=== PATIENT | female | born 1945 | race Caucasian/White ===

== ENCOUNTER → 2018-03-18 14:52 | Outpatient (CLI) | payer MEDICARE, SELFPAY ==
[2018-03-18 16:25] LABS: Absolute Neutrophil Count 2.9 X10^3/uL (2.0-7.7); Basophil# 0.02 X10^3/uL; Basophil% 0.4 % (0-1); Eosinophil# 0.09 X10^3/uL; Eosinophils% 1.8 % (0-5); Hemoglobin 10.5 g/dl (12.0-15.0); Lymphocyte % 33.9 % (19-41); Mean Corp Hgb Conc 30.9 g/gl (32-36); Mean Corpuscular Hgb 35.2 pg (27.0-32.0); Mean Corpuscular Volume 114.1 fL (81-99); Mean Platelet Vol. 12.8 fl (6.2-12.0); Neutrophil # 2.91 X10^3/uL (2.7-7.7); Neutrophil % 57.9 % (47-70); Platelet Count 167 K/mm3 (150-450); RBC Distribution Width CV 15.3 % (11.6-14.6); Red Blood Count 2.98 M/mm3 (4.2-5.4)
[2018-03-18 16:28] LABS: POSITIVE COUNT NO; POSITIVE DIFFERENTIAL NO; POSITIVE MORPHOLOGY NO
[2018-03-18 16:45] LABS: Vitamin B12 876 pg/mL (211-911); Vitamin D,25 Hydroxy 28.1 ng/mL (29.95-100.01)
[2018-03-18 16:56] LABS: ALB/GLOB Ratio 0.9 RATIO (0.9-2.4); AST(SGOT) 10 U/L (15-37); Alanine Aminotransfer ALT/SGPT 16 U/L (13-56); Albumin, Serum 3.2 g/dL (3.2-5.0); Alkaline Phosphatase 114 U/L (45-117); Anion Gap 11 (5-15); BUN 15 mg/dL (7-18); BUN/Creat Ratio 3.4 RATIO (10-20); Calcium,Total 8.2 mg/dL (8.5-10.1); Chloride 97 mmol/L (98-107); Creatinine, Serum 4.35 mg/dL (0.55-1.02); EST Glomerular Filtration Rate 11 mL/min (>60); Est Glom Filt Rate - Afr Amer 13 mL/min (>60); Globulin 3.5 g/dL (2.2-4.2); Glucose 91 mg/dL (74-106); Iron 58 ug/dL (50-170); Magnesium 1.8 mg/dL (1.6-2.6); Protein, Total 6.7 g/dL (6.4-8.2); Sodium Level 140 mmol/L (136-145)
== END ==
PROVIDERS: Family Provider Family Medicine; PCP Family Medicine; Visit Provider Family Medicine
DX: N18.9 Chronic kidney disease, unspecified (principal); D63.1 Anemia in chronic kidney disease; E53.8 Deficiency of other specified B group vitamins; E83.42 Hypomagnesemia; Z79.899 Other long term (current) drug therapy
CPT/HCPCS: 36415; 80053; 82306; 82607; 82746; 83540; 83735; 85025

== ENCOUNTER → 2018-05-19 12:05 | Outpatient (CLI) | payer MEDICARE, SELFPAY ==
--- NOTE | 2018-05-19 12:10 | RAD_ITS ---
STUDY: X-RAY - LUMBAR SPINE REASON FOR EXAM: Female, 72 years old. Lumbar radiculopathy. TECHNIQUE: 5 view(s) of the lumbar spine were obtained. COMPARISON: None FINDINGS: Normal lumbar lordosis. Mild levoscoliosis of the lower lumbar spine. Minimal degenerative anterolisthesis of L2 on L3. Normal vertebral bodies and endplates. Degenerative vacuum phenomenon with moderate L5-S1 disc space height narrowing. Right-sided L4-L5 disc space height narrowing with degenerative vacuum phenomenon. No acute fractures. No lytic or blastic lesions. Asymmetric L2-L3 degenerative facet arthropathy, right greater than left. Right lateral marginal spurs at L4-L5 disc level. The soft tissue structures are unremarkable. RAD/L/S Spine Min 4 Views IMPRESSION: 1. No acute fracture of the lumbar spine. 2. Minimal degenerative retrolisthesis of L2 on L3. 3. Right-sided L4-L5 disc space height narrowing with right lateral marginal spurs and degenerative vacuum phenomenon. 4. Moderate L5-S1 disc space height narrowing with degenerative vacuum phenomenon. Electronically Signed: Valente Dhillon MD at 9:34 EDT , Service support ,
--- NOTE | 2018-05-19 12:10 | RAD_ITS ---
STUDY: X-RAY - PELVIS AND BILATERAL HIPS REASON FOR EXAM: Female, 72 years old. Bilateral hip pain, right is worse. TECHNIQUE: Radiological exam, hip, bilateral, with pelvis when performed; 3-4 views COMPARISON: None. FINDINGS: There is a non-specific bowel gas pattern. Normal visualized soft tissue structures. Normal bilateral iliac wings, sacroiliac joints and visualized sacrum. Normal bilateral superior and inferior pubic rami. Normal pubic symphysis. Normal bilateral ischial tuberosities. 3 cannulated screws used to repair and old right femoral neck fracture with foreshortening of the right femoral neck. No acute refracture injury of the right hip. Normal right acetabulum. Normal right hip joint. Normal visualized left femoral head. Normal left acetabulum. Normal left hip joint. RAD/Hips B/L min 2 views w/ Pelvis IMPRESSION: 1. No acute fracture or dislocation of the pelvis and both hips. 2. Old fracture deformity of the right femoral neck with 3 cannulated screws penetrating the right neck and head through the femoral intertrochanteric bone. Electronically Signed: Valente hDillon MD at 10:21 EDT , Service support ,
== END ==
PROVIDERS: Family Provider Family Medicine; PCP Family Medicine; Visit Provider Family Medicine
DX: M25.551 Pain in right hip (principal); M25.552 Pain in left hip; M54.16 Radiculopathy, lumbar region
CPT/HCPCS: 72110; 73521

== ENCOUNTER → 2018-06-16 14:10 | Outpatient (CLI) | payer MEDICARE, SELFPAY ==
--- NOTE | 2018-06-16 14:12 | BI_ITS ---
MAMMOGRAPHY - BILATERAL SCREENING REASON FOR EXAM: Female, 72 years old. Routine annual screening examination. PERTINENT HISTORY: Non-contributory. TECHNIQUE: Digital bilateral breast shante (3D mammographic acquisition) in the CC and MLO projections. 2-D mediolateral oblique (MLO) and craniocaudad (CC) views of both breasts were obtained. CAD: Full Field Digital Mammography with Computer Added Detection was performed. COMPARISON: Comparison is made with prior examination dated June 27, 2015. FINDINGS: Breast Composition: The breasts are heterogeneously dense, which may obscure small masses. There is an 8.5 mm x 10 mm nodule in the inferior lateral portion of the right breast. Correlation with ultrasound is recommended. No other significant abnormalities are identified. BI/SCREENING MAMM (CAD), BILAT IMPRESSION: 10 mm x 8.5 mm well-defined nodule in the inferior lateral portion of the right breast. Correlation with ultrasound is recommended. ASSESSMENT CATEGORY: BIRADS Category 0: Incomplete. Need additional imaging evaluation. A letter regarding these results will be sent to the patient by the facility within 30 days. Approximately 10% of breast cancers are not detected by mammography. A normal mammogram should not delay biopsy of a clinically suspicious abnormality. [id number] Electronically Signed: Guicho Meeks MD at 15:35 EDT Tel [phone], Service support ,
--- NOTE | 2018-06-16 14:18 | BD_ITS ---
STUDY: DUAL ENERGY X-RAY ABSORPTIOMETRY / DXA REASON FOR EXAM: Female, 72 years old. Early menopause. Loss of height. History of prior right hip fracture. TECHNIQUE: Bone Mineral Density (BMD) measurements of lumbar spine and left hip were obtained. COMPARISON: None. FINDINGS: Lumbar Spine (L1-L4): g/cm2 (0.987) / T-score (-1.6) / Z-score (0.1) Findings are suggestive of osteopenia with a moderate fracture risk. Increased thoracic kyphosis. Left Femur Total: g/cm2 (0.601) / T-score (-3.2) / Z-score (-1.7) Left Femoral Neck: g/cm2 (0.660) / T-score (-2.7) / Z-score (-1.0) BD/Dexa Bone Density Study IMPRESSION: The patient is considered osteoporotic as outlined below according to World Elliott Organization (WHO) criteria with a high fracture risk. Reference Information: The T-score is the number of standard deviations above or below the standard which is normal for young adults at their peak bone mineral density. The World Health Organization (WHO) interprets the T-scores as follows: Above -1 Normal bone density Between -1 and -2.5 Osteopenia Equal to / or below -2.5 Osteoporosis As a practical clinical guideline, osteopenia may be graded as follows: Mild -1 through -1.5 Moderate -1.6 through -2.0 Severe -2.1 through -2.4 The Z-score is the number of standard deviations above or below age-matched controls. A Z-score of less than -1.5 would be considered abnormal. References: 1. NIH Osteoporosis and Related Bone Diseases http://www.osteo.org 2. International Society for Clinical Densitometry http://www.iscd.org 3. National Osteoporosis Foundation http://www.nof.org Electronically Signed: Guicho Meeks MD at 15:42 EDT Tel [phone], Service support ,
== END ==
PROVIDERS: Family Provider Family Medicine; PCP Family Medicine; Visit Provider Family Medicine
DX: Z12.31 Encounter for screening mammogram for malignant neoplasm of breast (principal); Z13.820 Encounter for screening for osteoporosis; Z78.0 Asymptomatic menopausal state
CPT/HCPCS: 77063; 77067; 77080

== ENCOUNTER → 2018-06-23 13:05 | Outpatient (CLI) | payer MEDICARE, SELFPAY ==
--- NOTE | 2018-06-23 13:07 | US_ITS ---
STUDY: ULTRASOUND BREAST - RIGHT REASON FOR EXAM: Female, 72 years old. 10 mm x 8.5 mm well-defined nodule in the inferior lateral portion of the right breast. TECHNIQUE: Axial and longitudinal images of the RIGHT breast were performed with a high resolution ultrasound transducer. COMPARISON: None. FINDINGS: RIGHT Breast: No ultrasound abnormality noted in the inferior outer aspect of the right breast. US/Breast Limited Unilateral IMPRESSION: Benign findings. ASSESSMENT CATEGORY: BIRADS Category 2: Benign. A letter regarding these results will be sent to the patient by the facility within 30 days. Electronically Signed: Yisel Goodman MD at 18:14 EDT Tel , Service support ,
--- NOTE | 2018-06-23 13:57 | BI_ITS ---
MAMMOGRAPHY - UNILATERAL DIAGNOSTIC: RIGHT BREAST REASON FOR EXAM: Female, 72 years old. 8.5 mm x 10 mm nodule in the inferior lateral portion of the right breast noted on screening mammogram. PERTINENT HISTORY: Non-contributory. TECHNIQUE: Digital unilateral breast spot compression views in the CC and MLO projections. CAD: Full Field Digital Mammography with Computer Added Detection was performed. COMPARISON: None. FINDINGS: Breast Composition: The breasts are heterogeneously dense, which may obscure small masses. The previously described nodule in the inferior lateral aspect of the right breast dispersed with compression. Small benign-appearing punctate and round calcification seen in the right breast. Ultrasound study performed under demonstrated no abnormality in the right breast. No other significant abnormalities are identified. BI/DIAG MAMM W/CAD, UNILAT IMPRESSION: Benign unilateral diagnostic mammogram. Short-interval follow-up recommended in six months. (C) ASSESSMENT CATEGORY: BIRADS Category 3: Probably Benign - Short-Interval Follow-up Suggested. A letter regarding these results will be sent to the patient by the facility within 30 days. Approximately 10% of breast cancers are not detected by mammography. A normal mammogram should not delay biopsy of a clinically suspicious abnormality. Electronically Signed: Yisel Goodman MD at 18:35 EDT Tel , Service support ,
== END ==
PROVIDERS: Family Provider Family Medicine; PCP Family Medicine; Visit Provider Family Medicine
DX: R92.8 Other abnormal and inconclusive findings on diagnostic imaging of breast (principal); N63.0 Unspecified lump in unspecified breast
CPT/HCPCS: 76642; 77065

== ENCOUNTER → 2018-07-23 08:33 | Outpatient (CLI) | payer MEDICARE, SELFPAY ==
[2018-07-23 11:12] LABS: Albumin, Serum 3.2 g/dL (3.2-5.0); BUN 30 mg/dL (7-18); BUN/Creat Ratio 5.3 RATIO (10-20); Creatinine, Serum 5.64 mg/dL (0.55-1.02); EST Glomerular Filtration Rate 8 mL/min (>60); Est Glom Filt Rate - Afr Amer 10 mL/min (>60); Glucose 73 mg/dL (74-106); Protein, Total 6.6 g/dL (6.4-8.2)
[2018-07-23 11:13] LABS: ALB/GLOB Ratio 0.9 RATIO (0.9-2.4); AST(SGOT) 14 U/L (15-37); Alanine Aminotransfer ALT/SGPT 24 U/L (13-56); Alkaline Phosphatase 113 U/L (45-117); Anion Gap 9 (5-15); Calcium,Total 8.1 mg/dL (8.5-10.1); Chloride 99 mmol/L (98-107); Globulin 3.4 g/dL (2.2-4.2); Magnesium 2.1 mg/dL (1.6-2.6); Potassium 3.5 mmol/L (3.5-5.1); Sodium Level 140 mmol/L (136-145)
[2018-07-24 09:09] LABS: Vitamin B12 408 pg/mL (211-911)
[2018-07-27 14:19] LABS: Vitamin D 1,25-Dihydroxy 13.2 pg/mL (19.9-79.3)
== END ==
PROVIDERS: Family Provider Family Medicine; PCP Family Medicine; Visit Provider Family Medicine
DX: M81.0 Age-related osteoporosis without current pathological fracture (principal); E53.8 Deficiency of other specified B group vitamins; E83.42 Hypomagnesemia; E53.9 Vitamin B deficiency, unspecified; E55.9 Vitamin D deficiency, unspecified
CPT/HCPCS: 36415; 80053; 82607; 82652; 82746; 83735

== ENCOUNTER 2018-08-18 07:32 | Day surgery (SDC) | payer MEDICARE, SELFPAY ==
[2018-08-18 07:53] VITALS: PULSE 117; RESP 18; TEMP 36.7; O2SAT 100; BMI 27.9
--- NOTE | 2018-08-18 08:45 | COLBX_PTH ---
PATIENT: GUIDO WALLACE LOC: EN U#:[id number] AGE/SX: 72/F ROOM: RE08/18/[address]: Dr. Bay Peguero MD : 1945 BED: DIS: 08/18/2018 SPEC #: [id number] RECD: 08/18/18 09:43 STATUS: ROBERT JEANIE #: [id number] RONNIE: 08/18/18 08:[address]: Bay Peguero DEPT: SURGICAL PATHOLOGY RECD BY: Eder Koch ENTERED: 08/18/18 11:15 SP TYPE: COLON BX NIKOLE DR: Dr. Mitchell Appiah MD Tissues: A - Transverse colon B - Transverse colon C - Rectum, NOS Procedures: Surgery Specimen Level IV HEADER OPERATION: Colonoscopy PRE-OP DIAGNOSIS: Rectal bleeding; personal history colonic polyps TISSUE SUBMITTED: A ? Proximal transverse polyp biopsy, B ? Mid transverse polyp biopsy, C ? Rectal polyp MICROSCOPIC DIAGNOSIS A. Proximal transverse colon polyp, biopsy: Tubular adenoma. B. Mid transverse colon polyp, biopsy: Fragments of tubular adenoma. C. Rectal polyp, biopsy: Fragments of tubular adenoma. DELMAR:beth 08/19/18 MICROSCOPIC DESCRIPTION Slides are reviewed. GROSS DESCRIPTION A - Received in fixative is one container labeled with the patient's name and designated proximal transverse polyp biopsy. The specimen consists of one irregular fragment of light castillo soft tissue that measures 0.1 cm in greatest dimension. The specimen is totally submitted in one cassette. B - Received in fixative is one container labeled with the patient's name and designated mid transverse polyp biopsy. The specimen consists of multiple irregular fragments of light castillo soft tissue that in aggregate measure 0.8 x 0.3 x 0.1 cm. The specimen is totally submitted in one cassette. C - Received in fixative is one container labeled with the patient's name and designated rectal polyp. The specimen consists of multiple irregular fragments of light castillo soft tissue that in aggregate measure 0.5 x 0.5 x 0.2 cm. The specimen is totally submitted in one cassette. / DELMAR:beth 08/18/18 TC:1 CPT: 69679 x3
[2018-08-18 09:35] VITALS: BP 113/62; BP 96/51; PULSE 89; RESP 15; TEMP 36.6; O2SAT 96
[2018-08-18 09:40] VITALS: BP 113/62; BP 91/47; PULSE 91; RESP 16; O2SAT 94
[2018-08-18 09:45] VITALS: BP 104/54; BP 113/62; PULSE 99; RESP 16; O2SAT 94
[2018-08-18 09:50] VITALS: BP 113/62; BP 119/60; PULSE 93; RESP 16; TEMP 36.3; O2SAT 96
[2018-08-18 10:07] VITALS: BP 113/62
--- NOTE | 2018-08-18 10:23 | OP.ENDO_ITS ---
Patient Name: Coreen Dash Procedure Date: 08/18/2018 9:03 AM Date of : 1945 Age: 72 Procedure: Colonoscopy Indications: Rectal bleeding Patient Profile: Last Colonoscopy: 3 years ago. Providers: Bay Peguero Referring MD: Bay Peguero MD Medicines: See the Anesthesia note for documentation of the administered medications Complications: No immediate complications. Procedure: Pre-Anesthesia Assessment: - Prior to the procedure, a History and Physical was performed, and patient medications and allergies were reviewed. The patient's tolerance of previous anesthesia was also reviewed. The risks and benefits of the procedure and the sedation options and risks were discussed with the patient. All questions were answered, and informed consent was obtained. Prior Anticoagulants: The patient has taken no previous anticoagulant or antiplatelet agents. ASA Grade Assessment: III - A patient with severe systemic disease. After reviewing the risks and benefits, the patient was deemed in satisfactory condition to undergo the procedure. After I obtained informed consent, the scope was passed under direct vision. Throughout the procedure, the patient's blood pressure, pulse, and oxygen saturations were monitored continuously. The colonoscope was introduced through the anus and advanced to the ileocolonic anastomosis. The colonoscopy was performed without difficulty. The patient tolerated the procedure well. The quality of the bowel preparation was good. Scope In: 9:12:45 AM Scope Withdrawal Time 0 hours 11 minutes 47 seconds Scope Out: 9:30:46 AM Total Procedure Duration Time 0 hours 18 minutes 1 second Findings: The perianal exam findings include non-thrombosed external hemorrhoids, non-thrombosed internal hemorrhoids and internal hemorrhoids that prolapse with straining, but spontaneously regress to the resting position (Grade II). A 4 mm polyp was found in the proximal transverse colon. The polyp was sessile. The polyp was removed with a cold biopsy forceps. Resection and retrieval were complete. A 5 mm polyp was found in the mid transverse colon. The polyp was sessile. The polyp was removed with a cold biopsy forceps. Resection and retrieval were complete. A 6 mm polyp was found in the rectum. The polyp was sessile. The polyp was removed with a hot snare. Resection and retrieval were complete. Multiple diverticula were found in the sigmoid colon. There is no endoscopic evidence of bleeding in the entire colon. Impression: - Non-thrombosed external hemorrhoids, non-thrombosed internal hemorrhoids and internal hemorrhoids that prolapse with straining, but spontaneously regress to the resting position (Grade II) found on perianal exam. - One 4 mm polyp in the proximal transverse colon, removed with a cold biopsy forceps. Resected and retrieved. - One 5 mm polyp in the mid transverse colon, removed with a cold biopsy forceps. Resected and retrieved. - One 6 mm polyp in the rectum, removed with a hot snare. Resected and retrieved. - Diverticulosis in the sigmoid colon. Recommendation: - Discharge patient to home. - Resume previous diet. - Continue present medications. - Telephone my office for pathology results in 1 week. - Repeat colonoscopy in 5 years for surveillance. Procedure Code(s): --- Professional --- 48446, Colonoscopy, flexible; with removal of tumor(s), polyp(s), or other lesion(s) by snare technique 79382, 59, Colonoscopy, flexible; with biopsy, single or multiple Diagnosis Code(s): --- Professional --- K64.1, Second degree hemorrhoids K64.4, Residual hemorrhoidal skin tags D12.3, Benign neoplasm of transverse colon (hepatic flexure or splenic flexure) K62.1, Rectal polyp K62.5, Hemorrhage of anus and rectum K57.30, Diverticulosis of large intestine without perforation or abscess without bleeding CPT copyright 2017 [employer] [employer]. All rights reserved. The codes documented in this report are preliminary and upon wellfield technician review may be revised to meet current compliance requirements. MD Bay Artis MD 08/18/2018 9:40:01 AM This report has been signed electronically. Number of Addenda: 0 Note Initiated On: 08/18/2018 9:03 AM
== END 2018-08-18 10:17 | disposition home or self-care (01) ==
LOC: EN 07:33 → AC 07:34
PROVIDERS: Family Provider Family Medicine; PCP Family Medicine; Visit Provider Surgery
PROC: 0DJD8ZZ Inspection of Lower Intestinal Tract, Via Natural or Artificial Opening Endoscopic (ICD-10-PCS; CPT 45378; principal; 2018-08-18 08:40)
DX: D12.3 Benign neoplasm of transverse colon (principal); D12.8 Benign neoplasm of rectum; K64.4 Residual hemorrhoidal skin tags; K64.8 Other hemorrhoids; K57.30 Diverticulosis of large intestine without perforation or abscess without bleeding; Z86.010 Personal history of colon polyps; I95.9 Hypotension, unspecified; N18.5 Chronic kidney disease, stage 5; K74.60 Unspecified cirrhosis of liver; G25.81 Restless legs syndrome; F41.9 Anxiety disorder, unspecified; F32.9 Major depressive disorder, single episode, unspecified; Z87.442 Personal history of urinary calculi; Z86.2 Personal history of diseases of the blood and blood-forming organs and certain disorders involving the immune mechanism; Z85.828 Personal history of other malignant neoplasm of skin; Z78.0 Asymptomatic menopausal state; Z99.2 Dependence on renal dialysis; Z90.49 Acquired absence of other specified parts of digestive tract; Z79.899 Other long term (current) drug therapy
CPT/HCPCS: 45380; 45385; 88305; J7040

== ENCOUNTER → 2019-01-07 13:23 | Outpatient (CLI) | payer MEDICARE, SELFPAY ==
--- NOTE | 2019-01-07 13:31 | BI_ITS ---
MAMMOGRAPHY - UNILATERAL DIAGNOSTIC: RIGHT BREAST REASON FOR EXAM: Female, 73 years old. 6 month follow-up. PERTINENT HISTORY: Non-contributory. TECHNIQUE: Digital unilateral breast shante (3D mammographic acquisition) in the CC and MLO projections. 2-D mediolateral oblique (MLO) and craniocaudad (CC) views of both breasts were obtained. CAD: Full Field Digital Mammography with Computer Added Detection was performed. COMPARISON: Comparison is made with prior mammogram dated June 16, 2018 and June 23, 2018. FINDINGS: Breast Composition: The breasts are heterogeneously dense, which may obscure small masses. There are no dominant masses or suspicious calcifications. No other significant abnormalities are identified. BI/DIAG MAMM W/CAD, UNILAT IMPRESSION: Stable unilateral diagnostic mammogram. One year follow-up mammogram recommended. (A) ASSESSMENT CATEGORY: BIRADS Category 2: Benign. A letter regarding these results will be sent to the patient by the facility within 30 days. Approximately 10% of breast cancers are not detected by mammography. A normal mammogram should not delay biopsy of a clinically suspicious abnormality. Electronically Signed: Guicho Meeks MD at 15:39 EST , Service support ,
== END ==
PROVIDERS: Family Provider Family Medicine; PCP Family Medicine; Referring Provider Family Medicine; Visit Provider Family Medicine
DX: R92.8 Other abnormal and inconclusive findings on diagnostic imaging of breast (principal)
CPT/HCPCS: 77061; 77065; G0279

== ENCOUNTER → 2019-01-07 14:13 | Outpatient (CLI) | payer MEDICAID, SELFPAY ==
[2019-01-07 15:51] LABS: Absolute Lymphocyte Count 1.54 X10^3/ul (0.83-4.51); Absolute Neutrophil Count 1.6 X10^3/uL (2.0-7.7); Basophil# 0.07 X10^3/uL; Basophil% 1.9 % (0-1); Eosinophil# 0.08 X10^3/uL; Eosinophils% 2.2 % (0-5); Hematocrit 31.5 % (37-47); Hemoglobin 9.8 g/dl (12.0-15.0); Lymphocyte # 1.54 X10^3/ul (4.0); Lymphocyte % 42.2 % (19-41); Mean Corp Hgb Conc 31.1 g/gl (32-36); Mean Corpuscular Hgb 36.7 pg (27.0-32.0); Mean Platelet Vol. 13.5 fl (6.2-12.0); Monocyte# 0.31 X10^3/uL; Monocyte% 8.5 % (0-10); Neutrophil # 1.64 X10^3/uL (2.7-7.7); Neutrophil % 44.9 % (47-70); Platelet Count 130 K/mm3 (150-450); RBC Distribution Width CV 16.2 % (11.6-14.6); Red Blood Count 2.67 M/mm3 (4.2-5.4); White Blood Count 3.7 K/mm3 (4.4-11.0)
[2019-01-07 15:52] LABS: POSITIVE COUNT NO; POSITIVE DIFFERENTIAL NO
[2019-01-07 15:58] LABS: Differential Indicated SCAN CRITERIA MET; POSITIVE MORPHOLOGY YES
[2019-01-07 16:16] LABS: AST(SGOT) 11 U/L (15-37); Alanine Aminotransfer ALT/SGPT 19 U/L (13-56); Albumin, Serum 3.2 g/dL (3.2-5.0); Alkaline Phosphatase 144 U/L (45-117); Anion Gap 14 (5-15); BUN 29 mg/dL (7-18); BUN/Creat Ratio 4.9 RATIO (10-20); Calcium,Total 8.6 mg/dL (8.5-10.1); Chloride 97 mmol/L (98-107); Creatinine, Serum 5.97 mg/dL (0.55-1.02); EST Glomerular Filtration Rate 7 mL/min (>60); Est Glom Filt Rate - Afr Amer 9 mL/min (>60); Ferritin 632 ng/mL (8-252); Globulin 3.2 g/dL (2.2-4.2); Glucose 85 mg/dL (74-106); Iron 84 ug/dL (50-170); Iron Binding Capacity,Total 178 ug/dL (250-450); PERCENT IRON SATURATION 47.2 % (15.0-55.0); Phosphorus 3.3 mg/dL (2.5-4.9); Potassium 4.1 mmol/L (3.5-5.1); Protein, Total 6.4 g/dL (6.4-8.2); Sodium Level 139 mmol/L (136-145)
[2019-01-07 16:28] LABS: Anisocytosis 1+; Platelet Estimate SLT DEC (ADEQ); Red Cell Morphology N CHROM NORMAL (NORM C&C)
[2019-01-08 10:15] LABS: Vitamin B12 664 pg/mL (211-911)
[2019-01-13 12:40] LABS: Vitamin B1, Thiamine 152.3 nmol/L (66.5-200.0)
== END ==
PROVIDERS: Family Provider Family Medicine; PCP Family Medicine; Visit Provider Family Medicine
DX: K74.60 Unspecified cirrhosis of liver (principal); N18.9 Chronic kidney disease, unspecified; D63.1 Anemia in chronic kidney disease; E53.8 Deficiency of other specified B group vitamins; E53.9 Vitamin B deficiency, unspecified; E83.42 Hypomagnesemia; M81.0 Age-related osteoporosis without current pathological fracture
CPT/HCPCS: 36415; 80053; 82607; 82728; 82746; 83540; 83550; 83735; 84100; 84425; 85025

== ENCOUNTER → 2019-05-04 | Outpatient (CLI) | payer MEDICAID, SELFPAY ==
[2019-05-04 09:54] LABS: Absolute Lymphocyte Count 0.84 X10^3/ul (0.83-4.51); Basophil# 0.02 X10^3/uL; Basophil% 0.6 % (0-1); Eosinophil# 0.05 X10^3/uL; Eosinophils% 1.6 % (0-5); Hematocrit 33.7 % (37-47); Hemoglobin 10.5 g/dl (12.0-15.0); Lymphocyte # 0.84 X10^3/ul (4.0); Lymphocyte % 26.8 % (19-41); Mean Corp Hgb Conc 31.2 g/gl (32-36); Mean Corpuscular Hgb 36.5 pg (27.0-32.0); Mean Platelet Vol. 12.7 fl (6.2-12.0); Monocyte# 0.18 X10^3/uL; Monocyte% 5.7 % (0-10); Neutrophil # 2.04 X10^3/uL (2.7-7.7); Platelet Count 109 K/mm3 (150-450); RBC Distribution Width CV 15.2 % (11.6-14.6); RBC Distribution Width SD 62.9 fl (35.1-43.9); Red Blood Count 2.88 M/mm3 (4.2-5.4); White Blood Count 3.1 K/mm3 (4.4-11.0)
[2019-05-04 09:55] LABS: POSITIVE COUNT NO; POSITIVE DIFFERENTIAL NO; POSITIVE MORPHOLOGY NO
[2019-05-04 10:25] LABS: Vitamin B12 747 pg/mL (211-911)
[2019-05-04 10:35] LABS: AST(SGOT) 12 U/L (15-37); Alanine Aminotransfer ALT/SGPT 21 U/L (13-56); Albumin, Serum 3.3 g/dL (3.2-5.0); Alkaline Phosphatase 145 U/L (45-117); Anion Gap 14 (5-15); BUN 35 mg/dL (7-18); BUN/Creat Ratio 5.7 RATIO (10-20); Calcium,Total 8.4 mg/dL (8.5-10.1); Chloride 100 mmol/L (98-107); Creatinine, Serum 6.15 mg/dL (0.55-1.02); EST Glomerular Filtration Rate 7 mL/min (>60); Est Glom Filt Rate - Afr Amer 9 mL/min (>60); Ferritin 611 ng/mL (8-252); Globulin 3.3 g/dL (2.2-4.2); Glucose 86 mg/dL (74-106); Iron 96 ug/dL (50-170); Iron Binding Capacity,Total 183 ug/dL (250-450); PERCENT IRON SATURATION 52.5 % (15.0-55.0); Potassium 3.5 mmol/L (3.5-5.1); Protein, Total 6.6 g/dL (6.4-8.2); Sodium Level 141 mmol/L (136-145)
[2019-05-09 13:40] LABS: Vitamin B1, Thiamine 188.6 nmol/L (66.5-200.0)
== END | disposition home or self-care (01) ==
LOC: MFPLAB 09:06
PROVIDERS: Family Provider Family Medicine; PCP Family Medicine; Referring Provider Family Medicine; Visit Provider Family Medicine
DX: N18.9 Chronic kidney disease, unspecified (principal); D63.1 Anemia in chronic kidney disease; E53.9 Vitamin B deficiency, unspecified; K74.60 Unspecified cirrhosis of liver; E53.8 Deficiency of other specified B group vitamins
CPT/HCPCS: 36415; 80053; 82607; 82728; 82746; 83540; 83550; 84425; 85025

== ENCOUNTER → 2019-05-11 | Outpatient (CLI) | payer MEDICAID, SELFPAY ==
--- NOTE | 2019-05-11 09:59 | RAD_ITS ---
STUDY: X-RAY - RIGHT HAND REASON FOR EXAM: Female, 73 years old. Right thumb pain goes up into arm. TECHNIQUE: 3 view(s) of the hand. COMPARISON: None. FINDINGS: There is diffuse demineralization of the bones. There is joint space narrowing of the radiocarpal articulation consistent with degenerative arthrosis. Normal distal radioulnar joint. Normal carpal articulations There is degenerative arthrosis of the carpometacarpal articulation of the thumb with lateral subluxation of the first metacarpus. Normal second through fifth carpometacarpal joints. Normal metacarpi. There is degenerative arthrosis of the metacarpophalangeal (MCP) joints. There is degenerative arthrosis of the interphalangeal joint of the thumb with articular joint space narrowing. Normal proximal and distal phalanges of the thumb. Normal metacarpophalangeal joints of the second through fifth fingers. There is diffuse articular joint space narrowing of the proximal and distal interphalangeal joints of the second through fifth fingers, but without erosive changes or periarticular soft tissue swelling. Normal phalanges of the second through fifth fingers. The soft tissue structures are unremarkable. RAD/Hand Min 3 Views IMPRESSION: Degenerative joint disease of the hand and wrist, as described above. Diffusely demineralized bones. Electronically Signed: Amanda White MD at 19:25 EDT Tel , Service support ,
== END | disposition home or self-care (01) ==
LOC: MTRAD 09:58
PROVIDERS: Family Provider Family Medicine; PCP Family Medicine; Referring Provider Family Medicine; Visit Provider Family Medicine
DX: M79.644 Pain in right finger(s) (principal)
CPT/HCPCS: 73130

== ENCOUNTER 2019-08-04 08:23 | Observation (INO) | payer MEDICARE, SELFPAY ==
[2019-08-04] VITALS (25 sets, daily range): BP systolic 89–112; BP diastolic 40–66; PULSE 70–132; RESP 12–22; TEMP 36.3–37.2; O2SAT 94–100; BMI 27.7; BMI 27.2; BMI 27.3
--- NOTE | 2019-08-04 08:57 | RAD_ITS ---
STUDY: X-RAY CHEST REASON FOR EXAM: Female, 73 years old. Shortness of breath TECHNIQUE: Single AP portable view of the chest. All COMPARISON: None. FINDINGS: The lungs are clear and expanded. There is no demonstrated pleural abnormality. Normal size heart. Normal mediastinum and liane. Normal visualized pulmonary arteries. Normal visualized aortic arch and descending thoracic aorta. Normal visualized thoracic spine. Normal visualized ribs, clavicles, and shoulders. There is no demonstrated abnormality of the visualized soft tissue structures of the upper abdomen. RAD/Chest 1 View (Portable) IMPRESSION: Normal x-ray examination of the chest. Electronically Signed: Milana Mendes, at 9:45 EDT Tel , Service support ,
--- NOTE | 2019-08-04 08:57 | EKG12_ITS ---
Test Reason : AFIB Blood Pressure : / mmHG Vent. Rate : 112 BPM Atrial Rate : 105 BPM P-R Int : 000 ms QRS Dur : 070 ms QT Int : 300 ms P-R-T Axes : 000 032 032 degrees QTc Int : 409 ms Atrial fibrillation with rapid ventricular response with premature ventricular or aberrantly conducte d complexes Abnormal ECG Confirmed by GIAN OD ([id number]), film editor supervisor ULI AYALA ([id number]) on 08/09/2019 2:44:51 PM Referred By: Alphonse Beaver Confirmed By:GIAN DO
--- NOTE | 2019-08-04 08:58 | ED.VIS.GEN ---
History of Present Illness Chief Complaint: Palpitations Informant: Patient Onset: Days - Couple days Current Severity: Mild Maximum Severity: Moderate Narrative: Patient presents with palpitations for the past couple of days. She denies history of A. fib. She states several years ago she was told she had an occasional extra beat but it should not cause any problems. Patient does have chronic renal failure and is on dialysis Friday, Friday, Friday. Patient is noted to have an allergy listed to heparin having a cause thrombus cytopenia in the past. Past Medical History - Allergies and Home Meds Allergies/Adverse Reactions: Allergies heparin Allergy (Intermediate, Verified 08/14/18 12:57) Induced thrombocytopenia alprazolam [From Xanax] Allergy (Verified 08/04/19 08:24) Unknown Primary Care Physician: Mitchell Appiah MD [Primary Care Provider] - Prior records reviewed: Yes Past Medical History: - - Reviewed Lives: With Family Smoking Status: Never smoker Review of Systems General: Denies: Chills, Fever Eyes: Denies: Visual changes - bilaterally Cardiovascular: Reports: Palpitations, Heart racing. Denies: Chest pain Respiratory: Reports: Dyspnea. Denies: Cough Gastrointestinal: Denies: Abdominal pain, Nausea, Vomiting Genitourinary: Reports: - - She does not make urine Musculoskeletal: Denies: Back pain Skin: Denies: Rash Neurological: Denies: Headache Hematologic: Denies: Easy bruising, Easy bleeding Allergy: Denies: Uticaria Physical Exam Vital Signs/Narrative: Vital Signs Temp Pulse Resp BP Pulse Ox 08/04/19 08:26 103/60 08/04/19 08:24 98.9 F 132 H 22 H 100 Inital Vital Signs reviewed: Yes General: Well nourished, Well developed Head: Normocephalic ENT: Moist mucous membranes Neck: Supple Cardiovascular: Irregular Respiratory: No distress, CTA bilaterally Abdomen: Soft, Nontender Extremities: Nontender Skin: Normal color Neurological: Alert, Oriented x3, - - Essential tremor noted Psychological: Normal affect Diagnostic/Tx/Re-eval Impressions Chest X-Ray 08/04/19 08:57 IMPRESSION: Normal x-ray examination of the chest. Electronically Signed: Milana Mendes, at 9:45 EDT Tel , Service support , 08/04/19 08:57 Chest 1 View (Portable) [RAD] Stat Laboratory Results 08/04/19 08/04/19 08/04/19 09:10 09:10 09:10 WBC 4.4 RBC 2.42 L Hgb 8.9 L Hct 27.6 L MCV 114.0 H MCH 36.8 H MCHC 32.2 RDW Std Deviation 54.8 H RDW Coeff of Yoana 13.1 Plt Count 82 L MPV 13.4 H Immature Gran % (Auto) 0.500 Neut % (Auto) 61.6 Lymph % (Auto) 29.9 Kemper % (Auto) 5.7 Eos % (Auto) 1.8 Baso % (Auto) 0.5 Absolute Neuts (auto) 2.7 Absolute Lymphs (auto) 1.31 Nucleated RBC % 0 PT 16.0 H INR 1.3 APTT 32.8 Sodium 142 Potassium 3.5 Chloride 103 Carbon Dioxide 25.0 Anion Gap 14 BUN 52 H Creatinine 8.19 H* Estim Creat Clear Calc 6.04 Est GFR (MDRD) Af Amer 6 L Est GFR (MDRD) Non-Af 5 L BUN/Creatinine Ratio 6.3 L Glucose 85 Calcium 8.3 L Troponin I 0.017 - EKG Initial EKG Interpretation: Atrial Fibrillation - A. fib at [address] change. - Medical Decision Making Patient has evidence of new onset atrial fibrillation. I initially ordered a small dose of Cardizem, however her heart rate came down into the 90s with occasional spikes up into the 120s. After work-up was completed I spoke with Dr. Tello, on-call for cardiology. 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 She will be given 5 mg of Lopressor and will be admitted for echocardiogram and stress echo. Dr. Tello will see her in the hospital. I will speak with hospitalist. ED Disposition - Plan for ED Patient: Disposition: Acute Care [facility] Diagnosis: Atrial fibrillation Instructions: Atrial Fibrillation Referrals: Mitchell Appiah MD [Primary Care Provider] -
[2019-08-04 09:28] LABS: Absolute Lymphocyte Count 1.31 X10^3/uL (0.83-4.51); Absolute Neutrophil Count 2.7 X10^3/uL (2.0-7.7); Basophil# 0.02 X10^3/uL; Basophil% 0.5 % (0-1); Eosinophil# 0.08 X10^3/uL; Eosinophils% 1.8 % (0-5); Hematocrit 27.6 % (37-47); Hemoglobin 8.9 g/dL (12.0-15.0); Lymphocyte # 1.31 X10^3/ul (4.0); Lymphocyte % 29.9 % (19-41); Mean Corp Hgb Conc 32.2 g/dL (32-36); Mean Corpuscular Hgb 36.8 pg (27.0-32.0); Mean Platelet Vol. 13.4 fl (6.2-12.0); Monocyte# 0.25 X10^3/uL; Monocyte% 5.7 % (0-10); NRBC Flagged by Analyzer 0 % (0-5); Neutrophil % 61.6 % (47-70); Platelet Count 82 K/mm3 (150-450); RBC Distribution Width CV 13.1 % (11.6-14.6); RBC Distribution Width SD 54.8 fl (35.1-43.9); Red Blood Count 2.42 M/mm3 (4.2-5.4); White Blood Count 4.4 K/mm3 (4.4-11.0)
[2019-08-04 09:39] LABS: International Normalized Ratio 1.3
[2019-08-04 09:40] LABS: Partial Thromboplast Time 32.8 Seconds (24.1-36.2)
[2019-08-04 09:45] LABS: Anion Gap 14 (5-15); BUN 52 mg/dL (7-18); BUN/Creat Ratio 6.3 RATIO (10-20); Calcium,Total 8.3 mg/dL (8.5-10.1); Chloride 103 mmol/L (98-107); Creatinine, Serum 8.19 mg/dL (0.55-1.02); EST Glomerular Filtration Rate 5 mL/min (>60); Est Glom Filt Rate - Afr Amer 6 mL/min (>60); Estimated Creatinine Clearance 6.04 ml/min; Glucose 85 mg/dL (74-106); Potassium 3.5 mmol/L (3.5-5.1); Sodium Level 142 mmol/L (136-145)
--- NOTE | 2019-08-04 10:50 | NURSING ---
PCU OBS AFIB TERELETSKY
--- NOTE | 2019-08-04 10:50 | NURSING ---
DR EMRE HALE PA, IN ROOM
[2019-08-04] MEDS: Metoprolol Tartrate 5 MG/5 ML Vial IV (11:12)
--- NOTE | 2019-08-04 11:23 | PCM.CONS.C ---
<BurkMickie cabezas M - Last Filed: 08/04/19 11:23> Problem List (1) Atrial fibrillation Status: Acute Reason for Consult Date of Consultation: 08/04/19 History of Present Illness: The patient is a 73 year old F that presented to the emergency room for today for palpitations. Patient states that over the last 2 weeks she is noticed increased heart rate that has been intermittent. Last week when she was at dialysis she noted that her heart rate had increased to 150, they had questions sending her to the emergency room at that time however her heart rate had improved prior to end of dialysis and she went home. She notes that her palpitations have worsened over the last several days. When she has palpitation she does have dizziness and increased shortness of breath. She does not have any chest pain. She did have a near syncopal event last week during dialysis and it was felt to be related to low blood pressure readings. Patient does have a history of hypertension, chronic kidney disease requiring dialysis 3 days a week, anemia. She currently does not have her home medication list with her. Past Medical History Allergies/Adverse Reactions: Allergies heparin Allergy (Intermediate, Verified 08/14/18 12:57) Induced thrombocytopenia alprazolam [From Xanax] Allergy (Verified 08/04/19 08:24) Unknown Home Medications: Ambulatory Orders Medication Instructions Recorded calcium acetate 667 mg capsule 667 mg PO TID cap 07/24/18 cholecalciferol (vitamin D3) 1,000 3,000 unit PO DAILY 07/24/18 unit capsule lorazepam 0.5 mg tablet 0.5 mg PO QD-BID PRN 07/24/18 midodrine 10 mg tablet 10 mg PO TID 07/24/18 ondansetron HCl 4 mg tablet 4 mg PO TID-QID PRN 07/24/18 primidone 50 mg tablet 50 mg PO Q4H PRN PRN tab 07/24/18 tramadol 50 mg tablet 50 mg PO BID PRN PRN tab 07/24/18 vitamin B complex tablet 1 tab PO QODAY tab 07/24/18 Sertraline HCl [Zoloft] 25 mg PO BID 08/04/19 Surgical History: cholecystectomy, - - Right hip ORIF, AV graft left arm Lives: With Family Smoking Status: Never smoker Review of Systems - Review of Systems General: Reports: Fatigue, Chills. Denies: Fever HEENT: Denies: Vision Change, Blurred Vision, Head Aches Cardiovascular: Reports: Shortness of Breath, Shortness of Breath with Exertion, Palpitations, Orthostatic Symptoms. Denies: Chest Discomfort, Chest Discomfort at Rest, Chest Discomfort with Exertion, Peripheral Edema, Lightheadedness Respiratory: Denies: Cough, Hemoptysis Gastrointestinal: Denies: Hematemesis, Hematochezia, Melena Genitourinary: Denies: Hematuria Objective: Vital Signs Temp Pulse Resp BP Pulse Ox 98.9 F 99 15 95/60 99 08/04/19 08:24 08/04/19 09:26 08/04/19 09:26 08/04/19 09:26 08/04/19 09:26 Oxygen Flow Rate (L/min) 2 Oxygen Delivery Method Nasal Cannula Weight: 177 lb 4.026 oz Body Mass Index (BMI) 27.7 General: Awake, Alert, Oriented x 3 HEENT: PERRL, EOMI, Sclera Non Icteric Neck: Supple, No JVD Lungs: Clear to auscultation Cardiovascular: Irregular Rhythm, Normal S1, Normal S2, No Murmurs, No Rubs, No Gallops Vascular: - - left arm AV graft Abdomen: Bowel Sounds Present, Soft, Non Tender Extremities: No Cyanosis, No Clubbing, No edema Neurological: CN II-XII Intact 08/04/19 09:10: WBC 4.4, RBC 2.42 L, Hgb 8.9 L, Hct 27.6 L, MCV 114.0 H, MCH 36.8 H, MCHC 32.2, Plt Count 82 L, MPV 13.4 H, Immature Gran % (Auto) 0.500, Neut % (Auto) 61.6, Lymph % (Auto) 29.9, [place] % (Auto) 5.7, Eos % (Auto) 1.8, Baso % (Auto) 0.5, Absolute Neuts (auto) 2.7, Nucleated RBC % 0 08/04/19 09:10: PT 16.0 H, INR 1.3, APTT 32.8 08/04/19 09:10: Sodium 142, Potassium 3.5, Chloride 103, Carbon Dioxide 25.0, Anion Gap 14, BUN 52 H, Creatinine 8.19 H*, Est GFR (MDRD) Af Amer 6 L, Est GFR (MDRD) Non-Af 5 L, BUN/Creatinine Ratio 6.3 L, Glucose 85, Calcium 8.3 L, Troponin I 0.017 Rhythm: EKG: ECHO: Stress Test: Cardiac Cath: PCI: CT Surgery: Holter monitor: EPS: PPM: CXR: Chest CT Scan: Assessment/Plan 1. New onset atrial fibrillation with RVR: With patient's allergy to heparin she was started on bilvalirudin. She was given IV metoprolol diltiazem in the emergency room to help control her heart rate. We will continue to monitor heart rate and adjust appropriate rate limiting medication, need to be careful with her lower blood pressure readings as she does have a history of hypertension. Will trend her troponins. Will obtain an echocardiogram. If troponins are negative we will then proceed with a stress echocardiogram. Upon discharge will discuss anticoagulation with patient. If her Atrial fibrillation is persistent will consider a cardioversion after pt has been anticoagulated for the appropriate period of time. As pt does have a history of anemia will need to monitor Hgb is she is to remain on an anticoagulant. 2. Chronic renal disease: Pt does require dialysis 3 days a week, this will be managed by hospitalist. <OmerJorge Luis - Last Filed: 08/04/19 12:49> Problem List (1) Atrial fibrillation Status: Acute (2) Chronic renal failure, stage 5 Status: Acute (3) Rectal bleeding Status: Acute Reason for Consult Reason for Consultation: End-stage renal insufficiency on hemodialysis Friday and Friday, hypertension, unknown cholesterol, new onset atrial fibrillation with RVR, hypotension on Midrin History of Present Illness: The patient is a 73 year old F, nondiabetic, with hypertension, unknown cholesterol, no previous known coronary artery disease, no previous catheterization, non-smoker, with end-stage renal disease undergoing hemodialysis 3 times per week on Friday and Friday. In addition the patient has chronic hypotension requiring midodrine and primidone for blood pressure support. Patient been doing well until over the last week or so when she began noticing palpitations, and increasing heart rate. She appeared notices more so at dialysis although she was able to complete her runs despite her baseline hypotension. Today when she went to dialysis she was found to be significantly tachycardic at a rate of 150 and irregular. In addition she has some shortness of breath but no chest pain or angina. She was referred to the emergency room where an EKG was performed which showed atrial fibrillation with rapid ventricular response, and no acute changes. She received some low-dose Lopressor IV which controlled her heart rate. Her initial troponin was 0.017. She denies any previous known history of atrial fibrillation. She denies any TIA or CVAs in the past. She has never had a heart catheterization. In addition the patient has a history of heparin-induced thrombocytopenia, and cannot take heparin. She was started on bivalirudin drip. [] Subjectve: Patient laying in bed, no acute distress. Objective: Vital Signs Temp Pulse Resp BP Pulse Ox 98.9 F 70 14 93/53 L 99 08/04/19 08:24 08/04/19 11:30 08/04/19 11:30 08/04/19 11:30 08/04/19 11:30 Oxygen Flow Rate (L/min) 2 Oxygen Delivery Method Nasal Cannula Weight: 174 lb 2.643 oz Body Mass Index (BMI) 27.2 08/04/19 09:10: WBC 4.4, RBC 2.42 L, Hgb 8.9 L, Hct 27.6 L, MCV 114.0 H, MCH 36.8 H, MCHC 32.2, Plt Count 82 L, MPV 13.4 H, Immature Gran % (Auto) 0.500, Neut % (Auto) 61.6, Lymph % (Auto) 29.9, [place] % (Auto) 5.7, Eos % (Auto) 1.8, Baso % (Auto) 0.5, Absolute Neuts (auto) 2.7, Nucleated RBC % 0 08/04/19 09:10: PT 16.0 H, INR 1.3, APTT 32.8 08/04/19 09:10: Sodium 142, Potassium 3.5, Chloride 103, Carbon Dioxide 25.0, Anion Gap 14, BUN 52 H, Creatinine 8.19 H*, Est GFR (MDRD) Af Amer 6 L, Est GFR (MDRD) Non-Af 5 L, BUN/Creatinine Ratio 6.3 L, Glucose 85, Calcium 8.3 L, Troponin I 0.017 Rhythm: EKG: ECHO: Stress Test: Cardiac Cath: PCI: CT Surgery: Holter monitor: EPS: PPM: CXR: Chest CT Scan: Assessment/Plan 1. New onset atrial fibrillation: It is uncertain whether this to when the patient went in atrial fibrillation, which is complicated by the fact that she has chronically low hypotension despite her requirement for hemodialysis 3 times per week. She responded well to low-dose IV Lopressor. Recommend starting her on Lopressor 12.5 mg p.o. twice daily and titrating up from there. In addition I recommend that she undergo a 2D echo with Doppler, and will rule out for myocardial infarction with troponins x3. If her troponins are negative, I would recommend evaluating her coronary arteries with a stress test such as a dobutamine echocardiogram as she does not appear to be able to walk on a treadmill for any meaningful amount of time. If her stress test is negative, would recommend starting her on Coumadin for new onset atrial fibrillation. She will require 4 consecutive weeks of therapeutic INR prior to DC cardioversion. In addition recommended obtaining a TSH and T4 as well as a fasting lipid profile. Patient may proceed with hemodialysis pending her cardiac work-up. 2. History and physical and conclusions were reviewed with Mickie Burk, and agree with above. 3. Thank you very much for the opportunity to participate in the cardiac care of your patient. Consultation time took place between 1130 and 12 PM. Code Visit Inpatient E&M: 49024 Init Hosp L2
--- NOTE | 2019-08-04 13:22 | ECHOD_ITS ---
Reason For Study: Afib, Aflutter Procedure This was a 2D Doppler, Color Flow transthoracic echocardiogram. Exam performed portable in patient room. Left Ventricle Normal size and thickness. The estimated ejection fraction is 65 %. Unable to assess diastolic dysfunction. No regional wall motion abnormalities noted. Right Ventricle Moderately dilated right ventricle. Normal systolic function. Atria The left atrium is moderately enlarged. The right atrium is moderately enlarged. Normal atrial septum. Mitral Valve The mitral valve is structurally normal. No prolapse or stenosis seen. Tricuspid Valve Normal tricuspid valve. Mild (1+) tricuspid valve insufficiency. Right ventricular systolic pressure estimated to be 32 mmHg. Aortic Valve Trisinus/trileaflet aortic valve. Mild focal aortic valve thickening. There is no aortic stenosis. Pulmonic Valve Normal pulmonic valve. Trivial pulmonic valve insufficiency. Great Vessels Normal aortic root. Normal arch. The inferior vena cava is dilated. Inferior vena cava collapse with sniff. Pericardium/Pleural No pericardial effusion. MMode/2D Measurements & Calculations LVIDd: 4.2 cm IVSd: 1.0 cm Ao root diam: 3.0 cm LVIDs: 3.0 cm LVPWd: 0.96 cm RVDd: 4.3 cm FS: 29.4 % LAV(MOD-bp): 47.7 ml LVAd ap4: 21.7 cm2 SV(MOD-sp4): 30.3 ml LAV(MOD-bp) Indexed: 25.0 ml/m2 EDV(MOD-sp4): 54.9 ml LAV(MOD-sp2): 46.1 ml EDV(sp4-el): 55.2 ml LAV(MOD-sp4): 41.2 ml LVAs ap4: 13.0 cm2 ESV(MOD-sp4): 24.6 ml ESV(sp4-el): 23.0 ml EF(MOD-sp4): 55.2 % EF(sp4-el): 58.3 % SV(sp4-el): 32.2 ml LA A4 area: 17.7 cm2 LA dimension(2D): 4.0 cm RA A4 area: 17.0 cm2 Doppler Measurements & Calculations MV E max fermin: 96.7 cm/sec Ao V2 max: 123.5 cm/sec LV V1 max: 108.1 cm/sec Ao max P.1 mmHg LV V1 max P.7 mmHg Ao V2 mean: 86.0 cm/sec Ao mean P.3 mmHg Ao V2 VTI: 23.8 cm PA V2 max: 75.9 cm/sec TR max fermin: 207.5 cm/sec TR max P.2 mmHg Interpretation Summary The estimated ejection fraction is 65 %. Unable to assess diastolic dysfunction. Moderately dilated right ventricle. The left atrium is moderately enlarged. The right atrium is moderately enlarged. Mild (1+) tricuspid valve insufficiency. Right ventricular systolic pressure estimated to be 32 mmHg. Mild focal aortic valve thickening of the non coronary cusp. Pt appears to be in atrial fibrillation. There is no comparison study available. Ordering Physician: Jorge Luis Telol Referring Physician: Mitchell Appiah Performed By: Sabiha Winter RDCS, ALEIDA
[2019-08-04 13:37] LABS: Cholesterol 108 mg/dL (200); High Density Lipoprotein 40 mg/dL; Thyroid Stim Hormone (TSH) 1.97 uIU/mL (0.358-3.74); Triglycerides 111 mg/dL; Very Low Density Lipoprotein 22 mg/dL (5-40)
[2019-08-04 14:36] LABS: Partial Thromboplast Time 64.5 Seconds (24.1-36.2)
--- NOTE | 2019-08-04 15:06 | CON.PCM_ITS ---
Problem List (1) ESRD (end stage renal disease) on dialysis Status: Acute Consultation - Renal 08/04/19 PCP/ Referring MD: Requesting physician: Dr Beaver Primary care physician: Mitchell Appiah MD Reason for Consultation:: ESRD - History of Present Illness History of Present Illness: The patient is a 73 year old F Admitted with tachycardia, hypotension. Diagnosed with atrial fibrillation. Currently on bilvarudin drip due to history of heparin-induced thrombocytopenia. ESRD on dialysis Friday, Friday, Friday schedule. Last dialysis was Friday. Usually runs low blood pressures on dialysis, has to take Midodrin before dialysis. Primary commercial construction estimator is Dr Montanez - Allergies Allergies: Allergies heparin Allergy (Intermediate, Verified 08/14/18 12:57) Induced thrombocytopenia alprazolam [From Xanax] Allergy (Verified 08/04/19 08:24) Unknown - Current Medications Current Medications: Current Medications Bivalirudin 250 mg/ Sodium (Chloride) 50 mls @ 0.804 mls/hr IV .[id number] ALEN; Protocol Last Infusion: 08/04/19 14:56 Dose: 0.05 mg/kg/hr, 0.8 mls/hr Documented by: Sodium Chloride () 250 mls @ 15 mls/hr IV .[id number] ALEN Last Admin: 08/04/19 12:37 Dose: 15 mls/hr Documented by: Metoprolol Tartrate (Lopressor (Beta Rosie)) 12.5 mg PO BID ALEN - Past Surgical History Surgical History: cholecystectomy, - - Right hip ORIF, AV graft left arm - Social History Smoking Status: Never smoker Review of Systems Constitutional: Denies: Chills, Fever, Weight Change HEENT: Denies: Head Aches, Sinus Congestion, Sinus Drainage Cardiovascular: Denies: Chest Pain, Palpitations Respiratory: Denies: Cough, Shortness of breath at rest, Sputum production Gastrointestinal: Denies: Abdominal Pain, Nausea, Vomiting Genitourinary: Denies: Dysuria Musculoskeletal: Denies: Joint Pain, Joint Tenderness Skin: Denies: Rash, Wounds Neurological: Denies: Numbness, Tingling, Focal weakness Psychiatric: Denies: Anxiety, Depression, Homicidal Ideations, Suicidal Ideations Hematologic/ Lymphatic: Denies: Easy Bruising, Easy Bleeding Patient Problems: Active and Suspected Problems (Last Reviewed 07/24/18 @ 13:32 by Monique Woodall) Atrial fibrillation (Acute) ESRD (end stage renal disease) on dialysis (Acute) - Physical Exam General: Alert, Oriented x3, Cooperative HEENT: Atraumatic, PERRLA, EOMI, Normocephalic Neck: Supple, No JVD, Negative Carotid Bruits Lungs: Clear to auscultation, Normal air movement Cardiovascular: Regular rate, No murmurs Abdomen: Bowel Sounds Present, Soft, Non Tender Extremities: No edema, Capillary Refill Less than 3 Seconds Skin: No rashes, No breakdown Musculoskeletal: No Tenderness to Palpation of Joints or Extremities Neurological: Cranial nerves II-XII grossly intact Psych/Mental Status: Normal Affect, Appropriate Vital Signs Temp Pulse Resp BP Pulse Ox 97.4 F L 88 18 90/48 L 100 08/04/19 11:45 08/04/19 14:00 08/04/19 14:00 08/04/19 14:00 08/04/19 14:00 Oxygen Flow Rate (L/min) 2 Oxygen Delivery Method Nasal Cannula Weight: 79 kg Body Mass Index (BMI) 27.2 Intake and Output for Last 24 Hours 08/02/19 08/03/19 08/04/19 23:59 23:59 23:59 Intake Total 2.71 / 2.71 Balance 2.71 / 2.71 Laboratory Tests Past 24 Hrs 08/04/19 08/04/19 08/04/19 09:10 09:10 09:10 WBC 4.4 RBC 2.42 L Hgb 8.9 L Hct 27.6 L MCV 114.0 H MCH 36.8 H MCHC 32.2 RDW Std Deviation 54.8 H RDW Coeff of Yoana 13.1 Plt Count 82 L MPV 13.4 H Immature Gran % (Auto) 0.500 Neut % (Auto) 61.6 Lymph % (Auto) 29.9 [place] % (Auto) 5.7 Eos % (Auto) 1.8 Baso % (Auto) 0.5 Absolute Neuts (auto) 2.7 Absolute Lymphs (auto) 1.31 Nucleated RBC % 0 PT 16.0 H INR 1.3 APTT 32.8 Sodium 142 Potassium 3.5 Chloride 103 Carbon Dioxide 25.0 Anion Gap 14 BUN 52 H Creatinine 8.19 H* Estim Creat Clear Calc 6.04 Est GFR (MDRD) Af Amer 6 L Est GFR (MDRD) Non-Af 5 L BUN/Creatinine Ratio 6.3 L Glucose 85 Calcium 8.3 L Troponin I 0.017 Triglycerides Cholesterol LDL Cholesterol VLDL Cholesterol HDL Cholesterol TSH 08/04/19 08/04/19 08/04/19 09:10 13:15 14:10 WBC RBC Hgb Hct MCV MCH MCHC RDW Std Deviation RDW Coeff of Yoana Plt Count MPV Immature Gran % (Auto) Neut % (Auto) Lymph % (Auto) [place] % (Auto) Eos % (Auto) Baso % (Auto) Absolute Neuts (auto) Absolute Lymphs (auto) Nucleated RBC % PT INR APTT 64.5 H Sodium Potassium Chloride Carbon Dioxide Anion Gap BUN Creatinine Estim Creat Clear Calc Est GFR (MDRD) Af Amer Est GFR (MDRD) Non-Af BUN/Creatinine Ratio Glucose Calcium Troponin I < 0.015 Triglycerides 111 Cholesterol 108 LDL Cholesterol 46 VLDL Cholesterol 22 HDL Cholesterol 40 TSH 1.97 Assessment/Plan All Active Problems (Last Reviewed 07/24/18 @ 13:32 by Monique Woodall) Atrial fibrillation (Acute) ESRD (end stage renal disease) on dialysis (Acute) Personal history of colonic polyps (Acute) Chronic renal failure, stage 5 (Acute) Rectal bleeding (Acute) End-stage renal disease. Dialysis arranged today. Will give midodrine with dialysis. Will likely end up running even. Does not look fluid overloaded. Atrial fibrillation. Rate is around 90-100 now. Currently on anticoagulation. d/w hospitalist
[2019-08-04] MEDS: Midodrine HCl 5 MG Tablet 10 MG PO ×2 (16:15→20:45)
[2019-08-04 16:48] LABS: Partial Thromboplast Time 74.2 Seconds (24.1-36.2)
--- NOTE | 2019-08-04 19:28 | PCM.HP.STD ---
Problem List (1) Palpitations Status: Acute (2) Shortness of breath Status: Acute History of Present Illness Date of Admission: 08/04/19 Chief Complaint: Palpitations, shortness of breath The patient is a 73 year old F seen in the emergency room at [facility] with a chief complaint of palpitations over the last 3 weeks off and on and shortness of breath. She is a chronic dialysis patient and she stated that she came to the emergency room because she did not feel well in dialysis and was told to be evaluated in the ER. Evaluation in the emergency room included an EKG which revealed the patient to be in atrial fibrillation with a rate of approximately 112 bpm, labs were obtained, patient's hemoglobin was 8.9, creatinine was elevated at 8.19, BUN was 52. Patient's troponin was 0.017. Chest x-ray was normal. Patient had no complaints of any chest pain, cough, fever, or chills. Cardiology was contacted from the emergency room and advised that they would see the patient after admission. Hospitalist service was called for admission, patient was placed in observation status for new onset atrial fibrillation with a rapid ventricular response, emergency room physician initially ordered a small dose of Cardizem however the patient's heart rate came down into the 90s without the use of any rate inhibiting agents. Cardiology requested the patient receive 5 mg of Lopressor IV but again, on reevaluation, patient's heart rate was in the 80s and this medicine was not given to my knowledge. Patient was placed in observation status on PCU, she will be seen by nephrology and cardiology, she will undergo dialysis today. Cardiac enzymes will be cycled Past Medical History Past Medical History (Chronic Problems): Chronic Problems (Last Reviewed 07/24/18 @ 13:32 by Monique Woodall) ESRD (end stage renal disease) on dialysis (Chronic) Chronic renal failure, stage 5 (Chronic) Medical History: Medical History (Last Reviewed 07/24/18 @ 13:32 by Monique Woodall) Personal history of colonic polyps (Inactive) Z86.010 Chronic renal failure, stage 5 (Chronic) N18.5 Rectal bleeding (Resolved) K62.5 Back problem M53.9 CL (cirrhosis of liver) K74.60 Chronic kidney disease N18.9 History of hysterectomy Z90.710 Kidney stones N20.0 Rectal bleeding K62.5 Tremors of nervous system R25.1 Allergies heparin Allergy (Intermediate, Verified 08/14/18 12:57) Induced thrombocytopenia alprazolam [From Xanax] Allergy (Verified 08/04/19 08:24) Unknown Home Medications: Ambulatory Orders Medication Instructions Recorded calcium acetate 667 mg capsule 667 mg PO TID cap 07/24/18 cholecalciferol (vitamin D3) 1,000 3,000 unit PO DAILY 07/24/18 unit capsule lorazepam 0.5 mg tablet 0.5 mg PO QD-BID PRN 07/24/18 midodrine 10 mg tablet 10 mg PO TID 07/24/18 ondansetron HCl 4 mg tablet 4 mg PO TID-QID PRN 07/24/18 primidone 50 mg tablet 50 mg PO Q4H PRN PRN tab 07/24/18 tramadol 50 mg tablet 50 mg PO BID PRN PRN tab 07/24/18 vitamin B complex tablet 1 tab PO QODAY tab 07/24/18 Sertraline HCl [Zoloft] 25 mg PO BID 08/04/19 Apixaban [Eliquis] 5 mg PO BID #60 tab 08/05/19 Metoprolol Tartrate [Lopressor 12.5 mg PO BID #30 tab 08/05/19 (beta sofiya)] Surgical History: Surgical History (Last Updated 07/24/18 @ 13:32 by Monique Woodall) History of colonoscopy Onset Date: ~2014 Z98.890 History of intestinal bypass Z98.0 History of laparoscopic cholecystectomy Z90.49 history AV graft history ORIF right hip Surgical History: cholecystectomy, hysterectomy, - - Right hip ORIF, AV graft left arm, past history of an intestinal bypass for weight loss, skin cancer removal Psychiatric History: No pertinent psych hx 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 Lives: With Family Smoking Status: Never smoker Tobacco Use: Non-smoker Alcohol: None Drugs: None - *Family History Maternal Family History: Family History (Last Updated 07/24/18 @ 13:53 by Monique Woodall) Father Arthritis Skin cancer Heart disease Hypertension Hypercholesterolemia Brother Arthritis Heart disease Hypercholesterolemia Hypertension Seizures History Items: Cancer - Leukemia Paternal Family History: Family History (Last Updated 07/24/18 @ 13:53 by Monique Woodall) Father Arthritis Skin cancer Heart disease Hypertension Hypercholesterolemia Brother Arthritis Heart disease Hypercholesterolemia Hypertension Seizures History Items: Heart Disease Review of Systems Constitutional: Denies: Anorexia, Chills, Fever, Night Sweats, Malaise, Weakness, Weight Change Eyes: Denies: Cataracts, Conjunctivae Inflammation, Double vision, Drainage HEENT: Denies: Difficulty Swallowing, Dysphasia, Ear Pain, Eye Pain, Hearing Changes, Nasal bleeding, Nasal Congestion Cardiovascular: Reports: Palpitations. Denies: Chest Pain, Claudication, Chest Pressure, Chest Tightness Respiratory: Denies: Cough, Hemoptysis, Pleuritic Pain, Shortness of Breath, Shortness of breath at rest, Shortness of breath upon exertion Gastrointestinal: Denies: Abdominal Pain, Constipation, Diarrhea, Hematemesis, Hematochezia, Nausea, Melena, Vomiting Genitourinary: Denies: Dysuria, Frequency, Hematuria, Hesitancy, Urgency Gynecological: Denies: Breast symptoms Musculoskeletal: Denies: Back Pain, Foot Pain, Hand Pain, Joint Pain, Joint stiffness, Joint swelling, Joint Tenderness, Leg Pain Skin: Denies: Dryness, Jaundice, Pruritis, Rash Neurological: Denies: Blurred vision, Double vision, Change in Speech, Slurred speech, Difficulty swallowing, Focal weakness, Headaches, Numbness, Tingling Psychiatric: Denies: Anxiety, Depression, Homicidal Ideations, Suicidal Ideations Endocrine: Denies: Change in Body Habitus, Heat/ Cold Intolerance, Polydipsia, Polyuria Hematologic/ Lymphatic: Denies: Adenopathy, Anemia, Easy Bruising, Easy Bleeding, Petechiae, Purpura VTE Information - Inpt Only VTE Present on Admission: No VTE Mechan Device Prophylaxis: None VTE Pharm Prophylaxis ordered?: Yes - Physical Exam General: Alert, Oriented x3, Cooperative, No apparent distress, Well developed HEENT: Atraumatic, PERRLA, EOMI, Normocephalic Oral: Moist Mucosa Neck: Supple, No JVD, Trachea Midline, Thyroid Normal Size and Texture Lungs: Clear to auscultation, Normal air movement, No rhonchi, No wheeze, No rales Cardiovascular: Regular rate, Regular Rhythm, Normal S1, Normal S2, No murmurs, No Ectopic Activity Abdomen: Bowel Sounds Present, Soft, Non Tender, Non-Distended, No hernias noted Extremities: No edema, Capillary Refill Less than 3 Seconds Skin: No rashes, No breakdown Neurological: Cranial nerves II-XII grossly intact, Neuro grossly intact, Sensory exam intact to light touch and pain, Coordination normal Psych/Mental Status: Normal Affect, Appropriate, Alert and oriented to time, place, person, mood and affect Vital Signs Temp Pulse Resp BP Pulse Ox 97.6 F L 89 15 96/63 100 08/04/19 17:00 08/04/19 17:00 08/04/19 17:00 08/04/19 17:00 08/04/19 17:00 Oxygen Flow Rate (L/min) 2 Oxygen Delivery Method Nasal Cannula Weight: 79 kg Body Mass Index (BMI) 27.2 Intake and Output for Last 24 Hours 08/02/19 08/03/19 08/04/19 23:59 23:59 23:59 Intake Total 331.18 / 331.18 Output Total 0 / 0 Balance 331.18 / 331.18 Laboratory Tests Past 24 Hrs 08/04/19 08/04/19 08/04/19 09:10 09:10 09:10 WBC 4.4 RBC 2.42 L Hgb 8.9 L Hct 27.6 L MCV 114.0 H MCH 36.8 H MCHC 32.2 RDW Std Deviation 54.8 H RDW Coeff of Yoana 13.1 Plt Count 82 L MPV 13.4 H Immature Gran % (Auto) 0.500 Neut % (Auto) 61.6 Lymph % (Auto) 29.9 [place] % (Auto) 5.7 Eos % (Auto) 1.8 Baso % (Auto) 0.5 Absolute Neuts (auto) 2.7 Absolute Lymphs (auto) 1.31 Nucleated RBC % 0 PT 16.0 H INR 1.3 APTT 32.8 Sodium 142 Potassium 3.5 Chloride 103 Carbon Dioxide 25.0 Anion Gap 14 BUN 52 H Creatinine 8.19 H* Estim Creat Clear Calc 6.04 Est GFR (MDRD) Af Amer 6 L Est GFR (MDRD) Non-Af 5 L BUN/Creatinine Ratio 6.3 L Glucose 85 Calcium 8.3 L Troponin I 0.017 Triglycerides Cholesterol LDL Cholesterol VLDL Cholesterol HDL Cholesterol TSH 08/04/19 08/04/19 08/04/19 09:10 13:15 14:10 WBC RBC Hgb Hct MCV MCH MCHC RDW Std Deviation RDW Coeff of Yoana Plt Count MPV Immature Gran % (Auto) Neut % (Auto) Lymph % (Auto) [place] % (Auto) Eos % (Auto) Baso % (Auto) Absolute Neuts (auto) Absolute Lymphs (auto) Nucleated RBC % PT INR APTT 64.5 H Sodium Potassium Chloride Carbon Dioxide Anion Gap BUN Creatinine Estim Creat Clear Calc Est GFR (MDRD) Af Amer Est GFR (MDRD) Non-Af BUN/Creatinine Ratio Glucose Calcium Troponin I < 0.015 Triglycerides 111 Cholesterol 108 LDL Cholesterol 46 VLDL Cholesterol 22 HDL Cholesterol 40 TSH 1.97 08/04/19 08/04/19 15:55 15:55 WBC RBC Hgb Hct MCV MCH MCHC RDW Std Deviation RDW Coeff of Yoana Plt Count MPV Immature Gran % (Auto) Neut % (Auto) Lymph % (Auto) [place] % (Auto) Eos % (Auto) Baso % (Auto) Absolute Neuts (auto) Absolute Lymphs (auto) Nucleated RBC % PT INR APTT 74.2 H Sodium Potassium Chloride Carbon Dioxide Anion Gap BUN Creatinine Estim Creat Clear Calc Est GFR (MDRD) Af Amer Est GFR (MDRD) Non-Af BUN/Creatinine Ratio Glucose Calcium Troponin I < 0.015 Triglycerides Cholesterol LDL Cholesterol VLDL Cholesterol HDL Cholesterol TSH Assessment/Plan All Active Problems (Last Updated 08/06/19 @ 08:39 by Alphonse Beaver DO) Atrial fibrillation (Acute) Palpitations (Acute) Shortness of breath (Acute) Rectal bleeding (Resolved) #1 new onset atrial fibrillation with RVR-patient was placed in observation status on PCU, she did not require any immediate rate limiting medications however, she will be seen in consultation by cardiology. #2 chronic kidney disease stage V on dialysis-nephrology will see the patient #3 history of heparin-induced thrombocytopenia-patient will be on bivalirudin, discharge she will probably need to be placed on a NOAC #4 anemia chronic renal disease Code Visit OBSV E&M: 05544 Initial observation care L3
--- NOTE | 2019-08-04 19:36 | DIALYSIS ---
Pt tolerated 3hr HD tx well. Net UF even. See flow record for tx data.
[2019-08-04] MEDS: Metoprolol Tartrate 25 MG Tablet 12.5 MG PO (20:44)
[2019-08-04] MEDS: Sertraline 50 MG Tablet 25 MG PO (20:45)
[2019-08-04] MEDS: Primidone 50 MG Tablet PO (20:47)
[2019-08-05] VITALS (16 sets, daily range): BP systolic 83–110; BP diastolic 48–85; PULSE 68–90; RESP 10–18; TEMP 36.4–36.9; O2SAT 93–99
[2019-08-05] MEDS: traMADol 50 MG Tablet PO ×2 (03:07→14:34)
[2019-08-05 04:20] LABS: Partial Thromboplast Time 70.9 Seconds (24.1-36.2)
[2019-08-05 04:26] LABS: Anion Gap 9 (5-15); BUN 25 mg/dL (7-18); BUN/Creat Ratio 5.2 RATIO (10-20); Calcium,Total 8.1 mg/dL (8.5-10.1); Chloride 102 mmol/L (98-107); Creatinine, Serum 4.77 mg/dL (0.55-1.02); EST Glomerular Filtration Rate 10 mL/min (>60); Est Glom Filt Rate - Afr Amer 12 mL/min (>60); Estimated Creatinine Clearance 10.37 ml/min; Glucose 88 mg/dL (74-106); Potassium 3.7 mmol/L (3.5-5.1); Sodium Level 139 mmol/L (136-145)
[2019-08-05] MEDS: Midodrine HCl 5 MG Tablet 10 MG PO ×2 (05:44→14:35)
--- NOTE | 2019-08-05 05:55 | EKG12_ITS ---
Test Reason : AM EKG Blood Pressure : / mmHG Vent. Rate : 087 BPM Atrial Rate : 250 BPM P-R Int : 000 ms QRS Dur : 082 ms QT Int : 398 ms P-R-T Axes : 000 044 052 degrees QTc Int : 478 ms Atrial fibrillation Abnormal ECG When compared with ECG of 04-AUG-2019 08:27, MANUAL COMPARISON REQUIRED, DATA IS UNCONFIRMED Confirmed by SHERRY CASTELLANOS, MAGNUS ([id number]), commissioning editor ULI AYALA ([id number]) on 08/09/2019 3:14:31 PM Referred By: Alphonse Beaver Confirmed By:CRISTINA POWELL MD
[2019-08-05] MEDS: Metoprolol Tartrate 25 MG Tablet 12.5 MG PO (07:51)
[2019-08-05] MEDS: Primidone 50 MG Tablet PO ×2 (07:52→14:34)
[2019-08-05] MEDS: Calcium Acetate 667 MG Capsule PO ×2 (07:52→14:35)
[2019-08-05] MEDS: Sertraline 50 MG Tablet 25 MG PO (07:52)
--- NOTE | 2019-08-05 08:30 | STE_ITS ---
Reason For Study: ATRIAL FIBRILLATION Stress Results Protocol: Dobutatmine Stress Echo Maximum Predicted HR: 148 bpm Target HR: 126 bpm % Maximum Predicted HR: 97 % DurationHeart Rate Stage (mm:ss) (bpm) BP Dose Comment BASELINE 74 98/49 ATRIAL FIBRILLATION DSE- 10 MEQ 5:25 75 .00NO SX DSE- 20 MEQ 2:26 144 108/4320.00NO SX RECOVERY 77 95/48 Stress Duration: 7:51 mm:ss Maximum Stress HR: 144 bpm Baseline Echocardiogram Findings The estimated ejection fraction is 65 %. Stress Echo Wall motion Data Resting WM Intermediate WM Stress WM Resting Wall Motion Wall Motion Stress No regional wall motion No regional wall motion abnormalities noted. abnormalities noted. EKG Data Atrial fibrillation with CVR. The patient was titrated from 10 mcg to a maximum of 20 mcg of dobutamine during the stress. The maximum heart rate attained was 144 beats per minute. This was 97% of maximum predicted heart rate. During dobutamine infusion, there were no ST or T wave changes noted to suggest ischemia. No clinical angina was noted. Interpretation Summary The estimated ejection fraction is 65 %. Normal, adequate, dobutamine echocardiogram. Negative for ischemia by EKG and echocardiographic criteria. No anginal symptoms noted. Baseline atrial fibrillation which persisted throughout the study. Final LVEF of 75%. Test terminated due to the attainment of target heart rate. No complications. Ordering Physician: Jorge Luis Tello Referring Physician: Alphonse Beaver Performed By: Dea Aguilar RDCS
--- NOTE | 2019-08-05 09:13 | PN.CARD_ITS ---
Subjectve: Patient seen and examined this morning. Her heart rate is much better controlled with p.o. beta-sofiya. Patient underwent hemodialysis yesterday af ternoon without difficulty. No chest pain or anginal symptoms. Stress test is pending. Echocardiogram results are as follows: The estimated ejection fraction is 65 %. Unable to assess diastolic dysfunction. Moderately dilated right ventricle. The left atrium is moderately enlarged. The right atrium is moderately enlarged. Mild (1+) tricuspid valve insufficiency. Right ventricular systolic pressure estimated to be 32 mmHg. Mild focal aortic valve thickening of the non coronary cusp. Pt appears to be in atrial fibrillation. There is no comparison study available. Objective: Vital Signs Temp Pulse Resp BP Pulse Ox 98.4 F 74 15 104/58 L 97 08/05/19 06:00 08/05/19 08:01 08/05/19 06:00 08/05/19 06:00 08/05/19 06:00 Oxygen Flow Rate (L/min) 2 Oxygen Delivery Method Room Air Weight: 174 lb 2.643 oz Body Mass Index (BMI) 27.2 Intake and Output for Last 24 Hours 08/03/19 08/04/19 08/05/19 23:59 23:59 23:59 Intake Total 420.45 / 660.71 287.81 / 287.81 Output Total 0 / 0 Balance 420.45 / 660.71 287.81 / 287.81 General: Awake, Alert, Oriented x 3 HEENT: PERRL, EOMI, Sclera Non Icteric Neck: Supple, Good ROM, No Lymph Node Enlargement Lungs: Clear to auscultation Cardiovascular: Irregular Rhythm, Normal S1, Normal S2, No Murmurs, No Rubs, No Gallops Vascular: No Carotid Bruits, Normal Femoral Pulses, Normal Radial Pulses, Normal Dorsalis Pedal Pulse, Normal Posterior Tibial Pulses Abdomen: Bowel Sounds Present, Soft, Non Tender, No HSM, No Organomegaly Extremities: No Cyanosis, No Clubbing, No edema Neurological: No Focal Motor or Sensory Deficit 08/04/19 09:10: WBC 4.4, RBC 2.42 L, Hgb 8.9 L, Hct 27.6 L, MCV 114.0 H, MCH 36.8 H, MCHC 32.2, Plt Count 82 L, MPV 13.4 H, Immature Gran % (Auto) 0.500, Neut % (Auto) 61.6, Lymph % (Auto) 29.9, [place] % (Auto) 5.7, Eos % (Auto) 1.8, Baso % (Auto) 0.5, Absolute Neuts (auto) 2.7, Nucleated RBC % 0 08/04/19 09:10: PT 16.0 H, INR 1.3, APTT 32.8 08/04/19 09:10: Sodium 142, Potassium 3.5, Chloride 103, Carbon Dioxide 25.0, Anion Gap 14, BUN 52 H, Creatinine 8.19 H*, Est GFR (MDRD) Af Amer 6 L, Est GFR (MDRD) Non-Af 5 L, BUN/Creatinine Ratio 6.3 L, Glucose 85, Calcium 8.3 L, Troponin I 0.017 08/04/19 09:10: Triglycerides 111, Cholesterol 108, LDL Cholesterol 46, VLDL Cholesterol 22, HDL Cholesterol 40 08/04/19 13:15: Troponin I < 0.015 08/04/19 14:10: APTT 64.5 H 08/04/19 15:55: Troponin I < 0.015 08/04/19 15:55: APTT 74.2 H 08/05/19 04:01: APTT 70.9 H 08/05/19 04:01: Sodium 139, Potassium 3.7, Chloride 102, Carbon Dioxide 28.0, Anion Gap 9, BUN 25 H, Creatinine 4.77 H, Est GFR (MDRD) Af Amer 12 L, Est GFR (MDRD) Non-Af 10 L, BUN/Creatinine Ratio 5.2 L, Glucose 88, Calcium 8.1 L Rhythm: EKG: ECHO: The estimated ejection fraction is 65 %. Unable to assess diastolic dysfunction. Moderately dilated right ventricle. The left atrium is moderately enlarged. The right atrium is moderately enlarged. Mild (1+) tricuspid valve insufficiency. Right ventricular systolic pressure estimated to be 32 mmHg. Mild focal aortic valve thickening of the non coronary cusp. Pt appears to be in atrial fibrillation. There is no comparison study available. Stress Test: Pending Cardiac Cath: PCI: CT Surgery: Holter monitor: EPS: PPM: CXR: Chest CT Scan: Medical Necessity - Tobacco Use Smoking Status: Never smoker Tobacco Use: Non-smoker Assessment/Plan 1. New onset atrial fibrillation: It is uncertain whether this to when the patient went in atrial fibrillation, which is complicated by the fact that she has chronically low hypotension despite her requirement for hemodialysis 3 times per week. She responded well to low-dose IV Lopressor. Recommend starting her on Lopressor 12.5 mg p.o. twice daily and titrating up from there. I her echocardiogram yesterday demonstrated intact LV function, moderate biatrial enlargement, and mild to moderate right ventricular enlargement. Patient is tolerating low-dose Lopressor 12.5 mg p.o. twice daily fairly well. Her heart rate is fairly well controlled. Continue bivalirudin until her stress test has been completed. If her stress test is negative, I would recommend starting her on Coumadin therapy, if her stress test is abnormal she will require a diagnostic coronary angiogram tomorrow morning prior to initiating anticoagulation therapy. If her stress test is negative, would recommend starting her on Coumadin for new onset atrial fibrillation. She will require 4 consecutive weeks of therapeutic INR prior to DC cardioversion. Her TSH is normal. Her LDL is 46 and HDL is 40. Patient may proceed with hemodialysis pending her cardiac work-up. 2. Thank you very much for the opportunity to participate in the cardiac care of your patient. We will await stress test results. Code Visit Inpatient E&M: 26501 Subs Hosp L2
--- NOTE | 2019-08-05 13:55 | DCINST_ITS ---
- Discharge Diagnoses Current Active Problems: Current Active and Chronic Problems (Last Reviewed 07/24/18 @ 13:32 by Monique Woodall) Atrial fibrillation (Acute) ESRD (end stage renal disease) on dialysis (Acute) Palpitations (Acute) Shortness of breath (Acute) You will use the following diet at home:: No restrictions Your food should be the consistency of: Regular Your liquids should be the consistency of: Regular/Thin Discharge Activity: Return to Normal Activity Weight Bearing Status: Full weight bearing Instructions: Atrial Fibrillation Allergies/Adverse Reactions: Allergies heparin Allergy (Intermediate, Verified 08/14/18 12:57) Induced thrombocytopenia alprazolam [From Xanax] Allergy (Verified 08/04/19 08:24) Unknown Medications to take at Discharge calcium acetate 667 mg capsule 667 mg PO TID cap 07/24/18 cholecalciferol (vitamin D3) 1,000 unit capsule 3,000 unit PO DAILY 07/24/18 lorazepam 0.5 mg tablet 0.5 mg PO QD-BID PRN 07/24/18 midodrine 10 mg tablet 10 mg PO TID 07/24/18 ondansetron HCl 4 mg tablet 4 mg PO TID-QID PRN 07/24/18 primidone 50 mg tablet 50 mg PO Q4H PRN PRN tab 07/24/18 tramadol 50 mg tablet 50 mg PO BID PRN PRN tab 07/24/18 vitamin B complex tablet 1 tab PO QODAY tab 07/24/18 Sertraline HCl [Zoloft] 25 mg PO BID 08/04/19 Apixaban [Eliquis] 5 mg PO BID #60 tab 08/05/19 Metoprolol Tartrate [Lopressor (beta sofiya)] 12.5 mg PO BID #30 tab 08/05/19 The following prescriptions were given: Apixaban [Eliquis] 5 mg PO BID #60 tab Transmission Status: Pending to [facility] Metoprolol Tartrate [Lopressor (beta sofiya)] 12.5 mg PO BID #30 tab Transmission Status: Pending to [facility] Primary Care Physician: Mitchell Appiah MD [Primary Care Provider] - Please follow up with your Primary Care Physician in: in 2-3 weeks Test Results: Test results from this visit will be discussed in further detail at your follow- up appointment, if applicable. Please Follow Up With: Jorge Luis Tello MD When: in 3-4 weeks-call for appointment
--- NOTE | 2019-08-05 14:37 | CASEMGMT ---
Intro role of CM to patient and [facility] form explained re: Observation status for treatment of Palpitations/Afib. Explained hospitalization will be paid per? insurance policy for Outpatient billing?and condition will continue to be evaluated for Inpt necessity. Also let pt know that [facility] sends paper in the billing packet with their phone number if questions arise. Discussed Pharmacy section of [facility] form and self administered medication guideline.? Pt verbalizes understanding and does not have further questions. Form signed and placed in chart, copy to pt. NADYA CASTILLO BSN CM
--- NOTE | 2019-08-05 14:55 | PCM.PN.REN ---
Patient Problems: Active and Suspected Problems (Last Reviewed 07/24/18 @ 13:32 by Monique Woodall) Atrial fibrillation (Acute) ESRD (end stage renal disease) on dialysis (Acute) Palpitations (Acute) Shortness of breath (Acute) Subjective: no new complaints - Physical Exam General: Alert, Oriented x3, Cooperative HEENT: Atraumatic, PERRLA, EOMI, Normocephalic Neck: Supple, No JVD, Negative Carotid Bruits Lungs: Clear to auscultation, Normal air movement Cardiovascular: Regular rate, No murmurs Abdomen: Bowel Sounds Present, Soft, Non Tender Extremities: No edema, Capillary Refill Less than 3 Seconds Skin: No rashes, No breakdown Musculoskeletal: No Tenderness to Palpation of Joints or Extremities Neurological: Cranial nerves II-XII grossly intact Psych/Mental Status: Normal Affect, Appropriate Vital Signs Temp Pulse Resp BP Pulse Ox 97.8 F 77 16 98/55 L 98 08/05/19 12:00 08/05/19 14:00 08/05/19 14:00 08/05/19 14:00 08/05/19 14:00 Oxygen Flow Rate (L/min) 2 Oxygen Delivery Method Room Air Weight: 79 kg Body Mass Index (BMI) 27.2 Intake and Output for Last 24 Hours 08/03/19 08/04/19 08/05/19 23:59 23:59 23:59 Intake Total 420.45 / 660.71 329.11 / 329.11 Output Total 0 / 0 Balance 420.45 / 660.71 329.11 / 329.11 Laboratory Tests Past 24 Hrs 08/04/19 08/04/19 08/05/19 15:55 15:55 04:01 APTT 74.2 H 70.9 H Sodium Potassium Chloride Carbon Dioxide Anion Gap BUN Creatinine Estim Creat Clear Calc Est GFR (MDRD) Af Amer Est GFR (MDRD) Non-Af BUN/Creatinine Ratio Glucose Calcium Troponin I < 0.015 08/05/19 04:01 APTT Sodium 139 Potassium 3.7 Chloride 102 Carbon Dioxide 28.0 Anion Gap 9 BUN 25 H Creatinine 4.77 H Estim Creat Clear Calc 10.37 Est GFR (MDRD) Af Amer 12 L Est GFR (MDRD) Non-Af 10 L BUN/Creatinine Ratio 5.2 L Glucose 88 Calcium 8.1 L Troponin I Medical Necessity - Tobacco Use Smoking Status: Never smoker Tobacco Use: Non-smoker Assessment/Plan All Active Problems (Last Reviewed 07/24/18 @ 13:32 by Monique Woodall) Atrial fibrillation (Acute) ESRD (end stage renal disease) on dialysis (Acute) Palpitations (Acute) Shortness of breath (Acute) Personal history of colonic polyps (Acute) Chronic renal failure, stage 5 (Acute) Rectal bleeding (Acute) End-stage renal disease. HD as per schedule. Atrial fibrillation. Rate is around 90-100 now. Currently on anticoagulation. d/w hospitalist dc today
--- NOTE | 2019-08-05 15:46 | CASEMGMT ---
ANNA CM Note. Eliquis saving card called to [facility] pharmacy for 30 day free trial. Yordy NÚÑEZN RN ACM
--- NOTE | 2019-08-05 15:46 | CASEMGMT ---
[facility] has no co-pay for Eliquis at this time. Bhanu CASTILLO CM
--- NOTE | 2019-08-06 08:43 | PCM.DC.SUM ---
Discharge Date and Diagnosis Date of Admission: 08/04/19 Date of Discharge: 08/05/19 - Primary Discharge Diagnosis #1 new onset atrial fibrillation with RVR #2 chronic kidney disease stage V on dialysis #3 anemia of chronic renal disease - Secondary Discharge Diagnosis Chronic Problems (Last Updated 08/06/19 @ 08:39 by Alphonse Beaver DO) ESRD (end stage renal disease) on dialysis (Chronic) Chronic renal failure, stage 5 (Chronic) Hospital Course and Treatment Operations: None Procedures: 2-D Echocardiogram, Dialysis, - - Stress echocardiogram Summary of Care Provided: The patient is a 73 year old F was seen in the emergency room at [facility] after being transported in from her scheduled dialysis treatment due to palpitations and some shortness of breath. Evaluation in the emergency room included a chest x-ray which showed no evidence of acute disease, patient's EKG showed her to be in atrial fibrillation with a rate above 100. Labs were performed which showed the patient's creatinine to be elevated in keeping with her chronic renal disease, hemoglobin was low in keeping with her anemia of chronic renal disease. Initially, it was thought that the patient would need rate control medication in the emergency room however, patient's heart rate declined in the emergency room and it was not felt that she needed rate limiting medication. Cardiology was contacted and advised that they would see the patient after she was placed in observation status in the hospital. Patient was placed in observation status on PCU, serial cardiac enzymes were performed which were negative, she underwent an echocardiogram as well as a stress echocardiogram. Echocardiogram showed preserved EF, stress echocardiogram did not show any evidence of reversible ischemia. Patient underwent dialysis during her hospital stay and was seen by nephrology. On 08/05/2019, patient was seen and examined: On examination she appeared in good health and spirits. Vital signs as documented. Skin warm and dry and without overt rashes. Neck without JVD. Lungs clear. Heart exam notable for irregular rhythm. Abdomen unremarkable and without evidence of organomegaly, masses, or abdominal aortic enlargement. Extremities nonedematous. Neuro: Cranial nerves II through XII are grossly intact, no focal motor deficits were noted, sensation to light touch and pinprick is intact. Psych: Patient is alert and oriented x3, she does not appear anxious or depressed On 08/05/2019, patient was seen and examined and felt to be in stable condition for discharge home - Physical Exam Vital Signs Temp Pulse Resp BP Pulse Ox 97.8 F 77 16 98/55 L 98 08/05/19 12:00 08/05/19 14:00 08/05/19 14:00 08/05/19 14:00 08/05/19 14:00 Oxygen Flow Rate (L/min) 2 Oxygen Delivery Method Room Air Weight: 79 kg Body Mass Index (BMI) 27.2 Intake and Output for Last 24 Hours 08/04/19 08/05/19 08/06/19 23:59 23:59 23:59 Intake Total 420.45 / 660.71 329.11 / 329.11 Output Total 0 / 0 Balance 420.45 / 660.71 329.11 / 329.11 Discharge Activity: Return to Normal Activity Weight Bearing Status: Full weight bearing Home Medications: Medications to take at Discharge calcium acetate 667 mg capsule 667 mg PO TID cap 07/24/18 cholecalciferol (vitamin D3) 1,000 unit capsule 3,000 unit PO DAILY 07/24/18 lorazepam 0.5 mg tablet 0.5 mg PO QD-BID PRN 07/24/18 midodrine 10 mg tablet 10 mg PO TID 07/24/18 ondansetron HCl 4 mg tablet 4 mg PO TID-QID PRN 07/24/18 primidone 50 mg tablet 50 mg PO Q4H PRN PRN tab 07/24/18 tramadol 50 mg tablet 50 mg PO BID PRN PRN tab 07/24/18 vitamin B complex tablet 1 tab PO QODAY tab 07/24/18 Sertraline HCl [Zoloft] 25 mg PO BID 08/04/19 Apixaban [Eliquis] 5 mg PO BID #60 tab 08/05/19 Metoprolol Tartrate [Lopressor (beta sofiya)] 12.5 mg PO BID #30 tab 08/05/19 Following Prescrptions Were Given to Patient: Apixaban [Eliquis] 5 mg PO BID #60 tab Transmission Status: Received by [facility] Metoprolol Tartrate [Lopressor (beta sofiya)] 12.5 mg PO BID #30 tab Transmission Status: Received by [facility] Primary Care Physician: Mitchell Appiah MD [Primary Care Provider] - Please follow up with your Primary Care Physician in: in 2-3 weeks Please Follow Up With: Jorge Luis Tello MD When: in 3-4 weeks-call for appointment Patient Instructions: Atrial Fibrillation Disposition: Home Minutes spent on discharge:: 32 Patient Condition:: Stable Medical Necessity - Tobacco Use Smoking Status: Never smoker Tobacco Use: Non-smoker Meaningful Use Info Meaningful Use Diagnoses (Choose all that apply): None applicable Code Visit OBSV E&M: 01978 Observation care discharge
== END 2019-08-05 15:16 | disposition home or self-care (01) ==
LOC: ED 10:23 → PCU 08-05 07:08
PROVIDERS: Hospitalist; Internal Medicine Cardiovascular Disease; Admitting Provider Internal Medicine; Emergency Provider Emergency Medicine; Family Provider Family Medicine; PCP Family Medicine; Referring Provider Internal Medicine; Visit Provider Internal Medicine
DX: I48.91 Unspecified atrial fibrillation (principal); I12.0 Hypertensive chronic kidney disease with stage 5 chronic kidney disease or end stage renal disease; N18.6 End stage renal disease; D63.1 Anemia in chronic kidney disease; Z99.2 Dependence on renal dialysis; Z79.899 Other long term (current) drug therapy; I07.1 Rheumatic tricuspid insufficiency; R94.31 Abnormal electrocardiogram [ECG] [EKG]
CPT/HCPCS: 36415; 71045; 80048; 80061; 84443; 84484; 85025; 85610; 85730; 90937; 93005; 93017; 93306; 93350; 96365; 96366; 96375; 99285; J7030; J7040; A4216; G0257; J0583; J3490

== ENCOUNTER → 2019-08-12 14:30 | Outpatient (CLI) | payer MEDICARE, SELFPAY ==
[2019-08-04 11:59] VITALS: BMI 27.2
[2019-08-12 17:11] LABS: ALB/GLOB Ratio 0.9 RATIO (0.9-2.4); AST(SGOT) 11 U/L (15-37); Alanine Aminotransfer ALT/SGPT 22 U/L (13-56); Albumin, Serum 3.1 g/dL (3.2-5.0); Alkaline Phosphatase 134 U/L (45-117); Anion Gap 10 (5-15); BUN 39 mg/dL (7-18); BUN/Creat Ratio 6.6 RATIO (10-20); Calcium,Total 8.4 mg/dL (8.5-10.1); Chloride 102 mmol/L (98-107); Creatinine, Serum 5.93 mg/dL (0.55-1.02); EST Glomerular Filtration Rate 7 mL/min (>60); Est Glom Filt Rate - Afr Amer 9 mL/min (>60); Globulin 3.5 g/dL (2.2-4.2); Glucose 93 mg/dL (74-106); Potassium 3.7 mmol/L (3.5-5.1); Protein, Total 6.6 g/dL (6.4-8.2); Sodium Level 141 mmol/L (136-145)
== END ==
PROVIDERS: Family Provider Family Medicine; PCP Family Medicine; Referring Provider Family Medicine; Visit Provider Psychiatry & Neurology Neurology
DX: R25.1 Tremor, unspecified (principal)
CPT/HCPCS: 36415; 80053; 80184; 82140

== ENCOUNTER 2019-08-31 08:27 | Day surgery (SDC) | payer MEDICARE, SELFPAY ==
[2019-08-17 13:54] VITALS: BMI 27.6
--- NOTE | 2019-08-17 14:54 | RAD_ITS ---
HISTORY: SOBAFIB WITH RVR PRE HEART CATH ADDITIONAL HISTORY: None provided. COMPARISON: 08/04/2019 TECHNIQUE: Frontal and lateral chest radiographs. Number of images including paperwork: 2 FINDINGS: LUNGS AND PLEURA: No consolidation, mass or pleural effusion. CARDIAC SILHOUETTE: Stable. MEDIASTINUM AND RAYNA: Unremarkable. UPPER ABDOMEN: Right upper quadrant surgical clips. SKELETON AND SOFT TISSUES: No acute findings. Degenerative changes. Mild right convex thoracic curvature. OTHER DEVICES AND HARDWARE: None. RAD/Chest PA and Lateral IMPRESSION: No acute cardiopulmonary abnormality. at 2221 Reported and signed by: Rocío Khan MD Electronically Signed: Rocío Khan MD at 22:21 EDT Tel , Service support ,
[2019-08-17 17:17] LABS: Anion Gap 13 (5-15); BUN 45 mg/dL (7-18); BUN/Creat Ratio 6.9 RATIO (10-20); Calcium,Total 8.6 mg/dL (8.5-10.1); Chloride 100 mmol/L (98-107); Creatinine, Serum 6.53 mg/dL (0.55-1.02); EST Glomerular Filtration Rate 7 mL/min (>60); Est Glom Filt Rate - Afr Amer 8 mL/min (>60); Glucose 86 mg/dL (74-106); Sodium Level 143 mmol/L (136-145)
[2019-08-30 07:48] VITALS: BMI 27.6
--- NOTE | 2019-08-31 09:45 | CARDIOVERS ---
Cardioversion Cardioversion: Patient is brought to the [facility] holding area in the fasting state. The risks/benefits of the procedure of cardioversion were thoroughly explained the patient and informed consent was obtained. Patient is been on Eliquis for the past 4 weeks at renally adjusted dosage. The defibrillator pads were placed in the AP position. It was confirmed by EKG the patient remains in atrial fibrillation with controlled ventricular response. With the assistance of Dr. Zhang Merrill the patient was given 4 mg of IV etomidate, followed by 2 mg increments each for subsequent DC cardioversions. Once adequate sedation was obtained patient received a single synchronized biphasic shock of 200 J which was unsuccessful in converting her to normal sinus rhythm. An additional 2 mg of IV etomidate were given for a total of 6 mg at the time, and a second 250 J biphasic synchronized shock was delivered which did not convert the patient from atrial fibrillation. Finally, the patient was given a third 2 mg incremental dose of etomidate, for a total of 8 mg, and a third shock at 300 J of biphasic synchronized energy were delivered which did not convert the patient to normal sinus rhythm. At this point the procedure was aborted, and the patient spontaneously awoke, move all 4 extremities and tolerated procedure well. Conclusions: Unsuccessful DC cardioversion x3 at 200, 250, and 300 J of biphasic synchronized energy. Recommendations: At this point the patient has minimal symptoms of her atrial fibrillation and is unaware of her atrial fibrillation from a symptomatic standpoint. Is uncertain how long she has been it, but the fact that she was unable to be cardioverted at all, suggest she has been in atrial for ablation for quite some time. At this point I would hold off on adding amiodarone given the patient's young age, and lack of overt symptoms tied to her atrial fibrillation. If the patient has deteriorating shortness of breath, dyspnea on exertion, fatigue, which are otherwise unexplainable despite her atrial fibrillation, and have a low threshold for adding amiodarone 200 mg daily for 1 month followed by repeat DC cardioversion. Patient tolerated suture well no complications, she will be discharged home later today.
--- NOTE | 2019-08-31 09:49 | HP.PCM_ITS ---
Problem List (1) Palpitations Status: Acute (2) Shortness of breath Status: Acute (3) Atrial fibrillation Status: Chronic History and Physical Date of Admission: 08/31/19 [facility] [address] [place] [address] OFFICE VISIT Date of Service: 08/17/19 MR#: [id number] Acct: [id number] Name: GUIDO DASH Rep #: [id number] : 1945 Provider: Jorge Luis das MD Age/Sex: 73/F Location: [facility] Status: Signed HPI HPI History of Present Illness Details: Mrs. Dash is a very pleasant 73-year-old female with a history of hypertension, end-stage renal disease on hemodialysis, recently admitted in August 2019 and found to have new onset atrial fibrillation. We are consulted at that time for management. The patient underwent a 2D echo with Doppler on 08/04/2019 with the following results: The estimated ejection fraction is 65 %. Unable to assess diastolic dysfunction. Moderately dilated right ventricle. The left atrium is moderately enlarged. The right atrium is moderately enlarged. Mild (1+) tricuspid valve insufficiency. Right ventricular systolic pressure estimated to be 32 mmHg. Mild focal aortic valve thickening of the non coronary cusp. Pt appears to be in atrial fibrillation. There is no comparison study available. Went a stress echocardiogram on 08/05/2019 which was negative for inducible ischemia. Patient was placed on Eliquis, and is here for follow-up.She has no chest pain, angina, shortness of breath, dyspnea on exertion, or trouble doing dialysis. She is taking and tolerating her medicines well. In our office today her blood pressure is 100/60, pulse is 88 and irregular. Her physical exam demonstrates an irregularly irregular rhythm, normal S1/S2. No S4. show an LDL of 46 and HDL of 40EKG dated 08/05/2019 shows atrial fibrillation with controlled ventricular response, no previous myocardial infarction. Intake Vital Signs 08/17/19 Height 5 ft 7 in 08/17/19 Weight: 176 lb 08/17/19 Body Mass Index (BMI) 27.6 08/17/19 Blood Pressure 100/60 08/17/19 Blood Pressure Location Rt brachial 08/17/19 Blood Pressure Position Sitting 08/17/19 Respiratory Rate 20 H 08/17/19 Pulse Rate 88 08/17/19 Pulse Source Auscultation Intake Visit Reasons: 2-3 S/P PCU, AFIB Beam Builder Required: No Is patient in pain?: No Allergies heparin Allergy (Intermediate, Verified 08/16/19 20:16) Induced thrombocytopenia alprazolam [From Xanax] Allergy (Verified 08/16/19 20:16) Unknown Medications calcium acetate 667 mg capsule 667 mg PO TID cap 07/24/18 [History Confirmed 08/17/19] cholecalciferol (vitamin D3) 1,000 unit capsule 3,000 unit PO DAILY 07/24/18 [History Confirmed 08/17/19] lorazepam 0.5 mg tablet 0.5 mg PO QD-BID PRN 07/24/18 [History Confirmed 08/17/19] midodrine 10 mg tablet 10 mg PO TID 07/24/18 [History Confirmed 08/17/19] ondansetron HCl 4 mg tablet 4 mg PO TID-QID PRN 07/24/18 [History Confirmed 08/17/19] tramadol 50 mg tablet 50 mg PO BID PRN PRN tab 07/24/18 [History Confirmed 08/17/19] vitamin B complex tablet 1 tab PO QODAY tab 07/24/18 [History Confirmed 08/17/19] B complex 11-folic acid 1 mg-C 100 mg-biotin 300 mcg-zinc 50 mg tablet 1 tab PO DAILY 08/17/19 [History] apixaban 5 mg tablet 5 mg PO BID #180 tab 08/17/19 [Rx] diclofenac 1 % topical gel 2 g TOPICAL DIRECTED PRN g 08/17/19 [History Confirmed 08/17/19] gabapentin 100 mg capsule 100 mg PO .COMPLEX 08/17/19 [History Confirmed 08/17/19] metoprolol tartrate 25 mg tablet 12.5 mg PO BID #90 tab 08/17/19 [Rx Confirmed 08/17/19] primidone 50 mg tablet 100 mg PO TID tab 08/17/19 [History Confirmed 08/17/19] promethazine 25 mg tablet 25 mg PO Q6H PRN 08/17/19 [History Confirmed 08/17/19] sertraline 100 mg tablet 100 mg PO DAILY 08/17/19 [History Confirmed 08/17/19] [facility] Medical History Atrial fibrillation (Chronic) ESRD (end stage renal disease) on dialysis (Chronic) Palpitations (Acute) Shortness of breath (Acute) Personal history of colonic polyps (Inactive) Chronic renal failure, stage 5 (Chronic) Rectal bleeding (Resolved) Back problem (Acute) CL (cirrhosis of liver) (Acute) Chronic kidney disease (Acute) History of hysterectomy (Acute) Kidney stones (Acute) Rectal bleeding (Acute) Tremors of nervous system (Acute) Surgical History History of colonoscopy (Acute ~2015) History of intestinal bypass (Acute) History of laparoscopic cholecystectomy (Acute) history AV graft (Acute) history ORIF right hip (Acute) Family History Father Arthritis Skin cancer Heart disease Hypertension Hypercholesterolemia Brother Arthritis Heart disease Hypercholesterolemia Hypertension Seizures Social History (Updated 08/17/19 @ 14:25 by Jorge Luis Tello MD) Smoking Status: Never smoker alcohol intake: never substance use type: does not use ROS Const Const: Positive for other (Is a dialysis pt, MWF. Was in PCU with new onset afib 08/05/19); negative for fatigue, weakness, body ache, fever(s), headache(s), chills, frequent falls, night sweats, daytime sleepiness, difficulty sleeping, excessive sweating, weight gain, weight loss, increased appetite, poor appetite or anorexia Eyes Eyes: Negative for blind spots, loss of peripheral vision, transient loss of vision, blurry vision, change in vision, double vision, floaters, tunnel vision or other ENT ENT: Negative for headache(s), dizziness, hearing loss, tinnitus, Nosebleed/epistaxis, balance problems, post nasal drip, lip swelling, tongue swelling, bleeding gums, hoarseness, neck pain, dry mouth or other Cardio Chest Pain: No Palpitations: Yes (Had to use oxygen in dialysis a couple times for fast HR) feels like its: fast Edema: None Muscle aches with walking: None Resp Respiratory: Positive for SOB with activity; negative for SOB at rest, SOB orthopnea\SOB lying down, Cough, Coughing up blood/hemoptysis, chest congestion, pain on inspiration, snoring, stridor, wheezing, crackles, paroxysmal nocturnal dyspnea or other GI GI: Negative nausea, vomiting, heartburn, constipation, belching, bloating, cramping, vomiting blood/hematemesis, bright, red blood in stools, black,tarry stools, loose stools, Difficulty Swallowing or other : Negative for hematuria, frequent nighttime urination/ nocturia, erectile dysfunction or abnormal vaginal bleeding Musc Musc: Negative for muscle aches/ myalgia, muscle weakness, joint pain or balance problems Skin Skin: Negative redness, non-healing lesions, rash, unusual bruising, skin ulcer, wounds, jaundice or other Neuro Neuro: Negative for dizziness, lightheadedness, near syncope, syncope, orthostatic symptoms, frequent falls, headache(s), weakness, confusion, memory loss, restless legs, blurry vision, double vision, vertigo, seizures, lack of coordination or other Terrance Hematologic/Lymphatic: Negative for easy bleeding, easy bruising, enlarged lymph nodes or other Endo Endo: Negative for fatigue, cold intolerance, heat intolerance, excessive sweating, flushing, increased thirst/drinking, increased hunger, hair loss, hair growth or other Psych Psych: Negative for anxiety, depression, thoughts of harming anyone, thoughts of harming yourself, visual hallucinations, panic attacks or audible hallucinations Allergy Allergy/Immunology: Negative for throat swelling, Negative for tongue swelling, Negative for hives, Negative for rash, Negative for lip swelling Cardiology Exam Const Appearance: cooperative, healthy appearing and no acute distress Nutritional Appearance: well nourished Orientation: alert, oriented x3 and oriented to person Head Head: normal to inspection, normocephalic and atraumatic Nose: external nose normal Face and Sinus: face symmetric Mouth: oral mucosae normal Eyes General: appearance normal, both eyes and all related structures Eyelids: eyelids normal Conjunctivae: conjunctivae normal Pupils: PERRL and normal by confrontation EOM: EOM intact bilaterally Neck Neck: normal visual inspection and full ROM Carotids: normal carotid upstroke Chest Chest inspection: normal inspection of the chest Auscultation: Bilateral: Clear to Auscultation Cardio Palpation: normal PMI Rate: regular rate Rhythm: irregular rhythm Heart sounds: S1 normal and S2 normal GI GI: normal to inspection, no hepatosplenomegaly and bowel sounds present Neuro General: alert, awake, oriented x3, CN's II-XI intact bilaterally and moves all extremities Skin Skin: no rashes or lesions noted Extremities Pulses: Normal: Right Femoral Pulse, Left Femoral Pulse, Right Dorsalis Pedis Pulse, Left Dorsalis Pedis Pulse, Right Posterior Tibial Pulse, Left Posterior Tibial Pulse, Right Radial Pulse, Left Radial Pulse Lower Extremity Edema: None: Bilateral Psych Psychological: normal affect Assessment & Plan 1. Atrial fibrillation I48.91 Plan Atrial fibrillation: Patient presented with new onset atrial fibrillation to [facility] on 08/04/2019. She was worked up from a cardiovascular standpoint with an echocardiogram and a stress test both of which were essentially normal. I do not believe she requires catheterization at this time. Her blood pressure and heart rate are fairly well-controlled on low-dose metoprolol 12.5 mg p.o. twice daily. Recommend that we continue her metoprolol as well as her Eliquis. She will be arranged for elective DC cardioversion in 1 to 2 weeks time.I would recommend holding off on antiarrhythmic therapy unless or until the patient fails her initial cardioversion. Orders Orders: Basic Metabolic Profile (BMP) 2 Weeks Jorge Luis Tello MD Chest PA and Lateral 2 Weeks Jorge Luis Tello MD Cardioversion 2 Weeks Jorge Luis Tello MD 2. Shortness of breath R06.02 Plan 2. Shortness of breath: This may be related to her atrial fibrillation, as well as her end-stage renal disease. Hopefully this will markedly improve with DC cardioversion. Continue low-dose beta-sofiya. 3. Return office in 6 months. This note was generated using a voice recognition system and there may be incorrect words, spelling or punctuation that were not noted when reviewing the office note prior to saving. Plan Detail Other Medications New: sertraline 100 mg PO DAILY gabapentin (Neurontin) 100 mg PO after dialysis; promethazine 25 mg PO Q6H PRN diclofenac 1% (Voltaren) 2 grams topical DIRECTED PRN B complex [id number]-[id number]-zinc [id number] [id number]-zh-glu-mg (Dialyvite) 1 tab PO DAILY apixaban 5 mg PO BID 180 tabs 3RF Alphonse Beaver DO Refilled: metoprolol tartrate 12.5 mg (1/2 x 25 mg) PO BID 90 tabs 3RF Alphonse Beaver, DO Follow Up +6M (Omer) Coding Level of Care Code Off vis,est,level 3 Diagnoses Atrial fibrillation I48.91 Shortness of breath R06.02 Coding Level of Care Code Off vis,est,level 3 Diagnoses Atrial fibrillation I48.91 Shortness of breath R06.02 Supplemental Info Supplemental Information Labs LDL Cholesterol 46 mg/dL (0-130) 08/04/19 HDL Cholesterol 40 mg/dL (40-) 08/04/19 Triglycerides 111 mg/dL (-199) 08/04/19 VLDL Cholesterol 22 mg/dL (5-40) 08/04/19 Diagnostics Electrocardiogram 08/05/19 Echocardiogram 08/04/19 Stress Echocardiogram 08/05/19 Chest X-Ray 08/04/19 08/17/19 [id number] <Electronically signed by Jorge Luis Tello MD> Date _ Jorge Luis Tello MD Cosigner Signature: Date (if applicable) CC: Mitchell Appiah MD ~ Patient seen and examined on 08/31/2019, and the risks/benefits of the procedure were thoroughly explained the patient and informed consent was obtained. No changes in the patient's history and physical.We will proceed with DC cardioversion per protocol.
--- NOTE | 2019-08-31 10:10 | PRO.PCM_ITS ---
Problem List (1) Palpitations Status: Acute (2) Atrial fibrillation Status: Chronic (3) Chronic renal failure, stage 5 Status: Chronic (4) ESRD (end stage renal disease) on dialysis Status: Chronic (5) Rectal bleeding Status: Resolved (6) Personal history of colonic polyps Status: Inactive Procedure Report Date of Procedure: 08/31/19 - Conscious sedation CONSCIOUS SEDATION REPORT BRIEF HISTORY OF PRESENT ILLNESS: The patient is a 74-year-old female who presented to [facility] for an elective outpatient cardioversion due to underlying atrial fibrillation. The patient reports no PO intake since midnight. The patient does not have a history of obstructive sleep apnea. The patient reports no history of smoking and COPD. The patient denies any recent constitutional symptoms such as fevers, chills, nausea or vomiting. The patient denies previous anesthetic complications. PHYSICAL EXAMINATION: VITAL SIGNS: Reviewed and were acceptable. GENERAL: The patient is a female, in no apparent distress, speaking in full sentences. HEENT: Normocephalic, atraumatic. Mucous membranes are moist and pink. Good mouth opening noted. Trachea is midline. Good neck mobility. MP II CHEST: S1, S2 irregularly irregular. No murmurs, rubs or gallops were noted. LUNGS: Clear to auscultation bilaterally without appreciable wheezes, rales or rhonchi. ABDOMEN: Soft, nontender, nondistended. Positive bowel sounds. EXTREMITIES: There is no clubbing, cyanosis or edema. ASA Class: II DESCRIPTION OF PROCEDURE: After confirmation of informed consent, the patient's anesthesia plan was reviewed in detail. Etomidate was chosen. Risks and benefits were reviewed and the patient agreed to proceed. At 9:28 AM, the patient was given 4 mg of etomidate. The patient required a total of 8 mg of etomidate throughout the procedure to achieve appropriate sedation. The patient achieved an appropriate level of sedation and received 3 attempt s synchronized cardioversion, at 200 J, 250 J and [address] Tello at the bedside. This was unsuc cessful in achieving normal sinus rhythm. The patient was monitored until 9:38 AM, at which time the patient reached their baseline mental status and function. The patient tolerated the procedure well. COMPLICATIONS: None ESTIMATED BLOOD LOSS: None RECOMMENDATIONS: Okay to recover in usual fashion. Code Visit 9xxxx: Other Procedure See Report - 47255 - 10 min
== END 2019-08-31 10:50 | disposition home or self-care (01) ==
PROVIDERS: Family Provider Family Medicine; PCP Family Medicine; Referring Provider Internal Medicine Cardiovascular Disease; Visit Provider Internal Medicine Cardiovascular Disease
DX: I48.91 Unspecified atrial fibrillation (principal); I12.0 Hypertensive chronic kidney disease with stage 5 chronic kidney disease or end stage renal disease; N18.6 End stage renal disease; Z99.2 Dependence on renal dialysis; K74.60 Unspecified cirrhosis of liver; Z87.442 Personal history of urinary calculi; Z79.01 Long term (current) use of anticoagulants; Z79.899 Other long term (current) drug therapy
CPT/HCPCS: 36415; 71046; 80048; 92960; 93005; J7040

== ENCOUNTER → 2019-09-20 11:57 | Outpatient (CLI) | payer MEDICARE, SELFPAY ==
[2019-09-09 10:35] VITALS: BMI 27.6
[2019-09-20 14:10] LABS: Absolute Lymphocyte Count 1.29 X10^3/uL (0.83-4.51); Absolute Neutrophil Count 2.8 X10^3/uL (2.0-7.7); Basophil# 0.03 X10^3/uL; Basophil% 0.7 % (0-1); Eosinophil# 0.07 X10^3/uL; Eosinophils% 1.6 % (0-5); Hematocrit 27.6 % (37-47); Hemoglobin 8.8 g/dL (12.0-15.0); Lymphocyte # 1.29 X10^3/ul (4.0); Lymphocyte % 28.8 % (19-41); Mean Corp Hgb Conc 31.9 g/dL (32-36); Mean Corpuscular Hgb 38.3 pg (27.0-32.0); Mean Platelet Vol. 13.9 fl (6.2-12.0); Monocyte# 0.27 X10^3/uL; NRBC Flagged by Analyzer 0 % (0-5); Neutrophil # 2.81 X10^3/uL (2.7-7.7); Neutrophil % 62.7 % (47-70); Platelet Count 124 K/mm3 (150-450); RBC Distribution Width CV 14.4 % (11.6-14.6); RBC Distribution Width SD 62.8 fl (35.1-43.9); White Blood Count 4.5 K/mm3 (4.4-11.0)
[2019-09-20 14:32] LABS: Vitamin B12 571 pg/mL (211-911); Vitamin D,25 Hydroxy 28.1 ng/mL (29.95-100.01)
[2019-09-20 14:44] LABS: AST(SGOT) 12 U/L (15-37); Alanine Aminotransfer ALT/SGPT 24 U/L (13-56); Albumin, Serum 3.5 g/dL (3.2-5.0); Alkaline Phosphatase 122 U/L (45-117); Anion Gap 9 (5-15); BUN 21 mg/dL (7-18); BUN/Creat Ratio 5.6 RATIO (10-20); Calcium,Total 8.8 mg/dL (8.5-10.1); Chloride 94 mmol/L (98-107); Creatinine, Serum 3.73 mg/dL (0.55-1.02); EST Glomerular Filtration Rate 13 mL/min (>60); Est Glom Filt Rate - Afr Amer 15 mL/min (>60); Ferritin 1211 ng/mL (8-252); Globulin 3.6 g/dL (2.2-4.2); Glucose 90 mg/dL (74-106); Iron 160 ug/dL (50-170); Iron Binding Capacity,Total 206 ug/dL (250-450); Phosphorus 2.1 mg/dL (2.5-4.9); Potassium 3.2 mmol/L (3.5-5.1); Protein, Total 7.1 g/dL (6.4-8.2); Sodium Level 138 mmol/L (136-145)
[2019-09-20 15:14] LABS: PTHIN 433.4 pg/mL (18.4-80.1)
[2019-09-23 11:43] LABS: Vitamin B1, Thiamine 157.4 nmol/L (66.5-200.0)
== END ==
PROVIDERS: Family Provider Family Medicine; PCP Family Medicine; Referring Provider Family Medicine; Visit Provider Family Medicine
DX: E53.9 Vitamin B deficiency, unspecified (principal); E53.8 Deficiency of other specified B group vitamins; E55.9 Vitamin D deficiency, unspecified; N25.81 Secondary hyperparathyroidism of renal origin; N18.9 Chronic kidney disease, unspecified; D63.1 Anemia in chronic kidney disease; M81.0 Age-related osteoporosis without current pathological fracture
CPT/HCPCS: 36415; 80053; 82306; 82607; 82728; 82746; 83540; 83550; 83970; 84100; 84425; 85025

== ENCOUNTER → 2019-11-17 16:28 | Outpatient (CLI) | payer MEDICARE, SELFPAY ==
[2019-09-09 10:35] VITALS: BMI 27.6
--- NOTE | 2019-11-17 16:31 | RAD_ITS ---
STUDY: X-RAY - LEFT WRIST REASON FOR EXAM: Female, 74 years old. Chronic pain. No known injury. TECHNIQUE: 3 view(s) of the wrist were obtained. COMPARISON: None. FINDINGS: No visible fracture. No osseous destruction. Alignment anatomic. 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 Otherwise mild degenerative changes. Soft tissues unremarkable. 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 Otherwise mild degenerative changes. Electronically Signed: Phillip Barry, at 1:46 EST Tel , Service support ,
== END ==
PROVIDERS: Family Provider Family Medicine; PCP Family Medicine; Referring Provider Family Medicine; Visit Provider Family Medicine
DX: M65.9 Synovitis and tenosynovitis, unspecified (principal)
CPT/HCPCS: 73110

== ENCOUNTER → 2020-01-25 08:53 | Outpatient (CLI) | payer MEDICARE, SELFPAY ==
[2019-09-09 10:35] VITALS: BMI 27.6
[2020-01-25 10:32] LABS: Absolute Lymphocyte Count 1.21 X10^3/uL (0.83-4.51); Absolute Neutrophil Count 1.8 X10^3/uL (2.0-7.7); Basophil# 0.03 X10^3/uL; Basophil% 0.9 % (0-1); Eosinophil# 0.07 X10^3/uL; Eosinophils% 2.1 % (0-5); Hematocrit 34.1 % (37-47); Hemoglobin 10.5 g/dL (12.0-15.0); Lymphocyte # 1.21 X10^3/ul (4.0); Lymphocyte % 35.9 % (19-41); Mean Corp Hgb Conc 30.8 g/dL (32-36); Mean Corpuscular Hgb 37.5 pg (27.0-32.0); Mean Corpuscular Volume 121.8 fL (81-99); Mean Platelet Vol. 13.7 fl (6.2-12.0); Monocyte# 0.25 X10^3/uL; Monocyte% 7.4 % (0-10); NRBC Flagged by Analyzer 0 % (0-5); Neutrophil % 53.4 % (47-70); POSITIVE MORPHOLOGY YES; Platelet Count 104 K/mm3 (150-450); RBC Distribution Width CV 15.4 % (11.6-14.6); RBC Distribution Width SD 69.9 fl (35.1-43.9); White Blood Count 3.4 K/mm3 (4.4-11.0)
[2020-01-25 10:38] LABS: Differential Indicated SCAN CRITERIA MET
[2020-01-25 11:06] LABS: Anisocytosis 1+; Hypochromasia RARE; Macrocytosis RARE; Ovalocyte RARE; Platelet Estimate SLT DEC (ADEQ); Tear Drop Cell RARE
[2020-01-25 11:24] LABS: Vitamin B12 560 pg/mL (211-911)
[2020-01-25 11:47] LABS: AST(SGOT) 10 U/L (15-37); Alanine Aminotransfer ALT/SGPT 24 U/L (13-56); Albumin, Serum 3.4 g/dL (3.2-5.0); Alkaline Phosphatase 92 U/L (45-117); Anion Gap 12 (5-15); BUN 36 mg/dL (7-18); BUN/Creat Ratio 5.8 RATIO (10-20); Calcium,Total 8.7 mg/dL (8.5-10.1); Chloride 98 mmol/L (98-107); Creatinine, Serum 6.25 mg/dL (0.55-1.02); EST Glomerular Filtration Rate 7 mL/min (>60); Est Glom Filt Rate - Afr Amer 8 mL/min (>60); Ferritin 920 ng/mL (8-252); Globulin 3.4 g/dL (2.2-4.2); Glucose 85 mg/dL (74-106); Iron 113 ug/dL (50-170); Iron Binding Capacity,Total 191 ug/dL (250-450); Magnesium 1.9 mg/dL (1.6-2.6); Potassium 3.5 mmol/L (3.5-5.1); Protein, Total 6.8 g/dL (6.4-8.2); Sodium Level 138 mmol/L (136-145)
[2020-01-28 05:44] LABS: Vitamin B1, Thiamine 158.4 nmol/L (66.5-200.0)
== END ==
PROVIDERS: PCP Family Medicine; Referring Provider Family Medicine; Visit Provider Family Medicine
DX: N18.9 Chronic kidney disease, unspecified (principal); E53.8 Deficiency of other specified B group vitamins; E53.9 Vitamin B deficiency, unspecified; I48.91 Unspecified atrial fibrillation
CPT/HCPCS: 36415; 80053; 82607; 82728; 82746; 83540; 83550; 83735; 84425; 85025

== ENCOUNTER → 2020-04-18 16:58 | Outpatient (CLI) | payer MEDICARE, MEDICAID, SELFPAY ==
[2020-03-03 10:50] VITALS: BMI 27.3
[2020-04-18 17:42] LABS: Absolute Lymphocyte Count 2.13 X10^3/uL (0.83-4.51); Absolute Neutrophil Count 1.9 X10^3/uL (2.0-7.7); Basophil# 0.05 X10^3/uL; Basophil% 1.1 % (0-1); Eosinophil# 0.08 X10^3/uL; Eosinophils% 1.8 % (0-5); Hematocrit 28.7 % (37-47); Hemoglobin 8.6 g/dL (12.0-15.0); Lymphocyte # 2.13 X10^3/ul (4.0); Lymphocyte % 46.9 % (19-41); Mean Corpuscular Hgb 37.1 pg (27.0-32.0); Mean Corpuscular Volume 123.7 fL (81-99); Mean Platelet Vol. 13.9 fl (6.2-12.0); Monocyte# 0.34 X10^3/uL; Monocyte% 7.5 % (0-10); NRBC Flagged by Analyzer 0 % (0-5); Neutrophil # 1.92 X10^3/uL (2.7-7.7); Neutrophil % 42.3 % (47-70); POSITIVE MORPHOLOGY YES; Platelet Count 112 K/mm3 (150-450); RBC Distribution Width CV 15.5 % (11.6-14.6); RBC Distribution Width SD 70.6 fl (35.1-43.9); Red Blood Count 2.32 M/mm3 (4.2-5.4); White Blood Count 4.5 K/mm3 (4.4-11.0)
[2020-04-18 17:44] LABS: Differential Indicated SCAN CRITERIA MET
[2020-04-18 18:10] LABS: Anisocytosis 1+; Differential Comment SCANNED
[2020-04-18 18:19] LABS: Ferritin 883 ng/mL (8-252); Iron 113 ug/dL (50-170); Iron Binding Capacity,Total 188 ug/dL (250-450)
== END ==
PROVIDERS: PCP Family Medicine; Referring Provider Family Medicine; Visit Provider Family Medicine
DX: K62.5 Hemorrhage of anus and rectum (principal)
CPT/HCPCS: 36415; 82728; 83540; 83550; 85025

== ENCOUNTER 2020-05-02 07:08 | Day surgery (SDC) | payer MEDICARE, MEDICAID, SELFPAY ==
--- NOTE | 2020-04-26 03:39 | HP_ITS ---
Intake Vital Signs 04/26/20 BMI 27.6 04/26/20 Height 5 ft 7 in 04/26/20 Weight: 178 lb 04/26/20 BMI 27.8 04/26/20 BP 100/64 04/26/20 Blood Pressure Location Rt brachial 04/26/20 Position Sitting 04/26/20 Respiration 18 04/26/20 Pulse 91 04/26/20 Pulse Source Monitor 04/26/20 Temp 97.4 F L 04/26/20 Temp Source Temporal 04/26/20 Pulse Oximetry (%) 97 04/26/20 Oxygen Delivery Method room air Intake Visit Reasons: RECTAL BLEEDING/ CSCOPE Chief Complaint: palpitations Allergies heparin Allergy (Intermediate, Verified 04/26/20 15:27) Induced thrombocytopenia alprazolam [From Xanax] Allergy (Verified 04/26/20 15:27) Unknown Medications calcium acetate(phosphat bind) 667 mg capsule 667 mg PO TID cap 07/24/18 [History Confirmed 04/26/20] cholecalciferol (vitamin D3) 25 mcg (1,000 unit) capsule 3,000 unit PO DAILY 07/24/18 [History Confirmed 04/26/20] lorazepam 0.5 mg tablet 0.5 mg PO QD-BID PRN 07/24/18 [History Confirmed 04/26/20] midodrine 10 mg tablet 10 mg PO TID 07/24/18 [History Confirmed 04/26/20] tramadol 50 mg tablet 50 mg PO BID PRN PRN tab 07/24/18 [History Confirmed 04/26/20] vitamin B complex 1 tab PO QODAY tab 07/24/18 [History Confirmed 04/26/20] B complex 11-folic acid 1 mg-C 100 mg-biotin 300 mcg-zinc 50 mg tablet 1 tab PO DAILY 08/17/19 [History Confirmed 04/26/20] diclofenac sodium 1 % topical gel 2 g TOPICAL DIRECTED PRN g 08/17/19 [History Confirmed 04/26/20] promethazine 25 mg tablet 25 mg PO Q6H PRN 08/17/19 [History Confirmed 04/26/20] apixaban 5 mg tablet 5 mg PO BID #180 tab 09/03/19 [Rx Confirmed 04/26/20] metoprolol tartrate 25 mg tablet 12.5 mg PO BID #90 tab 09/09/19 [Rx Confirmed 04/26/20] fludrocortisone 0.1 mg tablet 0.1 mg PO DAILY 04/26/20 [History Confirmed 04/26/20] gabapentin 100 mg capsule 200 mg PO .COMPLEX cap 04/26/20 [History Confirmed 04/26/20] potassium chloride 10 mEq tablet,extended release 10 meq PO DAILY 04/26/20 [History Confirmed 04/26/20] primidone 50 mg tablet 150 mg PO TID tab 04/26/20 [History Confirmed 04/26/20] sertraline 100 mg tablet 200 mg PO DAILY tab 04/26/20 [History Confirmed 04/26/20] [facility] Medical History Atrial fibrillation status post cardioversion (Acute) Atrial fibrillation (Chronic) ESRD (end stage renal disease) on dialysis (Chronic) Palpitations (Acute) Shortness of breath (Acute) Personal history of colonic polyps (Inactive) Chronic renal failure, stage 5 (Chronic) Rectal bleeding (Resolved) Back problem (Acute) CL (cirrhosis of liver) (Acute) Chronic kidney disease (Acute) Kidney stones (Acute) Rectal bleeding (Acute) Tremors of nervous system (Acute) Surgical History History of cardioversion (Chronic 08/31/19) History of colonoscopy (Acute ~2014) History of hysterectomy (Acute) History of intestinal bypass (Acute) History of laparoscopic cholecystectomy (Acute) history AV graft (Acute) history ORIF right hip (Acute) Family History (Updated 04/26/20 @ 15:25 by Monique Woodall) Father Arthritis Skin cancer Heart disease Hypertension Hypercholesterolemia Cancer skin cancer Brother Arthritis Heart disease Hypercholesterolemia Hypertension Seizures Diabetes Grandmother Asthma Heart disease Mother Cancer Leukemia Social History (Updated 04/26/20 @ 15:[address] Bay Peguero MD) Smoking Status: Never smoker alcohol intake: never substance use type: does not use HPI HPI HPI: GUIDO WALLACE, is a 74 F who presents to the office today for HPI HPI Surgical H&P: Yes HPI: GUIDO WALLACE, is a 74 F who presents to the office today for surgical consultation regarding rectal bleeding. 74-year-old female. She believes that approximately August 2019 she was initiated on Eliquis because of atrial fibrillation. Recently she has had bright red rectal bleeding with blood on the stool and in the commode and on the tissue paper. As of April 18, 2020 her hemoglobin was 8.6. She does have a chronic anemia because she is in chronic renal failure on hemodialysis via a left upper arm AV fistula. She is on chronic iron supplementation as well. As of April 19, 2020 she had her Eliquis stopped because of the rectal bleeding and urgent referral for diagnostic possibly therapeutic intervention has been requested. Her most recent colonoscopy I performed on August 18, 2018 and I demonstrated 3 different polyps. One in the proximal transverse colon one in the mid transverse colon and one in the rectum. All of these were tubular adenoma. She did have diverticulosis as well. She had nonthrombosed external and internal hemorrhoids. ROS General General: Yes weight change and fatigue; no appetite, colon cancer, breast cancer or weakness HEENT HEENT: No difficulty swallowing, eye injury, eye surgery, swollen glands or hoarseness Endo Endocrine: No thyroid disease, diabetes mellitus, thyroid cancer, Hair loss, heat intolerance or cold intolerance Skin Skin: No rash or changing moles Breast Breast: No left breast lump, right breast lump, nipple discharge, breast pain, abnormal mammogram, abnormal US or breast enlargement Musc Musculoskeletal: Yes back problems, arthritis and rheumatoid arthritis; no gout or joint pain Cardio Cardiovascular: Yes heart disease and atrial fibrillation; no murmur, pacemaker, high blood pressure, heart attack, heart stent, palpitations, shortness of breat with exertion or chest pain Psych Psychiatric: Yes depression; no anxiety or hearing voices Resp Respiratory: No shortness of breath, No sleep apnea, No cough, No COPD, No asthma, No emphysema, No wheezing Gastro Gastrointestinal: No abdominal pain, Yes nausea or vomiting, Yes diarrhea, Yes constipation, Yes blood in stool, No acid reflux, Yes hemorrhoids, No ulcers, No gallbladder problem, No black,tarry stools Terrance Hematologic: Yes blood thinners, No blood disorders, No bleeding, Yes anemia, No blood clots Neuro Neurologic: No system reviewed and no additional complaints, except as docu, No as per HPI, No abnormal walking, No abnormal hearing, No abnormal movements, No abnormal speech, No behavioral changes, No burning sensations, No confusion, No seizure-like activity, No unsteadiness, No dizziness, No localized weakness, No frequent falls, No headache(s), No lack of coordination, No loss of vision, No memory loss, Yes numbness, No other visual disturbances, No radiating pain, No restless legs, No sensory deficit, No fainting, Yes tingling, No tremor(s), No weakness, No other Exam Const General: cooperative, comfortable, no acute distress Nutritional Appearance: average body habitus Orientation: alert HENMT Head: normal to inspection Chest Breast Palpation: No nipple discharge Resp Effort & Inspection: normal respiratory effort Auscultation: clear to auscultation bilaterally Cardio Rate: regular rate Rhythm: regular rhythm Heart Sounds: no murmurs GI Palpation: soft, no hepatosplenomegaly Extrem Other: Left upper extremity AV fistula with pulse and thrill and bruit Psych Affect: normal affect Assessment & Plan Problems 1. Rectal bleeding K62.5 Plan Rectal bleeding while on Eliquis. Eliquis is being utilized for atrial fibrillation. The patient has had her anticoagulation temporarily stopped. She has a personal history of colon polyps. I have offered her a colonoscopy with possible biopsy or polypectomy as indicated. She is aware of the technique, benefit, risk, alternatives. She has had an opportunity to ask and have questions answered. We will schedule and expedite her care. I appreciate the ongoing opportunity of assisting with her surgical management. Cc: Dr Mitchell Peguero M.D., F.A.C.S. Coding Level of Care Code Off vis,est,level 2 Diagnoses Rectal bleeding K62.5 04/26/20 1539 <Electronically signed by Bay thomson MD> Date _ Bay Peguero MD
[2020-04-26 15:39] VITALS: BMI 27.6
[2020-05-02 07:25] VITALS: BP 119/70; PULSE 63; RESP 14; TEMP 36.2; O2SAT 96; BMI 27.7
--- NOTE | 2020-05-02 08:15 | COLBX_PTH ---
PATIENT: GUIDO WALLACE LOC: [facility] U#:[id number] AGE/SX: 74/F ROOM: RE05/02/[address]: Dr. Bay Peguero MD : 1945 BED: DIS: 05/02/2020 SPEC #: [id number] RECD: 05/02/20 12:34 STATUS: ROBERT TABORElise #: [id number] RONNIE: 05/02/20 08:[address]: Bay Peguero DEPT: SURGICAL PATHOLOGY RECD BY: Yosi Fonseca ENTERED: 05/03/20 09:02 SP TYPE: COLON BX OTHR DR: Dr. Mitchell Appiah MD Tissues: A - Descending colon B - Rectum, NOS Procedures: Surgery Specimen Level IV HEADER OPERATION: Colonoscopy (MAC) PRE-OP DIAGNOSIS: Rectal bleeding TISSUE SUBMITTED: A - Descending polyp, B - Proximal rectum polyp biopsy MICROSCOPIC DIAGNOSIS A. Descending colon polyp, biopsy: Cauterized mucosal polyp with hyperplastic change. B. Proximal rectal polyp, biopsy: Tubular adenoma. AM:beth 05/04/20 COMMENT This case was reviewed and diagnosis discussed with Tootie Cross on 07/26/[address] Livingston. MICROSCOPIC DESCRIPTION Slides are reviewed. GROSS DESCRIPTION A - Received in fixative is one container labeled with the patient's name and designated descending colon polyp. The specimen consists of multiple irregular fragments of light castillo soft tissue that in aggregate measure 1 x 0.6 x 0.1 cm. The specimen is totally submitted in one cassette. B - Received in fixative is one container labeled with the patient's name and designated proximal rectum. The specimen consists of two irregular fragments of light castillo soft tissue that in aggregate measure 0.5 x 0.5 x 0.1 cm. The specimen is totally submitted in one cassette. / AM:beth 05/03/20 TC:5 CPT: 84853 x2
--- NOTE | 2020-05-02 08:33 | PCM.HP.BLA ---
Problem List (1) Rectal bleeding Status: Resolved History and Physical Date of Admission: 05/02/20 Intake Visit Reasons: RECTAL BLEEDING/ CSCOPE Chief Complaint: palpitations Allergies heparin Allergy (Intermediate, Verified 04/26/20 15:27) Induced thrombocytopenia alprazolam [From Xanax] Allergy (Verified 04/26/20 15:27) Unknown Medications calcium acetate(phosphat bind) 667 mg capsule 667 mg PO TID cap 07/24/18 [History Confirmed 04/26/20] cholecalciferol (vitamin D3) 25 mcg (1,000 unit) capsule 3,000 unit PO DAILY 07/24/18 [History Confirmed 04/26/20] lorazepam 0.5 mg tablet 0.5 mg PO QD-BID PRN 07/24/18 [History Confirmed 04/26/20] midodrine 10 mg tablet 10 mg PO TID 07/24/18 [History Confirmed 04/26/20] tramadol 50 mg tablet 50 mg PO BID PRN PRN tab 07/24/18 [History Confirmed 04/26/20] vitamin B complex 1 tab PO QODAY tab 07/24/18 [History Confirmed 04/26/20] B complex 11-folic acid 1 mg-C 100 mg-biotin 300 mcg-zinc 50 mg tablet 1 tab PO DAILY 08/17/19 [History Confirmed 04/26/20] diclofenac sodium 1 % topical gel 2 g TOPICAL DIRECTED PRN g 08/17/19 [History Confirmed 04/26/20] promethazine 25 mg tablet 25 mg PO Q6H PRN 08/17/19 [History Confirmed 04/26/20] apixaban 5 mg tablet 5 mg PO BID #180 tab 09/03/19 [Rx Confirmed 04/26/20] metoprolol tartrate 25 mg tablet 12.5 mg PO BID #90 tab 09/09/19 [Rx Confirmed 04/26/20] fludrocortisone 0.1 mg tablet 0.1 mg PO DAILY 04/26/20 [History Confirmed 04/26/20] gabapentin 100 mg capsule 200 mg PO .COMPLEX cap 04/26/20 [History Confirmed 04/26/20] potassium chloride 10 mEq tablet,extended release 10 meq PO DAILY 04/26/20 [History Confirmed 04/26/20] primidone 50 mg tablet 150 mg PO TID tab 04/26/20 [History Confirmed 04/26/20] sertraline 100 mg tablet 200 mg PO DAILY tab 04/26/20 [History Confirmed 04/26/20] [facility] Medical History Atrial fibrillation status post cardioversion (Acute) Atrial fibrillation (Chronic) ESRD (end stage renal disease) on dialysis (Chronic) Palpitations (Acute) Shortness of breath (Acute) Personal history of colonic polyps (Inactive) Chronic renal failure, stage 5 (Chronic) Rectal bleeding (Resolved) Back problem (Acute) CL (cirrhosis of liver) (Acute) Chronic kidney disease (Acute) Kidney stones (Acute) Rectal bleeding (Acute) Tremors of nervous system (Acute) Surgical History History of cardioversion (Chronic 08/31/19) History of colonoscopy (Acute ~2014) History of hysterectomy (Acute) History of intestinal bypass (Acute) History of laparoscopic cholecystectomy (Acute) history AV graft (Acute) history ORIF right hip (Acute) Family History (Updated 04/26/20 @ 15:25 by Monique Woodall) Father Arthritis Skin cancer Heart disease Hypertension Hypercholesterolemia Cancer skin cancer Brother Arthritis Heart disease Hypercholesterolemia Hypertension Seizures Diabetes Grandmother Asthma Heart disease Mother Cancer Leukemia Social History (Updated 04/26/20 @ 15:[address] Bay Peguero MD) Smoking Status: Never smoker alcohol intake: never substance use type: does not use HPI HPI HPI: GUIDO WALLACE, is a 74 F who presents to the office today for HPI HPI Surgical H&P: Yes HPI: GUIDO WALLACE, is a 74 F who presents to the office today for surgical consultation regarding rectal bleeding. 74-year-old female. She believes that approximately August 2019 she was initiated on Eliquis because of atrial fibrillation. Recently she has had bright red rectal bleeding with blood on the stool and in the commode and on the tissue paper. As of April 18, 2020 her hemoglobin was 8.6. She does have a chronic anemia because she is in chronic renal failure on hemodialysis via a left upper arm AV fistula. She is on chronic iron supplementation as well. As of April 19, 2020 she had her Eliquis stopped because of the rectal bleeding and urgent referral for diagnostic possibly therapeutic intervention has been requested. Her most recent colonoscopy I performed on August 18, 2018 and I demonstrated 3 different polyps. One in the proximal transverse colon one in the mid transverse colon and one in the rectum. All of these were tubular adenoma. She did have diverticulosis as well. She had nonthrombosed external and internal hemorrhoids. ROS General General: Yes weight change and fatigue; no appetite, colon cancer, breast cancer or weakness HEENT HEENT: No difficulty swallowing, eye injury, eye surgery, swollen glands or hoarseness Endo Endocrine: No thyroid disease, diabetes mellitus, thyroid cancer, Hair loss, heat intolerance or cold intolerance Skin Skin: No rash or changing moles Breast Breast: No left breast lump, right breast lump, nipple discharge, breast pain, abnormal mammogram, abnormal US or breast enlargement Musc Musculoskeletal: Yes back problems, arthritis and rheumatoid arthritis; no gout or joint pain Cardio Cardiovascular: Yes heart disease and atrial fibrillation; no murmur, pacemaker, high blood pressure, heart attack, heart stent, palpitations, shortness of breat with exertion or chest pain Psych Psychiatric: Yes depression; no anxiety or hearing voices Resp Respiratory: No shortness of breath, No sleep apnea, No cough, No COPD, No asthma, No emphysema, No wheezing Gastro Gastrointestinal: No abdominal pain, Yes nausea or vomiting, Yes diarrhea, Yes constipation, Yes blood in stool, No acid reflux, Yes hemorrhoids, No ulcers, No gallbladder problem, No black,tarry stools Terrance Hematologic: Yes blood thinners, No blood disorders, No bleeding, Yes anemia, No blood clots Neuro Neurologic: No system reviewed and no additional complaints, except as docu, No as per HPI, No abnormal walking, No abnormal hearing, No abnormal movements, No abnormal speech, No behavioral changes, No burning sensations, No confusion, No seizure-like activity, No unsteadiness, No dizziness, No localized weakness, No frequent falls, No headache(s), No lack of coordination, No loss of vision, No memory loss, Yes numbness, No other visual disturbances, No radiating pain, No restless legs, No sensory deficit, No fainting, Yes tingling, No tremor(s), No weakness, No other Exam Const General: cooperative, comfortable, no acute distress Nutritional Appearance: average body habitus Orientation: alert HENMT Head: normal to inspection Chest Breast Palpation: No nipple discharge Resp Effort & Inspection: normal respiratory effort Auscultation: clear to auscultation bilaterally Cardio Rate: regular rate Rhythm: regular rhythm Heart Sounds: no murmurs GI Palpation: soft, no hepatosplenomegaly Extrem Other: Left upper extremity AV fistula with pulse and thrill and bruit Psych Affect: normal affect Assessment & Plan Problems 1. Rectal bleeding K62.5 Plan Rectal bleeding while on Eliquis. Eliquis is being utilized for atrial fibrillation. The patient has had her anticoagulation temporarily stopped. She has a personal history of colon polyps. I have offered her a colonoscopy with possible biopsy or polypectomy as indicated. She is aware of the technique, benefit, risk, alternatives. She has had an opportunity to ask and have questions answered. We will schedule and expedite her care. I appreciate the ongoing opportunity of assisting with her surgical management. Cc: Dr Mitchell Peguero M.D., F.A.C.S. Coding Level of Care Code Off vis,est,level 2 Diagnoses Rectal bleeding K62.5 04/26/20 1539 <Electronically signed by Bay Peguero MD> Date Bay Peguero MD I have re-examined the patient. There are no clinical changes since date of exam. Procedure Criteria Procedure Type: Elective COVID Risk Discussion: The surgeon/proceduralist and patient have discussed in detail the risk of exposure to and/or potential harm posed by the COVID-19 virus with having a surgery/procedure at this time versus the risk of delaying the surgery/procedure. It is not possible to know either the risk of delaying the surgery or procedure or chance of getting an infection with perfect accuracy, but a joint decision was made between the patient and the surgeon/proceduralist to proceed at this time with the scheduled surgery/procedure as indicated on the consent form.
[2020-05-02 09:20] VITALS: BP 101/41; BP 119/70; PULSE 61; RESP 16; TEMP 36.1; O2SAT 99
[2020-05-02 09:25] VITALS: BP 119/70; BP 84/48; PULSE 56; RESP 16; O2SAT 100
--- NOTE | 2020-05-02 09:27 | OP.CCLET_ITS ---
05/02/2020 Mitchell Appiah [address] [place] [address] Re : Colonoscopy procedure for Coreen Garnicavan Dear Dr. Appiah This procedure was performed on Saturday, May 02, 2020. My impressions and recommendations are as follows: Impressions : - Anal stricture, non-thrombosed internal hemorrhoids and internal hemorrhoids that prolapse with straining, but spontaneously regress to the resting position (Grade II) found on digital rectal exam. - One 9 mm polyp in the mid descending colon. Resected and retrieved. Clip was placed. - One 5 mm polyp in the rectum, removed with a cold biopsy forceps. Resected and retrieved. Chronic anal stenosis and internal hemorrhoids likely source of rectal bleeding. Recommend medical management Might need colorectal referral if suppositories and ointments fail to resolve Recommendations : - Repeat colonoscopy in 5 years for surveillance based on pathology results. - Telephone my office for pathology results in 1 week. - Use fiber, for example Citrucel, Fibercon, Konsyl or Metamucil. - Preparation H ointment: Apply externally BID. - Use hydrocortisone suppository 25 mg 1 per rectum once a day [Duration]. - Continue present medications. My findings are described in the full procedure note, which is enclosed. If I can be of further assistance, please feel free to contact me at Doctor phone number(s): Work: . Sincerely, Bay Peguero MD 05/02/2020 9:27:26 AM This report has been signed electronically.
--- NOTE | 2020-05-02 09:27 | OP.COLON_ITS ---
Patient Name: Coreen Dash Procedure Date: 05/02/2020 8:43 AM Date of : 1945 Age: 74 Procedure: Colonoscopy Indications: Rectal bleeding Providers: Bay Peguero MD Referring MD: Mitchell Appiah Medicines: See the Anesthesia note for documentation of the administered medications Patient Profile: Last Colonoscopy: 2007. Complications: No immediate complications. Procedure: Pre-Anesthesia Assessment: - Prior to the procedure, a History and Physical was performed, and patient medications and allergies were reviewed. The patient's tolerance of previous anesthesia was also reviewed. The risks and benefits of the procedure and the sedation options and risks were discussed with the patient. All questions were answered, and informed consent was obtained. Prior Anticoagulants: The patient has taken Eliquis (apixaban), last dose was 5 days prior to procedure. ASA Grade Assessment: III - A patient with severe systemic disease. After reviewing the risks and benefits, the patient was deemed in satisfactory condition to undergo the procedure. After I obtained informed consent, the scope was passed under direct vision. Throughout the procedure, the patient's blood pressure, pulse, and oxygen saturations were monitored continuously. The colonoscope was introduced through the anus and advanced to the ileocolonic anastomosis. The colonoscopy was performed without difficulty. The patient tolerated the procedure well. The quality of the bowel preparation was adequate to identify polyps. Ileocolonic anastomosis were photographed. Scope In: 8:52:12 AM Scope Withdrawal Time 0 hours 15 minutes 55 seconds Scope Out: 9:15:56 AM Total Procedure Duration Time 0 hours 23 minutes 44 seconds Findings: The digital rectal exam findings include anal stricture, non-thrombosed internal hemorrhoids and internal hemorrhoids that prolapse with straining, but spontaneously regress to the resting position (Grade II). A 5 mm polyp was found in the rectum. The polyp was sessile. The polyp was removed with a cold biopsy forceps. Resection and retrieval were complete. A 9 mm polyp was found in the mid descending colon. The polyp was sessile. The polyp was removed with a hot snare. The polyp was removed with a saline injection-lift technique using a hot snare. Resection and retrieval were complete. To prevent bleeding post-intervention, one hemostatic clip was successfully placed. There was no bleeding at the end of the procedure. Impression: - Anal stricture, non-thrombosed internal hemorrhoids and internal hemorrhoids that prolapse with straining, but spontaneously regress to the resting position (Grade II) found on digital rectal exam. - One 9 mm polyp in the mid descending colon. Resected and retrieved. Clip was placed. - One 5 mm polyp in the rectum, removed with a cold biopsy forceps. Resected and retrieved. Chronic anal stenosis and internal hemorrhoids likely source of rectal bleeding. Recommend medical management Might need colorectal referral if suppositories and ointments fail to resolve Recommendation: - Repeat colonoscopy in 5 years for surveillance based on pathology results. - Telephone my office for pathology results in 1 week. - Use fiber, for example Citrucel, Fibercon, Konsyl or Metamucil. - Preparation H ointment: Apply externally BID. - Use hydrocortisone suppository 25 mg 1 per rectum once a day [Duration]. - Continue present medications. Procedure Code(s): --- Professional --- 79242, Colonoscopy, flexible; with removal of tumor(s), polyp(s), or other lesion(s) by snare technique 85102, 59, Colonoscopy, flexible; with biopsy, single or multiple 60460, Colonoscopy, flexible; with directed submucosal injection(s), any substance Diagnosis Code(s): --- Professional --- K62.4, Stenosis of anus and rectum D12.4, Benign neoplasm of descending colon K62.1, Rectal polyp K62.5, Hemorrhage of anus and rectum K64.1, Second degree hemorrhoids CPT copyright 2017 [employer]. All rights reserved. The codes documented in this report are preliminary and upon valet runner review may be revised to meet current compliance requirements. Bay Peguero MD 05/02/2020 9:27:26 AM This report has been signed electronically. Number of Addenda: 0 Note Initiated On: 05/02/2020 8:43 AM
[2020-05-02 09:30] VITALS: BP 119/70; BP 94/40; PULSE 67; RESP 16; O2SAT 98
[2020-05-02 09:36] VITALS: BP 104/48; BP 119/70; PULSE 62; RESP 16; TEMP 36.2; O2SAT 98
[2020-05-02 10:05] VITALS: BP 119/70
== END 2020-05-02 10:10 | disposition home or self-care (01) ==
LOC: EN 07:10 → AC 07:10
PROVIDERS: PCP Family Medicine; Referring Provider Family Medicine; Visit Provider Surgery
PROC: 0DJD8ZZ Inspection of Lower Intestinal Tract, Via Natural or Artificial Opening Endoscopic (ICD-10-PCS; CPT 45378; principal; 2020-05-02 08:10)
DX: D12.8 Benign neoplasm of rectum (principal); K63.5 Polyp of colon; K62.4 Stenosis of anus and rectum; K64.1 Second degree hemorrhoids; Z11.59 Encounter for screening for other viral diseases; N18.6 End stage renal disease; Z99.2 Dependence on renal dialysis; D64.9 Anemia, unspecified; I48.91 Unspecified atrial fibrillation; K74.60 Unspecified cirrhosis of liver; M06.9 Rheumatoid arthritis, unspecified; F32.9 Major depressive disorder, single episode, unspecified; F41.9 Anxiety disorder, unspecified; G25.81 Restless legs syndrome; Z78.0 Asymptomatic menopausal state; Z85.828 Personal history of other malignant neoplasm of skin; Z87.442 Personal history of urinary calculi; Z79.01 Long term (current) use of anticoagulants; Z79.899 Other long term (current) drug therapy
CPT/HCPCS: 45380; 45381; 45385; 87635; 88305; G2023; J7120; A4216; J2405; U0003

== ENCOUNTER 2020-05-26 07:26 | Emergency (ER) | payer MEDICARE, MEDICAID, SELFPAY ==
[2020-05-26 07:27] VITALS: BP 119/66; PULSE 56; RESP 16; TEMP 36.3; O2SAT 98; BMI 28.0
--- NOTE | 2020-05-26 08:02 | CT_ITS ---
STUDY: CT BRAIN WITHOUT CONTRAST REASON FOR EXAM: Female, 74 years old. INCREASED HR, A-FIB, OFF ELIQUIS X 2 WEEKS, LIGHT HEADED, ASHLEY RADIATION DOSAGE (If Supplied By Facility): CTDIvol = ( 44.99 ) mGy, DLP = ( 779.24 ) mGycm TECHNIQUE: Transaxial CT imaging of the brain was performed without administration of intravenous contrast material. Individualized dose optimization techniques were used for this CT. COMPARISON: No relevant priors. FINDINGS: Normal soft tissue structures. Normal calvarium. Normal size ventricles and extra-axial spaces for the patient''s age. Mild white matter microangiopathic ischemic changes of the cerebral hemispheres. Normal basal ganglia and thalami. Normal brainstem. Normal cerebellum. There is no intracranial hemorrhage. There are no findings of an acute ischemic infarction. Normal visualized paranasal sinuses. CT/Brain/Head without Contrast IMPRESSION: No acute intracranial pathology of the brain. Electronically Signed: Jim Rae DO at 8:58 EDT Tel [phone], Service support ,
--- NOTE | 2020-05-26 08:05 | EKG12_ITS ---
Test Reason : HIGH HR Blood Pressure : / mmHG Vent. Rate : 066 BPM Atrial Rate : 080 BPM P-R Int : 000 ms QRS Dur : 084 ms QT Int : 448 ms P-R-T Axes : 000 052 044 degrees QTc Int : 469 ms Atrial fibrillation Abnormal ECG Confirmed by CISCO CASTELLANOS, SOPHIA ([id number]), makeup editor BRIDGET CALLEJAS ([id number]) on 05/30/2020 11:09:31 AM Referred By: LIN Confirmed By:SOPHIA PECK MD
--- NOTE | 2020-05-26 08:05 | RAD_ITS ---
STUDY: X-RAY CHEST REASON FOR EXAM: Female, 74 years old. TECHNIQUE: Frontal view COMPARISON: None. FINDINGS: The lungs are clear and expanded. There is no demonstrated pleural abnormality. Normal size heart. Normal mediastinum and liane. Normal visualized pulmonary arteries. Normal visualized aortic arch and descending thoracic aorta. Trace scoliosis of the thoracic spine. Normal visualized ribs, clavicles, and shoulders. There is no demonstrated abnormality of the visualized soft tissue structures of the upper abdomen. RAD/Chest 1 View (Portable) IMPRESSION: Normal x-ray examination of the chest. Electronically Signed: Jim Rae DO at 8:55 EDT Tel [phone], Service support ,
[2020-05-26 08:22] LABS: Absolute Lymphocyte Count 1.51 X10^3/uL (0.83-4.51); Absolute Neutrophil Count 2.8 X10^3/uL (2.0-7.7); Basophil# 0.04 X10^3/uL; Basophil% 0.8 % (0-1); Differential Indicated SCAN CRITERIA MET; Eosinophil# 0.12 X10^3/uL; Eosinophils% 2.5 % (0-5); Hematocrit 33.7 % (37-47); Hemoglobin 10.3 g/dL (12.0-15.0); Lymphocyte # 1.51 X10^3/ul (4.0); Lymphocyte % 31.3 % (19-41); Mean Corp Hgb Conc 30.6 g/dL (32-36); Mean Corpuscular Hgb 38.4 pg (27.0-32.0); Mean Corpuscular Volume 125.7 fL (81-99); Monocyte# 0.35 X10^3/uL; Monocyte% 7.2 % (0-10); NRBC Flagged by Analyzer 0 % (0-5); Neutrophil # 2.78 X10^3/uL (2.7-7.7); Neutrophil % 57.6 % (47-70); POSITIVE MORPHOLOGY YES; Platelet Count 116 K/mm3 (150-450); RBC Distribution Width CV 14.8 % (11.6-14.6); Red Blood Count 2.68 M/mm3 (4.2-5.4); White Blood Count 4.8 K/mm3 (4.4-11.0)
[2020-05-26 08:36] LABS: International Normalized Ratio 1.3; Prothrombin Time (Protime)PT. 15.2 SECONDS (11.7-14.9)
[2020-05-26 08:37] LABS: Partial Thromboplast Time 33.4 Seconds (24.1-36.2)
[2020-05-26 08:44] LABS: Anion Gap 12 (5-15); Anisocytosis 1+; BUN 51 mg/dL (7-18); BUN/Creat Ratio 6.8 RATIO (10-20); Chloride 102 mmol/L (98-107); Creatinine, Serum 7.55 mg/dL (0.55-1.02); EST Glomerular Filtration Rate 6 mL/min (>60); Est Glom Filt Rate - Afr Amer 7 mL/min (>60); Estimated Creatinine Clearance 6.45 ml/min; Glucose 89 mg/dL (74-106); Potassium 3.7 mmol/L (3.5-5.1); Sodium Level 139 mmol/L (136-145)
[2020-05-26 09:35] VITALS: BP 108/59; BP 112/52; BP 118/67; PULSE 89; PULSE 95; RESP 18; O2SAT 99
--- NOTE | 2020-05-26 09:48 | ED.VIS.GEN ---
History of Present Illness Chief Complaint: Dizziness Informant: Patient Onset: Today Context: Gradual Onset Timing: Intermittent Narrative: 74-year-old female with history of end-stage renal disease on hemodialysis presenting from dialysis for tachycardia. Patient receives her dialysis Friday and she last had a full session on Friday, 2 days ago. She states she is feeling tired today. When she was at dialysis her heart rate was found to be significantly elevated. Denies feeling any palpitations. They did not start dialysis and just sent her to the emergency room. Patient does have history of atrial fibrillation and is currently off of her Eliquis because of recurrent GI bleeding. She notes today she has had a mild headache in the front of her head and is also been feeling a little lightheaded. She states it is worse when she moves around. Does not seem to be affected by positioning of her head. She did take Tylenol this morning with no relief of her headache. Patient states she woke up with a headache. She has had headaches intermittently but never this bad. She notes that she had 1 soft bowel movement today but denies any blood in her stool. She denies any associated speech changes, weakness or paresthesias. She states she does not make urine. She denies associated chest pain, shortness of breath or dyspnea on exertion. She denies any lower extremity edema. She has no other complaints at this time. Past Medical History - Allergies and Home Meds Allergies/Adverse Reactions: Allergies heparin Allergy (Intermediate, Verified 05/26/20 07:37) Induced thrombocytopenia alprazolam [From Xanax] Allergy (Verified 05/26/20 07:37) Unknown Primary Care Physician: Mitchell Appiah MD [Primary Care Provider] - Past Medical History: - - Atrial fibrillation, end-stage renal disease on hemodialysis, history of GI bleed, cirrhosis of the liver Surgical History: cholecystectomy, hysterectomy, - - Right hip ORIF, AV graft left arm, past history of an intestinal bypass for weight loss, skin cancer removal Smoking Status: Smoker, status unknown - Family History Maternal Family History: Family History (Last Updated 04/26/20 @ 15:25 by Monique Woodall) Father Arthritis Skin cancer Heart disease Hypertension Hypercholesterolemia Cancer Brother Arthritis Heart disease Hypercholesterolemia Hypertension Seizures Diabetes Grandmother Asthma Heart disease Mother Cancer Family History: Reports: Cancer - Leukemia Paternal Family History: Family History (Last Updated 04/26/20 @ 15:25 by Monique Woodall) Father Arthritis Skin cancer Heart disease Hypertension Hypercholesterolemia Cancer Brother Arthritis Heart disease Hypercholesterolemia Hypertension Seizures Diabetes Grandmother Asthma Heart disease Mother Cancer Family History: Reports: Heart Disease Review of Systems General: Reports: Malaise, - - Lightheaded. Denies: Chills, Fever, Sweats Eyes: Denies: Visual changes - bilaterally, Diplopia ENT: Denies: Rhinorrhea, Sore throat Cardiovascular: Denies: Chest pain, Palpitations Respiratory: Denies: Dyspnea, Cough, Dyspnea on exertion Gastrointestinal: Denies: Abdominal pain, Nausea, Vomiting, Diarrhea, Melena, Hematochezia Genitourinary: Denies: Dysuria, Hematuria, Frequency Musculoskeletal: Denies: Back pain, Extremity Pain Skin: Denies: Rash, Wounds Neurological: Reports: Headache. Denies: Weakness, Numbness Physical Exam Vital Signs/Narrative: Vital Signs Temp Pulse Pulse Pulse Pulse Resp BP 05/26/20 09:35 89 89 95 89 18 108/59 L 05/26/20 07:27 97.4 F L 56 L 16 119/66 BP BP BP Pulse Ox 05/26/20 09:35 108/59 L 118/67 112/52 L 99 05/26/20 07:27 98 Inital Vital Signs reviewed: Yes General: Well nourished, Well developed, No Acute Distress Head: Normocephalic, Atraumatic, - - Intermittent tremor of the head, chronic per patient Eyes: Perrl, EOMI ENT: Moist mucous membranes, No rhinorrhea, TM's clear. Negative for: Nasal congestion, Sinus tenderness Neck: Supple, Nontender, No JVD, - - No nuchal rigidity Cardiovascular: Regular rate, No murmurs, Irregular Respiratory: No distress, CTA bilaterally, Chest nontender Abdomen: Soft, Nontender, Nondistended, Normal bowel sounds. Negative for: Guarding, Rebound tenderness Back: Nontender, Normal Inspection Extremities: Nontender, No edema Skin: Normal color, No rash Neurological: Alert, Oriented x3, Cranial nerves II-XII grossly intact, Normal Strength, Normal Sensation Psychological: Normal affect, Normal Mood Diagnostic/Tx/Re-eval Chest X-Ray - ED: 1 View, Read by ED Physician, Read by Radiologist, No Acute Disease Clinical Impression(s) from Imaging Studies Brain CT 05/26/20 08:02 IMPRESSION: No acute intracranial pathology of the brain. Electronically Signed: Jim Rae DO at 8:58 EDT Tel [phone], Service support , Chest X-Ray 05/26/20 08:05 IMPRESSION: Normal x-ray examination of the chest. Electronically Signed: Jim Rae DO at 8:55 EDT Tel [phone], Service support , Laboratory Data 05/26/20 05/26/20 05/26/20 08:10 08:10 08:10 WBC 4.8 RBC 2.68 L Hgb 10.3 L Hct 33.7 L MCV 125.7 H MCH 38.4 H MCHC 30.6 L RDW Std Deviation 69.0 H RDW Coeff of Yoana 14.8 H Plt Count 116 L MPV 14.0 H Immature Gran % (Auto) 0.600 Neut % (Auto) 57.6 Lymph % (Auto) 31.3 Sebastian % (Auto) 7.2 Eos % (Auto) 2.5 Baso % (Auto) 0.8 Absolute Neuts (auto) 2.8 Absolute Lymphs (auto) 1.51 Nucleated RBC % 0 Anisocytosis 1+ PT 15.2 H INR 1.3 APTT 33.4 Sodium 139 Potassium 3.7 Chloride 102 Carbon Dioxide 25.0 Anion Gap 12 BUN 51 H Creatinine 7.55 H* Estim Creat Clear Calc 6.45 Est GFR (MDRD) Af Amer 7 L Est GFR (MDRD) Non-Af 6 L BUN/Creatinine Ratio 6.8 L Glucose 89 Calcium 9.0 Troponin I 0.018 - Rhythm Strip Rhythm Strip: A-fib Rate: 66 - EKG Initial EKG Interpretation: Atrial Fibrillation, - - Fibrillation at a rate of 66 Normal axis Normal intervals Normal ST segments Compared to prior EKG on 08/31/2019 patient has no dynamic changes - Medical Decision Making She is evaluated for concerns of arrhythmia, headache and generalized fatigue. Patient was at dialysis when she was found to be tachycardic with reported heart rate of 168. EMS was called. In the ER patient as rate controlled atrial fibrillation. She is not complaining of any chest pain and denies having any palpitations. Patient is complained of a mild headache. She has no meningeal signs. No evidence of trauma with a normal neurologic exam. CT of the brain obtained which not show any acute process. Patient is not having dynamic EKG changes.She is a mild anemia of 10.3 which appears to be her baseline. Her creatinine is elevated but this is consistent with her history of end-stage renal disease and being due for dialysis. Potassium is actually on the low end of normal at 3.7. Patient does not require emergent dialysis at this time. Troponin is 0.018. This also appears to be her baseline. Patient is given a low-dose of Toradol as well as Tylenol for her headache. Her orthostatics are negative. Patient is counseled the exact cause of her lightheadedness is not clear. I cannot find evidence of a tachycardic event, however patient is on her beta-sofiya has been compliant so I do not think she needs to stay in the hospital for further cardiac monitoring at this time. Patient is offered admission of because of her lightheadedness however she states she feels comfortable going home. She states that has help at home. She will call dialysis to arrange for dialysis either today or tomorrow. Patient is counseled on signs and symptoms requiring return to the emergency room. Patient verbalizes agreement and understand this plan. Patient discharged home in stable and improved condition. ED Disposition - Plan for ED Patient: Disposition: Home or Assisted Living Diagnosis: Lightheadedness, History of atrial fibrillation, Headache, History of end stage renal disease Instructions: ED Dizziness UKO Referrals: Mitchell Appiah MD [Primary Care Provider] -
[2020-05-26] MEDS: Ketorolac 15 MG/ML Vial IV (10:09)
[2020-05-26] MEDS: Acetaminophen 325 MG Tablet 650 MG PO (10:09)
[2020-05-26 10:10] VITALS: BP 121/68; PULSE 73; RESP 14; O2SAT 97
== END 2020-05-26 10:10 | disposition home or self-care (01) ==
PROVIDERS: Emergency Provider Emergency Medicine; PCP Family Medicine
DX: R42 Dizziness and giddiness (principal); I48.91 Unspecified atrial fibrillation; R51 Headache; N18.6 End stage renal disease; Z99.2 Dependence on renal dialysis; K74.60 Unspecified cirrhosis of liver; Z87.19 Personal history of other diseases of the digestive system; Z85.828 Personal history of other malignant neoplasm of skin; Z79.899 Other long term (current) drug therapy; F17.200 Nicotine dependence, unspecified, uncomplicated
CPT/HCPCS: 70450; 71045; 80048; 84484; 85025; 85610; 85730; 93005; 96374; 99285; A4216

== ENCOUNTER → 2020-07-25 08:39 | Outpatient (CLI) | payer MEDICARE, SELFPAY ==
[2020-07-25 10:27] LABS: Absolute Lymphocyte Count 1.26 X10^3/uL (0.83-4.51); Absolute Neutrophil Count 1.6 X10^3/uL (2.0-7.7); Basophil# 0.04 X10^3/uL; Basophil% 1.2 % (0-1); Eosinophil# 0.06 X10^3/uL; Eosinophils% 1.8 % (0-5); Hematocrit 32.8 % (37-47); Hemoglobin 9.8 g/dL (12.0-15.0); Lymphocyte # 1.26 X10^3/ul (4.0); Lymphocyte % 38.8 % (19-41); Mean Corp Hgb Conc 29.9 g/dL (32-36); Mean Corpuscular Volume 120.6 fL (81-99); Monocyte# 0.28 X10^3/uL; Monocyte% 8.6 % (0-10); NRBC Flagged by Analyzer 0 % (0-5); Neutrophil # 1.61 X10^3/uL (2.7-7.7); Neutrophil % 49.6 % (47-70); POSITIVE COUNT YES; POSITIVE MORPHOLOGY YES; Platelet Count 94 K/mm3 (150-450); RBC Distribution Width CV 15.2 % (11.6-14.6); Red Blood Count 2.72 M/mm3 (4.2-5.4); White Blood Count 3.3 K/mm3 (4.4-11.0)
[2020-07-25 10:33] LABS: Differential Indicated SCAN CRITERIA MET
[2020-07-25 10:51] LABS: Vitamin B12 402 pg/mL (211-911); Vitamin D,25 Hydroxy 40.6 ng/mL
[2020-07-25 10:58] LABS: PTHIN 230.4 pg/mL (18.4-80.1)
[2020-07-25 11:05] LABS: Anisocytosis 2+; Platelet Estimate SLT DEC (ADEQ)
[2020-07-25 11:07] LABS: AST(SGOT) 19 U/L (15-37); Alanine Aminotransfer ALT/SGPT 37 U/L (13-56); Albumin, Serum 3.3 g/dL (3.2-5.0); Alkaline Phosphatase 108 U/L (45-117); Anion Gap 10 (5-15); BUN 35 mg/dL (7-18); BUN/Creat Ratio 5.9 RATIO (10-20); Calcium,Total 8.8 mg/dL (8.5-10.1); Chloride 101 mmol/L (98-107); Creatinine, Serum 5.93 mg/dL (0.55-1.02); EST Glomerular Filtration Rate 7 mL/min (>60); Est Glom Filt Rate - Afr Amer 9 mL/min (>60); Globulin 3.4 g/dL (2.2-4.2); Glucose 90 mg/dL (74-106); Magnesium 2.1 mg/dL (1.6-2.6); Potassium 3.7 mmol/L (3.5-5.1); Protein, Total 6.7 g/dL (6.4-8.2); Sodium Level 138 mmol/L (136-145)
[2020-07-28 13:07] LABS: Vitamin B1, Thiamine 181.7 nmol/L (66.5-200.0)
== END ==
PROVIDERS: PCP Family Medicine; Referring Provider Family Medicine; Visit Provider Family Medicine
DX: I48.91 Unspecified atrial fibrillation (principal); E55.9 Vitamin D deficiency, unspecified; E53.8 Deficiency of other specified B group vitamins; N25.81 Secondary hyperparathyroidism of renal origin
CPT/HCPCS: 36415; 80053; 82306; 82607; 82746; 83735; 83970; 84425; 85025

== ENCOUNTER 2020-09-20 09:25 | Emergency (ER) | payer MEDICARE, MEDICAID, SELFPAY ==
[2020-08-29 07:43] VITALS: BMI 27.3
[2020-09-20] VITALS (7 sets, daily range): BP systolic 104–229; BP diastolic 55–196; PULSE 64–119; RESP 16–19; TEMP 36.4; O2SAT 96–100; BMI 28.6
--- NOTE | 2020-09-20 09:39 | EKG12_ITS ---
Test Reason : TREMORS Blood Pressure : / mmHG Vent. Rate : 108 BPM Atrial Rate : 071 BPM P-R Int : 000 ms QRS Dur : 070 ms QT Int : 352 ms P-R-T Axes : 000 053 027 degrees QTc Int : 471 ms Atrial fibrillation with rapid ventricular response with premature ventricular or aberrantly conducte d complexes Nonspecific ST and T wave abnormality Abnormal ECG Confirmed by CISCO CASTELLANOS, SOPHIA ([id number]), editor trade journal BRIDGET CALLEJAS ([id number]) on 09/25/2020 12:23:05 PM Referred By: EMILEE Confirmed By:SOPHIA PECK MD
[2020-09-20 09:47] LABS: Absolute Lymphocyte Count 0.58 X10^3/uL (0.83-4.51); Basophil# 0.01 X10^3/uL; Basophil% 0.2 % (0-1); Eosinophil# 0.03 X10^3/uL; Eosinophils% 0.6 % (0-5); Hematocrit 34.5 % (37-47); Hemoglobin 10.8 g/dL (12.0-15.0); Lymphocyte # 0.58 X10^3/ul (4.0); Lymphocyte % 12.3 % (19-41); Mean Corp Hgb Conc 31.3 g/dL (32-36); Mean Corpuscular Hgb 37.2 pg (27.0-32.0); Mean Platelet Vol. 13.9 fl (6.2-12.0); Monocyte# 0.13 X10^3/uL; Monocyte% 2.7 % (0-10); NRBC Flagged by Analyzer 0 % (0-5); Neutrophil # 3.96 X10^3/uL (2.7-7.7); Neutrophil % 83.8 % (47-70); POSITIVE COUNT YES; POSITIVE DIFFERENTIAL YES; Platelet Count 83 K/mm3 (150-450); RBC Distribution Width CV 14.6 % (11.6-14.6); RBC Distribution Width SD 64.3 fl (35.1-43.9); White Blood Count 4.7 K/mm3 (4.4-11.0)
[2020-09-20 09:48] LABS: Differential Indicated SCAN CRITERIA MET
[2020-09-20] MEDS: Aspirin 81 MG TAB.CHEW 324 MG PO (09:54)
[2020-09-20 10:06] LABS: Anion Gap 7 (5-15); BUN 18 mg/dL (7-18); BUN/Creat Ratio 5.4 RATIO (10-20); Calcium,Total 9.2 mg/dL (8.5-10.1); Chloride 97 mmol/L (98-107); Creatinine, Serum 3.34 mg/dL (0.55-1.02); EST Glomerular Filtration Rate 14 mL/min (>60); Est Glom Filt Rate - Afr Amer 17 mL/min (>60); Estimated Creatinine Clearance 14.37 ml/min; Glucose 111 mg/dL (74-106); Potassium 3.3 mmol/L (3.5-5.1); Sodium Level 137 mmol/L (136-145)
--- NOTE | 2020-09-20 10:18 | ED.VISSUMM ---
- ER Visit Summary Date of Service: 09/20/20 Chief Complaint: Elevated heart rate History of Present Illness: The patient is a [address] end-stage renal disease and receives dialysis. History of A. fib but not on blood thinners due to complications of thinners. Patient reportedly was getting dialysis today and had accelerated heart rate. She also has essential tremors and said her tremors are slightly worse today. She is on beta-sofiya for her A. fib. She denied any chest pain. She denies any fever or chills. Physical Examination: Elderly female no acute distress vital signs stable. Initial blood pressures elevated to 229/196. Her heart rate when entered the room is 119 and she appears to be in A. fib on the monitor. HEENT exam unremarkable. Moist his membranes. Neck nontender. Lungs clear to auscultation bilaterally. Heart irregularly irregular rate about 119 appears to be A. fib no murmur. Abdomen soft nontender normal bowel sounds no peritoneal signs. Moving all 4 extremities. No significant edema. She has a graft in her left upper arm with a dialysis. She has a good thrill. Neurologically she is awake and alert moving all 4 extremities. She has essential tremors of her upper extremities head neck. Test Results: EKG shows A. fib rate of 108 no signs of [place] or ischemia. Chest x-ray portable 1 view read by myself and radiologist as no acute abnormality. Normal cardiac silhouette mediastinum. CBC white count of 4. Hemoglobin is 10 which is her baseline chronic anemia. Electrolytes unremarkable. Creatinine at 3.3 consistent with her chronic renal failure. Troponin normal. Emergency Department Course and Treatment: Treated with IV Lopressor. Which should help both her blood pressure and her heart rate labs are pending. Repeat exam patient is doing well at 11:32 AM. She was given 1 dose of Lopressor 5 mg IV. Currently her blood pressure is 104/60 and her heart rate is 94. She states this is a normal blood pressure for her. She feels fine. She feels comfortable being discharged to home. She had almost a full run of dialysis said she had only about 8 minutes left ago when he sent her to the emergency department. Now the patient is more relaxed her blood pressure has normalized and her heart rate is under control her tremors have almost completely resolved. Treatment Plan: Continue her current medications. Follow-up with her primary care physician. Return if feeling worse. Disposition: Discharge Impression: Acute on chronic A. fib RVR History of end-stage renal disease dialysis History of essential tremors This note was generated with [employer] dictation software. It may contain incorrect words, spelling, and punctuation that were not noted in review of the chart prior to signing ED Disposition - Plan for ED Patient: Referrals: Mitchell Appiah MD [Primary Care Provider] -
--- NOTE | 2020-09-20 10:35 | RAD_ITS ---
STUDY: X-RAY CHEST REASON FOR EXAM: Female, 75 years old. DIALYSIS TODAY, STARTED HAVING TREMORS, HEART POUNDING TECHNIQUE: Single AP portable view of the chest. COMPARISON: Comparison is made with prior study dated 05/26/2020. FINDINGS: EKG electrodes are seen. The lungs are clear and expanded. There is no demonstrated pleural abnormality. Normal size heart. Normal mediastinum and liane. Normal visualized pulmonary arteries. Normal visualized aortic arch and descending thoracic aorta. Normal visualized thoracic spine. Normal visualized ribs, clavicles, and shoulders. There is no demonstrated abnormality of the visualized soft tissue structures of the upper abdomen. RAD/Chest 1 View (Portable) IMPRESSION: Normal x-ray examination of the chest. Electronically Signed: Guicho Meeks, at 10:54 EDT , Service support ,
[2020-09-20] MEDS: Metoprolol Tartrate 5 MG/5 ML Vial IV (10:46)
--- NOTE | 2020-09-20 11:37 | ED.DEP ---
ED Disposition - Plan for ED Patient: Disposition: Home or Assisted Living Instructions: ED AFIB Referrals: Mitchell Appiah MD [Primary Care Provider] - 3-5 Days Additional Instructions: Continue your normal medications. Follow-up your primary care physician next 3 to 5 days. Return to the emergency department if you are feeling worse. Watch your blood pressure and heart rate over the next several days.
== END 2020-09-20 11:46 | disposition home or self-care (01) ==
PROVIDERS: Emergency Provider Emergency Medicine; PCP Family Medicine
DX: I48.91 Unspecified atrial fibrillation (principal); N18.6 End stage renal disease; Z99.2 Dependence on renal dialysis; G25.0 Essential tremor; Z79.01 Long term (current) use of anticoagulants; Z79.899 Other long term (current) drug therapy
CPT/HCPCS: 71045; 80048; 84484; 85025; 93005; 96374; 99285; A4216

== ENCOUNTER 2020-10-02 09:16 | Emergency (ER) | payer MEDICARE, MEDICAID, SELFPAY ==
[2020-09-20 09:26] VITALS: BMI 28.6
[2020-10-02 09:17] VITALS: BP 113/62; PULSE 90; RESP 18; TEMP 36.4; O2SAT 98; BMI 27.3
[2020-10-02] MEDS: HYDROcodone Bitartrate/Apap 5/325 Tablet PO (09:31)
--- NOTE | 2020-10-02 09:31 | ED.DCSUM_ITS ---
- ER Visit Summary Date of Service: 10/02/20 Chief Complaint: Bilateral knee pain History of Present Illness: The patient is a 75 F who presents with bilateral knee pain. She states that she got up last night her right knee gave out. She then fell onto both knees. She states that her right knee does get like this sometimes especially after sitting after dialysis for a long period of time. Pain is worse with movement. She is having a hard time ambulating due to the pain. She is on Eliquis for atrial fibrillation. She has had no history of any knee surgeries in the past. Physical Examination: Vital signs are reviewed. Bilateral knee exam reveals tenderness on the superior portion of both patella. She does have some posterior tenderness on the left-hand side. She has limited range of motion secondary to pain. No ecchymosis is seen. Distal pulses are equal bilaterally. Test Results: [Bilateral knee x-rays reveal some arthritic changes and small joint effusions. Emergency Department Course and Treatment: Patient was given Hector for pain control. X-rays show bilateral small effusions. There are no bony fractures. There is some arthritic changes. Patient was educated that she needs to use ice on any areas that are sore. She will take Tylenol for pain. She will call her doctor for follow-up Treatment Plan: [] Disposition: Discharge Impression: Bilateral knee contusions This note was generated with [employer] dictation software. It may contain incorrect words, spelling, and punctuation that were not noted in review of the chart prior to signing ED Disposition - Plan for ED Patient: Disposition: Home or Assisted Living Instructions: ED Mechanical Fall Referrals: Mitchell Appiah MD [Primary Care Provider] -
[2020-10-02 09:32] VITALS: O2SAT 97
--- NOTE | 2020-10-02 09:42 | RAD_ITS ---
STUDY: X-RAY - LEFT KNEE REASON FOR EXAM: Female, 75 years old. PAIN S/P FALL TECHNIQUE: 4 view(s) of the knee. COMPARISON: None. FINDINGS: Normal visualized distal femur. Normal visualized proximal tibia and fibula. Normal proximal tibiofibular articulation. Normal medial femorotibial compartment. Normal lateral femorotibial compartment. Normal patellofemoral articulation. Small joint effusion. RAD/Knee 3 Views IMPRESSION: Small joint effusion. Electronically Signed: Guicho Meeks, at 10:05 EST , Service support ,
--- NOTE | 2020-10-02 09:42 | RAD_ITS ---
STUDY: X-RAY - RIGHT KNEE REASON FOR EXAM: Female, 75 years old. PAIN S/P FALL TECHNIQUE: 4 view(s) of the knee. COMPARISON: None. FINDINGS: Normal visualized distal femur. Normal visualized proximal tibia and fibula. Normal proximal tibiofibular articulation. There is mild degenerative arthrosis of the medial femorotibial compartment. Normal lateral femorotibial compartment. There is mild degenerative arthrosis of the patellofemoral articulation. Small joint effusion. RAD/Knee 3 Views IMPRESSION: Degenerative arthrosis. Small joint effusion. Electronically Signed: Guicho Meeks, at 10:03 EST , Service support ,
== END 2020-10-02 10:27 | disposition home or self-care (01) ==
PROVIDERS: Emergency Provider Emergency Medicine; PCP Family Medicine
DX: S80.01XA Contusion of right knee, initial encounter (principal); S80.02XA Contusion of left knee, initial encounter; W19.XXXA Unspecified fall, initial encounter; Y93.9 Activity, unspecified; Y92.9 Unspecified place or not applicable; I48.91 Unspecified atrial fibrillation; I12.0 Hypertensive chronic kidney disease with stage 5 chronic kidney disease or end stage renal disease; N18.6 End stage renal disease; Z99.2 Dependence on renal dialysis; Z79.01 Long term (current) use of anticoagulants; Z79.899 Other long term (current) drug therapy
CPT/HCPCS: 73562; 99283

== ENCOUNTER 2020-10-06 10:09 | Inpatient (IN) | payer MEDICARE, MEDICAID, SELFPAY ==
[2020-10-06] VITALS (14 sets, daily range): BP systolic 80–114; BP diastolic 42–68; PULSE 66–126; RESP 13–22; TEMP 36.4–37.1; O2SAT 92–99; BMI 29.4; BMI 29.5; BMI 28.0
--- NOTE | 2020-10-06 11:12 | ED.VIS.GEN ---
History of Present Illness Chief Complaint: Hypotension Narrative: Patient presenting for evaluation secondary to hypotension and frequent falls. Patient has an underlying history of end-stage renal disease. She gets Friday dialysis, but actually missed dialysis both Friday and Friday this week secondary to generalized weakness frequent falls and pain. Patient states that on Friday and then again on Friday she suffered falls where her legs gave out from under her. She denies hitting her head or loss of consciousness. She does report that she has some right knee pain that is resulting from this and some lower back pain. Patient is typically on midodrine for hypotension, she has not had any changes in medication dosage, and she has been taking it at this prescribed. Despite that she had hypotension that was noted today with her dialysis session. She was able to complete her dialysis session. She denies that she is having any chest pain. She does report that she has been having a couple loose stools per day, and also has been having some nausea with some vomiting today. She denies any presence of fevers. No respiratory signs or symptoms. Review of systems otherwise negative. Past Medical History - Allergies and Home Meds Allergies/Adverse Reactions: Allergies heparin Allergy (Intermediate, Verified 10/06/20 10:11) Induced thrombocytopenia alprazolam [From Xanax] Allergy (Verified 10/06/20 10:11) Unknown Prior records reviewed: Yes Past Medical History: - - Atrial fibrillation, end-stage renal disease Surgical History: cholecystectomy, hysterectomy, - - Right hip ORIF, AV graft left arm, past history of an intestinal bypass for weight loss, skin cancer removal Smoking Status: Never smoker - Family History Maternal Family History: Family History (Last Updated 04/26/20 @ 15:25 by Monique Woodall) Father Arthritis Skin cancer Heart disease Hypertension Hypercholesterolemia Cancer Brother Arthritis Heart disease Hypercholesterolemia Hypertension Seizures Diabetes Grandmother Asthma Heart disease Mother Cancer Family History: Reports: Cancer - Leukemia Paternal Family History: Family History (Last Updated 04/26/20 @ 15:25 by Monique Woodall) Father Arthritis Skin cancer Heart disease Hypertension Hypercholesterolemia Cancer Brother Arthritis Heart disease Hypercholesterolemia Hypertension Seizures Diabetes Grandmother Asthma Heart disease Mother Cancer Family History: Reports: Heart Disease Review of Systems All systems negative except as indicated General: Reports: - - Frequent falls with lightheadedness Eyes: Denies: Visual changes - bilaterally, Diplopia ENT: Denies: Rhinorrhea, Sore throat Cardiovascular: Denies: Chest pain, Palpitations Respiratory: Denies: Dyspnea, Cough, Dyspnea on exertion Gastrointestinal: Reports: Nausea, Vomiting, Diarrhea Genitourinary: Denies: Dysuria, Hematuria, Frequency Musculoskeletal: Reports: Back pain, Extremity Pain Skin: Denies: Rash, Wounds Neurological: Denies: Headache, Weakness, Numbness Physical Exam Vital Signs/Narrative: Vital Signs Temp Pulse Resp BP Pulse Ox 10/06/20 10:11 97.8 F 77 16 80/64 L 98 10/06/20 10:10 88 15 80/64 L 99 Inital Vital Signs reviewed: Yes General: - - Chronically ill-appearing female who appears somewhat older than stated age no acute distress Head: Normocephalic, Atraumatic Eyes: Perrl, EOMI. Negative for: Pale conjunctiva ENT: Moist mucous membranes, No rhinorrhea Neck: Supple, Nontender Cardiovascular: Regular rate, Irregular, - - 2+ radial pulses bilaterally symmetric. Left arm fistula with palpable thrill Respiratory: No distress, CTA bilaterally, Chest nontender Abdomen: Soft, Nontender, Nondistended, Normal bowel sounds Back: - - Lumbar spine tenderness to palpation without any evidence of step-offs Extremities: - - Bruising is noted to the patient's left knee with minimal to no tenderness to palpation. Minimal joint effusion noted of the right knee with minimal pain on range of motion no crepitus. Skin: Normal color, No rash Neurological: Alert, Oriented x3, Cranial nerves II-XII grossly intact, Normal Strength, Normal Sensation Psychological: Normal affect, Normal Mood Diagnostic/Tx/Re-eval Clinical Impression(s) from Imaging Studies Knee X-Ray 10/06/20 11:57 IMPRESSION: No acute fracture or dislocation. Electronically Signed: Pedro Garces MD at 12:15 EST Tel , Service support , Lumbar Spine X-Ray 10/06/20 11:57 IMPRESSION: 1. No acute fracture or subluxation. 2. Levoscoliosis lower lumbar spine with degenerative disc disease per Electronically Signed: Pedro Garces MD at 12:16 EST Tel , Service support , Laboratory Data 10/06/20 10/06/20 10/06/20 10:45 10:45 11:41 WBC 3.8 L RBC 2.87 L Hgb 10.5 L Hct 32.0 L MCV 111.5 H MCH 36.6 H MCHC 32.8 RDW Std Deviation 57.3 H RDW Coeff of Yoana 14.1 Plt Count 141 L MPV 14.1 H Immature Gran % (Auto) 0.800 Neut % (Auto) 76.8 H Lymph % (Auto) 18.5 L Maries % (Auto) 2.6 Eos % (Auto) 0.8 Baso % (Auto) 0.5 Absolute Neuts (auto) 2.9 Absolute Lymphs (auto) 0.71 L Nucleated RBC % 0 Sodium 137 Potassium 3.2 L Chloride 99 Carbon Dioxide 27.0 Anion Gap 11 BUN 33 H Creatinine 5.42 H Estim Creat Clear Calc 8.86 Est GFR (MDRD) Af Amer 10 L Est GFR (MDRD) Non-Af 8 L BUN/Creatinine Ratio 6.1 L Glucose 90 Lactic Acid 3.2 H* Calcium 8.8 - EKG Initial EKG Interpretation: - - Atrial fibrillation with a controlled ventricular rate of 86, prolonged QTC measured at 519. Isoelectric ST segments normal T waves. - Medical Decision Making Patient presented secondary to hypotension and generalized illness. Work-up was obtained. She was found to be pancytopenic which seems to be basically at her baseline with comparing to prior labs, no evidence of active bleeding. Chemistries are indicative of the patient's chronic kidney disease with some hypokalemia and elevation of the patient's BUN. Patient was given a gentle fluid bolus as well as midodrine, she did have some improvement in her blood pressures. X-rays of her back and her knee were found to be negative. Patient's lactic acid was elevated at 3. She had some vomiting in the ED she was given Benadryl due to her prolonged QTC on her EKG. Given the patient's general illness, persistent hypotension, mild elevation of lactic acid I do believe that she requires admission. I discussed this with the hospitalist. - Critical Care Time Critical care time (excluding procedures): 30-74 minutes ED Disposition - Plan for ED Patient: Disposition: Acute Care Hospital [facility] Diagnosis: Nausea and vomiting, Hypotension, ESRD (end stage renal disease) on dialysis
[2020-10-06 11:44] LABS: Absolute Lymphocyte Count 0.71 X10^3/uL (0.83-4.51); Absolute Neutrophil Count 2.9 X10^3/uL (2.0-7.7); Basophil# 0.02 X10^3/uL; Basophil% 0.5 % (0-1); Eosinophil# 0.03 X10^3/uL; Eosinophils% 0.8 % (0-5); Hemoglobin 10.5 g/dL (12.0-15.0); Lymphocyte # 0.71 X10^3/ul (4.0); Lymphocyte % 18.5 % (19-41); Mean Corp Hgb Conc 32.8 g/dL (32-36); Mean Corpuscular Hgb 36.6 pg (27.0-32.0); Mean Corpuscular Volume 111.5 fL (81-99); Mean Platelet Vol. 14.1 fl (6.2-12.0); Monocyte% 2.6 % (0-10); NRBC Flagged by Analyzer 0 % (0-5); Neutrophil # 2.94 X10^3/uL (2.7-7.7); Neutrophil % 76.8 % (47-70); Platelet Count 141 K/mm3 (150-450); RBC Distribution Width CV 14.1 % (11.6-14.6); RBC Distribution Width SD 57.3 fl (35.1-43.9); Red Blood Count 2.87 M/mm3 (4.2-5.4); White Blood Count 3.8 K/mm3 (4.4-11.0)
[2020-10-06 11:55] LABS: Anion Gap 11 (5-15); BUN 33 mg/dL (7-18); BUN/Creat Ratio 6.1 RATIO (10-20); Calcium,Total 8.8 mg/dL (8.5-10.1); Chloride 99 mmol/L (98-107); Creatinine, Serum 5.42 mg/dL (0.55-1.02); EST Glomerular Filtration Rate 8 mL/min (>60); Est Glom Filt Rate - Afr Amer 10 mL/min (>60); Estimated Creatinine Clearance 8.86 ml/min; Glucose 90 mg/dL (74-106); Potassium 3.2 mmol/L (3.5-5.1); Sodium Level 137 mmol/L (136-145)
--- NOTE | 2020-10-06 11:57 | RAD_ITS ---
STUDY: X-RAY - RIGHT KNEE REASON FOR EXAM: Female, 75 years old. pt. fell, pain TECHNIQUE: 2 view(s) of the knee. COMPARISON: None. FINDINGS: Normal visualized distal femur. Normal visualized proximal tibia and fibula. Normal proximal tibiofibular articulation. There is mild degenerative arthrosis of the medial femorotibial compartment. There is mild degenerative arthrosis of the lateral femorotibial compartment. There is mild degenerative arthrosis of the patellofemoral articulation. The soft tissue structures are unremarkable. RAD/Knee 1 or 2 Views IMPRESSION: No acute fracture or dislocation. Electronically Signed: Pedro Garces MD at 12:15 EST Tel , Service support ,
--- NOTE | 2020-10-06 11:57 | RAD_ITS ---
STUDY: X-RAY - LUMBAR SPINE REASON FOR EXAM: Female, 75 years old. pt. fell, pain TECHNIQUE: 3 view(s) of the lumbar spine were obtained. COMPARISON: 05/19/2018 FINDINGS: Normal lumbar lordosis. There is a levoscoliosis of the lumbar spine. There is a normal alignment of the vertebrae. There is multilevel endplate spondylosis of the lumbar vertebrae. There is multi-level degenerative disc disease with multi-level disc space narrowing. The soft tissue structures are unremarkable. RAD/Lumbar Spine 2 or 3 Views IMPRESSION: 1. No acute fracture or subluxation. 2. Levoscoliosis lower lumbar spine with degenerative disc disease per Electronically Signed: Pedro Garces MD at 12:16 EST Tel , Service support ,
[2020-10-06] MEDS: Midodrine HCl 5 MG Tablet 20 MG PO ×2 (12:26→18:40)
[2020-10-06] MEDS: DiphenhydrAMINE 50 MG/ML Syringe 12.5 MG IV (12:35)
[2020-10-06 12:50] LABS: Lactic Acid 3.2 mmol/L (0.4-1.9)
--- NOTE | 2020-10-06 14:02 | HP.PCM_ITS ---
Problem List (1) Heparin induced thrombocytopenia Status: Chronic (2) Lactic acid acidosis Status: Acute (3) Leukopenia Status: Chronic (4) Anemia Status: Chronic (5) Thrombocytopenia Status: Chronic (6) Nausea and vomiting Status: Chronic (7) Hypotension Status: Chronic (8) Atrial fibrillation status post cardioversion Status: Inactive (9) History of cardioversion Status: Resolved Comment: Unsuccessful per [facility] on 08/31/2019 (10) Atrial fibrillation Status: Chronic Qualifiers: Atrial fibrillation type: unspecified Qualified Code(s): I48.91 - Unspecified atrial fibrillation (11) ESRD (end stage renal disease) on dialysis Status: Chronic (12) Shortness of breath Status: Inactive (13) Personal history of colonic polyps Status: Inactive (14) Rectal bleeding Status: Resolved History of Present Illness Date of Admission: 10/06/20 Chief Complaint: falls and symtomatic hypotension Ms Dash is a 75 year old F with a PMH of PAF in preparation for watchman at [facility] (no OAC 2/2 rectal bleeding and 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 She states that she has not felt well for a couple of weeks at least and has difficultly telling me exactly how she has not been feeling well other than fatigue and leg weakness that has lead to falls. She has fallen twice in the past 5 days. Once on Sat of this past week and she states that her legs just gave out on her while getting up from the toilet and the other being at 4 am on Fri as she was trying to get up to go to HD and again her legs gave out on her. She does not use an assistive device. She also was noted to have hypotension which is a chronic issues for her and she is on Florinef and midodrine for this. She is unable to tell me her baseline BP but upon review it appears that she runs in the 90-100 range for SBP. She has a chronic h/o afib and has failed DCC in the past. She was taken off of Eliquis 03/2020 for rectal bleeding and has been off of it since. She is to have a Watchman device placed soon per her hx. VS show nml temp with HR in the low 100's and BP 92-105/42-58 in the ED most recently but she was in the 80's systolic on arrival and her RR and O2 SpO2 is WNL. She does admit to being lightheaded some today which is atypical for her. She did have HD today, which was her first HD since last Friday (2/2 her not feeling well), and they ran her even. She denies fever or chills. She had an emesis today but has not been having issues with that until today. She has diarrhea that she states is much looser that her baseline (has chronic diarrhea s/p gastric/intestinal bypass for wgt loss-done in 1974). She has not been on recent ABX. She states that she has not been eating a drinking as well lately. Her labs show pancytopenia which appears to be her baseline when compared with old lab. Her K was 3.2. sCr and BUN are elevated but at her baseline and her lactic acid is 3.2. COVID-19 is pending. X-rays of her spine and L knee are benign. She was given some IVF in the ED and her BP is trending up. She is also to have a repeat lactate prior to admission. Past Medical History Past Medical History (Chronic Problems): Chronic Problems (Last Reviewed 10/06/20 @ 14:[address] Soniya King, DO) Nausea and vomiting (Chronic) Hypotension (Chronic) Heparin induced thrombocytopenia (Chronic) Leukopenia (Chronic) Anemia (Chronic) Thrombocytopenia (Chronic) Atrial fibrillation (Chronic) ESRD (end stage renal disease) on dialysis (Chronic) Medical History: Medical History (Last Reviewed 10/06/20 @ 14:[address] Soniya King, DO) Atrial fibrillation (Chronic) I48.91 ESRD (end stage renal disease) on dialysis (Chronic) N18.6, Z99.2 Shortness of breath (Acute) R06.02 Personal history of colonic polyps (Inactive) Z86.010 Rectal bleeding (Resolved) K62.5 Atrial fibrillation status post cardioversion (Inactive) I48.91 Back problem M53.9 CL (cirrhosis of liver) K74.60 Chronic kidney disease N18.9 Kidney stones N20.0 Rectal bleeding K62.5 Tremors of nervous system R25.1 Allergies heparin Allergy (Intermediate, Verified 10/06/20 10:11) Induced thrombocytopenia alprazolam [From Xanax] Allergy (Verified 10/06/20 10:11) Unknown Home Medications: Ambulatory Orders Medication Instructions Recorded calcium acetate(phosphat bind) 667 667 mg PO TIDCM cap 07/24/18 mg capsule lorazepam 0.5 mg tablet 0.5 mg PO QD-BID PRN 07/24/18 midodrine 10 mg tablet 20 mg PO TID 07/24/18 tramadol 50 mg tablet 50 mg PO BID PRN PRN tab 07/24/18 diclofenac sodium 1 % topical gel 2 g TOPICAL DIRECTED PRN g 08/17/19 promethazine 25 mg tablet 25 mg PO Q6H PRN 08/17/19 fludrocortisone 0.1 mg tablet 0.1 mg PO DAILY 04/26/20 potassium chloride 10 mEq 10 meq PO DAILY 04/26/20 tablet,extended release primidone 50 mg tablet 150 mg PO LUNCH tab 04/26/20 sertraline 100 mg tablet 200 mg PO DAILY tab 04/26/20 Metoprolol Tartrate 25 mg PO BID 10/02/20 Cholecalciferol (Vitamin D3) 5,000 unit PO DAILY 10/06/20 [Vitamin D3] Cyanocobalamin (Vitamin B-12) 1,000 mcg PO DAILY 10/06/20 [Vitamin B-12] Folic Acid/Vitamin B Comp W-C 1 cap PO DAILY 10/06/20 [Nephrocaps, Renaphro] Multivitamin [Daily Vitamin 1 tab PO DAILY 10/06/20 Formula] Primidone [Mysoline] 250 mg PO BID 10/06/20 Surgical History: Surgical History (Last Reviewed 10/06/20 @ 14:[address] 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 Soniya King DO) Father Arthritis Skin cancer Heart disease Hypertension Hypercholesterolemia Cancer Brother Arthritis Heart disease Hypercholesterolemia Hypertension Seizures Diabetes Grandmother Asthma Heart disease Mother Cancer History Items: Cancer - Leukemia Paternal Family History: Family History (Last Reviewed 10/06/20 @ 14:[address] Soniya King DO) Father Arthritis Skin cancer Heart disease Hypertension Hypercholesterolemia Cancer Brother Arthritis Heart disease Hypercholesterolemia Hypertension Seizures Diabetes Grandmother Asthma Heart disease Mother Cancer History Items: Heart Disease Review of Systems Constitutional: Reports: Anorexia, Weakness, Fatigue. Denies: Chills, Fever, Night Sweats, Malaise, Weight Change Eyes: Denies: Blurred vision, Conjunctivae Inflammation, Double vision, Drainage, Eyelid Inflammation, Pain, Redness, Vision Change HEENT: Denies: Difficulty Hearing, Dysphasia, Ear Pain, Eye Pain, Head Aches, Nasal bleeding, Nasal Congestion, Post Nasal Drip, Sinus Congestion, Sinus Drainage, Sore Throat, Visual Changes Cardiovascular: Denies: Chest Pain, Claudication, Chest Pressure, Chest Tightness, Edema, Heaviness, Light Headedness, Orthopnea, Palpitations, Paroxysmal Noc. Dyspnea, Syncope Respiratory: Denies: Cough, Hemoptysis, Pleuritic Pain, Shortness of Breath, Shortness of breath at rest, Shortness of breath upon exertion, Sputum production, Wheezing Gastrointestinal: Reports: Diarrhea, Nausea, Vomiting. Denies: Abdominal Pain, Constipation, Dyspepsia, Hematemesis, Hematochezia, Melena Genitourinary: Denies: Dysuria, Frequency, Hematuria, Hesitancy, Incontinence, Nocturia, Retention, Urgency Musculoskeletal: Reports: Back Pain, Joint Pain, Joint stiffness, Joint Tenderness - L Knee. Denies: Joint swelling, Neck Pain Skin: Reports: Wounds - L knee, - - scattered ecchymosis from falls. Denies: Dr kennedy, Jaundice, Lesions, Pruritis, Rash, Skin Changes Neurological: Reports: Tremor, - - generalized weakness. Denies: Balance problems, Blurred vision, Double vision, Change in Speech, Slurred speech, Confusion, Difficulty swallowing, Focal weakness, Headaches, Incoordination, Numbness, Tingling, Seizures Psychiatric: Reports: Depression. Denies: Anxiety Endocrine: Denies: Change in Body Habitus, Heat/ Cold Intolerance, Polydipsia, Polyuria Hematologic/ Lymphatic: Reports: Anemia, Easy Bruising. Denies: Adenopathy, Easy Bleeding, Petechiae, Purpura VTE Information - Inpt Only VTE Present on Admission: No VTE Mechan Device Prophylaxis: SCD's VTE Pharm Prophylaxis ordered?: No Reason prophylaxis not ordered:: Medical Contraindication Patient Problems: Active and Suspected Problems (Last Reviewed 10/06/20 @ 14:[address] Soniya King, DO) Lactic acid acidosis (Acute) - Physical Exam Vitals/I&O's: Vital Signs Temp Pulse Resp BP Pulse Ox 97.8 F 102 H 20 H 92/58 L 96 10/06/20 10:11 10/06/20 13:06 10/06/20 13:06 10/06/20 13:06 10/06/20 13:06 Oxygen Delivery Method Room Air Weight: 85.3 kg Body Mass Index (BMI) 29.4 Intake and Output for Last 24 Hours 10/04/20 10/05/20 10/06/20 23:59 23:59 23:59 Intake Total 1000 / 1000 Balance 1000 / 1000 General: Alert, Oriented x3, Cooperative, No apparent distress, Well developed, Well nourished HEENT: Atraumatic Oral: Moist Mucosa, No Gingival or Mucosal Lesions/ Ulcerations Neck: Supple, No JVD, Negative Carotid Bruits, Negative Hepatojugular Reflux, No Nodes, No Nuchal Rigidity, Trachea Midline, Thyroid Normal Size and Texture Lungs: Clear to auscultation, Normal air movement, No rhonchi, No wheeze, No rales Cardiovascular: Normal S1, Normal S2, No murmurs, No Ectopic Activity, No rub noted, No Gallop, Tachycardic - mild, - - irreg/irreg Abdomen: Bowel Sounds Present, Soft, Non Tender, Non-Distended, Hernia Extremities: No clubbing, No cyanosis, No edema, Capillary Refill Less than 3 Seconds, Peripheral Pulses Normal, - - Graft for HD L UE Skin: No rashes, Skin Tear - L Knee, - - scattered ecchymosis Musculoskeletal: No Muscle Wasting, Arthritic Changes, Tenderness - L knee Lymphatic: No Cervical, Supraclavicular, or Inguinal Adenopathy Neurological: Cranial nerves II-XII grossly intact, Deep Tendon Reflexes 2+/4 and Symmetrical, Neuro grossly intact, Muscle tone normal, - - tremor intermittently, generalized weakness Psych/Mental Status: Appropriate, Flat Affect Laboratory Results 10/06/20 10:45: WBC 3.8 L, RBC 2.87 L, Hgb 10.5 L, Hct 32.0 L, MCV 111.5 H, MCH 36.6 H, MCHC 32.8, RDW Std Deviation 57.3 H, RDW Coeff of Yoana 14.1, Plt Count 141 L, MPV 14.1 H, Immature Gran % (Auto) 0.800, Neut % (Auto) 76.8 H, Lymph % (Auto) 18.5 L, Antelope % (Auto) 2.6, Eos % (Auto) 0.8, Baso % (Auto) 0.5, Absolute Neuts (auto) 2.9, Absolute Lymphs (auto) 0.71 L, Nucleated RBC % 0 10/06/20 10:45: Sodium 137, Potassium 3.2 L, Chloride 99, Carbon Dioxide 27.0, Anion Gap 11, BUN 33 H, Creatinine 5.42 H, Estim Creat Clear Calc 8.86, Est GFR (MDRD) Af Amer 10 L, Est GFR (MDRD) Non-Af 8 L, BUN/Creatinine Ratio 6.1 L, Glucose 90, Calcium 8.8 10/06/20 10:45: Magnesium Pending, Total Bilirubin Pending, Direct Bilirubin Pending, AST Pending, ALT Pending, Alkaline Phosphatase Pending, Total Protein Pending, Albumin Pending 10/06/20 10:45: Phosphorus Pending 10/06/20 11:41: Lactic Acid 3.2 H* 10/06/20 13:15: COVID-19 ([facility]) Pending Current Medications Sodium Chloride () 500 mls @ 999 mls/hr IV .Q31M ALEN Stop: 10/06/20 14:15 Last Admin: 10/06/20 13:53 Dose: 999 mls/hr Documented by: Assessment/Plan All Active Problems (Last Reviewed 11/06/20 @ 14:[address] Soniya King, DO) Lactic acid acidosis (Acute) Rectal bleeding (Resolved) History of cardioversion (Resolved 08/31/19) Symptomatic Acute on Chronic Hypotension -1 L bolus in ED and then will run LR at 70 cc/hr x 1 L -check am orthos -continue Florinef and Midodrine -baseline SBP appears to be 90-100 on chart review -monitor Lactic Acidosis -IVF and recheck -suspect decreased perfusion 2/2 hypovolemia -had iHD today prior to coming in as well -highly doubt infection related -repeat prior to leaving ED and if resolved no need for recheck -BP is improved with IVF Falls/Debility -sounds like these are related to LE weakness and debility -xrays are negative for acute issues -PT and OT to see -suspect will need rehab prior to d/c back to home environment Acute on Chronic Diarrhea -has loose BM at baseline 2/2 intestinal bypass for wgt loss surgery in the 70's -worse recently but no recent ABX -will check C-Diff Hypokalemia -replace and recheck in am -check mag Pancytopenia-chronic -etiology is unclear -suspect related to liver disease -monitor -counts are stable when compared to previous Macrocytic Anemia -check B12 and Folate but most likely 2/2 Liver disease 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 Montanez is her audograph operator -[facility] HD -will have nephro see but shouldn't need HD until Friday as she went today Chronic A-Fib -continue BB -no OAC 2/2 rectal bleeding 03/2020 -per pt she is to be evaluated for a Watchman Device at [facility] -has had failed DCC in past per Dr. Tello's notes Essential tremor -continue home meds Depression/Anxiety -continue home meds DVT prophylaxis -SCD -no LMWH or heparin product as HIT documented in meds Code status -Full Inpatient E&M: 56952 Init Hosp L3
[2020-10-06 14:25] LABS: AST(SGOT) 32 U/L (15-37); Alanine Aminotransfer ALT/SGPT 69 U/L (13-56); Alkaline Phosphatase 141 U/L (45-117); Bilirubin, Direct 0.23 mg/dL (0.00-0.30); Globulin 3.6 g/dL (2.2-4.2); Magnesium 1.9 mg/dL (1.6-2.6); Protein, Total 6.6 g/dL (6.4-8.2)
[2020-10-06 14:31] LABS: Phosphorus 2.5 mg/dL (2.5-4.9)
[2020-10-06] MEDS: Acetaminophen 325 MG Tablet 650 MG PO ×2 (14:49→22:04)
[2020-10-06 15:43] LABS: Lactic Acid 1.8 mmol/L (0.4-1.9)
[2020-10-06 16:23] LABS: Reflex Lactate? Y
--- NOTE | 2020-10-06 16:31 | ED.RN ---
covid negative. dr steel informed. isolation percautions removed per 's order. alesha valdes [id number]
[2020-10-06] MEDS: Calcium Acetate 667 MG Capsule PO (18:40)
[2020-10-06] MEDS: Lactated Ringers 1,000 ML 70 ML IV (18:40)
[2020-10-06] MEDS: traMADol 50 MG Tablet PO (18:52)
[2020-10-06] MEDS: Ondansetron 4 MG/2 ML Vial IV (18:52)
[2020-10-06] MEDS: MELATONIN 3 MG TABLET PO (21:58)
[2020-10-06] MEDS: Metoprolol Tartrate 25 MG Tablet PO (21:58)
[2020-10-07] VITALS (12 sets, daily range): BP systolic 89–121; BP diastolic 41–59; PULSE 86–107; RESP 16–18; TEMP 36.7–37.1; O2SAT 92–99
[2020-10-07] MEDS: traMADol 50 MG Tablet PO (03:37)
[2020-10-07 07:28] LABS: Absolute Neutrophil Count 2.3 X10^3/uL (2.0-7.7); Basophil# 0.02 X10^3/uL; Basophil% 0.6 % (0-1); Eosinophil# 0.04 X10^3/uL; Eosinophils% 1.1 % (0-5); Hematocrit 27.8 % (37-47); Lymphocyte % 25.9 % (19-41); Mean Corp Hgb Conc 32.4 g/dL (32-36); Mean Corpuscular Hgb 37.2 pg (27.0-32.0); Mean Corpuscular Volume 114.9 fL (81-99); Mean Platelet Vol. 14.1 fl (6.2-12.0); Monocyte# 0.25 X10^3/uL; Monocyte% 7.2 % (0-10); NRBC Flagged by Analyzer 0 % (0-5); Neutrophil # 2.26 X10^3/uL (2.7-7.7); Neutrophil % 64.9 % (47-70); Platelet Count 100 K/mm3 (150-450); RBC Distribution Width CV 14.3 % (11.6-14.6); RBC Distribution Width SD 60.9 fl (35.1-43.9); Red Blood Count 2.42 M/mm3 (4.2-5.4); White Blood Count 3.5 K/mm3 (4.4-11.0)
[2020-10-07 07:43] LABS: Phosphorus 3.7 mg/dL (2.5-4.9)
[2020-10-07 07:51] LABS: ALB/GLOB Ratio 0.9 RATIO (0.9-2.4); AST(SGOT) 19 U/L (15-37); Alanine Aminotransfer ALT/SGPT 54 U/L (13-56); Albumin, Serum 2.6 g/dL (3.2-5.0); Alkaline Phosphatase 112 U/L (45-117); Anion Gap 11 (5-15); BUN 41 mg/dL (7-18); BUN/Creat Ratio 6.1 RATIO (10-20); Chloride 101 mmol/L (98-107); Creatinine, Serum 6.68 mg/dL (0.55-1.02); EST Glomerular Filtration Rate 6 mL/min (>60); Est Glom Filt Rate - Afr Amer 8 mL/min (>60); Estimated Creatinine Clearance 7.19 ml/min; Glucose 85 mg/dL (74-106); Potassium 3.7 mmol/L (3.5-5.1); Protein, Total 5.6 g/dL (6.4-8.2); Sodium Level 137 mmol/L (136-145); Thyroid Stim Hormone (TSH) 3.41 uIU/mL (0.358-3.74)
[2020-10-07] MEDS: Multivitamins,Therapeutic Tablet 1 TABLET PO (08:31)
[2020-10-07] MEDS: Cyanocobalamin 500 MCG Tablet 1000 MCG PO (08:31)
[2020-10-07] MEDS: Midodrine HCl 5 MG Tablet 20 MG PO ×2 (08:31→12:21)
[2020-10-07] MEDS: Fludrocortisone Acetate 0.1 MG Tablet PO (08:31)
[2020-10-07] MEDS: Calcium Acetate 667 MG Capsule PO ×2 (08:32→12:21)
[2020-10-07] MEDS: Primidone 250 MG Tablet PO (08:33)
[2020-10-07] MEDS: Sertraline 100 MG Tablet 200 MG PO (08:34)
[2020-10-07] MEDS: Metoprolol Tartrate 25 MG Tablet PO (09:44)
[2020-10-07] MEDS: Primidone 50 MG Tablet 150 MG PO (12:22)
--- NOTE | 2020-10-07 14:01 | DCINST_ITS ---
- Discharge Diagnoses Current Active Problems: Current Active and Chronic Problems (Last Reviewed 10/06/20 @ 14:[address] Soniya King DO) Nausea and vomiting (Chronic) Hypotension (Chronic) Heparin induced thrombocytopenia (Chronic) Lactic acid acidosis (Acute) Leukopenia (Chronic) Anemia (Chronic) Thrombocytopenia (Chronic) Atrial fibrillation (Chronic) ESRD (end stage renal disease) on dialysis (Chronic) You will use the following diet at home:: No restrictions Your food should be the consistency of: Regular Your liquids should be the consistency of: Regular/Thin Discharge Activity: Return to Normal Activity Weight Bearing Status: Full weight bearing Allergies/Adverse Reactions: Allergies heparin Allergy (Intermediate, Verified 10/06/20 10:11) Induced thrombocytopenia alprazolam [From Xanax] Allergy (Verified 10/06/20 10:11) Unknown Medications to take at Discharge calcium acetate(phosphat bind) 667 mg capsule 667 mg PO TIDCM cap 07/24/18 lorazepam 0.5 mg tablet 0.5 mg PO QD-BID PRN 07/24/18 midodrine 10 mg tablet 20 mg PO TID 07/24/18 tramadol 50 mg tablet 50 mg PO BID PRN PRN tab 07/24/18 diclofenac sodium 1 % topical gel 2 g TOPICAL DIRECTED PRN g 08/17/19 promethazine 25 mg tablet 25 mg PO Q6H PRN 08/17/19 fludrocortisone 0.1 mg tablet 0.1 mg PO DAILY 04/26/20 potassium chloride 10 mEq tablet,extended release 10 meq PO DAILY 04/26/20 primidone 50 mg tablet 150 mg PO LUNCH tab 04/26/20 sertraline 100 mg tablet 200 mg PO DAILY tab 04/26/20 Metoprolol Tartrate 25 mg PO BID 10/02/20 Cholecalciferol (Vitamin D3) [Vitamin D3] 5,000 unit PO DAILY 10/06/20 Cyanocobalamin (Vitamin B-12) [Vitamin B-12] 1,000 mcg PO DAILY 10/06/20 Folic Acid/Vitamin B Comp W-C [Nephrocaps, Renaphro] 1 cap PO DAILY 10/06/20 Multivitamin [Daily Vitamin Formula] 1 tab PO DAILY 10/06/20 Primidone [Mysoline] 250 mg PO BID 10/06/20 Primary Care Physician: Mitchell Appiah MD [Primary Care Provider] - Please follow up with your Primary Care Physician in: in 2 weeks-call and see if you need to be seen Test Results: Test results from this visit will be discussed in further detail at your follow- up appointment, if applicable.
--- NOTE | 2020-10-07 15:47 | PCM.DC.SUM ---
Discharge Date and Diagnosis - Problem List Patient Problems: Active and Suspected Problems (Last Reviewed 10/06/20 @ 14:[address] Soniya King DO) Lactic acid acidosis (Acute) Date of Admission: 10/06/20 Date of Discharge: 10/07/20 - Primary Discharge Diagnosis Acute Problems: Active Problems (Last Reviewed 10/06/20 @ 14:[address] 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 Soniya King DO) Nausea and vomiting (Chronic) Hypotension (Chronic) Heparin induced thrombocytopenia (Chronic) Leukopenia (Chronic) Anemia (Chronic) Thrombocytopenia (Chronic) Atrial fibrillation (Chronic) ESRD (end stage renal disease) on dialysis (Chronic) Hospital Course and Treatment Operations: None Procedures: None Summary of Care Provided: The patient is a 75 year old F was seen in the emergency room at [facility] secondary to low blood pressure and frequent falls at home, she had just finished dialysis the day she was seen in the ER. Work-up in the emergency room included x-rays of her knee and lumbar spine which showed no acute fractures or subluxations, patient CBC revealed a slightly low white blood cell count at 3.8, hemoglobin was 10.5, chemistry panel showed an elevated creatinine at 5.42, potassium was 3.2, and lactic acid was elevated at 3.2. Patient had some mild liver enzyme elevations in her ALT and alkaline phosphatase. COVID-19 was not detected. Patient was given a fluid bolus as well as midodrine, she had some improvement in her low blood pressure-her initial pressures in the emergency room were 80/64. Patient was admitted to PCU and fluid was given to the patient, her overall status improved and she became less hypotensive. Patient was seen by Occupational Therapy, she is also seen by physical therapy, further outpatient physical therapy was recommended for her right knee. Patient was able to ambulate with minimal assistance and felt to be stable for discharge home. Patient had been set up as an outpatient to see a physical therapist this . On 10/07/2020, patient was seen and examined: On examination she appeared in good health and spirits, she does not appear to be in any distress. Vital signs as documented. Skin warm and dry and without overt rashes. Neck without JVD, thyroid appears normal, trachea is midline, neck is supple. Lungs clear, normal air movement was noted. Heart exam notable for regular rhythm, normal sounds and absence of murmurs, rubs or gallops. Abdomen unremarkable and without evidence of organomegaly, masses, or abdominal aortic enlargement, bowel sounds are present in all 4 quadrants, no abdominal tenderness was noted. Extremities nonedematous, no cyanosis was noted, no clubbing was noted. Neuro: Cranial nerves II through XII are grossly intact, no focal motor deficits were noted, sensation to light touch and pinprick is intact, motor exam 5/5 throughout. Psych: Patient is alert and oriented x3, she does not appear anxious or depressed, she does not appear agitated. Patient was discharged home in stable condition on 10/07/2020. Patient Problems: Active and Suspected Problems (Last Reviewed 10/06/20 @ 14:[address] Soniya King, DO) Lactic acid acidosis (Acute) - Physical Exam Vitals/I&O's: Vital Signs Temp Pulse Resp BP Pulse Ox 98.4 F 91 18 113/58 L 99 10/07/20 15:35 10/07/20 15:35 10/07/20 15:35 10/07/20 15:35 10/07/20 15:35 Oxygen Delivery Method Room Air Weight: 81.148 kg Body Mass Index (BMI) 28.0 Orthostatic Vital Signs Start: 10/07/20 06:00 Freq: q24h Status: Active Protocol: Activity Type Activity Date Activity User E-Sign Co-Sign Detail Recorded Client Recorded Date Recorded By Document 10/07/20 06:00 AE [id number] 10/07/20 06:25 AE 10/07/20 06:00 Orthostatic Vitals Standing -Blood Pressure (90/60-120/80) 107/51 L -Extremity Use Right Arm -Pulse Rate (60-100) 97 Sitting -Blood Pressure (90/60-120/80) 106/51 L -Extremity Use Right Arm -Pulse Rate (60-100) 105 H Lying -Blood Pressure (90/60-120/80) 89/55 L -Extremity Use Right Arm -Pulse Rate (60-100) 107 H Intake and Output for Last 24 Hours 10/05/20 10/06/20 10/07/20 23:59 23:59 23:59 Intake Total 1872.17 / 1922.17 1157.83 / 1157.83 Balance 1872.17 / 1922.17 1157.83 / 1157.83 Microbiology Past 72 Hours 10/06/20 22:00 Stool C. difficile DNA Amplification - Final Laboratory Results 10/06/20 14:10: COVID-19 ([facility]) Not Detected 10/07/20 06:03: WBC 3.5 L, RBC 2.42 L, Hgb 9.0 L, Hct 27.8 L, MCV 114.9 H, MCH 37.2 H, MCHC 32.4, RDW Std Deviation 60.9 H, RDW Coeff of Yoana 14.3, Plt Count 100 L, MPV 14.1 H, Immature Gran % (Auto) 0.300, Neut % (Auto) 64.9, Lymph % (Auto) 25.9, [place] % (Auto) 7.2, Eos % (Auto) 1.1, Baso % (Auto) 0.6, Absolute Neuts (auto) 2.3, Absolute Lymphs (auto) 0.90, Nucleated RBC % 0 10/07/20 06:03: Sodium 137, Potassium 3.7, Chloride 101, Carbon Dioxide 25.0, Anion Gap 11, BUN 41 H, Creatinine 6.68 H, Estim Creat Clear Calc 7.19, Est GFR (MDRD) Af Amer 8 L, Est GFR (MDRD) Non-Af 6 L, BUN/Creatinine Ratio 6.1 L, Glucose 85, Calcium 8.0 L, Magnesium 2.0, Total Bilirubin 0.40, AST 19, ALT 54, Alkaline Phosphatase 112, Total Protein 5.6 L, Albumin 2.6 L, Globulin 3.0, Albumin/Globulin Ratio 0.9, Folate 13.30, TSH 3.41 10/07/20 06:03: Phosphorus 3.7 10/07/20 06:03: Vitamin B12 Pending Current Medications Acetaminophen (Acetaminophen 325 Mg Tablet) 650 mg PO Q6H PRN PRN PRN Reason: Pain Score 1-10/Temp > 100.7 F Last Admin: 10/06/20 22:04 Dose: 650 mg Documented by: Al Hydroxide/Mg Hydroxide (Mag Hydrox/Al Hydrox/Simeth 30 Ml Udc) 30 ml PO Q6H PRN PRN PRN Reason: Gastric Burning Calcium Acetate (Calcium Acetate 667 Mg Capsule) 667 mg PO TIDCM [facility] Last Admin: 10/07/20 12:21 Dose: 667 mg Documented by: Cyanocobalamin (Cyanocobalamin 500 Mcg Tablet) 1,000 mcg PO DAILY [facility] Last Admin: 10/07/20 08:31 Dose: 1,000 mcg Documented by: Fludrocortisone Acetate (Fludrocortisone Acetate 0.1 Mg Tablet) [facility] Last Admin: 10/07/20 08:31 Dose: 0.1 mg Documented by: Hydromorphone HCl (Hydromorphone 0.5 Mg/0.5 Ml Syringe) 0.5 mg IV Q4H PRN PRN PRN Reason: Pain Score 6-10 Lorazepam (Lorazepam 0.5 Mg Tablet) 0.5 mg PO BID PRN PRN Reason: ANXIETY Melatonin (Melatonin 3 Mg Tablet) 3 mg PO QHS PRN PRN PRN Reason: INSOMNIA Last Admin: 10/06/20 21:58 Dose: 3 mg Documented by: Metoprolol Tartrate (Metoprolol Tartrate 25 Mg Tablet) 25 mg PO BID [facility] Last Admin: 10/07/20 09:44 Dose: 25 mg Documented by: Midodrine (Midodrine Hcl 5 Mg Tablet) 20 mg PO TID@0800,1200,1700 [facility] Last Admin: 10/07/20 12:21 Dose: 20 mg Documented by: Multivitamins (Multivitamins,Therapeutic Tablet) [facility] Last Admin: 10/07/20 08:31 Dose: 1 tablet Documented by: Ondansetron HCl (Ondansetron 4 Mg/2 Ml Vial) 4 mg IV Q8H PRN PRN PRN Reason: NAUSEA/VOMITING Last Admin: 10/06/20 18:52 Dose: 4 mg Documented by: Primidone (Primidone 250 Mg Tablet) 250 mg PO BID@0800,1700 [facility] Last Admin: 10/07/20 08:33 Dose: 250 mg Documented by: Primidone (Primidone 50 Mg Tablet) 150 mg PO LUNCH [facility] Last Admin: 10/07/20 12:22 Dose: 150 mg Documented by: Senna/Docusate Sodium (Senna/Docusate Sodium 1 Tablet) 2 tablet PO BID PRN PRN PRN Reason: Constipation Sertraline HCl (Sertraline 100 Mg Tablet) 200 mg PO DAILY [facility] Last Admin: 10/07/20 08:34 Dose: 200 mg Documented by: Sodium Chloride (0.9% Saline Lock 10 Ml Syringe) 10 - 40 ml IV UD PRN PRN Reason: SALINE FLUSH Tramadol HCl (Tramadol 50 Mg Tablet) 50 mg PO BID PRN PRN PRN Reason: Pain Score 1-10 Last Admin: 10/07/20 03:37 Dose: 50 mg Documented by: Discharge Activity: Return to Normal Activity Weight Bearing Status: Full weight bearing Home Medications: Medications to take at Discharge calcium acetate(phosphat bind) 667 mg capsule 667 mg PO TIDCM cap 07/24/18 lorazepam 0.5 mg tablet 0.5 mg PO QD-BID PRN 07/24/18 midodrine 10 mg tablet 20 mg PO TID 07/24/18 tramadol 50 mg tablet 50 mg PO BID PRN PRN tab 07/24/18 diclofenac sodium 1 % topical gel 2 g TOPICAL DIRECTED PRN g 08/17/19 promethazine 25 mg tablet 25 mg PO Q6H PRN 08/17/19 fludrocortisone 0.1 mg tablet 0.1 mg PO DAILY 04/26/20 potassium chloride 10 mEq tablet,extended release 10 meq PO DAILY 04/26/20 primidone 50 mg tablet 150 mg PO LUNCH tab 04/26/20 sertraline 100 mg tablet 200 mg PO DAILY tab 04/26/20 Metoprolol Tartrate 25 mg PO BID 10/02/20 Cholecalciferol (Vitamin D3) [Vitamin D3] 5,000 unit PO DAILY 10/06/20 Cyanocobalamin (Vitamin B-12) [Vitamin B-12] 1,000 mcg PO DAILY 10/06/20 Folic Acid/Vitamin B Comp W-C [Nephrocaps, Renaphro] 1 cap PO DAILY 10/06/20 Multivitamin [Daily Vitamin Formula] 1 tab PO DAILY 10/06/20 Primidone [Mysoline] 250 mg PO BID 10/06/20 Primary Care Physician: Mitchell Appiah MD [Primary Care Provider] - Please follow up with your Primary Care Physician in: in 2 weeks-call and see if you need to be seen Disposition: Home Minutes spent on discharge:: 31 Patient Condition:: Stable Medical Necessity - Tobacco Use Smoking Status: Never smoker Tobacco Use: Non-smoker Meaningful Use Info Meaningful Use Diagnoses (Choose all that apply): None applicable Inpatient E&M: 99184 Disch Hosp
[2020-10-09 09:17] LABS: Vitamin B12 652 pg/mL (211-911)
--- NOTE | 2020-10-09 15:23 | CASEMGMT ---
ANNA NOE Discharge F/U Phone Call LACE: 12 Strata: 3 Discharge date: 10/07/2020 Call date: 10/09/2020 Call time: [id number] Admission dx: N/V, dehydration, hypotension Pt states has been 'not too bad' since discharge. Pt states no questions regarding discharge instructions/medications at this time. Pt states has has OP therapy set up and plans to keep appt. Pt voices no suggestions for [facility] at this time. Pt voices no further questions/concerns/needs at this time and voices gratitude for the call. Bhanu CASTILLO CM
== END 2020-10-07 15:50 | disposition home or self-care (01) | DRG 640 ==
LOC: ED 11:43 → PCU 13:41
PROVIDERS: Admitting Provider Internal Medicine; Emergency Provider Emergency Medicine; PCP Family Medicine; Visit Provider Internal Medicine
DX: E87.2 Acidosis (principal); N18.6 End stage renal disease; D61.818 Other pancytopenia; I48.20 Chronic atrial fibrillation, unspecified; Z99.2 Dependence on renal dialysis; I95.89 Other hypotension; E87.6 Hypokalemia; K52.9 Noninfective gastroenteritis and colitis, unspecified; E86.1 Hypovolemia; D53.9 Nutritional anemia, unspecified; D75.82 Heparin induced thrombocytopenia (HIT); K75.81 Nonalcoholic steatohepatitis (NASH); K74.60 Unspecified cirrhosis of liver; R29.6 Repeated falls; I48.91 Unspecified atrial fibrillation; G25.0 Essential tremor; F41.9 Anxiety disorder, unspecified; G25.81 Restless legs syndrome; F32.9 Major depressive disorder, single episode, unspecified; Z86.010 Personal history of colon polyps; Z87.19 Personal history of other diseases of the digestive system; Z87.442 Personal history of urinary calculi; Z79.899 Other long term (current) drug therapy; Z90.49 Acquired absence of other specified parts of digestive tract; Z85.828 Personal history of other malignant neoplasm of skin
CPT/HCPCS: 36415; 72100; 73560; 80048; 80053; 80076; 82607; 82746; 83605; 83735; 84100; 84443; 85025; 87493; 87635; 93005; 97161; 97165; 99251; 99285; J7040; J7120; A4216; G0463; J2405; U0002

== ENCOUNTER → 2020-10-12 | Outpatient (CLI) | payer MEDICARE, MEDICAID, SELFPAY ==
[2020-10-06 16:14] VITALS: BMI 28.0
== END | disposition home or self-care (01) ==
LOC: MFPLAB 09:23 → LABSPEC 15:19
PROVIDERS: PCP Family Medicine; Referring Provider Family Medicine; Visit Provider Family Medicine
DX: R19.7 Diarrhea, unspecified (principal)
CPT/HCPCS: 82274; 83630; 87177; 87209; 87493; 87506

== ENCOUNTER → 2020-11-01 15:54 | Outpatient (CLI) | payer MEDICARE, MEDICAID, SELFPAY ==
[2020-10-06 16:14] VITALS: BMI 28.0
[2020-11-01 18:28] LABS: Absolute Lymphocyte Count 1.58 X10^3/uL (0.83-4.51); Absolute Neutrophil Count 2.3 X10^3/uL (2.0-7.7); Basophil# 0.05 X10^3/uL; Basophil% 1.1 % (0-1); Eosinophils% 2.3 % (0-5); Hematocrit 34.4 % (37-47); Hemoglobin 10.5 g/dL (12.0-15.0); Lymphocyte # 1.58 X10^3/ul (4.0); Lymphocyte % 36.1 % (19-41); Mean Corp Hgb Conc 30.5 g/dL (32-36); Mean Corpuscular Hgb 36.3 pg (27.0-32.0); Mean Platelet Vol. 13.5 fl (6.2-12.0); Monocyte# 0.35 X10^3/uL; NRBC Flagged by Analyzer 0 % (0-5); Neutrophil # 2.28 X10^3/uL (2.7-7.7); POSITIVE MORPHOLOGY YES; Platelet Count 113 K/mm3 (150-450); RBC Distribution Width CV 14.9 % (11.6-14.6); Red Blood Count 2.89 M/mm3 (4.2-5.4); White Blood Count 4.4 K/mm3 (4.4-11.0)
[2020-11-01 18:37] LABS: Differential Indicated SCAN CRITERIA MET
[2020-11-01 18:42] LABS: Vitamin B12 702 pg/mL (211-911); Vitamin D,25 Hydroxy 34.2 ng/mL
[2020-11-01 19:25] LABS: Anisocytosis 1+; Platelet Estimate SLT DEC (ADEQ)
[2020-11-01 19:26] LABS: Hypochromasia 2+; Macrocytosis 3+
[2020-11-01 20:07] LABS: ALB/GLOB Ratio 1.1 RATIO (0.9-2.4); AST(SGOT) 25 U/L (15-37); Alanine Aminotransfer ALT/SGPT 45 U/L (13-56); Albumin, Serum 3.4 g/dL (3.2-5.0); Alkaline Phosphatase 169 U/L (45-117); Anion Gap 8 (5-15); BUN 22 mg/dL (7-18); BUN/Creat Ratio 5.1 RATIO (10-20); Calcium,Total 8.9 mg/dL (8.5-10.1); Chloride 103 mmol/L (98-107); Creatinine, Serum 4.33 mg/dL (0.55-1.02); EST Glomerular Filtration Rate 11 mL/min (>60); Est Glom Filt Rate - Afr Amer 13 mL/min (>60); Ferritin 1061 ng/mL (8-252); Glucose 93 mg/dL (74-106); Iron 57 ug/dL (50-170); Iron Binding Capacity,Total 174 ug/dL (250-450); Phosphorus 2.5 mg/dL (2.5-4.9); Potassium 3.2 mmol/L (3.5-5.1); Protein, Total 6.4 g/dL (6.4-8.2); Sodium Level 142 mmol/L (136-145)
[2020-11-02 08:03] LABS: PTHIN 234.4 pg/mL (18.4-80.1)
[2020-11-06 15:03] LABS: Vitamin B1, Thiamine 156.2 nmol/L (66.5-200.0)
== END ==
PROVIDERS: PCP Family Medicine; Visit Provider Family Medicine
DX: I48.91 Unspecified atrial fibrillation (principal); E53.9 Vitamin B deficiency, unspecified; E53.8 Deficiency of other specified B group vitamins; E55.9 Vitamin D deficiency, unspecified; K74.60 Unspecified cirrhosis of liver; M81.0 Age-related osteoporosis without current pathological fracture; N18.9 Chronic kidney disease, unspecified; R53.81 Other malaise; R53.1 Weakness
CPT/HCPCS: 36415; 80053; 82140; 82306; 82607; 82728; 82746; 83540; 83550; 83735; 83970; 84100; 84425; 85025; 97110

== ENCOUNTER 2020-11-09 13:00 | Outpatient (RCR) | payer MEDICARE, MEDICAID, SELFPAY ==
[2020-10-06 16:14] VITALS: BMI 28.0
--- NOTE | 2020-10-19 13:47 | HP.PTEVAL ---
Patient's Visit Information GUIDO WALLACE is a 75 year old F referred to Physical Therapy by Dr. Carlos Ivy MD with a diagnosis of debiltiy and weakness. Date of Evaluation: 10/19/20 Physical Therapist: Carlos Bustamante DPT, OCS, CSCS - Visit Plan Frequency: 2-3x /Week Duration: 4-6 Weeks Plan: 2-3x/week for 4-6 weeks for. 1. HS and gastroc stretches. 2. FW weight shift. 3. general and LE strength that pt can do at home and progress to HEP with pics as safety allows. - Subjective Fell twice, not sure why. R knee may have given out. Was not using AD but does use cane now. Is in dialysis and saw two days later and sent to [facility] with Afib adn in hospital a couple days. No pain, no injuries from falling. No spinning. No neuropathy. Now using cane a lot more but does use it out and about. Was not using it prior to falls. Will use it for dialysis now. Has essentail tremors. Is on medicine for that. I am just weak. I don't do a lot. Spends day doing things around house. Spends a lot of time sitting. Lives with sister adn nephew who are home much of time. Has steps but she does not use them. Basic ADLs are done OK, has awalk in shower. Not employed. - Objective Ambulate in with cane in L UE safe and I on firm flat surface with adn without the cane. Trasnfers without UE I. Slightly unsteady in standing static tending posterior. Steps are reciprocal with two rails and painful R knee. LE AROM WFL as is UE. Tightness obvious in HS and gastroc. reflexes 2/3 patella and achilles. Has some essential tremors in UE in static standing. Sensation LE WNL to gross light touch. Strength LE hips 3+, knees 3+ and ankles 4- B without myotomal problems. coordination to reciprocal toe and heel tapping. VOR walking is iffy without AD but OK with the cane. - Balance Scores Functional Gait Assessment Score: 22 % Disability: 26.6700 CATSIB Score (Max score 120 seconds): 95 - Goals Goal 1:: I appropr HEP for general strength, FW weight shift , acitivity and stretching to minimize future problems. Goal Time Frame: 4-6 Weeks Goal 2:: 25/30 FGA to dimiinish fall risk Goal Time Frame: 4-6 Weeks Goal 3:: Pt feel 50% improved in mobility adn activity level. Goal Time Frame: 4-6 Weeks Goal 4:: 40/80 LEFS score Goal Time Frame: 4-6 Weeks - Rehabilitation Potential Physical Therapy Diagnosis: weakness and sedentarism. Rehabilitation Potential: Fair - Anticipated Interventions Patient/Client Instruction: Educate patient on: Condition, Plan of Care For the Purpose of:: To improve ability of physical actions for home/community/work/leisure, To improve gait and locomotor functions Therapeutic Exercise to Include: Strength training, Balance training, Flexibilty training, Gait and locomotor training, Neuromotor development For the Purpose of:: To improve muscle performance and motor function, To increase tolerance to activity/condition/position, To improve ability of physical actions for home/community/work/leisure, To improve gait and locomotor functions Thank you for the opportunity to evaluate your patient. For Medicare and Medicare HMO plans, please review the plan of care and approve it. It will need to be FAXED BACK to us at [phone] for Medicare purposes. For Medicare only, by signing this I certify the plan of care. Please let me know if there are questions or concerns regarding this plan of care. Physician Signature: Date:
--- NOTE | 2021-01-03 08:54 | HP.PT.NRP ---
GUIDO WALLACE was seen in my office for initial evaluation on 10/19/20. The following Plan of Care was established for this patient: Initial Frequency: 2-3x /Week Initial Duration: 4-6 Weeks Patient/Client Instruction: Educate patient on: Condition, Plan of Care For the Purpose of:: To improve ability of physical actions for home/community/work/leisure, To improve gait and locomotor functions Therapeutic Exercise to Include: Strength training, Balance training, Flexibilty training, Gait and locomotor training, Neuromotor development For the Purpose of:: To improve muscle performance and motor function, To increase tolerance to activity/condition/position, To improve ability of physical actions for home/community/work/leisure, To improve gait and locomotor functions This patient was last seen in our office 11/09/20. Pertinent comments regarding their Physical therapy will appear below: Pt seen 5 visits of POC adn then cancelled and no showed for the rest. at this point, it has been over 6 weeks adn I will discontinue due to nonattendance. At this point I will be discontinuing this patient from physical therapy. I would be happy to see this patient again in the future if found appropriate by the physician. Thank you! Carlos Bustamante, DPT, OCS, CSCS
== END 2020-11-09 19:00 | disposition home or self-care (01) ==
LOC: PT 13:00
PROVIDERS: PCP Family Medicine; Referring Provider Family Medicine; Visit Provider Family Medicine
DX: R53.81 Other malaise (principal); R53.1 Weakness
CPT/HCPCS: 97110; 97162

== ENCOUNTER → 2020-11-22 05:34 | Emergency (ER) | payer MEDICARE, MEDICAID, SELFPAY ==
[2020-10-06 16:14] VITALS: BMI 28.0
--- NOTE | 2020-11-22 06:00 | RAD_ITS ---
STUDY: X-RAY CHEST REASON FOR EXAM: Female, 75 years old. Nausea and vomiting. TECHNIQUE: AP portable chest. COMPARISON: September 20, 2020. FINDINGS: There is now a patchy opacity right lung base. Possible small right pleural effusion. No pneumothorax. Normal size heart. Normal mediastinum and liane. Normal visualized pulmonary arteries. Normal visualized aortic arch and descending thoracic aorta. Normal visualized thoracic spine. Normal visualized ribs, clavicles, and shoulders. There is no demonstrated abnormality of the visualized soft tissue structures of the upper abdomen. RAD/Chest 1 View (Portable) IMPRESSION: Probable right lower lobe pneumonia. Electronically Signed: Tomas García MD at 6:35 EST , Service support ,
--- NOTE | 2020-11-22 07:34 | ED.VISSUMM ---
- ER Visit Summary Date of Service: 11/22/20 Chief Complaint: Nausea, vomiting, diarrhea History of Present Illness: The patient is a 75 F presenting with 1.5 weeks of watery diarrhea, mostly less than 5 episodes per day, nonbloody nonmelanotic, along with nausea and occasional vomiting. She states that the diarrhea is worse than the vomiting. She denies any abdominal or chest pain. She denies cough, states she has been feeling chills and malaise/weak but able to get around. She states she felt a little short of breath this morning, but attributes it to possibly her chronic atrial fibrillation. She states she has no trouble talking. She is not anticoagulated, just taking aspirin. She has end-stage renal disease and is on dialysis, her last one was 2 days ago, and she is currently here in the ER when she is supposed to be at dialysis but states that she does not feel well enough to go today. She denies any hematemesis, coffee-ground emesis, she is an uric due to her renal failure. She denies prior abdominal surgeries. Patient denies having had COVID-19 or any exposures that she knows of, or any other illness recently for that matter. Physical Examination: Afebrile, vital signs are normal, pulse ox 98% on room air. Patient is well-appearing in no distress, she has a bit of a tremor with her head. Her lungs are clear, diminished. Her heart is not tachycardic, occasionally irregular but mostly regular. Oral mucous membranes are moist. Abdomen soft, nontender, nondistended with normal bowel sounds present. Neurologically intact. Conversive in full sentences. Test Results: White blood count 9.8, hemoglobin 10.9, potassium low at 3.0, BUN 33 and creatinine 6.4. Liver enzymes are within normal limits except for slight elevation of alkaline phosphatase of 150. Troponin negative. EKG shows rate controlled atrial fibrillation without any acute injury. Not able to view any old EKGs at that time. Chest x-ray showing a right lower lobe infiltrate, 1 view, interpreted by myself and confirmed by radiology overread. Emergency Department Course and Treatment: Patient was given IV fluids along with Zofran, which really helped and she had no vomiting after that. She had no provide a diarrhea specimen for us to send for testing. Her x-ray shows pneumonia. Given the differential for lobar pneumonia in addition to Legionella, Levaquin was started in the ER, 750 mg IV. She was offered admission, she declined and prefers to go home saying that she feels well enough and does not want to be in the hospital for the holiday. She is tolerating oral fluids. I do not think this is unreasonable, a COVID-19 rapid antigen is sent and returned negative. Will prescribe her Levaquin and phenergan, her antibiotic will be adjusted for her renal failure. Treatment Plan: Levaquin, phenergan, close outpatient follow-up. Not replacing her potassium since she was already on potassium replacement at home as an outpatient and she is a dialysis patient. Advised to go to dialysis today later if she is able to get a different appointment since she missed hers. Patient states she does not plan on going to dialysis, and plans on waiting until Friday, her last dialysis was on Friday. I recommend she discuss this with her manager of regulatory affairs before making this decision on her own. Disposition: Home Impression: Pneumonia, nausea/vomiting/diarrhea, end-stage renal disease This note was generated with [employer] dictation software. It may contain incorrect words, spelling, and punctuation that were not noted in review of the chart prior to signing ED Disposition - Plan for ED Patient: Disposition: Home or Assisted Living Instructions: ED Pneumonia (Adult) Prescriptions: levoFLOXacin tablet [Levaquin] 500 mg PO Q48H #2 tab Transmission Status: Pending to [facility] proMETHazine tablet [Phenergan] 25 mg PO Q6H PRN PRN #10 tab PRN Reason: Nausea Transmission Status: Pending to [facility] Referrals: Mitchell Appiah MD [Primary Care Provider] - 3-5 Days
[2020-11-22 07:42] LABS: BUN 33 mg/dL (7-18); BUN/Creat Ratio 5.2 RATIO (10-20); EST Glomerular Filtration Rate 7 mL/min (>60); Est Glom Filt Rate - Afr Amer 8 mL/min (>60); Glucose 106 mg/dL (74-106); Protein, Total 6.2 g/dL (6.4-8.2)
[2020-11-22 07:43] LABS: ALB/GLOB Ratio 0.8 RATIO (0.9-2.4); AST(SGOT) 25 U/L (15-37); Alanine Aminotransfer ALT/SGPT 43 U/L (13-56); Albumin, Serum 2.8 g/dL (3.2-5.0); Alkaline Phosphatase 150 U/L (45-117); Anion Gap 12 (5-15); Calcium,Total 8.7 mg/dL (8.5-10.1); Chloride 96 mmol/L (98-107); Globulin 3.4 g/dL (2.2-4.2); Lipase 107 U/L (73-393); Sodium Level 135 mmol/L (136-145)
[2020-11-22 08:19] LABS: Hematocrit 34.6 % (37-47); Hemoglobin 10.9 g/dL (12.0-15.0); Mean Corp Hgb Conc 31.5 g/dL (32-36); Mean Corpuscular Hgb 36.7 pg (27.0-32.0); Mean Corpuscular Volume 116.5 fL (81-99); Platelet Count 219 K/mm3 (150-450); RBC Distribution Width CV 14.6 % (11.6-14.6); Red Blood Count 2.97 M/mm3 (4.2-5.4); White Blood Count 9.8 K/mm3 (4.4-11.0)
[2020-11-22 08:20] LABS: Mean Platelet Vol. 13.7 fl (6.2-12.0); RBC Distribution Width SD 62.8 fl (35.1-43.9)
[2020-11-22 08:21] LABS: Neutrophil % 83.7 % (47-70)
[2020-11-22 08:37] LABS: Absolute Lymphocyte Count 0.97 X10^3/uL (0.83-4.51); Absolute Neutrophil Count 8.2 X10^3/uL (2.0-7.7); Basophil% 0.5 % (0-1); Differential Indicated SCAN CRITERIA MET; Eosinophils% 0.6 % (0-5); Lymphocyte % 9.9 % (19-41); Monocyte% 4.6 % (0-10)
[2020-11-22 08:38] LABS: Differential Comment SCANNED
== END | disposition home or self-care (01) ==
PROVIDERS: Emergency Provider Emergency Medicine; PCP Family Medicine
DX: J18.9 Pneumonia, unspecified organism (principal); N18.6 End stage renal disease; Z99.2 Dependence on renal dialysis; I48.20 Chronic atrial fibrillation, unspecified; Z79.82 Long term (current) use of aspirin; Z79.899 Other long term (current) drug therapy
CPT/HCPCS: 36415; 71045; 80053; 83690; 84484; 85025; 87426; 93005; 96365; 99285; J7030; J7050; A4216; J2405

== ENCOUNTER → 2020-12-07 12:31 | Outpatient (CLI) | payer MEDICARE, MEDICAID, SELFPAY ==
[2020-10-06 16:14] VITALS: BMI 28.0
[2020-12-07 15:15] LABS: Absolute Lymphocyte Count 1.66 X10^3/uL (0.83-4.51); Absolute Neutrophil Count 3.3 X10^3/uL (2.0-7.7); Basophil# 0.08 X10^3/uL; Basophil% 1.4 % (0-1); Eosinophils% 1.7 % (0-5); Hematocrit 32.2 % (37-47); Hemoglobin 10.2 g/dL (12.0-15.0); Lymphocyte # 1.66 X10^3/ul (4.0); Mean Corp Hgb Conc 31.7 g/dL (32-36); Mean Corpuscular Hgb 37.6 pg (27.0-32.0); Mean Corpuscular Volume 118.8 fL (81-99); Mean Platelet Vol. 12.3 fl (6.2-12.0); Monocyte# 0.54 X10^3/uL; Monocyte% 9.4 % (0-10); NRBC Flagged by Analyzer 0 % (0-5); Neutrophil # 3.31 X10^3/uL (2.7-7.7); Platelet Count 168 K/mm3 (150-450); RBC Distribution Width SD 63.1 fl (35.1-43.9); Red Blood Count 2.71 M/mm3 (4.2-5.4); White Blood Count 5.7 K/mm3 (4.4-11.0)
[2020-12-07 15:30] LABS: Vitamin B12 803 pg/mL (211-911); Vitamin D,25 Hydroxy 23.6 ng/mL
[2020-12-07 15:39] LABS: ALB/GLOB Ratio 0.8 RATIO (0.9-2.4); AST(SGOT) 13 U/L (15-37); Alanine Aminotransfer ALT/SGPT 24 U/L (13-56); Alkaline Phosphatase 113 U/L (45-117); Anion Gap 9 (5-15); BUN 22 mg/dL (7-18); BUN/Creat Ratio 4.5 RATIO (10-20); Calcium,Total 8.9 mg/dL (8.5-10.1); Chloride 101 mmol/L (98-107); Creatinine, Serum 4.88 mg/dL (0.55-1.02); EST Glomerular Filtration Rate 9 mL/min (>60); Est Glom Filt Rate - Afr Amer 11 mL/min (>60); Globulin 3.6 g/dL (2.2-4.2); Glucose 90 mg/dL (74-106); Potassium 3.3 mmol/L (3.5-5.1); Protein, Total 6.6 g/dL (6.4-8.2); Sodium Level 138 mmol/L (136-145); Thyroid Stim Hormone (TSH) 2.13 uIU/mL (0.358-3.74)
[2020-12-08 08:16] LABS: PTHIN 142.7 pg/mL (18.4-80.1)
== END ==
PROVIDERS: PCP Family Medicine; Referring Provider Family Medicine; Visit Provider Family Medicine
DX: K74.60 Unspecified cirrhosis of liver (principal); R53.83 Other fatigue; E55.9 Vitamin D deficiency, unspecified
CPT/HCPCS: 36415; 80053; 82140; 82306; 82607; 83970; 84443; 85025

== ENCOUNTER → 2021-01-04 13:57 | Outpatient (CLI) | payer MEDICARE, MEDICAID, SELFPAY ==
[2020-10-06 16:14] VITALS: BMI 28.0
[2021-01-04 15:52] LABS: Ammonia < 10.0 umol/L (11-32)
== END ==
PROVIDERS: PCP Family Medicine; Referring Provider Family Medicine; Visit Provider Family Medicine
DX: E72.20 Disorder of urea cycle metabolism, unspecified (principal)
CPT/HCPCS: 36415; 82140

== ENCOUNTER 2021-02-06 11:21 | Emergency (ER) | payer MEDICARE, MEDICAID, SELFPAY ==
[2020-10-06 16:14] VITALS: BMI 28.0
[2021-02-06 11:23] VITALS: BP 116/65; PULSE 68; RESP 18; TEMP 36.6; O2SAT 99; BMI 26.6
--- NOTE | 2021-02-06 12:03 | EKG12_ITS ---
Test Reason : FALL Blood Pressure : / mmHG Vent. Rate : 063 BPM Atrial Rate : 063 BPM P-R Int : 096 ms QRS Dur : 074 ms QT Int : 436 ms P-R-T Axes : 077 060 037 degrees QTc Int : 446 ms Atrial fibrillation Low voltage QRS Borderline ECG Confirmed by SHERRY CASTELLANOS, MAGNUS ([id number]), video tape editor BRIDGET CALLEJAS ([id number]) on 02/12/2021 10:24:10 A M Referred By: VINAY Confirmed By:CRISTINA POWELL MD
--- NOTE | 2021-02-06 12:03 | CT_ITS ---
STUDY: CT BRAIN WITHOUT CONTRAST REASON FOR EXAM: Female, 75 years old. fall trauma RADIATION DOSAGE (If Supplied By Facility): CTDIvol = ( 44.99 ) mGy, DLP = ( 745.49 ) mGycm TECHNIQUE: Transaxial CT imaging of the brain was performed without administration of intravenous contrast material. Individualized dose optimization techniques were used for this CT. COMPARISON: No relevant priors. FINDINGS: Normal soft tissue structures. Normal calvarium. Normal size ventricles and extra-axial spaces for the patient''s age. There are areas of decreased attenuation within the white matter tracts of the supratentorial brain, consistent with microvascular disease changes. Normal basal ganglia and thalami. Normal brainstem. Normal cerebellum. There is no intracranial hemorrhage. There are no findings of an acute ischemic infarction. There is mucoperiosteal inflammatory disease of the paranasal sinuses consistent with mild chronic sinusitis. CT/Brain/Head without Contrast IMPRESSION: Chronic involutional changes of the brain. Electronically Signed: Yisel Goodman MD at 14:36 EST Tel , Service support ,
--- NOTE | 2021-02-06 12:03 | RAD_ITS ---
STUDY: X-RAY - RIGHT KNEE REASON FOR EXAM: Female, 75 years old. injury -- EIDT TO 2V, D/T LTD ROM? TECHNIQUE: 2 view(s) of the knee. COMPARISON: None. FINDINGS: There is an osteochondral lesion at the lateral femoral condyle measures 1 cm most likely represent an osteochondral fracture. There is demineralization of the tibia and fibula. Normal proximal tibiofibular articulation. There is mild degenerative arthrosis of the medial femorotibial compartment. There is mild degenerative arthrosis of the lateral femorotibial compartment. There is mild degenerative arthrosis of the patellofemoral articulation. There is a soft tissue prominence in the suprapatellar region suggesting a small volume joint effusion. The soft tissue structures are unremarkable. RAD/Knee 1 or 2 Views IMPRESSION: There is an osteochondral lesion at the lateral femoral condyle measures 1 cm most likely represent an osteochondral fracture. Electronically Signed: Yisel Goodman MD at 14:48 EST Tel , Service support ,
--- NOTE | 2021-02-06 12:04 | ED.DCSUM_ITS ---
History of Present Illness Chief Complaint: Fall Informant: Patient, Family - sister Onset: Today Context: Sudden Onset - fell x 2 Timing: Continuous Quality: sore Location: R knee Current Severity: Mild Maximum Severity: Moderate Worsened by: moving, trying to walk Relieved by: remaining still Associated Symptoms: gen weakness Narrative: Patient states she has an essential tremor, she has a history of falling but has not fallen since October, then fell twice today. Sister thinks that at times her tremor seems worse but it seems to wax and wane, patient states she is not sure how long she has felt weak it has been very gradual but she does feel weak all over. Lives at home with her sister, sister says that she does not have to do a lot to care for her, basically avoids steps and she does her laundry and cooking for her. Patient denies any other focal symptoms right now such as fevers, chills, cough, shortness of breath, chest pain, she has had a little abdominal discomfort and diarrhea that has been chronic, she states last night she got up to have diarrhea 4 or 5 times overnight and that is not uncommon but it does not happen every night. She also is a dialysis patient, she states she did not feel well yesterday so she skipped dialysis and her last one was 4 days ago. Patient states when she fell today, she also bumped her head but does not think she hit it hard, she denies headache or loss of consciousness or naus ea/vomiting. - Past Medical History (1) Hypotension Status: Chronic (2) Heparin induced thrombocytopenia Status: Chronic (3) Anemia Status: Chronic (4) Atrial fibrillation Status: Chronic (5) ESRD (end stage renal disease) on dialysis Status: Chronic (6) Personal history of colonic polyps Status: Inactive (7) Essential tremor Status: Chronic Past Medical History - Allergies and Home Meds Allergies/Adverse Reactions: Allergies heparin Allergy (Intermediate, Verified 02/06/21 11:25) Induced thrombocytopenia alprazolam [From Xanax] Allergy (Verified 02/06/21 11:25) Unknown Primary Care Physician: Jesu Villalta DO [STAFF PHYSICIAN] - 1 Week if not improving (for right knee possible osteochondral fracture) Mitchell Appiah MD [Primary Care Provider] - 3-5 Days if not improving Surgical History: cholecystectomy, hysterectomy, - - Right hip ORIF, AV graft left arm, past history of an intestinal bypass for weight loss, skin cancer removal Lives: With Family Smoking Status: Never smoker - Family History Maternal Family History: Family History (Last Reviewed 10/06/20 @ 14:[address] Soniya King DO) Father Arthritis Skin cancer Heart disease Hypertension Hypercholesterolemia Cancer Brother Arthritis Heart disease Hypercholesterolemia Hypertension Seizures Diabetes Grandmother Asthma Heart disease Mother Cancer Family History: Reports: Cancer - Leukemia Paternal Family History: Family History (Last Reviewed 10/06/20 @ 14:[address] Soniya King DO) Father Arthritis Skin cancer Heart disease Hypertension Hypercholesterolemia Cancer Brother Arthritis Heart disease Hypercholesterolemia Hypertension Seizures Diabetes Grandmother Asthma Heart disease Mother Cancer Family History: Reports: Heart Disease Review of Systems General: Reports: Malaise. Denies: Chills, Fever, Sweats Eyes: Denies: Visual changes - bilaterally, Diplopia ENT: Denies: Rhinorrhea, Sore throat Cardiovascular: Denies: Chest pain, Palpitations Respiratory: Denies: Dyspnea, Cough, Dyspnea on exertion Gastrointestinal: Reports: Abdominal pain, Diarrhea - I was admitted and tested for this in October. Denies: Nausea, Vomiting, Melena, Hematochezia Genitourinary: Denies: Dysuria, Hematuria, Frequency Musculoskeletal: Reports: Extremity Pain. Denies: Back pain, Swelling Skin: Denies: Rash, Wounds Neurological: Denies: Headache, Weakness, Numbness Physical Exam Vital Signs/Narrative: Vital Signs Temp Pulse Resp BP Pulse Ox 02/06/21 11:23 97.8 F 68 18 116/65 99 Inital Vital Signs reviewed: Yes General: Well nourished, Well developed, No Acute Distress Head: Normocephalic, Atraumatic Eyes: Perrl, EOMI ENT: Moist mucous membranes, No rhinorrhea, - - No [place] sign. No periorbital ecchymosis. No otorrhea. TMs clear. Neck: Supple, Nontender Cardiovascular: Regular rate, Regular rhythm, Murmur - soft systolic Respiratory: No distress, CTA bilaterally, Chest nontender Abdomen: Soft, Nontender, Nondistended, Normal bowel sounds Back: Normal Inspection, Spinal tenderness - Mild and lower thoracic without step-off or signs of trauma. Also tender in right lower half of posterior rib cage, no crepitance or obvious palpable fractures. Extremities: No edema, Tenderness - Lateral right knee. More on the joint line, nontender proximal fibula, tibial tuberosity, patella. Extensor mechanism intact. Able to range it fully but carefully. All ligaments stable and intact, no pain on stressing, no laxity, negative posterior anterior drawer signs. Skin: Normal color, No rash, No Trauma Neurological: Alert, Oriented x3, Cranial nerves II-XII grossly intact, Normal Strength, Normal Sensation, - - Tremulous with regards to her head Psychological: Normal affect, Normal Mood Diagnostic/Tx/Re-eval Clinical Impression(s) from Imaging Studies Brain CT 02/06/21 12:03 IMPRESSION: Chronic involutional changes of the brain. Electronically Signed: Yisel Goodman MD at 14:36 EST Tel , Service support , Knee X-Ray 02/06/21 12:03 IMPRESSION: There is an osteochondral lesion at the lateral femoral condyle measures 1 cm most likely represent an osteochondral fracture. Electronically Signed: Yisel Goodman MD at 14:48 EST Tel , Service support , Ribs w/Chest X-Ray 02/06/21 12:44 IMPRESSION: RIBS: Nondisplaced fracture of the right fifth rib. CHEST: Normal x-ray examination of the chest. Electronically Signed: Yisel Goodman MD at 14:51 EST Tel , Service support , Thoracic Spine X-Ray 02/06/21 12:44 IMPRESSION: Mild compression fractures at T7, T8, T9 likely old fractures. Osteoporosis. Multilevel degenerative changes. Electronically Signed: Yisel Goodman MD at 14:54 EST Tel , Service support , Laboratory Results 02/06/21 02/06/21 12:30 12:30 WBC 7.7 RBC 2.67 L Hgb 10.3 L Hct 32.2 L MCV 120.6 H MCH 38.6 H MCHC 32.0 RDW Std Deviation 66.9 H RDW Coeff of Yoana 15.2 H Plt Count 101 L MPV 13.0 H Immature Gran % (Auto) 0.900 Neut % (Auto) 70.7 H Lymph % (Auto) 22.1 Rankin % (Auto) 4.9 Eos % (Auto) 0.9 Baso % (Auto) 0.5 Absolute Neuts (auto) 5.4 Absolute Lymphs (auto) 1.70 Nucleated RBC % 0 Sodium 139 Potassium 4.5 Chloride 102 Carbon Dioxide 23.0 Anion Gap 14 BUN 52 H Creatinine 9.51 H* Estim Creat Clear Calc 4.86 Est GFR (MDRD) Af Amer 5 L Est GFR (MDRD) Non-Af 4 L BUN/Creatinine Ratio 5.5 L Glucose 105 Calcium 9.0 Troponin I < 0.015 - Rhythm Strip Rhythm Strip: Sinus Rhythm Rate: 63 Ectopy: None - EKG Initial EKG Interpretation: Sinus Rhythm, No Acute Injury Pattern, AV Block - 1st deg Prior: Unchanged - Medical Decision Making Other than renal failure, medical work-up shows nothing acute. She does not make urine, so we were not able to get any of that from her. She did not have diarrhea while she was in the emergency department. She was treated with morphine and prophylactic Zofran, this did help the pain from her injuries. On my interpretation, 2 view x-ray of the right knee is negative for anything acute showing chronic arthritic changes, 2 view x-ray series of the thoracic spine is negative for any acute fracture, and 3 view x-ray series of the right rib cage including a PA chest x-ray is negative for anything acute as well. As above, radiology read the CT head, and is in agreement with no acute intracranial injury. Radiology did interpret what appeared to be a chronic-appearing lesion in the posterior right knee as a possible osteochondral fracture. If acute discontinue weightbearing as tolerated injury, she was given an Sarath wrap. After discussion with the patient, and offering admission if she was feeling too weak to function at home, she states that she declines and wants to go home. She uses a walker at home. She did not have her walker in front of her or with her when she had both of these falls today. One of them was because she had just gotten out of the bathroom and was at the sink, the other was in her bedroom when her sister came in and surprised her. She is able to walk here with assistance. She is asked for something for pain for at home which I am fine with, we discussed reasons to return. Sister is fine taking her home. Advised to follow-up with regards to the diarrhea. With regards to her renal failure, her electrolytes are within normal limits including a potassium of 4.5. She states she chronically has low potassium and is on supplementation. I advised her since she is on several mentation and has dependence on dialysis, she should be very careful about missing dialysis like she did yesterday. She indicated that if she does not feel well tomorrow there is a possibility that she may not go. We had a long discussion about this, and I advised that since she has transportation to come get her, she should make sure and not miss dialysis, discussing the risks of that. She states she understands and will do everything she can to make sure she goes. Given her potassium of 4.5, and the fact that she is not clinically fluid overloaded or in respiratory distress at all, I feel she will likely be able to wait safely until tomorrow morning. ED Disposition - Plan for ED Patient: Disposition: Home or Assisted Living Diagnosis: Accidental fall, Contusion of right knee, Closed head injury without loss of consciousness, CRF (chronic renal failure), Fracture of rib of right side Instructions: ED Chronic Kidney Disease (CKD), ED Mechanical Fall Prescriptions: Hydrocodone Bitart/Apap 5-325 [[place] 5MG-325MG] 0.5 - 1 tab PO Q6H PRN PRN 2 Days #8 tab PRN Reason: Pain Transmission Status: Received by [facility] [facility] Referrals: Mitchell Appiah MD [Primary Care Provider] - 3-5 Days if not improving Jesu Villalta DO [STAFF PHYSICIAN] - 1 Week if not improving (for right knee possible osteochondral fracture) Additional Instructions: Do everything possible to make sure you get to dialysis tomorrow morning
[2021-02-06 12:40] LABS: Absolute Neutrophil Count 5.4 X10^3/uL (2.0-7.7); Basophil# 0.04 X10^3/uL; Basophil% 0.5 % (0-1); Eosinophil# 0.07 X10^3/uL; Eosinophils% 0.9 % (0-5); Hematocrit 32.2 % (37-47); Hemoglobin 10.3 g/dL (12.0-15.0); Lymphocyte % 22.1 % (19-41); Mean Corpuscular Hgb 38.6 pg (27.0-32.0); Mean Corpuscular Volume 120.6 fL (81-99); Monocyte# 0.38 X10^3/uL; Monocyte% 4.9 % (0-10); NRBC Flagged by Analyzer 0 % (0-5); Neutrophil # 5.42 X10^3/uL (2.7-7.7); Neutrophil % 70.7 % (47-70); POSITIVE MORPHOLOGY YES; Platelet Count 101 K/mm3 (150-450); RBC Distribution Width CV 15.2 % (11.6-14.6); RBC Distribution Width SD 66.9 fl (35.1-43.9); Red Blood Count 2.67 M/mm3 (4.2-5.4); White Blood Count 7.7 K/mm3 (4.4-11.0)
[2021-02-06 12:44] LABS: Differential Indicated SCAN CRITERIA MET
--- NOTE | 2021-02-06 12:44 | RAD_ITS ---
STUDY: X-RAY - UNILATERAL RIBS ( RIGHT ) WITH CHEST REASON FOR EXAM: Female, 75 years old. pain/fall TECHNIQUE - RIBS: 4 view(s) of the ribs. TECHNIQUE - CHEST: Single AP portable view of the chest. COMPARISON: None. FINDINGS - RIBS: There is deformity of the lateral aspect of the right fifth rib suggesting nondisplaced fracture better seen on the oblique view. FINDINGS - CHEST: The lungs are clear and expanded. There is no demonstrated pleural abnormality. Normal size heart. Normal mediastinum and liane. Normal visualized pulmonary arteries. Normal visualized aortic arch and descending thoracic aorta. There is a dextroscoliosis of the thoracic spine. There is degenerative osteoarthritis of the bilateral shoulders. There is no demonstrated abnormality of the visualized soft tissue structures of the upper abdomen. RAD/Ribs Uni Min 3V w/PA Chest IMPRESSION: RIBS: Nondisplaced fracture of the right fifth rib. CHEST: Normal x-ray examination of the chest. Electronically Signed: Yisel Goodman MD at 14:51 EST Tel , Service support ,
--- NOTE | 2021-02-06 12:44 | RAD_ITS ---
STUDY: X-RAY - THORACIC SPINE REASON FOR EXAM: Female, 75 years old. pain/fall TECHNIQUE: 2 view(s) of the thoracic spine were obtained. COMPARISON: None. FINDINGS: There is an increase in the normal thoracic kyphosis. There is 17 degree dextroscoliosis. There is demineralization of the thoracic spine with endplate spondylosis. There is multilevel disc space narrowing of the thoracic spine. Mild compression fractures at T7, T8, T9 likely old fractures. Osteoporosis. The soft tissue structures are unremarkable. RAD/Thoracic Spine 2 Views IMPRESSION: Mild compression fractures at T7, T8, T9 likely old fractures. Osteoporosis. Multilevel degenerative changes. Electronically Signed: Yisel Goodman MD at 14:54 EST Tel , Service support ,
[2021-02-06 13:00] LABS: Anion Gap 14 (5-15); BUN 52 mg/dL (7-18); BUN/Creat Ratio 5.5 RATIO (10-20); Chloride 102 mmol/L (98-107); Creatinine, Serum 9.51 mg/dL (0.55-1.02); EST Glomerular Filtration Rate 4 mL/min (>60); Est Glom Filt Rate - Afr Amer 5 mL/min (>60); Estimated Creatinine Clearance 4.86 ml/min; Glucose 105 mg/dL (74-106); Potassium 4.5 mmol/L (3.5-5.1); Sodium Level 139 mmol/L (136-145)
[2021-02-06] MEDS: Morphine 2 MG/ML Syringe IV (13:39)
[2021-02-06] MEDS: Ondansetron 4 MG/2 ML Vial IV (13:39)
[2021-02-06 13:44] VITALS: BP 125/63; PULSE 60; RESP 16; O2SAT 97
--- NOTE | 2021-02-06 14:32 | NURSING ---
MD aware that pt does not make any urine d/t ESRD. UA cancelled.
[2021-02-06 15:05] VITALS: BP 120/89; PULSE 61; RESP 16; O2SAT 97
== END 2021-02-06 15:05 | disposition home or self-care (01) ==
PROVIDERS: Emergency Provider Emergency Medicine; PCP Family Medicine
DX: S09.90XA Unspecified injury of head, initial encounter (principal); S22.31XA Fracture of one rib, right side, initial encounter for closed fracture; S80.01XA Contusion of right knee, initial encounter; N18.6 End stage renal disease; G25.0 Essential tremor; M81.0 Age-related osteoporosis without current pathological fracture; Z99.2 Dependence on renal dialysis; Z87.19 Personal history of other diseases of the digestive system; Z98.84 Bariatric surgery status; Z91.81 History of falling; Z86.010 Personal history of colon polyps
CPT/HCPCS: 70450; 71101; 72070; 73560; 80048; 84484; 85025; 93005; 96374; 99284; J2405

== ENCOUNTER → 2021-04-05 09:10 | Outpatient (CLI) | payer MEDICARE, SELFPAY ==
[2021-04-05 10:21] LABS: Absolute Lymphocyte Count 1.22 X10^3/uL (0.83-4.51); Absolute Neutrophil Count 3.2 X10^3/uL (2.0-7.7); Basophil# 0.05 X10^3/uL; Basophil% 1.1 % (0-1); Eosinophil# 0.04 X10^3/uL; Eosinophils% 0.8 % (0-5); Hematocrit 31.5 % (37-47); Hemoglobin 9.5 g/dL (12.0-15.0); Lymphocyte # 1.22 X10^3/ul (0.83-4.51); Lymphocyte % 25.6 % (19-41); Mean Corp Hgb Conc 30.2 g/dL (32-36); Mean Corpuscular Hgb 36.3 pg (27.0-32.0); Mean Corpuscular Volume 120.2 fL (81-99); Mean Platelet Vol. 12.5 fl (6.2-12.0); Monocyte# 0.26 X10^3/uL; Monocyte% 5.5 % (0-10); NRBC Flagged by Analyzer 0 % (0-5); Neutrophil # 3.18 X10^3/uL (2.7-7.7); Neutrophil % 66.8 % (47-70); Platelet Count 114 K/mm3 (150-450); RBC Distribution Width CV 13.7 % (11.6-14.6); RBC Distribution Width SD 60.1 fl (35.1-43.9); Red Blood Count 2.62 M/mm3 (4.2-5.4); White Blood Count 4.8 K/mm3 (4.4-11.0)
[2021-04-05 10:35] LABS: Vitamin B12 656 pg/mL (211-911)
[2021-04-05 11:01] LABS: ALB/GLOB Ratio 0.8 RATIO (0.9-2.4); AST(SGOT) 26 U/L (15-37); Alanine Aminotransfer ALT/SGPT 41 U/L (13-56); Albumin, Serum 3.1 g/dL (3.2-5.0); Alkaline Phosphatase 135 U/L (45-117); Anion Gap 11 (5-15); BUN 42 mg/dL (7-18); BUN/Creat Ratio 5.2 RATIO (10-20); Calcium,Total 9.2 mg/dL (8.5-10.1); Chloride 100 mmol/L (98-107); Creatinine, Serum 8.08 mg/dL (0.55-1.02); EST Glomerular Filtration Rate 5 mL/min (>60); Est Glom Filt Rate - Afr Amer 6 mL/min (>60); Globulin 3.7 g/dL (2.2-4.2); Glucose 91 mg/dL (74-106); Protein, Total 6.8 g/dL (6.4-8.2); Sodium Level 138 mmol/L (136-145)
[2021-04-09 16:08] LABS: VITAMIN B6 40.6 ug/L (2.0-32.8)
[2021-04-09 16:52] LABS: Vitamin B1, Thiamine 112.3 nmol/L (66.5-200.0)
== END ==
PROVIDERS: PCP Family Medicine; Referring Provider Family Medicine; Visit Provider Family Medicine
DX: I48.91 Unspecified atrial fibrillation (principal); N18.9 Chronic kidney disease, unspecified; E53.8 Deficiency of other specified B group vitamins; E53.9 Vitamin B deficiency, unspecified; E55.9 Vitamin D deficiency, unspecified; K74.60 Unspecified cirrhosis of liver
CPT/HCPCS: 36415; 80053; 82140; 82306; 82607; 82746; 83735; 84207; 84425; 85025

== ENCOUNTER 2021-05-09 02:11 | Observation (INO) | payer MEDICARE, MEDICAID, SELFPAY ==
[2021-05-09] VITALS (10 sets, daily range): BP systolic 94–145; BP diastolic 53–89; PULSE 71–98; RESP 16–18; TEMP 35.7–36.7; O2SAT 91–98; BMI 29.0; BMI 25.9
--- NOTE | 2021-05-09 02:18 | EKG12_ITS ---
Test Reason : FALL Blood Pressure : / mmHG Vent. Rate : 072 BPM Atrial Rate : 072 BPM P-R Int : 000 ms QRS Dur : 082 ms QT Int : 410 ms P-R-T Axes : 000 056 059 degrees QTc Int : 448 ms Normal Sinus Rhythm Abnormal ECG Confirmed by SHABBIR CASTELLANOS, KIKA ([id number]), associate entertainment editor ULI AYALA ([id number]) on 05/11/2021 8:28:30 AM Referred By: BB Confirmed By:KIKA SHEA MD
--- NOTE | 2021-05-09 02:18 | RAD_ITS ---
STUDY: X-RAY - PELVIS AND RIGHT HIP REASON FOR EXAM: Female, 75 years old. Pain/injury TECHNIQUE: 3 views of the pelvis and hip. COMPARISON: 05/19/2018 hip x-ray FINDINGS: There is a non-specific bowel gas pattern. There is degenerative change in the lower lumbar spine with levoscoliosis. There is narrowing with cortical sclerosis and osteophyte formation of the sacroiliac joint consistent with degenerative osteoarthritic changes. There is cortical irregularity within the right inferior pubic ramus. Normal pubic symphysis. There are 3 cortical screws within the right femoral neck. RAD/HIP, UNI W/ Pelvis 2-3 Views IMPRESSION: Open reduction internal fixation right femur are stable since prior study. Findings suspicious for nondisplaced fracture right inferior pubic ramus. Recommend consideration for CT scan of the pelvis. Degenerative change of the lower lumbar spine. Electronically Signed: Vanessa Bills MD at 3:15 EDT Tel , Service support ,
--- NOTE | 2021-05-09 02:20 | ED.VIS.FALL ---
HPI HPI - Fall History of Present Illness Chief Complaint: Fall Informant: patient and EMS Occured/Mechanism Occurred: Today (JPTA) Mechanism/Context: Yes same level fall Narrative: unsure; got up in the night, it was dark, hit something and fell into box, other nearby items on her floor Usually ambulates: Without assistance Pain/Injury Location: R hip/buttock Pain Location: head Current Severity: Moderate Maximum Severity: Severe Worsened by: trying to WB Relieved by: rest/remaining still Associated Symptoms Associated Symptoms: Positive for Inability to ambulate; Negative for Parasthesias, Weakness and Loss of consciousness Narrative Narrative: Patient states she takes medication for vertigo, does not remember having any prodromal symptoms including dizziness tonight but she fell after getting up in the dark. She bumped her head her more significant injury is the right hip which she broke years ago and was surgically repaired. She was not able to bear weight on her right lower extremity tonight at all, even with EMS assistance. End-stage renal disease patient, last dialysis day before yesterday, has been compliant and not missed any. She denies any recent illness but states she had a fall for which she was admitted to [facility] in [place] for a while, she states she did not have surgery for anything, states that she was leery about staying here in [place]. She states she has not had COVID-19, and has purposefully not been vaccinated, because she was leery about that too. [facility] Medical History (Updated 05/09/21 @ 02:[address] Rakesh Hill MD) Atrial fibrillation Atrial fibrillation status post cardioversion Back problem CL (cirrhosis of liver) ESRD (end stage renal disease) on dialysis Essential tremor Heparin induced thrombocytopenia Kidney stones Personal history of colonic polyps Rectal bleeding Home Medications calcium acetate(phosphat bind) 667 mg capsule 667 mg PO TIDCM cap 07/24/18 [History Last Taken 10/05/20] midodrine 10 mg tablet 20 mg PO TID 07/24/18 [History Last Taken 10/05/20] diclofenac sodium 1 % topical gel 2 g TOPICAL DIRECTED PRN g 08/17/19 [History Last Taken 10/05/20] promethazine 25 mg tablet 25 mg PO Q6H PRN 08/17/19 [History Last Taken 08/31/19] fludrocortisone 0.1 mg tablet 0.1 mg PO DAILY 04/26/20 [History Last Taken 10/05/20] potassium chloride 10 mEq tablet,extended release 10 meq PO DAILY 04/26/20 [History Last Taken 10/05/20] primidone 50 mg tablet 150 mg PO LUNCH tab 04/26/20 [History Last Taken 10/05/20] B complex with C 20-folic acid 1 cap PO DAILY 10/06/20 [History Last Taken 10/05/20] Cholecalciferol (Vitamin D3) [Vitamin D3] 5,000 unit PO DAILY 10/06/20 [History Last Taken 10/05/20] cyanocobalamin (vitamin B-12) 1,000 mcg PO DAILY 10/06/20 [History Last Taken 10/05/20] multivitamin 1 tab PO DAILY 10/06/20 [History Last Taken 10/05/20] primidone 250 mg PO BID 10/06/20 [History Last Taken 10/05/20] Allergy/AdvReac Type Severity Reaction Status Date / Time heparin Allergy Intermediate Induced Verified 05/09/21 02:16 thrombocytopenia alprazolam [From Xanax] Allergy Unknown Verified 05/09/21 02:16 Family History Father Arthritis Skin cancer Heart disease Hypertension Hypercholesterolemia Cancer skin cancer Brother Arthritis Heart disease Hypercholesterolemia Hypertension Seizures Diabetes Grandmother Asthma Heart disease Mother Cancer Leukemia Surgical History history AV graft History of cardioversion (08/31/19) History of colonoscopy (~2014) History of hysterectomy History of intestinal bypass History of laparoscopic cholecystectomy history ORIF right hip Social History (Updated 05/09/21 @ 02:[address] Rakesh Hill MD) household members: children Smoking Status: Never smoker alcohol intake: never substance use type: does not use ROS ROS ED Constitutional Constitutional ED: Denies chills or fever(s) Eyes Eyes: Denies change in vision or diplopia ENT ENT ED: Denies rhinorrhea or sore throat Cardiovascular Cardiovascular: Denies chest pain or palpitations Respiratory/Chest Respiratory/Chest: Denies cough or dyspnea Gastrointestinal Gastrointestinal: Denies abdominal pain, diarrhea, nausea or vomiting Genitourinary Genitourinary ED: Denies dysuria or hematuria Musculoskeletal Musculoskeletal: Reports as per HPI, extremity pain and other Details: Chronic right knee pain/problems, unchanged acutely ; Denies back pain or neck pain Integumentary Denies abscess or rash Neurologic Neurologic: Denies headache(s), paresthesias or weakness Psychiatric Psychiatric: Denies anxiety or suicidal thoughts EXAM Physical Exam Const Vital Signs: 05/09/21 02:11 05/09/21 02:19 05/09/21 03:17 Temperature 96.3 F L 97.1 F L Temperature Source Temporal Temporal Pulse Rate 73 71 Respiratory Rate 18 16 Respiratory Effort Normal Non-Labored Respiratory Depth Normal Respiratory Pattern Normal Blood Pressure 102/72 108/68 Blood Pressure Mean 82 81 Pulse Ox 95 97 Oxygen Delivery Method Room Air Room Air Positive well nourished and well developed General Appearance ED: well developed and NAD HEENT Reports TM's clear and moist mucous membranes normocephalic, normal to inspection and atraumatic; Negative for Padilla's sign, hematoma, laceration or raccoon eyes Face and Sinus: sinuses nontender Nose: external nose normal Tympanic Membrane ED: Yes TM's clear Throat: posterior oropharynx normal Eyes PERRL and EOMs intact bilaterally Neck full ROM and supple Resp normal respiratory effort and clear to auscultation bilaterally Cardio regular rate, regular rhythm and no murmurs GI non-tender and non-distended Auscultation: normoactive bowel sounds Palpation: soft Back/Spine no CVA tenderness General Back: other FROM Extremity normal to inspection Extremity Narrative: Pain with AP compression of the pelvis, no instability. Nontender at the right greater trochanter, no deformity, very little discomfort with logroll, no shortening. Tender more in the right ischial tuberosity/buttock. No external sign of injury there. Mildly tender right medial knee near the joint space, limited range of motion there because of pain in the hip but able to move the knee. No effusion or signs of trauma. Full range of motion of all other extremities. General Extremety ED: Yes tenderness; Negative for edema or pulses abnormal General Extremity: Negative for edema or pulses abnormal Neuro oriented x3, CN's II-XII intact bilaterally and no sensory deficits noted Sensorium / Orientation: awake and alert Motor Exam: strength 5/5 throughout Skin no rashes or lesions noted and no wounds MDM MDM MDM Narrative Medical decision making narrative: Although the patient was not feeling nauseated, soon after I evaluated her, she started vomiting. This was treated, and although she did not appear to have any type of significant head injury, we sent her for CT of her head which was unremarkable. X-rays on my interpretation of her right hip and pelvis, 3 views, show a nondisplaced inferior pubic ramus/ischial tuberosity fracture which is consistent with her pain on exam and the reason why she is not able to bear weight. Her pain was treated. Basic metabolic work-up was obtained, shows anemia a little worse than usual, plan is for admission and OT/PT evaluation, further treatment. Lab Data Attestation: I reviewed the patient's lab results. Labs: Laboratory Results - last 24 hr 05/09/21 05/09/21 02:25 02:25 WBC 7.2 RBC 2.38 L Hgb 8.8 L Hct 28.5 L MCV 119.7 H MCH 37.0 H MCHC 30.9 L RDW Std Deviation 66.4 H RDW Coeff of Yoana 15.1 H Plt Count 105 L MPV 12.7 H Immature Gran % (Auto) 0.800 Neut % (Auto) 69.1 Lymph % (Auto) 23.5 [place] % (Auto) 5.2 Eos % (Auto) 1.0 Baso % (Auto) 0.4 Absolute Neuts (auto) 5.0 Absolute Lymphs (auto) 1.68 Nucleated RBC % 0 Sodium 139 Potassium 4.9 Chloride 101 Carbon Dioxide 31.0 Anion Gap 7 BUN 41 H Creatinine 5.95 H Estim Creat Clear Calc 8.07 Est GFR (MDRD) Af Amer 9 L Est GFR (MDRD) Non-Af 7 L BUN/Creatinine Ratio 6.9 L Glucose 98 Calcium 8.9 Radiography Diagnostic Testing: Radiology Impression Hip/Pelvis X-Ray 05/09/21 02:18 IMPRESSION: Open reduction internal fixation right femur are stable since prior study. Findings suspicious for nondisplaced fracture right inferior pubic ramus. Recommend consideration for CT scan of the pelvis. Degenerative change of the lower lumbar spine. Electronically Signed: Vanessa Bills MD at 3:15 EDT Tel , Service support , Brain CT 05/09/21 02:21 IMPRESSION: Atrophy no evidence of acute hemorrhage infarct or edema. Electronically Signed: Vanessa Bills MD at 3:04 EDT Tel , Service support , EKG Initial EKG: Attestation: I personally reviewed and interpreted this EKG as follows: Interpretation: Sinus Rhythm and No Acute Injury Pattern Comments: short SC Discharge Plan Dx/Rx/DC Orders Clinical Impression: Closed fracture of right inferior pubic ramus, ESRD (end stage renal disease) on dialysis, Unable to ambulate, Recurrent falls Disposition Disposition: Acute Care Hospital [facility]
--- NOTE | 2021-05-09 02:21 | CT_ITS ---
STUDY: CT BRAIN WITHOUT CONTRAST REASON FOR EXAM: Female, 75 years old. Fall/injury RADIATION DOSAGE (If Supplied By Facility): CTDIvol = ( 44.99 ) mGy, DLP = ( 812.98 ) mGycm TECHNIQUE: Transaxial CT imaging of the brain was performed without administration of intravenous contrast material. Individualized dose optimization techniques were used for this CT. COMPARISON: 02/06/2021 CT scan head FINDINGS: Normal soft tissue structures. Normal calvarium. There is mild cerebral atrophy with widening of the extra-axial spaces and ventricular dilatation. There are areas of decreased attenuation within the white matter tracts of the supratentorial brain, consistent with microvascular disease changes. Normal basal ganglia and thalami. Normal brainstem. There is mild cerebellar atrophy. There is no intracranial hemorrhage. There are no findings of an acute ischemic infarction. There is mucoperiosteal inflammatory disease of the paranasal sinuses consistent with mild chronic sinusitis. CT/Brain/Head without Contrast IMPRESSION: Atrophy no evidence of acute hemorrhage infarct or edema. Electronically Signed: Vanessa Bills MD at 3:04 EDT Tel , Service support ,
[2021-05-09] MEDS: Morphine 2 MG/ML Syringe IV ×2 (02:25→03:33)
[2021-05-09] MEDS: Ondansetron 4 MG/2 ML Vial IV (02:25)
[2021-05-09 02:35] LABS: Absolute Lymphocyte Count 1.68 X10^3/uL (0.83-4.51); Basophil# 0.03 X10^3/uL; Basophil% 0.4 % (0-1); Eosinophil# 0.07 X10^3/uL; Hematocrit 28.5 % (37-47); Hemoglobin 8.8 g/dL (12.0-15.0); Lymphocyte # 1.68 X10^3/ul (0.83-4.51); Lymphocyte % 23.5 % (19-41); Mean Corp Hgb Conc 30.9 g/dL (32-36); Mean Corpuscular Volume 119.7 fL (81-99); Mean Platelet Vol. 12.7 fl (6.2-12.0); Monocyte# 0.37 X10^3/uL; Monocyte% 5.2 % (0-10); NRBC Flagged by Analyzer 0 % (0-5); Neutrophil # 4.95 X10^3/uL (2.7-7.7); Neutrophil % 69.1 % (47-70); POSITIVE MORPHOLOGY YES; Platelet Count 105 K/mm3 (150-450); RBC Distribution Width CV 15.1 % (11.6-14.6); RBC Distribution Width SD 66.4 fl (35.1-43.9); Red Blood Count 2.38 M/mm3 (4.2-5.4); White Blood Count 7.2 K/mm3 (4.4-11.0)
[2021-05-09 02:36] LABS: Differential Indicated SCAN CRITERIA MET
[2021-05-09 02:54] LABS: Anion Gap 7 (5-15); BUN 41 mg/dL (7-18); BUN/Creat Ratio 6.9 RATIO (10-20); Calcium,Total 8.9 mg/dL (8.5-10.1); Chloride 101 mmol/L (98-107); Creatinine, Serum 5.95 mg/dL (0.55-1.02); EST Glomerular Filtration Rate 7 mL/min (>60); Est Glom Filt Rate - Afr Amer 9 mL/min (>60); Estimated Creatinine Clearance 8.07 ml/min; Glucose 98 mg/dL (74-106); Potassium 4.9 mmol/L (3.5-5.1); Sodium Level 139 mmol/L (136-145)
--- NOTE | 2021-05-09 03:14 | HP.PCM.HOS_ITS ---
HPI - General General Date of Admission: 05/09/21 Date of Service: 05/09/21 Chief Complaint: Fall HPI Narrative GUIDO WALLACE, is a 75 F with a significant history of vertigo; tremors; paroxysmal A. fib; and end-stage renal disease on dialysis who presents because of a fall few hours before presentation. Patient was getting up to the bathroom when she fell. After the fall she had excruciating pain in her right hip. The pain increases with movement and improves with laying still. Because she could not get up from the floor paramedics were called. And even with assistance of paramedics she could not get up from the floor. Also she has some pain in her right elbow. She is unsure whether she hit her head. Associated with her symptom is nausea. Patient was recently at [facility] and was discharged on April 29, 2021. [facility] Medical History Atrial fibrillation Atrial fibrillation status post cardioversion Back problem CL (cirrhosis of liver) ESRD (end stage renal disease) on dialysis Essential tremor Heparin induced thrombocytopenia Kidney stones Personal history of colonic polyps Rectal bleeding Home Medications calcium acetate(phosphat bind) 667 mg capsule 667 mg PO TIDCM cap 07/24/18 [History Last Taken 10/05/20] midodrine 10 mg tablet 20 mg PO TID 07/24/18 [History Last Taken 10/05/20] diclofenac sodium 1 % topical gel 2 g TOPICAL DIRECTED PRN g 08/17/19 [History Last Taken 10/05/20] promethazine 25 mg tablet 25 mg PO Q6H PRN 08/17/19 [History Last Taken 08/31/19] fludrocortisone 0.1 mg tablet 0.1 mg PO DAILY 04/26/20 [History Last Taken 10/05/20] potassium chloride 10 mEq tablet,extended release 10 meq PO DAILY 04/26/20 [History Last Taken 10/05/20] primidone 50 mg tablet 150 mg PO LUNCH tab 04/26/20 [History Last Taken 10/05/20] B complex with C 20-folic acid 1 cap PO DAILY 10/06/20 [History Last Taken 10/05/20] Cholecalciferol (Vitamin D3) [Vitamin D3] 5,000 unit PO DAILY 10/06/20 [History Last Taken 10/05/20] cyanocobalamin (vitamin B-12) 1,000 mcg PO DAILY 10/06/20 [History Last Taken 10/05/20] multivitamin 1 tab PO DAILY 10/06/20 [History Last Taken 10/05/20] primidone 250 mg PO BID 10/06/20 [History Last Taken 10/05/20] Allergy/AdvReac Type Severity Reaction Status Date / Time heparin Allergy Intermediate Induced Verified 05/09/21 02:16 thrombocytopenia alprazolam [From Xanax] Allergy Unknown Verified 05/09/21 02:16 Family History Father Arthritis Skin cancer Heart disease Hypertension Hypercholesterolemia Cancer skin cancer Brother Arthritis Heart disease Hypercholesterolemia Hypertension Seizures Diabetes Grandmother Asthma Heart disease Mother Cancer Leukemia Surgical History history AV graft History of cardioversion (08/31/19) History of colonoscopy (~2014) History of hysterectomy History of intestinal bypass History of laparoscopic cholecystectomy history ORIF right hip Social History household members: children Smoking Status: Never smoker alcohol intake: never substance use type: does not use ROS ROS Narrative 12 point review of system is negative except as stated in HPI. Vital Signs Vital Signs Vital Signs: 05/09/21 02:11 05/09/21 02:19 Temperature 96.3 F L Temperature Source Temporal Pulse Rate 73 Respiratory Rate 18 Respiratory Effort Normal Non-Labored Respiratory Depth Normal Respiratory Pattern Normal Blood Pressure 102/72 Blood Pressure Mean 82 Pulse Ox 95 Oxygen Delivery Method Room Air Weight Weight: 83.9 kg Body Mass Index (BMI) 29.0 Physical Exam Narrative Alert and oriented x3 Nontraumatic; normocephalic Lung clear to auscultate Heart sounds S1-S2. No murmur, gallop or rubs. Abdomen bowel sounds present soft, nontender nondistended Extremity: Tender right hip. No edema; cyanosis or clubbing in bilateral lower extremities. Integumentary: Right elbow with skin tear Results Lab / Micro Data Result Diagrams: 05/09/21 02:25 05/09/21 02:25 Labs: Laboratory Results - last 24 hr 05/09/21 05/09/21 02:25 02:25 WBC 7.2 RBC 2.38 L Hgb 8.8 L Hct 28.5 L MCV 119.7 H MCH 37.0 H MCHC 30.9 L RDW Std Deviation 66.4 H RDW Coeff of Yoana 15.1 H Plt Count 105 L MPV 12.7 H Immature Gran % (Auto) 0.800 Neut % (Auto) 69.1 Lymph % (Auto) 23.5 [place] % (Auto) 5.2 Eos % (Auto) 1.0 Baso % (Auto) 0.4 Absolute Neuts (auto) 5.0 Absolute Lymphs (auto) 1.68 Nucleated RBC % 0 Sodium 139 Potassium 4.9 Chloride 101 Carbon Dioxide 31.0 Anion Gap 7 BUN 41 H Creatinine 5.95 H Estim Creat Clear Calc 8.07 Est GFR (MDRD) Af Amer 9 L Est GFR (MDRD) Non-Af 7 L BUN/Creatinine Ratio 6.9 L Glucose 98 Calcium 8.[address] 05/09/21 02:21 IMPRESSION: Atrophy no evidence of acute hemorrhage infarct or edema. Electronically Signed: Vanessa Bills MD at 3:04 EDT Tel , Service support , Assessment & Plan Assessment/Plan (1) Closed fracture of right inferior pubic ramus: QUALIFIERS: Encounter type: initial encounter Qualified Code(s): S32.591A - Other specified fracture of right pubis, initial encounter for closed fracture PLAN: Impression of x-ray of pelvis and right hip: Open reduction internal fixation right femur are stable since prior study. Findings suspicious for nondisplaced fracture right inferior pubic ramus. Degenerative change of the lower lumbar spine. Actual x-ray of pelvis and right hip was independently interpreted. I agree with radiologist interpretation. Toe-touch weightbearing on right lower extremity. Tylenol as needed; and oxycodone as needed for pain. Bowel protocol and antiemetics in place. PT and OT to work with patient. Case management consult for disposition. Fall X-ray with no evidence of acute hemorrhage infarct or edema. We will get a vitamin D level. PT and OT work patient for strengthening and balance training. End-stage renal disease on dialysis Renal diet ordered. Nephrology consult. DVT prophylaxis Patient with history of heparin-induced thrombocytopenia. SCD ordered Charges/Coding Visit Charges OBSV E&M: 90356 Initial observation care L2
[2021-05-09 03:21] LABS: Differential Comment SCANNED
[2021-05-09 03:23] LABS: Anisocytosis 2+; Hypochromasia 1+; Macrocytosis 2+
[2021-05-09] MEDS: oxyCODONE 5 MG Tablet 10 MG PO (04:36)
[2021-05-09] MEDS: Midodrine HCl 5 MG Tablet 40 MG PO ×2 (06:12→12:50)
[2021-05-09] MEDS: Primidone 250 MG Tablet PO ×2 (06:12→15:50)
[2021-05-09] MEDS: Acetaminophen 325 MG Tablet 650 MG PO ×2 (06:16→13:36)
[2021-05-09] MEDS: Multivitamins,Therapeutic Tablet 1 TABLET PO (07:30)
[2021-05-09] MEDS: Calcium Acetate 667 MG Capsule PO ×3 (07:31→17:37)
--- NOTE | 2021-05-09 07:42 | NURSING ---
acute dialysis nurse notified of pt's admission/room number
[2021-05-09] MEDS: Pantoprazole Sodium 40 MG Tablet PO (08:20)
[2021-05-09] MEDS: Cholecalciferol (VIT D3) 25 MCG TABLET (1,000 UNITS) 125 MCG PO (08:21)
[2021-05-09] MEDS: Metoprolol Tartrate 25 MG Tablet PO (08:23)
[2021-05-09] MEDS: Fludrocortisone Acetate 0.1 MG Tablet PO (08:25)
--- NOTE | 2021-05-09 11:18 | CASEMGMT ---
Social Work Assessment SW updated by PT/OT that they are recommending SNF at discharge for pt. Referral Date: 05/09/2021 Date of Assessment: 05/09/2021 Reason for consult: SNF placement Informant: PT/OT Personal Status: SW met with pt to complete initial assessment. Pt is alert and orientated and answers questions appropriately. Living Arrangements: Pt state she lives with family (sister, nephew, nephew's girlfriend and their baby) in a two story home. Pt states she stays on the first floor. Pt states there are three steps to enter the home and their are railings by the steps. DME: Cane, walker, wheelchair ADLs: Pt states she didn't do a lot of cooking, states she is able to help with the dishes. Pt states she is able to walk by herself and able to bathe self and dress self. Transportation: Pt states her sister provides transportation. Pt states [employer] provides transportation to dialysis. Dialysis: M,W,F at [facility]. Chair time is 7:00am. PCP: Mitchell Appiah Pharmacy: [facility] [place] Substance Abuse Hx: Pt denied Mental Health Hx: Pt states she has history of depression. Pt states she is prescribed Medications through her PCP. Pt states no history of counseling, denied wanting counseling resources. Pt states she feels that her depression is well managed. Pt denied any history of suicidal thoughts/plans/ideations. Pt denied any current suicidal thoughts/plans/ideations. [facility]: [facility] SNF: [facility]. Pt states she was just discharged from [facility] the . Pt states she was there for about two weeks for rehabilitation. Interventions: SW spoke with pt about discharge plans and recommendation of SNF. Pt states she wants to go home with help in the home. SW spoke with pt about [facility] but informed pt that [facility] will not be in everyday. SW asked pt who is going to assist her if she is an assist of two. Pt states that her sister, who is very independent, is able to assist her and her nephew who is also very independent will be available to assist. Pt states that she will have 24/7 care to assist. Pt states her preference is to return home. SW updated RN KUSUM. Plan: Home with [facility] and family assistance Cynthia Preciado BATTERY STACKER, ED SPECIAL EDUCATION TEACHER
--- NOTE | 2021-05-09 11:20 | CON.PCM.RE_ITS ---
Assessment & Plan Assessment/Plan (1) ESRD (end stage renal disease) on dialysis: PLAN: End-stage renal disease on hemodialysis. On hemodialysis Friday, Friday, Friday schedule. Last hemodialysis was Friday. Called and scheduled dialysis for today. Hypotension. Long-standing history of hypertension with worsening on postural changes. Seems to be a problem for several weeks now. She is on Midodrine 40 mg 3 times a day along with fludrocortisone 0.1 mg. Will review old records to see if she has been tested for adrenal insufficiency. We'll reach out to her primary family court counsellor (2) Anemia: HPI Consult Data Date of Consult: 05/09/21 HPI Narrative HPI Narrative: GUIDO WALLACE, is a 75 F who presents with a mechanical fall. renal consulted in view of ESRD. patient has known history of ESRD on HD MWF schedule. last HD was friday. recurrent falls, now admitted with fall and pubic bone fracture. [facility] Medical History (Updated 05/09/21 @ 10:[address] Lupillo Suazo MD) Atrial fibrillation Atrial fibrillation status post cardioversion Back problem CL (cirrhosis of liver) ESRD (end stage renal disease) on dialysis Essential tremor Heparin induced thrombocytopenia Kidney stones Personal history of colonic polyps Home Medications calcium acetate(phosphat bind) 667 mg capsule 667 mg PO TIDCM cap 07/24/18 [History Last Taken 10/05/20] midodrine 10 mg tablet 40 mg PO TID 07/24/18 [History Last Taken 10/05/20] diclofenac sodium 1 % topical gel 2 g TOPICAL DIRECTED PRN g 08/17/19 [History Last Taken 10/05/20] promethazine 25 mg tablet 25 mg PO Q6H PRN 08/17/19 [History Last Taken 08/31/19] fludrocortisone 0.1 mg tablet 0.1 mg PO DAILY 04/26/20 [History Last Taken 10/05/20] potassium chloride 10 mEq tablet,extended release 10 meq PO TID 04/26/20 [History Last Taken 10/05/20] B complex with C 20-folic acid 1 cap PO DAILY 10/06/20 [History Last Taken 10/05/20] Cholecalciferol (Vitamin D3) [Vitamin D3] 5,000 unit PO DAILY 10/06/20 [History Last Taken 10/05/20] cyanocobalamin (vitamin B-12) 1,000 mcg PO DAILY 10/06/20 [History Last Taken 10/05/20] multivitamin 1 tab PO DAILY 10/06/20 [History Last Taken 10/05/20] primidone 250 mg PO TID 10/06/20 [History Last Taken 10/05/20] clonazepam 0.5 - 1 mg PO QHS PRN 05/09/21 [History Last Taken Unknown] guaifenesin [Mucinex] 600 mg PO BID 05/09/21 [History Last Taken Unknown] meclizine 25 mg PO TID PRN 05/09/21 [History Last Taken Unknown] metoprolol tartrate 25 mg PO BID 05/09/21 [History Last Taken Unknown] pantoprazole [Protonix] 40 mg PO DAILY 05/09/21 [History Last Taken Unknown] vortioxetine [Trintellix] 20 mg PO QHS 05/09/21 [History Last Taken Unknown] Allergy/AdvReac Type Severity Reaction Status Date / Time heparin Allergy Intermediate Induced Verified 05/09/21 02:16 thrombocytopenia alprazolam [From Xanax] Allergy Unknown Verified 05/09/21 02:16 Family History Father Arthritis Skin cancer Heart disease Hypertension Hypercholesterolemia Cancer skin cancer Brother Arthritis Heart disease Hypercholesterolemia Hypertension Seizures Diabetes Grandmother Asthma Heart disease Mother Cancer Leukemia Surgical History history AV graft History of cardioversion (08/31/19) History of colonoscopy (~2014) History of hysterectomy History of intestinal bypass History of laparoscopic cholecystectomy history ORIF right hip Social History household members: children Smoking Status: Never smoker alcohol intake: never substance use type: does not use ROS ROS Narrative negative except above Physical Exam Narrative Alert awake oriented x 3 no obvious distress no pallor no icterus no JVD s1s2 no murmurs lungs clear abdomen soft no organomegaly no edema no cyanosis cam + Lab / Micro Data Result Diagrams: 05/09/21 02:25 05/09/21 02:25 Labs: Laboratory Results - last 24 hr 05/09/21 05/09/21 05/09/21 02:25 02:25 06:10 WBC 7.2 RBC 2.38 L Hgb 8.8 L Hct 28.5 L MCV 119.7 H MCH 37.0 H MCHC 30.9 L RDW Std Deviation 66.4 H RDW Coeff of Yoana 15.1 H Plt Count 105 L MPV 12.7 H Immature Gran % (Auto) 0.800 Neut % (Auto) 69.1 Lymph % (Auto) 23.5 [place] % (Auto) 5.2 Eos % (Auto) 1.0 Baso % (Auto) 0.4 Absolute Neuts (auto) 5.0 Absolute Lymphs (auto) 1.68 Nucleated RBC % 0 Differential Comment SCANNED Hypochromasia 1+ Anisocytosis 2+ Macrocytosis 2+ Sodium 139 Potassium 4.9 Chloride 101 Carbon Dioxide 31.0 Anion Gap 7 BUN 41 H Creatinine 5.95 H Estim Creat Clear Calc 8.07 Est GFR (MDRD) Af Amer 9 L Est GFR (MDRD) Non-Af 7 L BUN/Creatinine Ratio 6.9 L Glucose 98 Calcium 8.9 Vitamin D 25-Hydroxy 42.0 Radiology Impression Hip/Pelvis X-Ray 05/09/21 02:18 IMPRESSION: Open reduction internal fixation right femur are stable since prior study. Findings suspicious for nondisplaced fracture right inferior pubic ramus. Recommend consideration for CT scan of the pelvis. Degenerative change of the lower lumbar spine. Electronically Signed: Vanessa Bills MD at 3:15 EDT Tel , Service support , Brain CT 05/09/21 02:21 IMPRESSION: Atrophy no evidence of acute hemorrhage infarct or edema. Electronically Signed: Vanessa Bills MD at 3:04 EDT Tel , Service support ,
--- NOTE | 2021-05-09 12:19 | CHAPLAIN ---
Type of Pastoral Visit _x__ Initial Visit ___ Follow-up Visit ___ On-call Visit ___ General Patient Visit ___ Spiritual Assessment ___ Family Conference ___ Bereavement ___ Rapid Response ___ Code Blue ___ Other (describe below) Pastoral Care Referral From _x__ Patient ___ Family ___ Nurse ___ Physician ___ Clinic Office Assistant ___ Winding Machine Operator ___ Other (describe below) Sacrament/Intervention _x__ Active listening ___ Anointing ___ Yazidism ___ Bereavement ___ Communion ___ Daria exploration ___ ___ Life review _x__ Prayer ___ Reconciliation ___ Sacrament of Sick _x__ Supportive presence ___ Wedding ___ Other (describe below) Pastoral Comments patient shares some of her concerns ex. falling multiple times and going back to a SNF for rehab; pt moved from [place] to this area four years ago and relies on her family for assistance; limited support otherwise; prayer welcomed; pt is not involved in a daria group although she did years ago
[2021-05-09] MEDS: Folic Acid/Vitamin B Comp W-C 1 Capsule 1 CAP PO (12:50)
[2021-05-09] MEDS: oxyCODONE 5 MG Tablet PO ×2 (13:36→17:39)
--- NOTE | 2021-05-09 14:30 | CASEMGMT ---
Social Work Note RN updated this worker that pt is inquiring if she can stay at [facility] for therapy. Pt is a dialysis pt, pt unable to stay at [facility] for [facility]. SW in to speak with pt. SW spoke with pt about discharge plans. SW informed pt that [facility] is not able to accept pt as pt is dialysis pt. Patient was provided a list of SNF providers including quality and resource use data and consistent with the patient?s preferred geographic region, medical needs, and insurance network. Pt states she would like to stay in [place], doesn't want tor return to [place]. Pt states preferred provider is [facility]. SW explained referral process and that pt will need pre-cert. Pt states understanding. JOSEFINA placed a call to Kim at [facility] and provided referral. Kim states they can only offer on site dialysis if the pt's are with [facility]. Since pt's dialysis is through [facility], pt would still need [facility]. Kim states she will look into arranging transportation for pt's dialysis and will review referral. JOSEFINA faxed referral. Plan: [facility] pending acceptance and pre-cert Cynthia Preciado UPLANDS DIVISION DIRECTOR, SCREW CUTTER
[2021-05-10] VITALS (10 sets, daily range): BP systolic 99–109; BP diastolic 52–59; PULSE 65–96; RESP 16–17; TEMP 36.8–37.6; O2SAT 93–96
--- NOTE | 2021-05-10 00:04 | DIALYSIS ---
Hemodialysis x 3 hours completed. -1000ml off. stable t/o. see hd flowsheet. verbal/written report to Zakiya Stubbs RN
[2021-05-10] MEDS: Metoprolol Tartrate 25 MG Tablet PO ×3 (00:23→22:05)
[2021-05-10] MEDS: Primidone 250 MG Tablet PO ×4 (00:23→22:06)
[2021-05-10] MEDS: VORTIOXETINE HYDROBROMIDE 20 MG TABLET PO ×2 (00:25→22:06)
[2021-05-10] MEDS: Midodrine HCl 5 MG Tablet 40 MG PO ×4 (00:43→22:06)
[2021-05-10] MEDS: oxyCODONE 5 MG Tablet 10 MG PO (00:45)
[2021-05-10] MEDS: 0.9% Saline Lock 10 ML Syringe IV (06:54)
[2021-05-10] MEDS: Ondansetron 4 MG/2 ML Vial IV (06:54)
[2021-05-10 08:07] LABS: Hepatitis B Surface Antigen Non-Reactive (Nonreactive)
[2021-05-10] MEDS: Calcium Acetate 667 MG Capsule PO ×3 (08:50→17:04)
[2021-05-10] MEDS: Multivitamins,Therapeutic Tablet 1 TABLET PO (08:50)
--- NOTE | 2021-05-10 09:18 | PCM.PN.HOSP ---
Subjective Subjective Chief complaint: Follow-up after admission for acute traumatic nondisplaced fracture of the right inferior pubic ramus, debility, frequent falls. Patient seen and examined. No acute events overnight. Today, she is feeling better. She is stated that she was able to stand up on her feet yesterday with pain in her pelvic area. Today, pain is getting better. She needed assistance with 2 people to able to stand up and ambulate. She thinks that she will need to go to SNF. No other complaints. Her vital signs are stable. Objective Data Objective Data Vital Signs: Vital Signs Temp Pulse Resp BP Pulse Ox 98.3 F 90 16 100/52 L 93 05/10/21 05:00 05/10/21 05:00 05/10/21 05:00 05/10/21 05:00 05/10/21 05:00 Oxygen Delivery Method Room Air Weight: 166 lb Body Mass Index (BMI) 25.9 Intake & Output: Intake and Output for Last 24 Hours 05/08/21 05/09/21 05/10/21 23:59 23:59 23:59 Intake Total 970 / 1090 120 / 120 Output Total 1000 / 1000 0 / 0 Balance -30 / 120 / 120 Lab / Micro Data Result Diagrams: 05/09/21 02:25 05/09/21 02:25 Labs: Laboratory Results - last 24 hr 05/09/21 21:30 Hep Bs Antigen Non-Reactive Physical Exam Const alert, oriented x3, no apparent distress and no limitations General Appearance: cooperative HEENT normocephalic, head/scalp atraumatic, external ears normal, external nose normal and moist oral mucous membranes Eyes PERRL, EOMs intact bilaterally, conjunctivae normal and no scleral icterus General Eye: normal appearance of both eyes Neck no lymphadenopathy, supple, no meningeal signs, no JVD and no carotid bruits Lymph Lymphatic: no lymphadenopathy noted Resp normal respiratory effort, normal air movement and clear to auscultation bilaterally Auscultation: Negative for crackles, rales, rhonchi or wheezes Cardio regular rate, regular rhythm, S1 normal heart sound, S2 normal heart sound, no murmurs and no JVD GI normal to inspection, nondistended, normoactive bowel sounds, soft to palpation, non-tender and non-distended; Negative for hepatosplenomegaly Extremity normal to inspection, full ROM and no clubbing, cyanosis or edema Skin no rashes or lesions noted, no wounds and no petechiae Neuro oriented x3, CN's II-XII intact bilaterally and moves all extremities Sensorium / Orientation: alert Speech: speech normal Motor Exam: strength 5/5 throughout Psych mental status grossly normal, affect normal and denies hallucinations Assessment & Plan Assessment/Plan (1) Closed fracture of right inferior pubic ramus: QUALIFIERS: Encounter type: initial encounter Qualified Code(s): S32.591A - Other specified fracture of right pubis, initial encounter for closed fracture (2) Recurrent falls: (3) Atrial fibrillation: QUALIFIERS: Atrial fibrillation type: unspecified Qualified Code(s): I48.91 - Unspecified atrial fibrillation (4) ESRD (end stage renal disease) on dialysis: (5) Anemia: (6) Thrombocytopenia: PLAN: This is a 75 years old female patient presented to the emergency room because of fall, found to have pelvic fracture, has been having difficulty ambulating and she will need placement to group home facility. #1 acute traumatic nondisplaced fracture of the right inferior pubic ramus: She is on OxyIR as needed for pain. Her pain is manageable. She started to ambulate with tolerable pain. Her vital signs are stable. She needed assistance with 2 people. Patient will be appropriate for group home facility placement. #2 physical debility/recurrent falls: She lives with her family in the house but she thinks she will not be getting enough help at home. Plan for PT OT, placement to group home facility. #3 ESRD on hemodialysis: On hemodialysis on Mondays, Wednesdays and Fridays. Received hemodialysis yesterday. Nephrology on the case. #4 chronic anemia/chronic thrombocytopenia: Platelet count and hemoglobin are at baseline, stable. #5 chronic atrial fibrillation: Heart rate stable, continue metoprolol for rate control. She is not on anticoagulation. Patient does have chronic hypotension and she has been on midodrine and fludrocortisone. Blood pressure is at baseline. #6 DVT prophylaxis: No chemical prophylaxis because of thrombocytopenia. This note was generated with Fiestahation software. It may contain incorrect words, spelling, and punctuation that were not noted in checking the note before signing. Charges/Coding Visit Charges OBSV E&M: 83611 Subsequent observation care L2
--- NOTE | 2021-05-10 09:49 | CASEMGMT ---
Addendum entered by Cynthia Preciado 05/10/21 13:08: SW received call from Kim at [facility] stating they are able to accept pt and submitted for pre-cert. SW updated pt. Pt states understanding. Plan: [facility] pending pre-cert Addendum entered by Cynthia Preciado 05/10/21 10:05: SW received message from Kim at [facility] stating their DON is still reviewing referral, will let this worker know when a decision is made. Original Note: Social Work Note SW placed a call to Kim at [facility] and left message regarding referral. SW waiting for call back. Plan: [facility] pending acceptance and pre-cert Cynthia Preciado DIRECTOR OF ENGINEERING, DIRECTOR STERILE PROCESSING
[2021-05-10] MEDS: Cholecalciferol (VIT D3) 25 MCG TABLET (1,000 UNITS) 125 MCG PO (10:22)
[2021-05-10] MEDS: Folic Acid/Vitamin B Comp W-C 1 Capsule 1 CAP PO (10:22)
[2021-05-10] MEDS: Fludrocortisone Acetate 0.1 MG Tablet PO (10:22)
[2021-05-10] MEDS: Pantoprazole Sodium 40 MG Tablet PO (10:22)
[2021-05-10] MEDS: Senna/Docusate Sodium 1 Tablet 2 TABLET PO (10:24)
[2021-05-10] MEDS: oxyCODONE 5 MG Tablet PO ×2 (10:25→22:08)
--- NOTE | 2021-05-10 12:10 | CASEMGMT ---
ANNA NOE in to room to complete FERRARO form. RN KUSUM explained FERRARO form, patient voiced understanding. Patient signed FERRARO form and filed in chart. Patient provided copy of signed FERRARO form. Patient had no further questions or concerns at this time.
[2021-05-11] VITALS (9 sets, daily range): BP systolic 90–134; BP diastolic 45–65; PULSE 72–98; RESP 16–18; TEMP 36.5–37; O2SAT 96–98
[2021-05-11] MEDS: Primidone 250 MG Tablet PO ×3 (05:50→21:52)
[2021-05-11] MEDS: Midodrine HCl 5 MG Tablet 40 MG PO ×3 (05:51→21:52)
[2021-05-11] MEDS: Multivitamins,Therapeutic Tablet 1 TABLET PO (08:29)
[2021-05-11] MEDS: Calcium Acetate 667 MG Capsule PO ×3 (08:29→21:52)
[2021-05-11] MEDS: oxyCODONE 5 MG Tablet PO (08:32)
[2021-05-11] MEDS: Fludrocortisone Acetate 0.1 MG Tablet PO (09:39)
[2021-05-11] MEDS: Metoprolol Tartrate 25 MG Tablet PO ×2 (09:39→21:52)
[2021-05-11] MEDS: Pantoprazole Sodium 40 MG Tablet PO (09:39)
[2021-05-11] MEDS: Cholecalciferol (VIT D3) 25 MCG TABLET (1,000 UNITS) 125 MCG PO (09:39)
[2021-05-11] MEDS: Folic Acid/Vitamin B Comp W-C 1 Capsule 1 CAP PO (09:39)
--- NOTE | 2021-05-11 10:25 | CASEMGMT ---
Addendum entered by Cynthia Preciado 05/11/21 11:49: JOSEFINA faxed updated clinicals to Kim at [facility]. Original Note: Social Work Note Pt is medically ready for discharge once pre-cert is obtained. JOSEFINA placed a call to Kim at [facility], pre-cert is still pending. Plan: [facility] pending pre-cert Cynthia Preciado SOLAR INSTALLATION HELPER, REGISTERED NURSE HH CASE MANAGER
--- NOTE | 2021-05-11 10:30 | PHA.DC.MR ---
Pharmacy Service has performed discharge medication reconciliation for this patient upon transfer to [facility]. Home Medications calcium acetate(phosphat bind) 667 mg capsule 667 mg PO TIDCM cap 07/24/18 midodrine 10 mg tablet 40 mg PO TID 07/24/18 diclofenac sodium 1 % topical gel 2 g TOPICAL DIRECTED PRN g 08/17/19 promethazine 25 mg tablet 25 mg PO Q6H PRN 08/17/19 fludrocortisone 0.1 mg tablet 0.1 mg PO DAILY 04/26/20 potassium chloride 10 mEq tablet,extended release 10 meq PO TID 04/26/20 B complex with C 20-folic acid 1 cap PO DAILY 10/06/20 Cholecalciferol (Vitamin D3) [Vitamin D3] 5,000 unit PO DAILY 10/06/20 cyanocobalamin (vitamin B-12) 1,000 mcg PO DAILY 10/06/20 multivitamin 1 tab PO DAILY 10/06/20 primidone 250 mg PO TID 10/06/20 Trintellix 20 mg PO QHS 05/09/21 clonazepam 0.5 - 1 mg PO QHS PRN 05/09/21 guaifenesin [Mucinex] 600 mg PO BID 05/09/21 meclizine 25 mg PO TID PRN 05/09/21 metoprolol tartrate 25 mg PO BID 05/09/21 pantoprazole [Protonix] 40 mg PO DAILY 05/09/21 oxycodone 5 mg PO Q6H PRN PRN 5 Days #20 tab 05/11/21 The patient's discharge medication list was reviewed for discrepancies and discrepancies were resolved.
[2021-05-11] MEDS: Ondansetron 4 MG/2 ML Vial IV (10:33)
[2021-05-11] MEDS: 0.9% Saline Lock 10 ML Syringe IV (10:33)
--- NOTE | 2021-05-11 13:04 | PN.HOSP_ITS ---
Subjective Subjective Chief complaint: Follow-up after admission for acute traumatic nondisplaced fracture of the right inferior pubic ramus, debility and frequent falls. Patient seen and examined. No acute events overnight. Patient started to ambulate, pain is manageable during ambulation. No other complaints. Her vital signs are stable. Objective Data Objective Data Vital Signs: Vital Signs Temp Pulse Resp BP Pulse Ox 98.0 F 72 16 102/61 96 05/11/21 08:24 05/11/21 09:39 05/11/21 08:24 05/11/21 08:24 05/11/21 08:24 Oxygen Flow Rate (L/min) 2 Oxygen Delivery Method Room Air Weight: 166 lb Body Mass Index (BMI) 25.9 Intake & Output: Intake and Output for Last 24 Hours 05/09/21 05/10/21 05/11/21 23:59 23:59 23:59 Intake Total 970 / 1090 760 / 760 830 / 830 Output Total 1000 / 1000 0 / 0 0 / 0 Balance -30 / 90 760 / 760 830 / 830 Lab / Micro Data Result Diagrams: 05/09/21 02:25 05/09/21 02:25 Physical Exam Const alert, oriented x3, no apparent distress and no limitations General Appearance: cooperative HEENT normocephalic, head/scalp atraumatic, external ears normal, external nose normal and moist oral mucous membranes Eyes PERRL, EOMs intact bilaterally, conjunctivae normal and no scleral icterus Neck no lymphadenopathy, supple, no meningeal signs, no JVD and no carotid bruits Lymph Lymphatic: no lymphadenopathy noted Resp normal respiratory effort, normal air movement and clear to auscultation bilaterally Auscultation: Negative for crackles, rales, rhonchi or wheezes Cardio regular rate, regular rhythm, S1 normal heart sound, S2 normal heart sound, no murmurs and no JVD GI normal to inspection, nondistended, normoactive bowel sounds, soft to palpation, non-tender and non-distended; Negative for hepatosplenomegaly Extremity normal to inspection, full ROM and no clubbing, cyanosis or edema Skin no rashes or lesions noted, no wounds and no petechiae Neuro oriented x3, CN's II-XII intact bilaterally and moves all extremities Sensorium / Orientation: alert Speech: speech normal Motor Exam: strength 5/5 throughout Psych mental status grossly normal and affect normal Appearance: appropriate Assessment & Plan Assessment/Plan (1) Closed fracture of right inferior pubic ramus: QUALIFIERS: Encounter type: initial encounter Qualified Code(s): S32.591A - Other specified fracture of right pubis, initial encounter for closed fracture (2) Recurrent falls: (3) Atrial fibrillation: QUALIFIERS: Atrial fibrillation type: unspecified Qualified Code(s): I48.91 - Unspecified atrial fibrillation (4) ESRD (end stage renal disease) on dialysis: (5) Anemia: (6) Thrombocytopenia: PLAN: This is a 75 years old female patient presented to the emergency room because of fall, found to have pelvic fracture, has been having difficulty ambulating and she will need placement to [facility]. #1 acute traumatic nondisplaced fracture of the right inferior pubic ramus: She is on OxyIR as needed for pain. She has been ambulating, pain is getting better with ambulation. She has no pain at rest. Her vital signs are stable. She needed assistance with 2 people. We are still awaiting insurance approval for placement to [facility]. #2 physical debility/recurrent falls: She lives with her family in the house but she thinks she will not be getting enough help at home. Plan as above. #3 ESRD on hemodialysis: On hemodialysis on Mondays, Wednesdays and Fridays. Supposed to get dialysis today. Nephrology on the case. #4 chronic anemia/chronic thrombocytopenia: Platelet count and hemoglobin are at baseline, stable. #5 chronic atrial fibrillation: Heart rate stable, continue metoprolol for rate control. She is not on anticoagulation. Patient does have chronic hypotension and she has been on midodrine and fludrocortisone. Blood pressure is at baseline. #6 DVT prophylaxis: No chemical prophylaxis because of thrombocytopenia. This note was generated with [employer] software. It may contain incorrect words, spelling, and punctuation that were not noted in checking the note before signing. Charges/Coding Visit Charges OBSV E&M: 12492 Subsequent observation care L2
--- NOTE | 2021-05-11 15:57 | CASEMGMT ---
Social Work Note JOSEFINA placed a call to Kim at [facility] and left message regarding pre-cert. This SW is leaving for the weekend. JOSEFINA asked Kim to call MS3 number in the event pre-cert is obtained today/over the weekend. JOSEFINA provided MS3 number. JOSEFINA completed PAS/RR in [facility]. JOSEFINA placed Green sheet, transport form, PAS/RR, COVID tool on pt's chart in the event pre-cert is obtained. Pt will need COVID test on day of discharge. JOSEFINA updated pt that pre-cert is still pending. Plan: [facility] pending pre-cert. Pre-cert needs to be obtained before pt is able to discharge. Pt will need COVID test on day of discharge. Cynthia Preciado ENGINE TESTING SUPERVISOR, BLIND STITCH MACHINE OPERATOR
[2021-05-11] MEDS: VORTIOXETINE HYDROBROMIDE 20 MG TABLET PO (21:52)
[2021-05-12] VITALS (7 sets, daily range): BP systolic 88–107; BP diastolic 33–59; PULSE 67–76; RESP 16; TEMP 36.6–37.3; O2SAT 93–100
[2021-05-12] MEDS: Midodrine HCl 5 MG Tablet 40 MG PO ×3 (05:07→21:53)
[2021-05-12] MEDS: Primidone 250 MG Tablet PO ×3 (05:07→21:52)
[2021-05-12] MEDS: Ondansetron 4 MG/2 ML Vial IV ×2 (08:19→23:03)
[2021-05-12] MEDS: 0.9% Saline Lock 10 ML Syringe IV ×2 (08:19→23:03)
[2021-05-12] MEDS: Calcium Acetate 667 MG Capsule PO ×3 (08:22→16:14)
[2021-05-12] MEDS: Pantoprazole Sodium 40 MG Tablet PO (08:23)
[2021-05-12] MEDS: Multivitamins,Therapeutic Tablet 1 TABLET PO (08:23)
[2021-05-12] MEDS: Folic Acid/Vitamin B Comp W-C 1 Capsule 1 CAP PO (08:23)
[2021-05-12] MEDS: Cholecalciferol (VIT D3) 25 MCG TABLET (1,000 UNITS) 125 MCG PO (08:24)
[2021-05-12] MEDS: Metoprolol Tartrate 25 MG Tablet PO ×2 (08:25→21:54)
[2021-05-12] MEDS: Fludrocortisone Acetate 0.1 MG Tablet PO (08:25)
[2021-05-12] MEDS: oxyCODONE 5 MG Tablet PO (10:44)
--- NOTE | 2021-05-12 11:35 | PN.HOSP_ITS ---
Subjective Subjective Chief complaint: Follow-up after admission for acute traumatic nondisplaced fracture of the right inferior pubic ramus, debility and frequent falls. Patient seen and examined. No acute events overnight. Pelvic pain is manageable upon ambulation. No other complaints. Vital signs are stable. Objective Data Objective Data Vital Signs: Vital Signs Temp Pulse Resp BP Pulse Ox 97.8 F 76 16 103/59 L 95 05/12/21 09:23 05/12/21 09:23 05/12/21 09:23 05/12/21 09:23 05/12/21 09:23 Oxygen Flow Rate (L/min) 2 Oxygen Delivery Method Room Air Weight: 164 lb 14.492 oz Body Mass Index (BMI) 25.9 Intake & Output: Intake and Output for Last 24 Hours 05/10/21 05/11/21 05/12/21 23:59 23:59 23:59 Intake Total 760 / 760 930 / 930 Output Total 0 / 0 0 / 0 Balance 760 / 760 930 / 930 Lab / Micro Data Result Diagrams: 05/09/21 02:25 05/09/21 02:25 Physical Exam Narrative Alert and oriented x3 Nontraumatic; normocephalic Lung clear to auscultate Heart sounds S1-S2. No murmur, gallop or rubs. Abdomen bowel sounds present soft, nontender nondistended Extremity: Tender right hip. No edema; cyanosis or clubbing in bilateral lower extremities. Integumentary: Right elbow with skin tear Const alert, oriented x3, no apparent distress and no limitations General Appearance: cooperative HEENT normocephalic, head/scalp atraumatic, external ears normal and external nose normal Eyes PERRL, EOMs intact bilaterally, conjunctivae normal and no scleral icterus Neck no lymphadenopathy, supple, no meningeal signs, no JVD and no carotid bruits Lymph Lymphatic: no lymphadenopathy noted Resp normal respiratory effort, normal air movement and clear to auscultation bilaterally Auscultation: Negative for crackles, rales, rhonchi or wheezes Cardio regular rate, regular rhythm, S1 normal heart sound, S2 normal heart sound, no murmurs and no JVD GI normal to inspection, nondistended, normoactive bowel sounds, soft to palpation, non-tender and non-distended; Negative for hepatosplenomegaly Extremity normal to inspection, full ROM and no clubbing, cyanosis or edema Skin no rashes or lesions noted, no wounds and no petechiae Neuro oriented x3, CN's II-XII intact bilaterally and moves all extremities Sensorium / Orientation: alert Speech: speech normal Motor Exam: strength 5/5 throughout Psych mental status grossly normal and affect normal Appearance: appropriate Assessment & Plan Assessment/Plan (1) Closed fracture of right inferior pubic ramus: QUALIFIERS: Encounter type: initial encounter Qualified Code(s): S32.591A - Other specified fracture of right pubis, initial encounter for closed fracture (2) Recurrent falls: (3) Atrial fibrillation: QUALIFIERS: Atrial fibrillation type: unspecified Qualified Code(s): I48.91 - Unspecified atrial fibrillation (4) ESRD (end stage renal disease) on dialysis: (5) Anemia: (6) Thrombocytopenia: PLAN: This is a 75 years old female patient presented to the emergency room because of fall, found to have pelvic fracture, has been having difficulty ambulating and she is [facility] to [facility]. #1 acute traumatic nondisplaced fracture of the right inferior pubic ramus: Remained on OxyIR as needed for pain. She has been ambulating, pain is getting better with ambulation, improving slowly. She has no pain at rest. Her vital signs are stable. She needed assistance with 2 people. We are still awaiting insurance approval for placement to detention facility. #2 physical debility/recurrent falls: She lives with her family in the house but she thinks she will not be getting enough help at home. Plan as above. #3 ESRD on hemodialysis: On hemodialysis on Mondays, Wednesdays and Fridays. No plan for dialysis today. Nephrology on the case. #4 chronic anemia/chronic thrombocytopenia: Platelet count and hemoglobin are at baseline, stable. #5 chronic atrial fibrillation: Heart rate stable, continue metoprolol for rate control. She is not on anticoagulation. Patient does have chronic hypotension and she has been on midodrine and fludrocortisone. Blood pressure is at baseline. #6 DVT prophylaxis: No chemical prophylaxis because of chronic thrombocytopenia. This note was generated with [employer] software. It may contain incorrect words, spelling, and punctuation that were not noted in checking the note before signing. Charges/Coding Visit Charges Inpatient E&M: 92890 Subs Hosp L2
[2021-05-12] MEDS: Menthol/Lanolin/Calamine/Znox 113 GM Tube 1 APPLIC TOPICAL ×2 (13:57→21:55)
[2021-05-12] MEDS: VORTIOXETINE HYDROBROMIDE 20 MG TABLET PO (21:54)
[2021-05-13 04:00] VITALS: BP 104/49; PULSE 69; RESP 16; TEMP 36.7; O2SAT 96
[2021-05-13] MEDS: Midodrine HCl 5 MG Tablet 40 MG PO ×3 (06:29→21:44)
[2021-05-13] MEDS: Primidone 250 MG Tablet PO ×3 (06:29→21:44)
[2021-05-13] MEDS: Menthol/Lanolin/Calamine/Znox 113 GM Tube 1 APPLIC TOPICAL ×3 (06:29→21:46)
[2021-05-13] MEDS: Multivitamins,Therapeutic Tablet 1 TABLET PO (08:53)
[2021-05-13] MEDS: Pantoprazole Sodium 40 MG Tablet PO (08:54)
[2021-05-13] MEDS: Calcium Acetate 667 MG Capsule PO ×3 (08:54→14:48)
[2021-05-13] MEDS: Folic Acid/Vitamin B Comp W-C 1 Capsule 1 CAP PO (08:54)
[2021-05-13] MEDS: Cholecalciferol (VIT D3) 25 MCG TABLET (1,000 UNITS) 125 MCG PO (08:55)
[2021-05-13 08:56] VITALS: PULSE 78
[2021-05-13] MEDS: Metoprolol Tartrate 25 MG Tablet PO ×2 (08:56→21:44)
--- NOTE | 2021-05-13 08:57 | PN.HOSP_ITS ---
Subjective Subjective Follow-up after admission for acute traumatic nondisplaced fracture of the right inferior pubic ramus, debility and frequent falls. Patient seen and examined. No acute events overnight. Patient is doing well, no complaints. Her pelvic pain has been getting better with ambulation. Her vital signs are stable. Objective Data Objective Data Vital Signs: Vital Signs Temp Pulse Resp BP Pulse Ox 98.1 F 69 16 104/49 L 96 05/13/21 04:00 05/13/21 04:00 05/13/21 04:00 05/13/21 04:00 05/13/21 04:00 Oxygen Flow Rate (L/min) 2 Oxygen Delivery Method Room Air Weight: 164 lb 10.965 oz Body Mass Index (BMI) 25.9 Intake & Output: Intake and Output for Last 24 Hours 05/11/21 05/12/21 05/13/21 23:59 23:59 23:59 Intake Total 930 / 930 800 / 1000 500 / 500 Output Total 0 / 0 Balance 930 / 930 800 / 1000 500 / 500 Lab / Micro Data Result Diagrams: 05/09/21 02:25 05/09/21 02:25 Physical Exam Narrative Alert and oriented x3 Nontraumatic; normocephalic Lung clear to auscultate Heart sounds S1-S2. No murmur, gallop or rubs. Abdomen bowel sounds present soft, nontender nondistended Extremity: Tender right hip. No edema; cyanosis or clubbing in bilateral lower extremities. Integumentary: Right elbow with skin tear Const alert, oriented x3, no apparent distress and no limitations General Appearance: cooperative HEENT normocephalic, head/scalp atraumatic, external ears normal and external nose normal Eyes PERRL, EOMs intact bilaterally, conjunctivae normal and no scleral icterus General Eye: normal appearance of both eyes Neck no lymphadenopathy, supple, no meningeal signs, no JVD and no carotid bruits Lymph Lymphatic: no lymphadenopathy noted Resp normal respiratory effort, normal air movement and clear to auscultation bilaterally Auscultation: Negative for crackles, rales, rhonchi or wheezes Cardio regular rate, regular rhythm, S1 normal heart sound, S2 normal heart sound, no murmurs and no JVD GI normal to inspection, nondistended, normoactive bowel sounds, soft to palpation, non-tender and non-distended; Negative for hepatosplenomegaly Extremity normal to inspection, full ROM and no clubbing, cyanosis or edema Skin no rashes or lesions noted, no wounds and no petechiae Neuro oriented x3, CN's II-XII intact bilaterally and moves all extremities Sensorium / Orientation: alert Speech: speech normal Motor Exam: strength 5/5 throughout Psych mental status grossly normal and affect normal Appearance: appropriate Assessment & Plan Assessment/Plan (1) Closed fracture of right inferior pubic ramus: QUALIFIERS: Encounter type: initial encounter Qualified Code(s): S32.591A - Other specified fracture of right pubis, initial encounter for closed fracture (2) Recurrent falls: (3) Atrial fibrillation: QUALIFIERS: Atrial fibrillation type: unspecified Qualified Code(s): I48.91 - Unspecified atrial fibrillation (4) ESRD (end stage renal disease) on dialysis: (5) Anemia: (6) Thrombocytopenia: PLAN: This is a 75 years old female patient presented to the emergency room because of fall, found to have pelvic fracture, has been having difficulty ambulating and she is awaiting placement to [facility] facility. #1 acute traumatic nondisplaced fracture of the right inferior pubic ramus: Again, she is on OxyIR as needed for pain. She has been ambulating, pain is getting better with ambulation, improving slowly. She has no pain at rest. Her vital signs are stable. We are still awaiting insurance approval for placement to correction facility. #2 physical debility/recurrent falls: She lives with her family in the house but she thinks she will not be getting enough help at home. Plan as above. #3 ESRD on hemodialysis: On hemodialysis on Mondays, Wednesdays and Fridays. Nephrology on the case. #4 chronic anemia/chronic thrombocytopenia: Platelet count and hemoglobin are at baseline, stable. #5 chronic atrial fibrillation: Heart rate stable, continue metoprolol for rate control. She is not on anticoagulation. Patient does have chronic hypotension and she has been on midodrine and fludrocortisone. Blood pressure is at baseline. #6 DVT prophylaxis: No chemical prophylaxis because of chronic thrombocytopenia. This note was generated with [employer] software. It may contain incorrect words, spelling, and punctuation that were not noted in checking the note before signing. Charges/Coding Visit Charges Inpatient E&M: 99087 Subs Hosp L2
[2021-05-13] MEDS: Fludrocortisone Acetate 0.1 MG Tablet PO (08:58)
[2021-05-13 10:00] VITALS: BP 98/54; PULSE 78; RESP 18; TEMP 36.6; O2SAT 99
[2021-05-13] MEDS: oxyCODONE 5 MG Tablet PO (14:48)
[2021-05-13 20:25] VITALS: BP 103/53; PULSE 82; RESP 16; TEMP 36.6; O2SAT 95
[2021-05-13 21:44] VITALS: BP 103/53; PULSE 82
[2021-05-13] MEDS: VORTIOXETINE HYDROBROMIDE 20 MG TABLET PO (21:44)
[2021-05-14] MEDS: Ondansetron 4 MG/2 ML Vial IV (01:10)
[2021-05-14] MEDS: 0.9% Saline Lock 10 ML Syringe IV (01:10)
[2021-05-14 02:20] VITALS: BP 98/51; PULSE 98; RESP 16; TEMP 36.6; O2SAT 94
[2021-05-14] MEDS: Primidone 250 MG Tablet PO ×2 (05:07→16:12)
[2021-05-14] MEDS: Midodrine HCl 5 MG Tablet 40 MG PO ×2 (05:07→16:13)
[2021-05-14] MEDS: Menthol/Lanolin/Calamine/Znox 113 GM Tube 1 APPLIC TOPICAL ×2 (05:10→16:12)
[2021-05-14] MEDS: Calcium Acetate 667 MG Capsule PO ×3 (08:03→16:14)
[2021-05-14] MEDS: Multivitamins,Therapeutic Tablet 1 TABLET PO (08:05)
[2021-05-14 10:00] VITALS: BP 100/53; PULSE 71; RESP 16; TEMP 37; O2SAT 95
[2021-05-14] MEDS: Fludrocortisone Acetate 0.1 MG Tablet PO (10:29)
[2021-05-14] MEDS: Cholecalciferol (VIT D3) 25 MCG TABLET (1,000 UNITS) 125 MCG PO (10:29)
[2021-05-14] MEDS: Folic Acid/Vitamin B Comp W-C 1 Capsule 1 CAP PO (10:29)
[2021-05-14 10:30] VITALS: BP 100/53; PULSE 71
[2021-05-14] MEDS: Pantoprazole Sodium 40 MG Tablet PO (10:30)
[2021-05-14] MEDS: Metoprolol Tartrate 25 MG Tablet PO (10:30)
--- NOTE | 2021-05-14 11:27 | PCM.DC.SUM ---
Providers Date of Admission: 05/09/21 Primary Care Physician: Dr. Mitchell Appiah MD Consultations 05/09/21 04:14 Consult: Nephrology Routine Consulting Provider: Willy Vela Reason for Consult: esrd on dialysis EMERGENT Consult: No MD Notified: Yes Date Notified: 05/09/21 Time Notified: 04:51 Method of Notification: Answering Service Reason For Visit: PUBIC BONE FRACTURE Diagnosis Discharge Diagnosis (1) Closed fracture of right inferior pubic ramus: Status: Acute Code(s): S32.591A - Other specified fracture of right pubis, initial encounter for closed fracture Qualifiers: Encounter type: initial encounter Qualified Code(s): S32.591A - Other specified fracture of right pubis, initial encounter for closed fracture (2) Recurrent falls: Status: Acute Code(s): R29.6 - Repeated falls (3) Atrial fibrillation: Status: Chronic Code(s): I48.91 - Unspecified atrial fibrillation Qualifiers: Atrial fibrillation type: unspecified Qualified Code(s): I48.91 - Unspecified atrial fibrillation (4) ESRD (end stage renal disease) on dialysis: Status: Chronic Code(s): N18.6 - End stage renal disease; Z99.2 - Dependence on renal dialysis (5) Anemia: Status: Chronic Code(s): D64.9 - Anemia, unspecified (6) Thrombocytopenia: Status: Chronic Code(s): D69.6 - Thrombocytopenia, unspecified Medications at Discharge Home Medications calcium acetate(phosphat bind) 667 mg capsule 667 mg PO TIDCM cap 07/24/18 midodrine 10 mg tablet 40 mg PO TID 07/24/18 diclofenac sodium 1 % topical gel 2 g TOPICAL DIRECTED PRN g 08/17/19 promethazine 25 mg tablet 25 mg PO Q6H PRN 08/17/19 fludrocortisone 0.1 mg tablet 0.1 mg PO DAILY 04/26/20 potassium chloride 10 mEq tablet,extended release 10 meq PO TID 04/26/20 B complex with C 20-folic acid 1 cap PO DAILY 10/06/20 Cholecalciferol (Vitamin D3) [Vitamin D3] 5,000 unit PO DAILY 10/06/20 cyanocobalamin (vitamin B-12) 1,000 mcg PO DAILY 10/06/20 multivitamin 1 tab PO DAILY 10/06/20 primidone 250 mg PO TID 10/06/20 Trintellix 20 mg PO QHS 05/09/21 clonazepam 0.5 - 1 mg PO QHS PRN 05/09/21 guaifenesin [Mucinex] 600 mg PO BID 05/09/21 meclizine 25 mg PO TID PRN 05/09/21 metoprolol tartrate 25 mg PO BID 05/09/21 pantoprazole [Protonix] 40 mg PO DAILY 05/09/21 oxycodone 5 mg PO Q6H PRN PRN 5 Days #20 tab 05/11/21 Hospital Course Operations None Procedures None Summary of Care Provided Minutes Spent on Discharge: 35 Hospital Course: Patient is a 75 y/o female with a significant PMH as outlined who was admitted via the ED on 05/09/2021 with a complaint of mechanical fall. She fell as she was trying to go to the bathroom. She fell on her right hip, with resultant excruciating paini. Pain was worsened by movement and relieved by rest. Imaging done on arrival in the ED showed a nondisplaced fracture of the right inferior pubic rami. PT/OT was consulted and she was admitted to be managed for debility due to inferior pubic rami fracture and mechanical fall. She was put on pain meds. She was able to ambulate with assistance, but felt she needed to go to a rehab facility to mobilise better. She remained stable and was discharged to SNF on 05/14/2021. SHe is to follow up with her PCP in 1-2 weeks. Mangement of fractured inferior pubic rami will be conservative. Patient kamala nd examined prior to discharge. She had no complaints and felt well,a nd review of systems was otherwise negative. Labs and vitals reviewed, home medications reviewed and reconciled. Physical Exam Const alert and oriented x3 General Appearance: cooperative and comfortable Orientation / Consciousness: awake, oriented to person, oriented to place and oriented to time Exam Limitations: no limitations HEENT normocephalic, head/scalp atraumatic, hearing grossly normal bilaterally and moist oral mucous membranes Eyes PERRL, EOMs intact bilaterally and conjunctivae normal Neck no lymphadenopathy and supple Resp normal respiratory effort, no retractions, no use of accessory muscles and clear to auscultation bilaterally Cardio regular rate, regular rhythm, S1 normal heart sound, S2 normal heart sound and no murmurs GI normal to inspection, nondistended, normoactive bowel sounds, soft to palpation, non-tender and non-distended Extremity normal to inspection and full ROM Neuro oriented x3 Sensorium / Orientation: awake and alert Psych affect normal Weight / BMI Weight Weight: 161 lb 9.581 oz Body Mass Index (BMI) 25.9 ABG / Lab / Microbiology Data Result Diagrams: 05/09/21 02:25 05/09/21 02:25 Microbiology: Microbiology 05/14/21 Unknown SARS-CoV-2 Antigen (Rapid) - Final Mucosa - Nose Microbiology 05/14/21 Unknown Mucosa - Nose SARS-CoV-2 Antigen (Rapid) - Final D/C Instructions Discharge Diet: Low fat / Low cholesterol Discharge Activity: Return to Normal Activity Weight Bearing Status: Weight bearing as tolerated Meaningful Use Info Meaningful Use Diagnoses (Choose all that apply): None applicable Discharge Plan Admission Admit Date/Time: 05/09/21 03:13 Primary Reason for Your Visit: Pelvic fracture Attending Provider: Merly Chen Primary Care Provider: Mitchell Appiah Consulting Providers: Willy Vela Instructions Patient Instructions: ED Diet for Chronic Kidney Disease, ED Pelvic Fracture, ED Fall Prevention Discharge Orders/Prescriptions Prescriptions: New oxycodone 5 mg Tablet 5 mg PO Q6H PRN PRN (Reason: Pain Score 6-10) 5 Days Qty: 20 RF: 0 Continued calcium acetate(phosphat bind) 667 mg capsule 667 mg PO TIDCM RF: 0 midodrine 10 mg tablet 40 mg PO TID RF: 0 promethazine 25 mg tablet 25 mg PO Q6H PRN (Reason: Nausea) RF: 0 diclofenac sodium [Voltaren] 1 % gel 2 g TOPICAL DIRECTED PRN (Reason: arthritis) RF: 0 fludrocortisone 0.1 mg tablet 0.1 mg PO DAILY RF: 0 potassium chloride 10 mEq tablet extended release 10 meq PO TID RF: 0 multivitamin 1 EACH tablet 1 tab PO DAILY RF: 0 primidone 50 MG tablet 250 mg PO TID RF: 0 cyanocobalamin (vitamin B-12) 1,000 MCG tablet 1,000 mcg PO DAILY RF: 0 B complex with C 20-folic acid 1 CAPSULE capsule 1 cap PO DAILY RF: 0 Cholecalciferol (Vitamin D3) [Vitamin D3] 5,000 UNIT capsule 5,000 unit PO DAILY RF: 0 meclizine 25 mg Tablet 25 mg PO TID PRN (Reason: Dizziness) RF: 0 pantoprazole [Protonix] 40 mg Tablet,Delayed Release (Dr/Ec) 40 mg PO DAILY RF: 0 Trintellix 20 mg Tablet 20 mg PO QHS RF: 0 guaifenesin [Mucinex] 600 mg Tablet Extended Release 12hr 600 mg PO BID RF: 0 clonazepam 0.5 mg Tablet 0.5 - 1 mg PO QHS PRN (Reason: Insomnia) RF: 0 metoprolol tartrate 25 mg Tablet 25 mg PO BID RF: 0 Referrals / Follow Up: Willy Vela MD [STAFF PHYSICIAN] - Within 2 Weeks Mitchell Appiah MD [Primary Care Provider] - In 1 Week Disposition Disposition (needs filled in before D/C Order can be placed): Detention Facility Charges/Coding Visit Charges Inpatient E&M: 60510 Disch Hosp
--- NOTE | 2021-05-14 11:35 | PCM.TXEXTCAR ---
Diet 05/09/21 04:14 Diet: Renal - Protein Restricted Routine Orders/Code Status Code Status: DNRCC-A Suggestions for Active Care Change Position every (hours): 3 Hours to sit in a chair: 2 Times a day to sit in chair: 3 Therapies Weight Bearing: Weight bearing as tolerated Physical Therapy: Eval and Treat Occupational Therapy: Eval and Treat Problem/Diagnosis (1) Closed fracture of right inferior pubic ramus: Status: Acute (2) Recurrent falls: Status: Acute (3) Atrial fibrillation: Status: Chronic (4) ESRD (end stage renal disease) on dialysis: Status: Chronic (5) Anemia: Status: Chronic (6) Thrombocytopenia: Status: Chronic Allergies/Procedures Done in Hospital Allergies heparin Allergy (Intermediate, Verified 05/09/21 02:16) Induced thrombocytopenia alprazolam [From Xanax] Allergy (Verified 05/09/21 02:16) Unknown Procedures: None Type of Care/Length of Stay Estimated LOS: Convalescent Care Less Than 30 days Type of Care Needed: Skilled Rehab Potential: Fair Prognosis: Fair Additional Orders/Day of Discharge H&P will serve as current which was dated: 05/09/21 Day of Discharge: 05/11/21 Discharge Plan Admission Admit Date/Time: 05/09/21 03:13 Primary Reason for Your Visit: Pelvic fracture Attending Provider: Merly Chen Primary Care Provider: Mitchell Appiah Consulting Providers: Willy Vela Instructions Patient Instructions: ED Fall Prevention, ED Diet for Chronic Kidney Disease, ED Pelvic Fracture Discharge Orders/Prescriptions Prescriptions: New oxycodone 5 mg Tablet 5 mg PO Q6H PRN PRN (Reason: Pain Score 6-10) 5 Days Qty: 20 RF: 0 Continued calcium acetate(phosphat bind) 667 mg capsule 667 mg PO TIDCM RF: 0 midodrine 10 mg tablet 40 mg PO TID RF: 0 promethazine 25 mg tablet 25 mg PO Q6H PRN (Reason: Nausea) RF: 0 diclofenac sodium [Voltaren] 1 % gel 2 g TOPICAL DIRECTED PRN (Reason: arthritis) RF: 0 fludrocortisone 0.1 mg tablet 0.1 mg PO DAILY RF: 0 potassium chloride 10 mEq tablet extended release 10 meq PO TID RF: 0 multivitamin 1 EACH tablet 1 tab PO DAILY RF: 0 primidone 50 MG tablet 250 mg PO TID RF: 0 cyanocobalamin (vitamin B-12) 1,000 MCG tablet 1,000 mcg PO DAILY RF: 0 B complex with C 20-folic acid 1 CAPSULE capsule 1 cap PO DAILY RF: 0 Cholecalciferol (Vitamin D3) [Vitamin D3] 5,000 UNIT capsule 5,000 unit PO DAILY RF: 0 meclizine 25 mg Tablet 25 mg PO TID PRN (Reason: Dizziness) RF: 0 pantoprazole [Protonix] 40 mg Tablet,Delayed Release (Dr/Ec) 40 mg PO DAILY RF: 0 Trintellix 20 mg Tablet 20 mg PO QHS RF: 0 guaifenesin [Mucinex] 600 mg Tablet Extended Release 12hr 600 mg PO BID RF: 0 clonazepam 0.5 mg Tablet 0.5 - 1 mg PO QHS PRN (Reason: Insomnia) RF: 0 metoprolol tartrate 25 mg Tablet 25 mg PO BID RF: 0 Referrals / Follow Up: Willy Vela MD [STAFF PHYSICIAN] - Within 2 Weeks Mitchell Appiah MD [Primary Care Provider] - In 1 Week Disposition Disposition (needs filled in before D/C Order can be placed): Intermediate Facility
[2021-05-14] MEDS: Acetaminophen 325 MG Tablet 650 MG PO (12:13)
--- NOTE | 2021-05-14 12:30 | CASEMGMT ---
SW met w/pt in room in regard to prior level of function and anticipated discharge plan. PCP: Dr. Gallardo Specialists: Dr. Hartman(ENT), [facility] Insurance: Medicare/Commercial other/[facility]: [facility] [place]: son and daughter Living arrangements: Pt lives in a two story home w/son, pt stays on the first floor. Prior level of function: Pt independent with ADLs, uses cane at baseline. Pt drives short distances. Pt and son did have a cleaning lady and are at present looking for a new cleaning person. DME/HHC/SNF: Pt has a cane and rollator, uses cane at baseline. Pt reports to not have had home health in the past. Pt reports she's been to [facility] multiple times for rehab and would like to return there for rehab upon discharge from here. SW spoke w/pt further in regard to discharge plan. SW provided list of penitentiary facilities in pt's preferred geographic area that takes pt's insurance and can meet her medical needs, with quality and resource use data. Pt wants to go to [facility], and eventually go to [place] to where her daughter lives. SW explained will find out if [facility] can take her and will let her know, pt states understanding. SW called [facility], faxed referral. Cynthia is checking to make sure the 3 day Medicare requirement is still waived, and will call JOSEFINA back. JOSEFINA will continue to follow. Plan: [facility] pending acceptance LOUIS Rose
--- NOTE | 2021-05-14 13:31 | CASEMGMT ---
Precert has been attained and pt can go to [facility] today once dialysis is completed. SW faxed all discharge paperwork including transfer to extended care, med list, PAS/RR with results, negative COVID test to [facility]. [facility] JOSEFINA set up a 5pm ambulance w/[facility]. JOSEFINA let pt, pt's RN, [facility], know time of pickup. SW offered to call pt's sister,she states she will text her sister, SW does not need to call. No further needs, pt to [facility] today. LOUIS Rose
--- NOTE | 2021-05-14 14:57 | PCM.PN.REN ---
Subjective Subjective seen while on HD No complaints Objective Data Objective Data Vital Signs: Vital Signs Temp Pulse Resp BP Pulse Ox 98.6 F 71 16 100/53 L 95 05/14/21 10:00 05/14/21 10:30 05/14/21 10:00 05/14/21 10:30 05/14/21 10:00 Oxygen Flow Rate (L/min) 2 Oxygen Delivery Method Room Air Weight: 73.3 kg Body Mass Index (BMI) 25.9 Intake & Output: Intake and Output for Last 24 Hours 05/12/21 05/13/21 05/14/21 23:59 23:59 23:59 Intake Total 800 / 1000 800 / 800 650 / 650 Balance 800 / 1000 800 / 800 650 / 650 Lab / Micro Data Result Diagrams: 05/09/21 02:25 05/09/21 02:25 Micro: Microbiology 05/14/21 Unknown Mucosa - Nose SARS-CoV-2 Antigen (Rapid) - Final Physical Exam Narrative Alert awake oriented x 3 no obvious distress no pallor no icterus no JVD s1s2 no murmurs lungs clear abdomen soft no organomegaly no edema no cyanosis Assessment & Plan Assessment/Plan (1) ESRD (end stage renal disease) on dialysis: PLAN: End-stage renal disease on hemodialysis. On hemodialysis Friday, Friday, Friday schedule. HD session today: BQ 400 Q 600 FU 1L Hypotension. Long-standing history of hypertension with worsening on postural changes.. She is on Midodrine 40 mg 3 times a day along with fludrocortisone 0.1 mg. tolerating HF well this am (2) Closed fracture of right inferior pubic ramus: QUALIFIERS: Encounter type: initial encounter Qualified Code(s): S32.591A - Other specified fracture of right pubis, initial encounter for closed fracture PLAN: PT/OT (3) Hyperphosphatemia: PLAN: Continue Phos binder
[2021-05-14 16:29] VITALS: BP 106/57; PULSE 68; RESP 16; TEMP 36.4
--- NOTE | 2021-05-14 16:30 | DIALYSIS ---
Pt tolerated 3hr HD tx well. Net UF -1000ml. See flow record for tx data.
[2021-05-14 16:31] VITALS: BP 106/57; PULSE 87; RESP 18; TEMP 36.5; O2SAT 97
== END 2021-05-14 16:40 | disposition skilled nursing facility (03) ==
LOC: ED 03:19 → MS3 03:51
PROVIDERS: Internal Medicine Nephrology; Admitting Provider Hospitalist; Emergency Provider Emergency Medicine; PCP Family Medicine; Visit Provider Student in an Organized Health Care Education/Training Program
DX: S32.591A Other specified fracture of right pubis, initial encounter for closed fracture (principal); W18.30XA Fall on same level, unspecified, initial encounter; Y93.89 Activity, other specified; Y92.9 Unspecified place or not applicable; N18.6 End stage renal disease; I48.0 Paroxysmal atrial fibrillation; D64.9 Anemia, unspecified; I12.0 Hypertensive chronic kidney disease with stage 5 chronic kidney disease or end stage renal disease; G25.0 Essential tremor; D75.82 Heparin induced thrombocytopenia (HIT); R29.6 Repeated falls; Z79.899 Other long term (current) drug therapy; Z99.2 Dependence on renal dialysis
CPT/HCPCS: 36415; 70450; 73502; 80048; 82306; 85025; 87340; 87426; 90937; 93005; 96374; 96375; 96376; 97110; 97162; 97166; 97530; 97535; 99218; 99251; 99285; A4216; G0257; G0378; G0463; J2405

== ENCOUNTER 2021-06-08 11:55 | Emergency (ER) | payer MEDICARE, MEDICAID, SELFPAY ==
[2021-05-09 04:15] VITALS: BMI 25.9
[2021-06-08 12:00] VITALS: BP 133/67; PULSE 84; RESP 16; TEMP 36.7; O2SAT 99; BMI 26.0
--- NOTE | 2021-06-08 13:23 | EX.ED.DYSGE1 ---
HPI History of Present Illness Chief Complaint: Wound Narrative Narrative: Patient presenting for left sided fistula bleeding after dialysis. She states they put a compression dressing on this and sent her to the emergency room. She denies any pain. She has not missed any dialysis. She has no other symptoms. [facility] Medical History Atrial fibrillation Atrial fibrillation status post cardioversion Back problem CL (cirrhosis of liver) ESRD (end stage renal disease) on dialysis Essential tremor Heparin induced thrombocytopenia Kidney stones Personal history of colonic polyps Home Medications calcium acetate(phosphat bind) 667 mg capsule 667 mg PO TIDCM cap 07/24/18 [History Last Taken 10/05/20] midodrine 10 mg tablet 40 mg PO TID 07/24/18 [History Last Taken 10/05/20] diclofenac sodium 1 % topical gel 2 g TOPICAL DIRECTED PRN g 08/17/19 [History Last Taken 10/05/20] promethazine 25 mg tablet 25 mg PO Q6H PRN 08/17/19 [History Last Taken 08/31/19] fludrocortisone 0.1 mg tablet 0.1 mg PO DAILY 04/26/20 [History Last Taken 10/05/20] potassium chloride 10 mEq tablet,extended release 10 meq PO TID 04/26/20 [History Last Taken 10/05/20] B complex with C 20-folic acid 1 cap PO DAILY 10/06/20 [History Last Taken 10/05/20] Cholecalciferol (Vitamin D3) [Vitamin D3] 5,000 unit PO DAILY 10/06/20 [History Last Taken 10/05/20] cyanocobalamin (vitamin B-12) 1,000 mcg PO DAILY 10/06/20 [History Last Taken 10/05/20] multivitamin 1 tab PO DAILY 10/06/20 [History Last Taken 10/05/20] primidone 250 mg PO TID 10/06/20 [History Last Taken 10/05/20] Trintellix 20 mg PO QHS 05/09/21 [History Last Taken Unknown] clonazepam 0.5 - 1 mg PO QHS PRN 05/09/21 [History Last Taken Unknown] guaifenesin [Mucinex] 600 mg PO BID 05/09/21 [History Last Taken Unknown] meclizine 25 mg PO TID PRN 05/09/21 [History Last Taken Unknown] metoprolol tartrate 25 mg PO BID 05/09/21 [History Last Taken Unknown] pantoprazole [Protonix] 40 mg PO DAILY 05/09/21 [History Last Taken Unknown] oxycodone 5 mg PO Q6H PRN PRN 5 Days #20 tab 05/11/21 [Rx Last Taken Unknown] Allergy/AdvReac Type Severity Reaction Status Date / Time heparin Allergy Intermediate Induced Verified 05/09/21 02:16 thrombocytopenia alprazolam [From Xanax] Allergy Unknown Verified 05/09/21 02:16 Family History Father Arthritis Skin cancer Heart disease Hypertension Hypercholesterolemia Cancer skin cancer Brother Arthritis Heart disease Hypercholesterolemia Hypertension Seizures Diabetes Grandmother Asthma Heart disease Mother Cancer Leukemia Surgical History history AV graft History of cardioversion (08/31/19) History of colonoscopy (~2014) History of hysterectomy History of intestinal bypass History of laparoscopic cholecystectomy history ORIF right hip Social History household members: children Smoking Status: Never smoker alcohol intake: never substance use type: does not use ROS ROS ED Constitutional Constitutional ED: Denies chills, fever(s) or subjective Eyes Eyes: Denies blurry vision or diplopia ENT ENT ED: Denies rhinorrhea or sore throat Cardiovascular Cardiovascular: Denies chest pain or palpitations Respiratory/Chest Respiratory/Chest: Denies cough or dyspnea Gastrointestinal Gastrointestinal: Denies abdominal pain, nausea or vomiting Genitourinary Genitourinary ED: Denies dysuria or hematuria Musculoskeletal Musculoskeletal: Denies arthralgias or myalgias Integumentary Reports other Details: Bleeding from fistula site ; Denies rash Neurologic Neurologic: Denies headache(s) or weakness Psychiatric Psychiatric: Denies anxiety or depression EXAM Physical Exam Const Vital Signs: 06/08/21 12:00 Temperature 98.0 F Temperature Source Temporal Pulse Rate 84 Respiratory Rate 16 Blood Pressure 133/67 H Blood Pressure Mean 89 Pulse Ox 99 Oxygen Delivery Method Room Air Positive well nourished General Appearance ED: NAD; Negative for pallor HEENT Reports moist mucous membranes Negative for trauma Eyes PERRL and EOMs intact bilaterally Resp normal respiratory effort and clear to auscultation bilaterally Cardio regular rate and regular rhythm Extremity Extremity Narrative: Left AV fistula on examination is no longer bleeding. Neuro oriented x3 Sensorium / Orientation: alert Psych mental status grossly normal Skin no rashes or lesions noted General Skin Exam: Negative for pallor MDM MDM MDM Narrative Medical decision making narrative: Patient presents for AV fistula bleeding. By the time I got to examine her and had stopped bleeding. A dressing was placed on this and she was discharged home in stable condition. Impression: 1. AV fistula bleeding?resolved Discharge Plan Triage Chief Complaint: Wound ED Provider: Anival Troncoso Dx/Rx/DC Orders Instructions: ED Hemodialysis Access Bleeding Prescriptions: No Action calcium acetate(phosphat bind) 667 mg capsule 667 mg PO TIDCM RF: 0 midodrine 10 mg tablet 40 mg PO TID RF: 0 promethazine 25 mg tablet 25 mg PO Q6H PRN (Reason: Nausea) RF: 0 diclofenac sodium [Voltaren] 1 % gel 2 g TOPICAL DIRECTED PRN (Reason: arthritis) RF: 0 fludrocortisone 0.1 mg tablet 0.1 mg PO DAILY RF: 0 potassium chloride 10 mEq tablet extended release 10 meq PO TID RF: 0 multivitamin 1 EACH tablet 1 tab PO DAILY RF: 0 primidone 50 MG tablet 250 mg PO TID RF: 0 cyanocobalamin (vitamin B-12) 1,000 MCG tablet 1,000 mcg PO DAILY RF: 0 B complex with C 20-folic acid 1 CAPSULE capsule 1 cap PO DAILY RF: 0 Cholecalciferol (Vitamin D3) [Vitamin D3] 5,000 UNIT capsule 5,000 unit PO DAILY RF: 0 meclizine 25 mg Tablet 25 mg PO TID PRN (Reason: Dizziness) RF: 0 pantoprazole [Protonix] 40 mg Tablet,Delayed Release (Dr/Ec) 40 mg PO DAILY RF: 0 Trintellix 20 mg Tablet 20 mg PO QHS RF: 0 guaifenesin [Mucinex] 600 mg Tablet Extended Release 12hr 600 mg PO BID RF: 0 clonazepam 0.5 mg Tablet 0.5 - 1 mg PO QHS PRN (Reason: Insomnia) RF: 0 metoprolol tartrate 25 mg Tablet 25 mg PO BID RF: 0 oxycodone 5 mg Tablet 5 mg PO Q6H PRN PRN (Reason: Pain Score 6-10) 5 Days Qty: 20 RF: 0 Primary Care Provider: Mitchell Appiah Referrals: Mitchell Appiah MD [Primary Care Provider] - Disposition Disposition: Home, Self Care Discharge Date/Time: 06/08/21 14:11
[2021-06-08 14:10] VITALS: BP 122/71; PULSE 83; RESP 16; O2SAT 100
== END 2021-06-08 14:11 | disposition home or self-care (01) ==
PROVIDERS: Emergency Provider Student in an Organized Health Care Education/Training Program; PCP Family Medicine
DX: T82.838A Hemorrhage due to vascular prosthetic devices, implants and grafts, initial encounter (principal); I48.91 Unspecified atrial fibrillation; K74.60 Unspecified cirrhosis of liver; N18.6 End stage renal disease; Z99.2 Dependence on renal dialysis; G25.0 Essential tremor; Z87.442 Personal history of urinary calculi; Z86.010 Personal history of colon polyps; Z79.899 Other long term (current) drug therapy
CPT/HCPCS: 99284

== ENCOUNTER → 2021-06-19 15:42 | Outpatient (CLI) | payer MEDICARE, MEDICAID, SELFPAY ==
[2021-06-08 12:00] VITALS: BMI 26.0
--- NOTE | 2021-06-19 15:45 | RAD_ITS ---
STUDY: X-RAY - PELVIS REASON FOR EXAM: Female, 75 years old. PELVIC FRACTURE TECHNIQUE: One view of the pelvis was obtained. COMPARISON: Comparison is made with prior study dated 01/09/2021. FINDINGS: There is a non-specific bowel gas pattern. Normal visualized soft tissue structures. There is narrowing with cortical sclerosis and osteophyte formation of the sacroiliac joint consistent with degenerative osteoarthritic changes. Healing fracture of the right inferior pubic ramus. There are degenerative changes of the pubic symphysis with articular narrowing and sclerosis. Normal ischial tuberosities. Patient is status post screw fixation of the right femoral neck. Normal visualized left femoral head. Normal left acetabulum. There is mild articular joint space narrowing of the left hip. RAD/Pelvis 1 or 2 Views IMPRESSION: Healing fracture of the right inferior pubic ramus. Electronically Signed: Guicho Meeks MD at 10:16 EDT , Service support ,
== END ==
PROVIDERS: PCP Family Medicine; Referring Provider Family Medicine; Visit Provider Family Medicine
DX: S32.9XXA Fracture of unspecified parts of lumbosacral spine and pelvis, initial encounter for closed fracture (principal)
CPT/HCPCS: 72170

== ENCOUNTER 2021-07-13 04:39 | Inpatient (IN) | payer MEDICARE, MEDICAID, SELFPAY ==
[2021-07-13] VITALS (16 sets, daily range): BP systolic 100–128; BP diastolic 46–93; PULSE 72–108; RESP 15–18; TEMP 36.2–36.8; O2SAT 93–98; BMI 26.0; BMI 25.7
--- NOTE | 2021-07-13 04:44 | EKG12_ITS ---
Test Reason : DYSRHYTHMIA Blood Pressure : / mmHG Vent. Rate : 085 BPM Atrial Rate : 077 BPM P-R Int : 000 ms QRS Dur : 076 ms QT Int : 378 ms P-R-T Axes : 000 054 051 degrees QTc Int : 449 ms Atrial fibrillation Abnormal ECG Confirmed by SHABBIR CASTELLANOS, KIKA ([id number]), photographic editor BRIDGET CALLEJAS ([id number]) on 07/17/2021 9:09:14 AM Referred By: PL Confirmed By:KIKA SHEA MD
--- NOTE | 2021-07-13 04:48 | ED.VIS.FALL ---
HPI HPI - Fall History of Present Illness Chief Complaint: Fall Informant: patient and EMS Narrative Narrative: Patient presents after a fall at home. She got up to go use the restroom. She states she did use her walker which she needs to walk. She just felt weak and fell down. She did hit the right side of her ribs and that is the only area that hurts. She denies hitting her head. She was getting up due to diarrhea. This is a chronic long-term problem that she has had issues with. something that occurs every time but occasionally. She has seen some red blood in the stool recently though. That has not Despite a history of atrial fibrillation she is not on any anticoagulation. It appears as though that this is due to a history of frequent falls that she has had. She lives with her sister and a nephew. She denies chest pain or palpitations. No fevers or chills. [facility] Medical History Atrial fibrillation Atrial fibrillation status post cardioversion Back problem CL (cirrhosis of liver) ESRD (end stage renal disease) on dialysis Essential tremor Heparin induced thrombocytopenia Kidney stones Personal history of colonic polyps Home Medications calcium acetate(phosphat bind) 667 mg capsule 667 mg PO TIDCM cap 07/24/18 [History Last Taken 10/05/20] midodrine 10 mg tablet 40 mg PO TID 07/24/18 [History Last Taken 10/05/20] diclofenac sodium 1 % topical gel 2 g TOPICAL DIRECTED PRN g 08/17/19 [History Last Taken 10/05/20] promethazine 25 mg tablet 25 mg PO Q6H PRN 08/17/19 [History Last Taken 08/31/19] fludrocortisone 0.1 mg tablet 0.1 mg PO DAILY 04/26/20 [History Last Taken 10/05/20] potassium chloride 10 mEq tablet,extended release 10 meq PO TID 04/26/20 [History Last Taken 10/05/20] B complex with C 20-folic acid 1 cap PO DAILY 10/06/20 [History Last Taken 10/05/20] Cholecalciferol (Vitamin D3) [Vitamin D3] 5,000 unit PO DAILY 10/06/20 [History Last Taken 10/05/20] cyanocobalamin (vitamin B-12) 1,000 mcg PO DAILY 10/06/20 [History Last Taken 10/05/20] multivitamin 1 tab PO DAILY 10/06/20 [History Last Taken 10/05/20] primidone 250 mg PO TID 10/06/20 [History Last Taken 10/05/20] Trintellix 20 mg PO QHS 05/09/21 [History Last Taken Unknown] clonazepam 0.5 - 1 mg PO QHS PRN 05/09/21 [History Last Taken Unknown] guaifenesin [Mucinex] 600 mg PO BID 05/09/21 [History Last Taken Unknown] meclizine 25 mg PO TID PRN 05/09/21 [History Last Taken Unknown] metoprolol tartrate 25 mg PO BID 05/09/21 [History Last Taken Unknown] pantoprazole [Protonix] 40 mg PO DAILY 05/09/21 [History Last Taken Unknown] oxycodone 5 mg PO Q6H PRN PRN 5 Days #20 tab 05/11/21 [Rx Last Taken Unknown] Allergy/AdvReac Type Severity Reaction Status Date / Time heparin Allergy Intermediate Induced Verified 07/13/21 04:46 thrombocytopenia alprazolam [From Xanax] Allergy Unknown Verified 07/13/21 04:46 Family History Father Arthritis Skin cancer Heart disease Hypertension Hypercholesterolemia Cancer skin cancer Brother Arthritis Heart disease Hypercholesterolemia Hypertension Seizures Diabetes Grandmother Asthma Heart disease Mother Cancer Leukemia Surgical History history AV graft History of cardioversion (08/31/19) History of colonoscopy (~2014) History of hysterectomy History of intestinal bypass History of laparoscopic cholecystectomy history ORIF right hip Social History household members: children Smoking Status: Never smoker alcohol intake: never substance use type: does not use ROS ROS ED Constitutional Constitutional ED: Denies chills or fever(s) Eyes Eyes: Denies blurry vision or change in vision ENT ENT ED: Denies rhinorrhea or sore throat Cardiovascular Cardiovascular: Denies chest pain, palpitations or racing heartbeat Respiratory/Chest Respiratory/Chest: Reports other Details: She does have soreness in the right lateral rib cage after the fall. ; Denies cough or dyspnea Gastrointestinal Gastrointestinal: Denies abdominal pain, nausea or vomiting Genitourinary Genitourinary ED: Reports other Details: Patient does not make any urine at all. Musculoskeletal Musculoskeletal: Denies back pain or neck pain Integumentary Denies abscess or rash Neurologic Neurologic: Denies headache(s), paresthesias or weakness Hematologic/Lymphatic Hematologic/Lymphatic: Denies easy bleeding or easy bruising Allergic/Immunologic Allergic/Immunologic ED: Denies urticaria EXAM Physical Exam Const Vital Signs: 07/13/21 04:39 07/13/21 04:46 07/13/21 04:50 Temperature 97.1 F L 97.1 F L Temperature Source Temporal Temporal Pulse Rate 72 72 Pulse Rate [Lying] Pulse Rate [Sitting] Pulse Rate [Standing] Respiratory Rate 16 16 Respiratory Effort Normal Non-Labored Respiratory Depth Normal Respiratory Pattern Normal Blood Pressure 108/64 108/64 Blood Pressure [Lying] Blood Pressure [Sitting] Blood Pressure [Standing] Blood Pressure Mean 78 78 Blood Pressure Mean [Lying] Blood Pressure Mean [Sitting] Blood Pressure Mean [Standing] Pulse Ox 96 96 96 Oxygen Delivery Method Room Air Room Air Room Air 07/13/21 06:04 Temperature Temperature Source Pulse Rate Pulse Rate [Lying] 89 Pulse Rate [Sitting] 78 Pulse Rate [Standing] 98 Respiratory Rate Respiratory Effort Respiratory Depth Respiratory Pattern Blood Pressure Blood Pressure [Lying] 122/65 H Blood Pressure [Sitting] 121/71 H Blood Pressure [Standing] 109/59 L Blood Pressure Mean Blood Pressure Mean [Lying] 84 Blood Pressure Mean [Sitting] 87 Blood Pressure Mean [Standing] 75 Pulse Ox Oxygen Delivery Method Positive well nourished and well developed General Appearance ED: well developed and NAD HEENT Reports normocephalic atraumatic Eyes EOMs intact bilaterally Neck no lymphadenopathy and supple General: Negative for tenderness Chest Wall inspection of chest normal Chest Narrative: I do not see any bruising contusions at this time. She does have some mild discomfort at the right lower rib cage in the mid axillary line. No subcutaneous air. No crepitance is felt. Resp normal respiratory effort and clear to auscultation bilaterally Cardio regular rate Rhythm: abnormal rhythm GI non-tender and non-distended Palpation: soft Back/Spine no CVA tenderness Cervical Spine: Negative for cervical spine tenderness Thoracic Spine / Upper Back: Negative for thoracic spinal tenderness Lumbar Spine / Lower Back: Negative for lumbar spinal tenderness Extremity normal to inspection Extremity Narrative: She does have fistula with a normal thrill in left upper arm. Neuro oriented x3 Sensorium / Orientation: alert Psych mental status grossly normal Skin Trauma: abrasion MDM MDM MDM Narrative Medical decision making narrative: Patient's blood work shows some anemia but she is always anemic. Creatinine is high but she missed dialysis. Troponin was negative. X-rays are suspicious for possible sixth rib fracture. Clinically this does match her symptoms. Patient is very weak when she gets up. She is not truly orthostatic or syncopal. However she feels too weak to walk and move. I think this patient is on the edge of functionality all the time. Her diarrhea has increased again recently. She also reports some blood in the stool. Rectal exam does not show any gross bleeding but she is Hemoccult positive. She is not dropping her hemoglobins. I think with this patient having renal failure, missing dialysis, worsening diarrhea, weakness, falls she is not safe for home. I discussed case with the hospitalist who came down to see the patient and she will be brought in the hospital. Lab Data Attestation: I reviewed the patient's lab results. Labs: Laboratory Results - last 24 hr 07/13/21 07/13/21 04:55 04:55 WBC 3.9 L RBC 2.66 L Hgb 9.6 L Hct 31.5 L MCV 118.4 H MCH 36.1 H MCHC 30.5 L RDW Std Deviation 62.5 H RDW Coeff of Yoana 14.6 Plt Count 123 L MPV 12.5 H Immature Gran % (Auto) 0.500 Neut % (Auto) 55.1 Lymph % (Auto) 35.3 Alfalfa % (Auto) 6.3 Eos % (Auto) 1.8 Baso % (Auto) 1.0 Absolute Neuts (auto) 2.2 Absolute Lymphs (auto) 1.39 Nucleated RBC % 0 Sodium 139 Potassium 5.0 Chloride 103 Carbon Dioxide 25.0 Anion Gap 11 BUN 47 H Creatinine 7.89 H* Estim Creat Clear Calc 6.08 Est GFR (MDRD) Af Amer 6 L Est GFR (MDRD) Non-Af 5 L BUN/Creatinine Ratio 6.0 L Glucose 93 Calcium 9.0 Troponin I High Sens 20.8 Radiography Diagnostic Testing: Radiology Impression Ribs w/Chest X-Ray 07/13/21 05:01 IMPRESSION: RIBS: 1 views showing possible nondisplaced fracture of anterior right rib 6. Minimal right lower lobe atelectasis. CHEST: Minimal right lower lobe atelectasis. Electronically Signed: Vanessa Bills MD at 5:55 EDT Tel , Service support , Discharge Plan Triage Chief Complaint: Fall ED Provider: Arsenio Watkins Dx/Rx/DC Orders Clinical Impression: Unable to ambulate, Anemia, Recurrent falls, Right rib fracture, Diarrhea, Heme positive stool Prescriptions: No Action calcium acetate(phosphat bind) 667 mg capsule 667 mg PO TIDCM RF: 0 midodrine 10 mg tablet 40 mg PO TID RF: 0 promethazine 25 mg tablet 25 mg PO Q6H PRN (Reason: Nausea) RF: 0 diclofenac sodium [Voltaren] 1 % gel 2 g TOPICAL DIRECTED PRN (Reason: arthritis) RF: 0 fludrocortisone 0.1 mg tablet 0.1 mg PO DAILY RF: 0 potassium chloride 10 mEq tablet extended release 10 meq PO TID RF: 0 multivitamin 1 EACH tablet 1 tab PO DAILY RF: 0 primidone 50 MG tablet 250 mg PO TID RF: 0 cyanocobalamin (vitamin B-12) 1,000 MCG tablet 1,000 mcg PO DAILY RF: 0 B complex with C 20-folic acid 1 CAPSULE capsule 1 cap PO DAILY RF: 0 Cholecalciferol (Vitamin D3) [Vitamin D3] 5,000 UNIT capsule 5,000 unit PO DAILY RF: 0 meclizine 25 mg Tablet 25 mg PO TID PRN (Reason: Dizziness) RF: 0 pantoprazole [Protonix] 40 mg Tablet,Delayed Release (Dr/Ec) 40 mg PO DAILY RF: 0 Trintellix 20 mg Tablet 20 mg PO QHS RF: 0 guaifenesin [Mucinex] 600 mg Tablet Extended Release 12hr 600 mg PO BID RF: 0 clonazepam 0.5 mg Tablet 0.5 - 1 mg PO QHS PRN (Reason: Insomnia) RF: 0 metoprolol tartrate 25 mg Tablet 25 mg PO BID RF: 0 oxycodone 5 mg Tablet 5 mg PO Q6H PRN PRN (Reason: Pain Score 6-10) 5 Days Qty: 20 RF: 0 Primary Care Provider: Mitchell Appiah Referrals: Mitchell Appiah MD [Primary Care Provider] - Disposition Disposition: Acute Care Hospital [facility]
--- NOTE | 2021-07-13 05:01 | RAD_ITS ---
STUDY: X-RAY - UNILATERAL RIBS ( RIGHT ) WITH CHEST REASON FOR EXAM: Female, 75 years old. Fall TECHNIQUE - RIBS: 13 view(s) of the ribs. TECHNIQUE - CHEST: Single PA view of the chest. COMPARISON: February 06, 2021 right rib series FINDINGS - RIBS: There is a suggestion of a possible acute fracture of the anterior aspect of right rib 6. FINDINGS - CHEST: There is minimal right lower lobe atelectasis. There is no demonstrated pleural abnormality. There is mild cardiac enlargement. Normal mediastinum and liane. Normal visualized pulmonary arteries. Normal visualized aortic arch and descending thoracic aorta. There are diffuse degenerative changes of the visualized thoracic spine. Normal visualized ribs, clavicles, and shoulders. There is no demonstrated abnormality of the visualized soft tissue structures of the upper abdomen. RAD/Ribs Uni Min 3V w/PA Chest IMPRESSION: RIBS: 1 views showing possible nondisplaced fracture of anterior right rib 6. Minimal right lower lobe atelectasis. CHEST: Minimal right lower lobe atelectasis. Electronically Signed: Vanessa Bills MD at 5:55 EDT Tel , Service support ,
[2021-07-13 05:03] LABS: Absolute Lymphocyte Count 1.39 X10^3/uL (0.83-4.51); Absolute Neutrophil Count 2.2 X10^3/uL (2.0-7.7); Basophil# 0.04 X10^3/uL; Eosinophil# 0.07 X10^3/uL; Eosinophils% 1.8 % (0-5); Hematocrit 31.5 % (37-47); Hemoglobin 9.6 g/dL (12.0-15.0); Lymphocyte # 1.39 X10^3/ul (0.83-4.51); Lymphocyte % 35.3 % (19-41); Mean Corp Hgb Conc 30.5 g/dL (32-36); Mean Corpuscular Hgb 36.1 pg (27.0-32.0); Mean Corpuscular Volume 118.4 fL (81-99); Mean Platelet Vol. 12.5 fl (6.2-12.0); Monocyte# 0.25 X10^3/uL; Monocyte% 6.3 % (0-10); NRBC Flagged by Analyzer 0 % (0-5); Neutrophil # 2.17 X10^3/uL (2.7-7.7); Neutrophil % 55.1 % (47-70); Platelet Count 123 K/mm3 (150-450); RBC Distribution Width CV 14.6 % (11.6-14.6); RBC Distribution Width SD 62.5 fl (35.1-43.9); Red Blood Count 2.66 M/mm3 (4.2-5.4); White Blood Count 3.9 K/mm3 (4.4-11.0)
[2021-07-13 05:25] LABS: Anion Gap 11 (5-15); BUN 47 mg/dL (7-18); Chloride 103 mmol/L (98-107); Creatinine, Serum 7.89 mg/dL (0.55-1.02); EST Glomerular Filtration Rate 5 mL/min (>60); Est Glom Filt Rate - Afr Amer 6 mL/min (>60); Estimated Creatinine Clearance 6.08 ml/min; Glucose 93 mg/dL (74-106); Sodium Level 139 mmol/L (136-145); Troponin-I HS 20.8 pg/mL (3.0-53.7)
--- NOTE | 2021-07-13 06:40 | HP.PCM.HOS_ITS ---
HPI - General HPI Narrative GUIDO WALLACE, is a 75 F with multiple comorbidities including cirrhosis, end- stage renal disease on hemodialysis came to ER after she had a fall while going to bathroom. Patient does not remember exact mechanism but while on walker she lost her balance and fell on her right chest. Complain of right chest in the front. She also has chronic diarrhea for several months about 5 to 10/day mainly watery but sometimes with blood. In ED stool for occult blood was positive. She is chronically debilitated with weakness, poor functional capacity, recurrent fall and was admitted in May 2021 for closed fracture of right inferior pubic ramus. She has chronic A. fib not on anticoagulant. In ED, orthostatic vitals shows mild decrease of blood pressure from 122/65, heart rate 84 on supine position to 109/59, heart rate 75 on standing. Twelve- lead EKG shows A. fib 85 bpm. QTc 449 ms. Repeat chest x-ray reported possible nondisplaced fracture of anterior right rib 6 with minimal right lower lobe atelectasis. Labs reviewed shows pancytopenia, and features consistent with end-stage renal disease. [facility] Medical History Atrial fibrillation Atrial fibrillation status post cardioversion Back problem CL (cirrhosis of liver) ESRD (end stage renal disease) on dialysis Essential tremor Heparin induced thrombocytopenia Kidney stones Personal history of colonic polyps Home Medications calcium acetate(phosphat bind) 667 mg capsule 667 mg PO TIDCM cap 07/24/18 [History Last Taken 10/05/20] midodrine 10 mg tablet 40 mg PO TID 07/24/18 [History Last Taken 10/05/20] diclofenac sodium 1 % topical gel 2 g TOPICAL DIRECTED PRN g 08/17/19 [ History Last Taken 10/05/20] promethazine 25 mg tablet 25 mg PO Q6H PRN 08/17/19 [History Last Taken 08/31/19] fludrocortisone 0.1 mg tablet 0.1 mg PO DAILY 04/26/20 [History Last Taken 10/05/20] potassium chloride 10 mEq tablet,extended release 10 meq PO TID 04/26/20 [History Last Taken 10/05/20] B complex with C 20-folic acid 1 cap PO DAILY 10/06/20 [History Last Taken 10/05/20] Cholecalciferol (Vitamin D3) [Vitamin D3] 5,000 unit PO DAILY 10/06/20 [History Last Taken 10/05/20] cyanocobalamin (vitamin B-12) 1,000 mcg PO DAILY 10/06/20 [History Last Taken 10/05/20] multivitamin 1 tab PO DAILY 10/06/20 [History Last Taken 10/05/20] primidone 250 mg PO TID 10/06/20 [History Last Taken 10/05/20] Trintellix 20 mg PO QHS 05/09/21 [History Last Taken Unknown] clonazepam 0.5 - 1 mg PO QHS PRN 05/09/21 [History Last Taken Unknown] guaifenesin [Mucinex] 600 mg PO BID 05/09/21 [History Last Taken Unknown] meclizine 25 mg PO TID PRN 05/09/21 [History Last Taken Unknown] metoprolol tartrate 25 mg PO BID 05/09/21 [History Last Taken Unknown] pantoprazole [Protonix] 40 mg PO DAILY 05/09/21 [History Last Taken Unknown] oxycodone 5 mg PO Q6H PRN PRN 5 Days #20 tab 05/11/21 [Rx Last Taken Unknown] Allergy/AdvReac Type Severity Reaction Status Date / Time heparin Allergy Intermediate Induced Verified 07/13/21 04:46 thrombocytopenia alprazolam [From Xanax] Allergy Unknown Verified 07/13/21 04:46 Family History Father Arthritis Skin cancer Heart disease Hypertension Hypercholesterolemia Cancer skin cancer Brother Arthritis Heart disease Hypercholesterolemia Hypertension Seizures Diabetes Grandmother Asthma Heart disease Mother Cancer Leukemia Surgical History history AV graft History of cardioversion (08/31/19) History of colonoscopy (~2014) History of hysterectomy History of intestinal bypass History of laparoscopic cholecystectomy history ORIF right hip Social History household members: children Smoking Status: Never smoker alcohol intake: never substance use type: does not use ROS ROS Narrative Constitutional: Reports fatigue and weakness, recurrent fall HEENT: Reports systems reviewed and no addt'l complaints, except as documented Respiratory/Chest: Right anterior rib, point tenderness, mild shortness of breath with exertion Gastrointestinal: Chronic diarrhea. Denies coffee ground emesis, hematemesis or melena. Sometimes red-tinged/blood in the stool Genitourinary: Dry, anuria. On hemodialysis Musculoskeletal: Reports multiple hip joint pain and limited range of motion Neurologic: Denies seizure-like activity skin: No ulcer. No rash Endocrinology: Reports systems reviewed and no addt'l complaints, except as docu mented Hematologic/Lymphatic: Reports systems reviewed and no addt'l complaints, except as documented Rest 12 ROS are negative except as mentioned in HPI Vital Signs Vital Signs Vital Signs: 07/13/21 04:39 07/13/21 04:46 07/13/21 04:50 Temperature 97.1 F L 97.1 F L Temperature Source Temporal Temporal Pulse Rate 72 72 Pulse Rate [Lying] Pulse Rate [Sitting] Pulse Rate [Standing] Respiratory Rate 16 16 Respiratory Effort Normal Non-Labored Respiratory Depth Normal Respiratory Pattern Normal Blood Pressure 108/64 108/64 Blood Pressure [Lying] Blood Pressure [Sitting] Blood Pressure [Standing] Blood Pressure Mean 78 78 Blood Pressure Mean [Lying] Blood Pressure Mean [Sitting] Blood Pressure Mean [Standing] Pulse Ox 96 96 96 Oxygen Delivery Method Room Air Room Air Room Air 07/13/21 06:04 Temperature Temperature Source Pulse Rate Pulse Rate [Lying] 89 Pulse Rate [Sitting] 78 Pulse Rate [Standing] 98 Respiratory Rate Respiratory Effort Respiratory Depth Respiratory Pattern Blood Pressure Blood Pressure [Lying] 122/65 H Blood Pressure [Sitting] 121/71 H Blood Pressure [Standing] 109/59 L Blood Pressure Mean Blood Pressure Mean [Lying] 84 Blood Pressure Mean [Sitting] 87 Blood Pressure Mean [Standing] 75 Pulse Ox Oxygen Delivery Method Weight Weight: 166 lb 3.657 oz Body Mass Index (BMI) 26.0 Physical Exam Narrative General: Alert, Oriented x3, Cooperative, fatigue HEENT: Atraumatic, PERRLA, EOMI, Normocephalic Oral: Oral mucosa dry. No Gingival or Mucosal Lesions/ Ulcerations Neck: Supple, No JVD, Negative Carotid Bruits Lungs: Tenderness present over right anterior midclavicular line. Air entry diminished in bilateral lung bases. No crepitation/rhonchi Cardiovascular: Chronic A fib. Normal S1, Normal S2, No murmurs Abdomen: Bowel Sounds hyperactive, Soft, Non Tender, Non-Distended : No renal angle tenderness. No suprapubic tenderness. Extremities: Bilateral lower extremity edema, Capillary Refill Less than 3 Seconds Skin: No rashes, No breakdown Musculoskeletal: Tenderness to right pelvis and left hip, arthritis. ROM restricted Neurological: Cranial nerves II-XII grossly intact, DTR 2+/4 and Symmetrical, Neuro grossly intact Psych/Mental Status: Flat affect Results Lab / Micro Data Result Diagrams: 07/13/21 04:55 07/13/21 04:55 Labs: Laboratory Results - last 24 hr 07/13/21 04:55: WBC 3.9 L, RBC 2.66 L, Hgb 9.6 L, Hct 31.5 L, MCV 118.4 H, MCH 36.1 H, MCHC 30.5 L, RDW Std Deviation 62.5 H, RDW Coeff of Yoana 14.6, Plt Count 123 L, MPV 12.5 H, Immature Gran % (Auto) 0.500, Neut % (Auto) 55.1, Lymph % (A uto) 35.3, Wells % (Auto) 6.3, Eos % (Auto) 1.8, Baso % (Auto) 1.0, Absolute Neuts (auto) 2.2, Absolute Lymphs (auto) 1.39, Nucleated RBC % 0 07/13/21 04:55: Sodium 139, Potassium 5.0, Chloride 103, Carbon Dioxide 25.0, Anion Gap 11, BUN 47 H, Creatinine 7.89 H*, Estim Creat Clear Calc 6.08, Est GFR (MDRD) Af Amer 6 L, Est GFR (MDRD) Non-Af 5 L, BUN/Creatinine Ratio 6.0 L, Glucose 93, Calcium 9.0, Troponin I High Sens 20.8 Micro: Microbiology 07/13/21 05:31 Stool Stool Occult Blood (KIRA) - Final Occult Blood Positive Radiology Impression Ribs w/Chest X-Ray 07/13/21 05:01 IMPRESSION: RIBS: 1 views showing possible nondisplaced fracture of anterior right rib 6. Minimal right lower lobe atelectasis. CHEST: Minimal right lower lobe atelectasis. Electronically Signed: Vanessa Bills MD at 5:55 EDT Tel , Service support , Assessment & Plan Assessment/Plan (1) Recurrent falls: (2) Right rib fracture: QUALIFIERS: Encounter type: initial encounter Rib fracture type: single rib Fracture type: closed Qualified Code(s): S22.31XA - Fracture of one rib, right side, initial encounter for closed fracture PLAN: This 75-year-old female is being admitted for multiple issues inclu ding right rib fracture, with recurrent fall. 1. Right-sided chest pain due to right rib fracture: Chest x-ray initially reviewed and possible nondisplaced fracture of anterior right rib 6. Right l ower lobe atelectasis. Incentive spirometry. Pain control. 2. Chronic diarrhea with occasional bloody stool: This is never been this evaluated. H&H every 6 hourly. I do not think patient is fit for invasive work-up in view of multiple comorbidities and weakness. Conservative management. C. difficile and enteric bacteriology panel ordered. 3. ESRD on hemodialysis: [place] armored car driver is consulted. 4. Chronic anemia, chronic thrombocytopenia and neutropenia: Patient has chronic anemia and thrombocytopenia recently mild leukopenia. Hemoglobin is on baseline or actually better 9.6/31. Platelet count 123,000. 5. Chronic A. fib not on anticoagulant 6. Generalized debility, limited functional capacity: PT OT and speech therapy evaluation ordered. residential care facility manager consult for rehab VTE prophylaxis: Pharmacological prophylaxis contraindicated. Bilateral SCDs Living will/advanced directive/end of life care: Patient does have living will or advanced directive. After discussion of benefits/risks procedures involved with full code, DNR CC arrest and DNR CC, the patient opted for DNR-CC Arrest with no intubation Patient does not want artificial life support including intubation, tube feed, ventilator and/chest compression, central venous catheter, vasopressor and DC shock if needed Total time spent in [id number] encounter in discussion of advanced directive 16 minutes.
[2021-07-13 06:57] LABS: Magnesium 1.8 mg/dL (1.6-2.6)
[2021-07-13] MEDS: 0.9% Normal Saline 1,000 ML 75 ML IV (08:56)
--- NOTE | 2021-07-13 10:35 | CASEMGMT ---
RN KUSUM Face to Face with patient for initial transition planning/care coordination assessment. RN CM introduced self and role at [facility]. Patient lying in bed, alert and oriented. Patient willing to participate in assessment and is able to answer all questions appropriately. Care providers, pharmacy, and demographics verified. Patient wishes to discharge home, denies need for home health at this time. Patient states she has no further needs or concerns at this time. CM to follow for discharge planning needs that may arise. PCP: Td Specialists: Tarik account development executive Preferred Pharmacy: [facility] [facility] Prescription Benefit: yes Living Will/HPOA: sister Bev Jc LNOK: sister Living Arrangements: Patient lives with sister in a 2 story home with bed and bath on first floor. 3 steps and railing to enter the home. Patient states she is independent at home. Transportation: sister [facility]/C: patient states she has shower chair, cane, walker, grab bars, and wheelchair at home. Patient received HD at [facility] 7am. Patient has previously been to [facility] and [facility] in the past. Patient has previously had [facility] Disposition Plan: Patient to discharge home with family support and follow-up plans in place. Cynthia NASSAR, RN, CM
--- NOTE | 2021-07-13 11:46 | PN_ITS ---
Assessment & Plan Assessment/Plan (1) Right rib fracture: QUALIFIERS: Encounter type: initial encounter Rib fracture type: single rib Fracture type: closed Qualified Code(s): S22.31XA - Fracture of one rib, right side, initial encounter for closed fracture (2) Anemia: (3) Thrombocytopenia: (4) ESRD (end stage renal disease) on dialysis: (5) Atrial fibrillation: QUALIFIERS: Atrial fibrillation type: unspecified Qualified Code(s): I48.91 - Unspecified atrial fibrillation PLAN: Patient is a 75-year-old lady with history symptom for end renal disease on hemodialysis, chronic diarrhea who presented following a fall. Imaging studies obtained demonstrated nondisplaced fracture of anterior right rib 6 1. Fall with right-sided chest pain ?nondisplaced fracture of anterior right rib 6. Admitted to monitored bed for pain control sedative spirometry PT OT eval in view of patient recurrent falls 2. Chronic diarrhea ?Work-up as outpatient has been unremarkable 3. End-stage renal disease ?Patient is on hemodialysis, consult placed to nephrology for dialysis orders 4. Cirrhosis of the liver ?With pancytopenia?. Monitoring counts 5. Chronic A. fib ?Rate controlled not on systemic anticoagulation in view of patient low platelet count and frequent falls 6. Physical deconditioning - Requested for PT OT eval and web content & social media manager to assist with discharge planning
[2021-07-13 12:35] LABS: Hematocrit 27.2 % (37-47); Hemoglobin 8.5 g/dL (12.0-15.0)
--- NOTE | 2021-07-13 15:23 | PCM.CONS.R ---
Assessment & Plan Assessment/Plan (1) ESRD (end stage renal disease) on dialysis: PLAN: The patient usually dialyzes at [facility] dialysis center on Friday, Friday and Friday schedule. Dr. Salcedo is her outpatient nuclear control room operator. I arrange for and saw the patient during hemodialysis treatment today. We are using F1 60 dialyzer, 4 hours treatment, blood flow 400, dialysate flow 600. She is tolerating dialysis well. Anticipate next dialysis treatment on 07/16/2021. However, I will reassess her again tomorrow. (2) Right rib fracture: QUALIFIERS: Encounter type: initial encounter Rib fracture type: single rib Fracture type: closed Qualified Code(s): S22.31XA - Fracture of one rib, right side, initial encounter for closed fracture PLAN: Pain control as per primary service. (3) Anemia: PLAN: Hemoglobin is 9.6. I will check and see whether she is receiving AISSATOU with dialysis treatment. HPI Consult Data Date of Consult: 07/13/21 HPI Narrative HPI Narrative: GUIDO WALLACE, is a 75-year-old woman who has end-stage renal disease, atrial fibrillation, liver cirrhosis, essential tremor, thrombocytopenia, anemia, and leukopenia who presented to the hospital after a mechanical fall. She was found to have right rib fracture. She denies shortness of breath at rest. She has chest pain on deep inspiration because of rib fracture. The patient has chronic lower extreme edema which has not increased in severity. There has been no nausea, vomiting, or diarrhea. The patient normally dialyzes at [facility] dialysis unit on a Friday, Friday and Friday schedule. FOR[facility]LY [facility] Medical History Atrial fibrillation Atrial fibrillation status post cardioversion Back problem CL (cirrhosis of liver) ESRD (end stage renal disease) on dialysis Essential tremor Heparin induced thrombocytopenia Kidney stones Personal history of colonic polyps Home Medications calcium acetate(phosphat bind) 667 mg capsule 667 mg PO TIDCM cap 07/24/18 [History Last Taken 07/12/21 17:00] midodrine 10 mg tablet 40 mg PO TID 07/24/18 [History Last Taken 07/12/21 21:00] diclofenac sodium 1 % topical gel 2 g TOPICAL DIRECTED PRN g 08/17/19 [History Last Taken 07/12/21 21:00] promethazine 25 mg tablet 25 mg PO Q6H PRN 08/17/19 [History Last Taken 08/31/19] fludrocortisone 0.1 mg tablet 0.1 mg PO DAILY 04/26/20 [History Last Taken 07/12/21 09:00] potassium chloride 10 mEq tablet,extended release 10 meq PO TID 04/26/20 [History Last Taken 07/12/21 21:00] primidone 250 mg PO TID 10/06/20 [History Last Taken 07/12/21 21:00] Trintellix 20 mg PO QHS 05/09/21 [History Last Taken 07/12/21 21:00] clonazepam 0.5 - 1 mg PO QHS PRN 05/09/21 [History Last Taken 07/12/21 21:00] meclizine 25 mg PO TID PRN 05/09/21 [History Last Taken 07/12/21 21:00] metoprolol tartrate 25 mg PO BID 05/09/21 [History Last Taken 07/12/21 21:00] pantoprazole [Protonix] 40 mg PO DAILY 05/09/21 [History Last Taken 07/12/21 09:00] cholestyramine-aspartame 4 g PO BID 07/13/21 [History Last Taken 07/12/21] fluticasone propionate 1 spray INTRANASAL BID 07/13/21 [History Last Taken 07/12/21 21:00] gabapentin 200 mg PO QMWF 07/13/21 [History Last Taken 07/09/21 12:00] hydrocodone-acetaminophen 1 tab PO Q6H PRN 07/13/21 [History Last Taken Unknown] lactulose 30 ml PO DAILY 07/13/21 [History Last Taken 07/12/21 09:00] loperamide 2 mg PO Q6H PRN 07/13/21 [History Last Taken Unknown] multivitamin [TAB A EFE] 1 tab PO DAILY 07/13/21 [History Last Taken 07/12/21 09:00] Allergy/AdvReac Type Severity Reaction Status Date / Time heparin Allergy Intermediate Induced Verified 07/13/21 04:46 thrombocytopenia alprazolam [From Xanax] Allergy Unknown Verified 07/13/21 04:46 Family History Father Arthritis Skin cancer Heart disease Hypertension Hypercholesterolemia Cancer skin cancer Brother Arthritis Heart disease Hypercholesterolemia Hypertension Seizures Diabetes Grandmother Asthma Heart disease Mother Cancer Leukemia Surgical History history AV graft History of cardioversion (08/31/19) History of colonoscopy (~2014) History of hysterectomy History of intestinal bypass History of laparoscopic cholecystectomy history ORIF right hip Social History household members: children Smoking Status: Never smoker alcohol intake: never substance use type: does not use Physical Exam Narrative General: Ill-appearing woman who appears to be her stated age. HEENT: Normocephalic, atraumatic. Mucous membrane dry. Neck: Supple no JVD. Heart: Normal S1, S2. No rubs or murmurs. Lungs: Clear to auscultation bilaterally. Abdomen: Normal bowel sounds, soft, nontender, no guarding or rebound. Extremity: Trace lower extremity edema. No clubbing or cyanosis. Full passive range of motion. Skin: No rash. Skin is warm and dry. Neurologic: No focal neurologic deficit. Psychiatric: Normal mood and affect. Lab / Micro Data Result Diagrams: 07/13/21 11:55 07/13/21 04:55 Labs: Laboratory Results - last 24 hr 07/13/21 04:55: WBC 3.9 L, RBC 2.66 L, Hgb 9.6 L, Hct 31.5 L, MCV 118.4 H, MCH 36.1 H, MCHC 30.5 L, RDW Std Deviation 62.5 H, RDW Coeff of Yoana 14.6, Plt Count 123 L, MPV 12.5 H, Immature Gran % (Auto) 0.500, Neut % (Auto) 55.1, Lymph % (Auto) 35.3, [place] % (Auto) 6.3, Eos % (Auto) 1.8, Baso % (Auto) 1.0, Absolute Neuts (auto) 2.2, Absolute Lymphs (auto) 1.39, Nucleated RBC % 0 07/13/21 04:55: Sodium 139, Potassium 5.0, Chloride 103, Carbon Dioxide 25.0, Anion Gap 11, BUN 47 H, Creatinine 7.89 H*, Estim Creat Clear Calc 6.08, Est GFR (MDRD) Af Amer 6 L, Est GFR (MDRD) Non-Af 5 L, BUN/Creatinine Ratio 6.0 L, Glucose 93, Calcium 9.0, Troponin I High Sens 20.8 07/13/21 04:55: Magnesium 1.8 07/13/21 11:55: Hgb 8.5 L, Hct 27.2 L Micro: Microbiology 07/13/21 05:31 Stool Stool Occult Blood (KIRA) - Final Occult Blood Positive Radiology Impression Ribs w/Chest X-Ray 07/13/21 05:01 IMPRESSION: RIBS: 1 views showing possible nondisplaced fracture of anterior right rib 6. Minimal right lower lobe atelectasis. CHEST: Minimal right lower lobe atelectasis. Electronically Signed: Vanessa Bills MD at 5:55 EDT Tel , Service support ,
[2021-07-13] MEDS: Gelatin Sponge Absorbable 50cm (1) 1 EACH TOPICAL (16:00)
--- NOTE | 2021-07-13 16:44 | DIALYSIS ---
Hemodialysis x 3.5hrs. -1500ml UF. Stable t/o. Tolerated well. Gelfoam used to assist with hemostasis d/t pt report of having prolonged bleeding of about 40min even post recent fistulagram. Hemostasis x 5 mins today with gelfoam use to both sites. Report to Dov CASTILLO. See HD flowsheet for further details.
[2021-07-13] MEDS: oxyCODONE 5 MG Tablet PO (17:46)
[2021-07-13] MEDS: Primidone 250 MG Tablet PO ×2 (22:28)
[2021-07-13] MEDS: clonazePAM 0.5 MG Tablet PO (22:29)
[2021-07-13] MEDS: Metoprolol Tartrate 25 MG Tablet PO (22:29)
[2021-07-14] VITALS (12 sets, daily range): BP systolic 101–129; BP diastolic 52–64; PULSE 70–131; RESP 15–18; TEMP 36.4–36.8; O2SAT 93–97
[2021-07-14] MEDS: oxyCODONE 5 MG Tablet PO (01:34)
--- NOTE | 2021-07-14 09:30 | CASEMGMT ---
Addendum entered by Serg Dan 07/14/21 17:41: PT/OT notes have been reviewed. ANNA NOE back to room to talk w/pt. Pt continues to state she wishes to return home. Discussed option of HHC and pt declines this as well, stating, I do stuff at home on my own. I have exercises I do. Pt made aware, if she decides later that she would like HHC, to discuss this w/her PCP. She voices understanding. Pt provided w/list of local [facility] agencies. Original Note: ANNA NOE NOTE: Dr Álvarez voices concern w/pt going home, as she has been falling @ home. Noted PT/OT evals have not been done yet. ANNA NOE to room to discuss discharge planning. She states she has not OOB yet. Pt states, I'm going home. I'm not going to a fdc. No one's doing anything to find out why I'm falling. It's either home or hospice. I'm so tired of everything. Pt states she has been to SNF in the past and did not feel that the therapy helped and states, I'm doing my own therapy @ home on my own. Pt states her sister does live w/her, but she sleeps in the afternoon, but states she is able to awaken her if she needs help. Pt tearful throughout the conversation. Pt again stated, Home is the only place I'll go. Emotional support provided and active listening. Breakfast arrived while ANNA NOE in room. ANNA NOE informed pt would give her time to eat breakfast and therapy would be in to see her today. ANNA NOE or JOSEFINA to f/u w/pt after therapy works w/pt. Pushpa NASSAR RN, CM
[2021-07-14 09:41] LABS: Absolute Lymphocyte Count 1.16 X10^3/uL (0.83-4.51); Absolute Neutrophil Count 2.2 X10^3/uL (2.0-7.7); Basophil# 0.04 X10^3/uL; Basophil% 1.1 % (0-1); Eosinophil# 0.05 X10^3/uL; Eosinophils% 1.4 % (0-5); Hematocrit 30.8 % (37-47); Hemoglobin 9.3 g/dL (12.0-15.0); Lymphocyte # 1.16 X10^3/ul (0.83-4.51); Lymphocyte % 31.5 % (19-41); Mean Corp Hgb Conc 30.2 g/dL (32-36); Mean Corpuscular Hgb 35.6 pg (27.0-32.0); Mean Platelet Vol. 12.9 fl (6.2-12.0); Monocyte# 0.19 X10^3/uL; Monocyte% 5.2 % (0-10); NRBC Flagged by Analyzer 0 % (0-5); Neutrophil # 2.22 X10^3/uL (2.7-7.7); Neutrophil % 60.3 % (47-70); POSITIVE COUNT YES; Platelet Count 97 K/mm3 (150-450); RBC Distribution Width CV 14.5 % (11.6-14.6); RBC Distribution Width SD 62.4 fl (35.1-43.9); Red Blood Count 2.61 M/mm3 (4.2-5.4); White Blood Count 3.7 K/mm3 (4.4-11.0)
[2021-07-14 09:44] LABS: Differential Indicated SCAN CRITERIA MET
[2021-07-14 09:45] LABS: Platelet Estimate MOD DEC (ADEQ)
[2021-07-14 10:21] LABS: Anion Gap 8 (5-15); BUN 27 mg/dL (7-18); BUN/Creat Ratio 5.3 RATIO (10-20); Calcium,Total 8.4 mg/dL (8.5-10.1); Chloride 101 mmol/L (98-107); Creatinine, Serum 5.12 mg/dL (0.55-1.02); EST Glomerular Filtration Rate 9 mL/min (>60); Est Glom Filt Rate - Afr Amer 11 mL/min (>60); Estimated Creatinine Clearance 9.37 ml/min; Glucose 94 mg/dL (74-106); Potassium 4.4 mmol/L (3.5-5.1); Sodium Level 135 mmol/L (136-145)
[2021-07-14] MEDS: Loperamide 2 MG Capsule PO ×2 (10:50→17:13)
[2021-07-14] MEDS: Pantoprazole Sodium 40 MG Tablet PO (10:50)
[2021-07-14] MEDS: Calcium Acetate 667 MG Capsule PO (10:50)
[2021-07-14] MEDS: Metoprolol Tartrate 25 MG Tablet PO (10:50)
[2021-07-14] MEDS: Multivitamins,Therapeutic Tablet 1 TABLET PO (10:51)
[2021-07-14] MEDS: Fludrocortisone Acetate 0.1 MG Tablet PO (10:52)
[2021-07-14] MEDS: Potassium Chloride Oral Tablet 10 MEQ PO ×3 (10:52→17:13)
--- NOTE | 2021-07-14 11:18 | PCM.PN.HOSP ---
Documented by User: Paige Perez [employer]SIDE [employer]S SALESMAN, OUTSIDE [employer] SALESMAN-C 07/14/21 11:45 Subjective Subjective Patient seen and examined. States she has had diarrhea all morning. Patient tearful during exam and states that she continues to have diarrhea with weakness and falls, she just wants to go hospice. Denies abdominal pain. Denies fever, chills. Discussed discharge plan with patient and she states she is not going to a facility again. Objective Data Objective Data Vital Signs: Vital Signs Temp Pulse Resp BP Pulse Ox 97.5 F L 120 H 16 129/52 H 96 07/14/21 10:00 07/14/21 10:50 07/14/21 10:00 07/14/21 10:00 07/14/21 10:00 Oxygen Delivery Method Room Air Weight: 164 lb 3.91 oz Body Mass Index (BMI) 25.7 Intake & Output: Intake and Output for Last 24 Hours 07/12/21 07/13/21 07/14/21 23:59 23:59 23:59 Intake Total 1300 / 1450 200 / 200 Output Total 1500 / 1500 0 / 0 Balance -200 / -50 200 / 200 Lab / Micro Data Result Diagrams: 07/14/21 09:30 07/14/21 09:30 Labs: Laboratory Results - last 24 hr 07/13/21 11:55: Hgb 8.5 L, Hct 27.2 L 07/14/21 09:30: WBC 3.7 L, RBC 2.61 L, Hgb 9.3 L, Hct 30.8 L, MCV 118.0 H, MCH 35.6 H, MCHC 30.2 L, RDW Std Deviation 62.4 H, RDW Coeff of Yoana 14.5, Plt Count 97 L, MPV 12.9 H, Immature Gran % (Auto) 0.500, Neut % (Auto) 60.3, Lymph % (Auto) 31.5, [place] % (Auto) 5.2, Eos % (Auto) 1.4, Baso % (Auto) 1.1 H, Absolute Neuts (auto) 2.2, Absolute Lymphs (auto) 1.16, Nucleated RBC % 0, Platelet Estimate MOD DEC 07/14/21 09:30: Sodium 135 L, Potassium 4.4, Chloride 101, Carbon Dioxide 26.0, Anion Gap 8, BUN 27 H, Creatinine 5.12 H, Estim Creat Clear Calc 9.37, Est GFR (MDRD) Af Amer 11 L, Est GFR (MDRD) Non-Af 9 L, BUN/Creatinine Ratio 5.3 L, Glucose 94, Calcium 8.4 L, TSH 17.00 H Micro: Microbiology 07/13/21 05:31 Stool Stool Occult Blood (KIRA) - Final Occult Blood Positive Physical Exam Const alert, oriented x3 and no apparent distress Orientation / Consciousness: awake, oriented to person, oriented to place and oriented to time HEENT normocephalic and moist oral mucous membranes Eyes PERRL, EOMs intact bilaterally and conjunctivae normal Neck no lymphadenopathy Resp normal respiratory effort and clear to auscultation bilaterally Cardio regular rate, regular rhythm and no murmurs Peripheral Pulses: pulses 2+ throughout GI normal to inspection, nondistended, normoactive bowel sounds, non-tender and non-distended Extremity normal to inspection Skin no rashes or lesions noted Lesions: no lesions Rashes: no rashes Trauma: no lacerations or abrasions Neuro CN's II-XII intact bilaterally, no focal motor deficits, no sensory deficits noted and deep tendon reflexes 2+ bilaterally Psych mental status grossly normal Mood & Affect: depressed and tearful Assessment & Plan Assessment/Plan (1) Right rib fracture: QUALIFIERS: Encounter type: initial encounter Fracture type: closed Rib fracture type: single rib Qualified Code(s): S22.31XA - Fracture of one rib, right side, initial encounter for closed fracture (2) Recurrent falls: PLAN: 1. Debility, fall with right-sided chest pain secondary to nondisplaced fracture of the anterior right ribs 6-as needed pain regimen. PT/OT. Fall precautions. 2. Intractable diarrhea-ongoing for the past few months. Stool for C. difficile and enteric bacteriology pending. Suspect patient may have some type of underlying colitis as she has been having 5-10 stools per day for the past few months. Patient reports this has been leading to increased weakness and recurrent falls. She has been referred for outpatient scopes however has not been stable in the meantime to follow-up. We will begin budesonide 9 mg daily as well as scheduled Imodium if stools are negative. Outpatient follow-up for scope. 3. Elevated TSH-TSH 17. T3/T4 pending. Begin Synthroid 25 mcg daily. Will need repeat thyroid studies in 4 to 6 weeks. 4. End-stage renal disease on hemodialysis-nephrology consulted for dialysis management. 5. Chronic liver cirrhosis, associated pancytopenia-stable. On lactulose. 6. Chronic atrial fibrillation-not on anticoagulation due to recurrent falls and pancytopenia. Rate controlled. Continue metoprolol. 7. Depression/anxiety-on Trintellix, as needed clonazepam. 8. Chronic orthostatic hypotension-on midodrine. Unclear if patient is still on Florinef? DVT prophylaxis-SCDs Discharge planning: Patient does not feel strong enough to return home today however is currently declining SNF. States she wants to go home or with hospice. Case management consulted. This patient was seen by MINGO Sanders under the supervision of Dr. Álvarez. Documented by User: Dr. Robbie Álvarez MD 07/14/21 13:00 Objective Data Lab / Micro Data Result Diagrams: 07/14/21 09:30 07/14/21 09:30 Assessment & Plan Addt'l Comments This patient was seen in conjunction with MINGO Sanders . I have independently interviewed and examined the patient and reviewed pertinent historical, laboratory, and other data. Please refer to MINGO Sanders note for details of this patient's presentation, findings, and recommendations. I have reviewed MINGO Sanders note and concur with documented findings. In brief, Patient is a 75-year-old lady with history symptom for end renal disease on hemodialysis, chronic diarrhea who presented following a fall. Imaging studies obtained demonstrated nondisplaced fracture of anterior right rib 6 Physical Examination: GENERAL: cooperative HEENT: Atraumatic; EYES; Anicteric, Normal Conjunctiva NECK; supple, normal thyroid, RESPIRATORY: Diminished to auscultation CARDIOVASCULAR: Regular S1 S2, GI: soft, normoactive bowel sounds, : No Renal angle tenderness; EXTREMITIES: No edema, no clubbing, MUSCULOSKELETAL: no muscle waisting NEURO: Awake; no lateralizing signs. SKIN: No Rash PSYCH; Flat affect Assessment: Fall with right-sided chest pain ?nondisplaced fracture of anterior right rib 6 2. Chronic diarrhea 3. End-stage renal disease 4. Cirrhosis of the liver 5. Chronic A. fib 6. Hypothyroidism 7. Physical deconditioning Recommendations: 1. I have discussed the results of my overview and impressions with the patient 2. Options for management were reviewed Charges/Coding Visit Charges Inpatient E&M: 79387 Subs Hosp L2
[2021-07-14 11:36] LABS: T4 Free Direct 0.74 ng/dL (0.76-1.46)
[2021-07-14] MEDS: Midodrine HCl 5 MG Tablet 40 MG PO ×2 (12:08→17:12)
[2021-07-14] MEDS: Primidone 250 MG Tablet PO ×2 (12:18→19:34)
[2021-07-14] MEDS: Levothyroxine 25 MCG TABLET PO (12:18)
[2021-07-14] MEDS: Budesonide 3 MG CAPSULE.EC 9 MG PO (14:55)
--- NOTE | 2021-07-14 18:19 | CM.ED ---
SW Note Referral Source: CM Referral Reason: Tearful JOSEFINA met with patient. Patient talked about how she is falling frequently and doesn't know why. Patient also said that she has hope that the doctors will be able to identify what is happening. Patient resides with her sister, nephew and nephews girlfriend and . Patient reports she lives on the ground floor. Patient talked about how her sister is a support but she has limited contact with her nieces who work nights and live out of town. SW talked about patient talking to counselor to obtain support. Patient said that she would think about it but declined a list of counselors. SW provided support for patient. Patient reports that she is grieving the life she thought she would have and what life she currently has now. SW remains available if further needs arise. Plan: Emotional support provided. Agatha ASHFORD
[2021-07-14] MEDS: VORTIOXETINE HYDROBROMIDE 20 MG TABLET PO (22:23)
[2021-07-14] MEDS: 0.9% Saline Lock 10 ML Syringe IV (22:25)
[2021-07-14] MEDS: clonazePAM 0.5 MG Tablet PO (22:27)
[2021-07-15 00:59] VITALS: PULSE 82
[2021-07-15 05:29] VITALS: BP 108/68; PULSE 68; RESP 18; TEMP 36.1; O2SAT 93
[2021-07-15] MEDS: Levothyroxine 25 MCG TABLET PO (05:39)
[2021-07-15 06:40] LABS: Absolute Lymphocyte Count 1.08 X10^3/uL (0.83-4.51); Absolute Neutrophil Count 2.1 X10^3/uL (2.0-7.7); Basophil# 0.03 X10^3/uL; Basophil% 0.8 % (0-1); Eosinophil# 0.07 X10^3/uL; Eosinophils% 1.9 % (0-5); Hematocrit 26.5 % (37-47); Hemoglobin 8.3 g/dL (12.0-15.0); Lymphocyte # 1.08 X10^3/ul (0.83-4.51); Lymphocyte % 30.1 % (19-41); Mean Corp Hgb Conc 31.3 g/dL (32-36); Mean Corpuscular Hgb 36.2 pg (27.0-32.0); Mean Corpuscular Volume 115.7 fL (81-99); Monocyte# 0.26 X10^3/uL; Monocyte% 7.2 % (0-10); NRBC Flagged by Analyzer 0 % (0-5); Neutrophil # 2.14 X10^3/uL (2.7-7.7); Neutrophil % 59.7 % (47-70); POSITIVE COUNT YES; Platelet Count 97 K/mm3 (150-450); RBC Distribution Width CV 14.3 % (11.6-14.6); RBC Distribution Width SD 60.2 fl (35.1-43.9); Red Blood Count 2.29 M/mm3 (4.2-5.4); White Blood Count 3.6 K/mm3 (4.4-11.0)
[2021-07-15 07:21] LABS: Anion Gap 10 (5-15); BUN 37 mg/dL (7-18); Chloride 102 mmol/L (98-107); Creatinine, Serum 6.16 mg/dL (0.55-1.02); EST Glomerular Filtration Rate 7 mL/min (>60); Est Glom Filt Rate - Afr Amer 9 mL/min (>60); Estimated Creatinine Clearance 7.79 ml/min; Glucose 88 mg/dL (74-106); Potassium 4.3 mmol/L (3.5-5.1); Sodium Level 136 mmol/L (136-145)
[2021-07-15 08:06] VITALS: PULSE 89
[2021-07-15 08:11] VITALS: O2SAT 96
[2021-07-15] MEDS: Multivitamins,Therapeutic Tablet 1 TABLET PO (08:34)
[2021-07-15] MEDS: Potassium Chloride Oral Tablet 10 MEQ PO (08:35)
[2021-07-15] MEDS: Midodrine HCl 5 MG Tablet 40 MG PO (08:35)
[2021-07-15] MEDS: Budesonide 3 MG CAPSULE.EC 9 MG PO (08:36)
[2021-07-15] MEDS: Primidone 250 MG Tablet PO (08:37)
--- NOTE | 2021-07-15 10:07 | PCM.DC ---
Discharge Instructions Diet Discharge Diet: Renal Diet Activity Discharge Activity: Return to Normal Activity Dressing / Incision Call your doctor if you observe: Shortness of breath, Dizziness, Chest pain and - (Intractable diarrhea) Follow Up Care Test Results: Test results from this visit will be discussed in further detail at your follow-up appointment, if applicable. Discharge Plan Admission Admit Date/Time: 07/13/21 06:45 Primary Reason for Your Visit: Intractable diarrhea, weakness with fall Attending Provider: Robbie Álvarez Primary Care Provider: Mitchell Appiah Consulting Providers: Willy Vela Instructions Additional Instructions / Restrictions: Recommend outpatient follow up with Dr. Peguero in 1-2 weeks for colonoscopy with biopsy to further evaluate diarrhea. I suspect you may have a type of microscopic colitis since your symptoms improved rapidly with budesonide (steroid). Your thyroid labs indicate hypothyroidism. You were started on levothyroxine 25 mcg daily and will need repeat thyroid function labs in 4 to 6 weeks by primary care provider. Discharge Orders/Prescriptions Prescriptions: New levothyroxine 25 mcg Tablet 25 mcg PO 0600 Qty: 30 RF: 0 budesonide 9 mg capsule, extended release 9 mg PO DAILY Qty: 30 RF: 0 Continued calcium acetate(phosphat bind) 667 mg capsule 667 mg PO TIDCM RF: 0 midodrine 10 mg tablet 40 mg PO TID RF: 0 promethazine 25 mg tablet 25 mg PO Q6H PRN (Reason: Nausea) RF: 0 diclofenac sodium [Voltaren] 1 % gel 2 g TOPICAL DIRECTED PRN (Reason: arthritis) RF: 0 potassium chloride 10 mEq tablet extended release 10 meq PO TID RF: 0 primidone 50 MG tablet 250 mg PO TID RF: 0 meclizine 25 mg Tablet 25 mg PO TID PRN (Reason: Dizziness) RF: 0 pantoprazole [Protonix] 40 mg Tablet,Delayed Release (Dr/Ec) 40 mg PO DAILY RF: 0 Trintellix 20 mg Tablet 20 mg PO QHS RF: 0 clonazepam 0.5 mg Tablet 0.5 - 1 mg PO QHS PRN (Reason: Insomnia) RF: 0 metoprolol tartrate 25 mg Tablet 25 mg PO BID RF: 0 multivitamin Tablet 1 tab PO DAILY RF: 0 loperamide 2 mg Capsule 2 mg PO Q6H PRN (Reason: health maintenance) RF: 0 cholestyramine-aspartame 4 gram Powder In Packet 4 g PO BID RF: 0 hydrocodone-acetaminophen 5-325 mg Tablet 1 tab PO Q6H PRN (Reason: Pain) RF: 0 gabapentin 100 mg Capsule 200 mg PO QMWF RF: 0 fluticasone propionate 50 mcg/actuation [place],Suspension 1 spray INTRANASAL BID RF: 0 lactulose 20 gram/30 mL solution 30 ml PO DAILY RF: 0 Discontinued fludrocortisone 0.1 mg tablet 0.1 mg PO DAILY RF: 0 Referrals / Follow Up: Matthew Salcedo MD [STAFF PHYSICIAN] - See Referral Note (As scheduled for nephrology follow-up and dialysis.) Mitchell Appiah MD [Primary Care Provider] - In 1 Week Bay Peguero MD [STAFF PHYSICIAN] - Within 2 Weeks (Call for outpatient colonoscopy with biopsy. ) Disposition Disposition (needs filled in before D/C Order can be placed): Home, Self Care
[2021-07-15 10:17] VITALS: BP 121/55; PULSE 97; RESP 16; TEMP 36.6; O2SAT 98
--- NOTE | 2021-07-15 10:20 | DS.PCM_ITS ---
Documented by User: Paige Perez NP, [employer]EING-C 07/15/21 10:26 Providers Date of Admission: 07/13/21 Date of Discharge: 07/15/21 Primary Care Physician: Dr. Mitchell Appiah MD Consultations 07/13/21 08:08 Consult: Nephrology Routine Consulting Provider: Willy Vela Reason for Consult: ESRD ON HD EMERGENT Consult: No Notified: Yes Date Notified: 07/13/21 Time Notified: 09:02 Method of Notification: Answering Service Consult: Nephrology Routine Consulting Provider: Willy Vela Reason for Consult: ESRD ON HD EMERGENT Consult: No Notified: Yes Date Notified: 07/13/21 Time Notified: 09:03 Method of Notification: Answering Service Reason For Visit: FALL, DIARRHEA Diagnosis Discharge Diagnosis (1) Right rib fracture: Status: Acute Code(s): S22.31XA - Fracture of one rib, right side, initial encounter for closed fracture Qualifiers: Encounter type: initial encounter Fracture type: closed Rib fracture type: single rib Qualified Code(s): S22.31XA - Fracture of one rib, right side, initial encounter for closed fracture (2) Recurrent falls: Status: Acute Code(s): R29.6 - Repeated falls Medications at Discharge Home Medications calcium acetate(phosphat bind) 667 mg capsule 667 mg PO TIDCM cap 07/24/18 midodrine 10 mg tablet 40 mg PO TID 07/24/18 diclofenac sodium 1 % topical gel 2 g TOPICAL DIRECTED PRN g 08/17/19 promethazine 25 mg tablet 25 mg PO Q6H PRN 08/17/19 potassium chloride 10 mEq tablet,extended release 10 meq PO TID 04/26/20 primidone 250 mg PO TID 10/06/20 Trintellix 20 mg PO QHS 05/09/21 clonazepam 0.5 - 1 mg PO QHS PRN 05/09/21 meclizine 25 mg PO TID PRN 05/09/21 metoprolol tartrate 25 mg PO BID 05/09/21 pantoprazole [Protonix] 40 mg PO DAILY 05/09/21 cholestyramine-aspartame 4 g PO BID 07/13/21 fluticasone propionate 1 spray INTRANASAL BID 07/13/21 gabapentin 200 mg PO QMWF 07/13/21 hydrocodone-acetaminophen 1 tab PO Q6H PRN 07/13/21 lactulose 30 ml PO DAILY 07/13/21 loperamide 2 mg PO Q6H PRN 07/13/21 multivitamin 1 tab PO DAILY 07/13/21 budesonide 9 mg PO DAILY #30 cap 07/15/21 levothyroxine 25 mcg PO 0600 #30 tab 07/15/21 Hospital Course Operations None Procedures None Summary of Care Provided Minutes Spent on Discharge: 35 Hospital Course: Patient is a 75-year-old female admitted 07/13/2021 due to fall with right chest pain as well as ongoing intractable diarrhea. 1. Debility, fall with right-sided chest pain secondary to nondisplaced fracture of the anterior right ribs 6-as needed pain regimen. Patient declines SNF. Case management to follow-up for potential home health/therapies. Patient reports recent worsening of weakness with fall related to intractable diarrhea which improved during admission as noted below. Follow-up with PCP in 1 week. 2. Intractable diarrhea-ongoing for the past few months. Stool for C. difficile and enteric bacteriology negative. Suspect patient may have type of underlying microscopic colitis as she has been having 5-10 stools per day for the past few months which has been debilitating for patient. Patient reports this has been leading to increased weakness and recurrent falls. She has been referred for outpatient scopes however has not been stable in the meantime to follow-up. Patient was started on budesonide 9 mg daily with rapid improvement in symptoms. Plan to continue budesonide at discharge with outpatient scope/biopsy, patient has had colonoscopy by Dr. Peguero in the past. If biopsy confirms microscopic colitis, would plan to continue budesonide for 6 to 8 weeks. 3. Hypothyroidism, new diagnosis-TSH 17. T4 0.74, T3 2. Initiated on Synthroid 25 mcg daily. Will need repeat thyroid studies in 4 to 6 weeks by PCP. 4. End-stage renal disease on hemodialysis-nephrology consulted for dialysis management. 5. Chronic liver cirrhosis, associated pancytopenia-stable. On lactulose which patient states she does not take routinely. 6. Chronic atrial fibrillation-not on anticoagulation due to recurrent falls and pancytopenia. Rate controlled. Continue metoprolol. 7. Depression/anxiety-on Trintellix, as needed clonazepam. 8. Chronic orthostatic hypotension-on midodrine. Patient previously on Florinef which she is no longer taking. Physical Exam Const alert, oriented x3 and no apparent distress Orientation / Consciousness: awake, oriented to person, oriented to place and oriented to time HEENT normocephalic and moist oral mucous membranes Eyes PERRL, EOMs intact bilaterally and conjunctivae normal Neck no lymphadenopathy Resp normal respiratory effort and clear to auscultation bilaterally Cardio regular rate, regular rhythm and no murmurs Peripheral Pulses: pulses 2+ throughout GI normal to inspection, nondistended, normoactive bowel sounds, non-tender and non-distended Extremity normal to inspection Skin no rashes or lesions noted Lesions: no lesions Rashes: no rashes Trauma: no lacerations or abrasions Neuro CN's II-XII intact bilaterally, no focal motor deficits, no sensory deficits noted and deep tendon reflexes 2+ bilaterally Psych mental status grossly normal Mood & Affect: normal affect Patient seen and examined prior to discharge. Physical assessment as noted above. Patient is stable for discharge with follow up recommendations as noted above. This patient was seen by MINGO Sanders under the supervision of Dr. Álvarez. Medical Records Data Medical Nutrition Assessment Dietitian: Nutrition Therapy Diagnosis Start: 07/14/21 16:08 Freq: Status: Active Protocol: Document 07/14/21 16:16 (Rec: 07/14/21 16:16 [id number]) Nutrition Malnutrition Evidence of Malnutrition Exists No Intake Problem Inadequate Oral Intake Etiology r/t altered GI function w/ increased nutrient needs d/t ESRD on HD Signs/Symptoms as evidenced by reported decreased appetite, estimated PO intake meeting <75% of estimated needs x 3 months Status Active Problem Recommendation Dietitian Recommendations/Changes continue cardiac, soft/bite sized texture per AUTO AIR CONDITIONING APPRENTICE. Will monitor need for oral nutrition supplements. Daily wts d/t dialysis. Weight / BMI Weight Weight: 166 lb 14.239 oz Body Mass Index (BMI) 25.7 ABG / Lab / Microbiology Data Result Diagrams: 07/15/21 05:29 07/15/21 05:29 Laboratory: Laboratory Results - last 24 hr 07/14/21 09:30: Sodium 135 L, Potassium 4.4, Chloride 101, Carbon Dioxide 26.0, Anion Gap 8, BUN 27 H, Creatinine 5.12 H, Estim Creat Clear Calc 9.37, Est GFR (MDRD) Af Amer 11 L, Est GFR (MDRD) Non-Af 9 L, BUN/Creatinine Ratio 5.3 L, Glucose 94, Calcium 8.4 L, TSH 17.00 H 07/14/21 09:30: Free T4 0.74 L, Free T3 pg/dL 2.0 L 07/15/21 05:29: WBC 3.6 L, RBC 2.29 L, Hgb 8.3 L, Hct 26.5 L, MCV 115.7 H, MCH 36.2 H, MCHC 31.3 L, RDW Std Deviation 60.2 H, RDW Coeff of Yoana 14.3, Plt Count 97 L, MPV 13.0 H, Immature Gran % (Auto) 0.300, Neut % (Auto) 59.7, Lymph % (Auto) 30.1, [place] % (Auto) 7.2, Eos % (Auto) 1.9, Baso % (Auto) 0.8, Absolute Neuts (auto) 2.1, Absolute Lymphs (auto) 1.08, Nucleated RBC % 0 07/15/21 05:29: Sodium 136, Potassium 4.3, Chloride 102, Carbon Dioxide 24.0, Anion Gap 10, BUN 37 H, Creatinine 6.16 H, Estim Creat Clear Calc 7.79, Est GFR (MDRD) Af Amer 9 L, Est GFR (MDRD) Non-Af 7 L, BUN/Creatinine Ratio 6.0 L, Glucose 88, Calcium 8.0 L Microbiology: Microbiology 07/14/21 07:00 Stool C. difficile DNA Amplification - Final 07/14/21 07:00 Stool Enteric Bacteriology - Final 07/13/21 05:31 Stool Stool Occult Blood (KIRA) - Final Occult Blood Positive D/C Instructions Discharge Diet: Renal Diet Call your doctor if you observe: Shortness of breath, Dizziness, Chest pain and - (Intractable diarrhea) Meaningful Use Info Meaningful Use Diagnoses (Choose all that apply): None applicable Discharge Plan Admission Admit Date/Time: 07/13/21 06:45 Primary Reason for Your Visit: Intractable diarrhea, weakness with fall Attending Provider: Robbie Álvarez Primary Care Provider: Mitchell Appiah Consulting Providers: Willy Vela Instructions Additional Instructions / Restrictions: Recommend outpatient follow up with Dr. Peguero in 1-2 weeks for colonoscopy with biopsy to further evaluate diarrhea. I suspect you may have a type of microscopic colitis since your symptoms improved rapidly with budesonide (steroid). Your thyroid labs indicate hypothyroidism. You were started on levothyroxine 25 mcg daily and will need repeat thyroid function labs in 4 to 6 weeks by primary care provider. Discharge Orders/Prescriptions Prescriptions: New levothyroxine 25 mcg Tablet 25 mcg PO 0600 Qty: 30 RF: 0 budesonide 9 mg capsule, extended release 9 mg PO DAILY Qty: 30 RF: 0 Continued calcium acetate(phosphat bind) 667 mg capsule 667 mg PO TIDCM RF: 0 midodrine 10 mg tablet 40 mg PO TID RF: 0 promethazine 25 mg tablet 25 mg PO Q6H PRN (Reason: Nausea) RF: 0 diclofenac sodium [Voltaren] 1 % gel 2 g TOPICAL DIRECTED PRN (Reason: arthritis) RF: 0 potassium chloride 10 mEq tablet extended release 10 meq PO TID RF: 0 primidone 50 MG tablet 250 mg PO TID RF: 0 meclizine 25 mg Tablet 25 mg PO TID PRN (Reason: Dizziness) RF: 0 pantoprazole [Protonix] 40 mg Tablet,Delayed Release (Dr/Ec) 40 mg PO DAILY RF: 0 Trintellix 20 mg Tablet 20 mg PO QHS RF: 0 clonazepam 0.5 mg Tablet 0.5 - 1 mg PO QHS PRN (Reason: Insomnia) RF: 0 metoprolol tartrate 25 mg Tablet 25 mg PO BID RF: 0 multivitamin Tablet 1 tab PO DAILY RF: 0 loperamide 2 mg Capsule 2 mg PO Q6H PRN (Reason: health maintenance) RF: 0 cholestyramine-aspartame 4 gram Powder In Packet 4 g PO BID RF: 0 hydrocodone-acetaminophen 5-325 mg Tablet 1 tab PO Q6H PRN (Reason: Pain) RF: 0 gabapentin 100 mg Capsule 200 mg PO QMWF RF: 0 fluticasone propionate 50 mcg/actuation [place],Suspension 1 spray INTRANASAL BID RF: 0 lactulose 20 gram/30 mL solution 30 ml PO DAILY RF: 0 Discontinued fludrocortisone 0.1 mg tablet 0.1 mg PO DAILY RF: 0 Referrals / Follow Up: Mattehw Salcedo MD [STAFF PHYSICIAN] - See Referral Note (As scheduled for nephrology follow-up and dialysis.) Mitchell Appiah MD [Primary Care Provider] - In 1 Week Bay Peguero MD [STAFF PHYSICIAN] - Within 2 Weeks (Call for outpatient colonoscopy with biopsy. ) Disposition Disposition (needs filled in before D/C Order can be placed): Home, Self Care Documented by User: Dr. Robbie Álvarez MD 07/15/21 11:30 Providers Date of Admission: 07/13/21 Reason For Visit: FALL, DIARRHEA Medications at Discharge Home Medications calcium acetate(phosphat bind) 667 mg capsule 667 mg PO TIDCM cap 07/24/18 midodrine 10 mg tablet 40 mg PO TID 07/24/18 diclofenac sodium 1 % topical gel 2 g TOPICAL DIRECTED PRN g 08/17/19 promethazine 25 mg tablet 25 mg PO Q6H PRN 08/17/19 potassium chloride 10 mEq tablet,extended release 10 meq PO TID 04/26/20 primidone 250 mg PO TID 10/06/20 Trintellix 20 mg PO QHS 05/09/21 clonazepam 0.5 - 1 mg PO QHS PRN 05/09/21 meclizine 25 mg PO TID PRN 05/09/21 metoprolol tartrate 25 mg PO BID 05/09/21 pantoprazole [Protonix] 40 mg PO DAILY 05/09/21 cholestyramine-aspartame 4 g PO BID 07/13/21 fluticasone propionate 1 spray INTRANASAL BID 07/13/21 gabapentin 200 mg PO QMWF 07/13/21 hydrocodone-acetaminophen 1 tab PO Q6H PRN 07/13/21 lactulose 30 ml PO DAILY 07/13/21 loperamide 2 mg PO Q6H PRN 07/13/21 multivitamin 1 tab PO DAILY 07/13/21 budesonide 9 mg PO DAILY #30 cap 07/15/21 levothyroxine 25 mcg PO 0600 #30 tab 07/15/21 Hospital Course Operations None Summary of Care Provided Hospital Course: This patient was seen in conjunction with MINGO Sanders . I have independently interviewed and examined the patient and reviewed pertinent historical, laboratory, and other data. Please refer to MINGO Sanders note for details of this patient's presentation, findings, and recommendations. I have reviewed MINGO Sanders note and concur with documented findings. In brief, Patient is a 75-year-old lady with history symptom for end renal disease on hemodialysis, chronic diarrhea who presented following a fall. Imaging studies obtained demonstrated nondisplaced fracture of anterior right rib 6 Assessment: Fall with right-sided chest pain ?nondisplaced fracture of anterior right rib 6 2. Chronic diarrhea 3. End-stage renal disease 4. Cirrhosis of the liver 5. Chronic A. fib 6. Hypothyroidism 7. Physical deconditioning Hospital course: As documented above ABG / Lab / Microbiology Data Result Diagrams: 07/15/21 05:29 07/15/21 05:29 Discharge Plan Admission Admit Date/Time: 07/13/21 06:45 Primary Reason for Your Visit: Intractable diarrhea, weakness with fall Attending Provider: Robbie Álvarez Primary Care Provider: Mitchell Appiah Consulting Providers: Willy Vela Instructions Additional Instructions / Restrictions: Recommend outpatient follow up with Dr. Peguero in 1-2 weeks for colonoscopy with biopsy to further evaluate diarrhea. I suspect you may have a type of microsco pic colitis since your symptoms improved rapidly with budesonide (steroid). Your thyroid labs indicate hypothyroidism. You were started on levothyroxine 25 mcg daily and will need repeat thyroid function labs in 4 to 6 weeks by primary care provider. Discharge Orders/Prescriptions Prescriptions: New levothyroxine 25 mcg Tablet 25 mcg PO 0600 Qty: 30 RF: 0 budesonide 9 mg capsule, extended release 9 mg PO DAILY Qty: 30 RF: 0 Continued calcium acetate(phosphat bind) 667 mg capsule 667 mg PO TIDCM RF: 0 midodrine 10 mg tablet 40 mg PO TID RF: 0 promethazine 25 mg tablet 25 mg PO Q6H PRN (Reason: Nausea) RF: 0 diclofenac sodium [Voltaren] 1 % gel 2 g TOPICAL DIRECTED PRN (Reason: arthritis) RF: 0 potassium chloride 10 mEq tablet extended release 10 meq PO TID RF: 0 primidone 50 MG tablet 250 mg PO TID RF: 0 meclizine 25 mg Tablet 25 mg PO TID PRN (Reason: Dizziness) RF: 0 pantoprazole [Protonix] 40 mg Tablet,Delayed Release (Dr/Ec) 40 mg PO DAILY RF: 0 Trintellix 20 mg Tablet 20 mg PO QHS RF: 0 clonazepam 0.5 mg Tablet 0.5 - 1 mg PO QHS PRN (Reason: Insomnia) RF: 0 metoprolol tartrate 25 mg Tablet 25 mg PO BID RF: 0 multivitamin Tablet 1 tab PO DAILY RF: 0 loperamide 2 mg Capsule 2 mg PO Q6H PRN (Reason: health maintenance) RF: 0 cholestyramine-aspartame 4 gram Powder In Packet 4 g PO BID RF: 0 hydrocodone-acetaminophen 5-325 mg Tablet 1 tab PO Q6H PRN (Reason: Pain) RF: 0 gabapentin 100 mg Capsule 200 mg PO QMWF RF: 0 fluticasone propionate 50 mcg/actuation [place],Suspension 1 spray INTRANASAL BID RF: 0 lactulose 20 gram/30 mL solution 30 ml PO DAILY RF: 0 Discontinued fludrocortisone 0.1 mg tablet 0.1 mg PO DAILY RF: 0 Referrals / Follow Up: Matthew Salcedo MD [STAFF PHYSICIAN] - See Referral Note (As scheduled for nephrology follow-up and dialysis.) Mitchell Appiah MD [Primary Care Provider] - In 1 Week Bay Peguero MD [STAFF PHYSICIAN] - Within 2 Weeks (Call for outpatient colonoscopy with biopsy. ) Disposition Disposition (needs filled in before D/C Order can be placed): Home, Self Care Charges/Coding Visit Charges Inpatient E&M: 39310 Disch Hosp Hospital Course Consultations Consultations: Consultations 07/13/21 08:08 Consult: Nephrology Routine Consulting Provider: Willy Vela Reason for Consult: ESRD ON HD EMERGENT Consult: No Notified: Yes Date Notified: 07/13/21 Time Notified: 09:02 Method of Notification: Answering Service Consult: Nephrology Routine Consulting Provider: Willy Vela Reason for Consult: ESRD ON HD EMERGENT Consult: No Notified: Yes Date Notified: 07/13/21 Time Notified: 09:03 Method of Notification: Answering Service Operations None
[2021-07-15 10:21] VITALS: BP 121/55; PULSE 97
[2021-07-15] MEDS: Metoprolol Tartrate 25 MG Tablet PO (10:21)
[2021-07-15] MEDS: Pantoprazole Sodium 40 MG Tablet PO (10:21)
--- NOTE | 2021-07-15 10:51 | PCM.PN.REN ---
Subjective Subjective Following for ESRD. The patient feels well today. Diarrhea has markedly improved. She denies chest pain or shortness of breath. Objective Data Objective Data Vital Signs: Vital Signs Temp Pulse Resp BP Pulse Ox 97.9 F 97 16 121/55 H 98 07/15/21 10:17 07/15/21 10:21 07/15/21 10:17 07/15/21 10:21 07/15/21 10:17 Oxygen Delivery Method Room Air Weight: 75.7 kg Body Mass Index (BMI) 25.7 Intake & Output: Intake and Output for Last 24 Hours 07/13/21 07/14/21 07/15/21 23:59 23:59 23:59 Intake Total 1300 / 1450 200 / 250 50 / 50 Output Total 1500 / 1500 0 / 0 0 / 0 Balance -200 / -50 200 / 250 50 / 50 Medical Nutrition Assessment Dietitian: Nutrition Therapy Diagnosis Start: 07/14/21 16:08 Freq: Status: Active Protocol: Document 07/14/21 16:16 AG (Rec: 07/14/21 16:16 [id number]) Nutrition Malnutrition Evidence of Malnutrition Exists No Intake Problem Inadequate Oral Intake Etiology r/t altered GI function w/ increased nutrient needs d/t ESRD on HD Signs/Symptoms as evidenced by reported decreased appetite, estimated PO intake meeting <75% of estimated needs x 3 months Status Active Problem Recommendation Dietitian Recommendations/Changes continue cardiac, soft/bite sized texture per HYDRAULIC PRESS TENDER. Will monitor need for oral nutrition supplements. Daily wts d/t dialysis. Lab / Micro Data Result Diagrams: 07/15/21 05:29 07/15/21 05:29 Labs: Laboratory Results - last 24 hr 07/14/21 09:30: Free T4 0.74 L, Free T3 pg/dL 2.0 L 07/15/21 05:29: WBC 3.6 L, RBC 2.29 L, Hgb 8.3 L, Hct 26.5 L, MCV 115.7 H, MCH 36.2 H, MCHC 31.3 L, RDW Std Deviation 60.2 H, RDW Coeff of Yoana 14.3, Plt Count 97 L, MPV 13.0 H, Immature Gran % (Auto) 0.300, Neut % (Auto) 59.7, Lymph % (Auto) 30.1, [place] % (Auto) 7.2, Eos % (Auto) 1.9, Baso % (Auto) 0.8, Absolute Neuts (auto) 2.1, Absolute Lymphs (auto) 1.08, Nucleated RBC % 0 07/15/21 05:29: Sodium 136, Potassium 4.3, Chloride 102, Carbon Dioxide 24.0, Anion Gap 10, BUN 37 H, Creatinine 6.16 H, Estim Creat Clear Calc 7.79, Est GFR (MDRD) Af Amer 9 L, Est GFR (MDRD) Non-Af 7 L, BUN/Creatinine Ratio 6.0 L, Glucose 88, Calcium 8.0 L Micro: Microbiology 07/14/21 07:00 Stool C. difficile DNA Amplification - Final 07/14/21 07:00 Stool Enteric Bacteriology - Final 07/13/21 05:31 Stool Stool Occult Blood (KIRA) - Final Occult Blood Positive Physical Exam Narrative General: NAD. HEENT: Normocephalic, atraumatic. Mucous membrane dry. Neck: Supple no JVD. Heart: Normal S1, S2. No rubs or murmurs. Lungs: Clear to auscultation bilaterally. Abdomen: Normal bowel sounds, soft, nontender, no guarding or rebound. Extremity: Trace lower extremity edema. No clubbing or cyanosis. Full passive range of motion. Skin: No rash. Skin is warm and dry. Neurologic: No focal neurologic deficit. Psychiatric: Normal mood and affect. Assessment & Plan Assessment/Plan (1) ESRD (end stage renal disease) on dialysis: PLAN: The patient usually dialyzes at [facility] [place] on Friday, Friday and Friday schedule. Dr. Salcedo is her outpatient monitor car operator. The patient can return to her outpatient dialysis center tomorrow for the usual dialysis since she is being discharged. (2) Right rib fracture: QUALIFIERS: Encounter type: initial encounter Rib fracture type: single rib Fracture type: closed Qualified Code(s): S22.31XA - Fracture of one rib, right side, initial encounter for closed fracture PLAN: Pain control as per primary service. (3) Anemia: PLAN: Hemoglobin is 8.3. She will get AISSATOU with dialysis tomorrow.
--- NOTE | 2021-07-15 10:54 | PCM.PN.REN ---
Subjective Subjective Following for ESRD. This is a late entry note for 07/14/2021. Diarrhea has improved but still present. There is no chest pain or shortness of breath. Rib pain is controlled. Objective Data Objective Data Vital Signs: Vital Signs Temp Pulse Resp BP Pulse Ox 97.9 F 97 16 121/55 H 98 07/15/21 10:17 07/15/21 10:21 07/15/21 10:17 07/15/21 10:21 07/15/21 10:17 Oxygen Delivery Method Room Air Weight: 75.7 kg Body Mass Index (BMI) 25.7 Intake & Output: Intake and Output for Last 24 Hours 07/13/21 07/14/21 07/15/21 23:59 23:59 23:59 Intake Total 1300 / 1450 200 / 250 50 / 50 Output Total 1500 / 1500 0 / 0 0 / 0 Balance -200 / -50 200 / 250 50 / 50 Medical Nutrition Assessment Dietitian: Nutrition Therapy Diagnosis Start: 07/14/21 16:08 Freq: Status: Active Protocol: Document 07/14/21 16:16 AG (Rec: 07/14/21 16:16 [id number]) Nutrition Malnutrition Evidence of Malnutrition Exists No Intake Problem Inadequate Oral Intake Etiology r/t altered GI function w/ increased nutrient needs d/t ESRD on HD Signs/Symptoms as evidenced by reported decreased appetite, estimated PO intake meeting <75% of estimated needs x 3 months Status Active Problem Recommendation Dietitian Recommendations/Changes continue cardiac, soft/bite sized texture per MENSWEAR SALESPERSON. Will monitor need for oral nutrition supplements. Daily wts d/t dialysis. Lab / Micro Data Result Diagrams: 07/15/21 05:29 07/15/21 05:29 Labs: Laboratory Results - last 24 hr 07/14/21 09:30: Free T4 0.74 L, Free T3 pg/dL 2.0 L 07/15/21 05:29: WBC 3.6 L, RBC 2.29 L, Hgb 8.3 L, Hct 26.5 L, MCV 115.7 H, MCH 36.2 H, MCHC 31.3 L, RDW Std Deviation 60.2 H, RDW Coeff of Yoana 14.3, Plt Count 97 L, MPV 13.0 H, Immature Gran % (Auto) 0.300, Neut % (Auto) 59.7, Lymph % (Auto) 30.1, [place] % (Auto) 7.2, Eos % (Auto) 1.9, Baso % (Auto) 0.8, Absolute Neuts (auto) 2.1, Absolute Lymphs (auto) 1.08, Nucleated RBC % 0 07/15/21 05:29: Sodium 136, Potassium 4.3, Chloride 102, Carbon Dioxide 24.0, Anion Gap 10, BUN 37 H, Creatinine 6.16 H, Estim Creat Clear Calc 7.79, Est GFR (MDRD) Af Amer 9 L, Est GFR (MDRD) Non-Af 7 L, BUN/Creatinine Ratio 6.0 L, Glucose 88, Calcium 8.0 L Micro: Microbiology 07/14/21 07:00 Stool C. difficile DNA Amplification - Final 07/14/21 07:00 Stool Enteric Bacteriology - Final 07/13/21 05:31 Stool Stool Occult Blood (KIRA) - Final Occult Blood Positive Physical Exam Narrative General: NAD. HEENT: Normocephalic, atraumatic. Mucous membrane dry. Neck: Supple no JVD. Heart: Normal S1, S2. No rubs or murmurs. Lungs: Clear to auscultation bilaterally. Abdomen: Normal bowel sounds, soft, nontender, no guarding or rebound. Extremity: Trace lower extremity edema. No clubbing or cyanosis. Full passive range of motion. Skin: No rash. Skin is warm and dry. Neurologic: No focal neurologic deficit. Psychiatric: Normal mood and affect. Assessment & Plan Assessment/Plan (1) ESRD (end stage renal disease) on dialysis: PLAN: The patient usually dialyzes at [facility] on Friday, Friday and Friday schedule. Dr. Salcedo is her outpatient port patrol officer. No need for dialysis today. Next dialysis is 07/16/2021. (2) Right rib fracture: QUALIFIERS: Encounter type: initial encounter Fracture type: closed Rib fracture type: single rib Qualified Code(s): S22.31XA - Fracture of one rib, right side, initial encounter for closed fracture PLAN: Pain control as per primary service. (3) Anemia: PLAN: Hemoglobin is 9.3. She will get AISSATOU with dialysis on 07/16/2021.
--- NOTE | 2021-07-16 14:07 | CASEMGMT ---
ANNA NOE Discharge Follow-up Phone Call: BERRYMaira: 12 Strata: 3 Call Date: 07/16/21 Discharge Date: 07/15/21 Time of Call: 1405 Duration: 5 min Admitting Diagnosis: Fall, diarrhea ANNA NOE completed follow-up phone call after recent hospitalization. Patient states she is doing much better. Patient has follow-up appt scheduled with PCP. Patient was able to fill prescriptions without any issues. Patient had no further questions or concerns at this time.
== END 2021-07-15 11:47 | disposition home or self-care (01) | DRG 205 ==
LOC: ED 06:57 → PCU 07:02
PROVIDERS: Nurse Practitioner Family; Admitting Provider Internal Medicine; Emergency Provider Emergency Medicine; PCP Family Medicine; Visit Provider Internal Medicine
DX: S22.31XA Fracture of one rib, right side, initial encounter for closed fracture (principal); N18.6 End stage renal disease; D61.818 Other pancytopenia; I12.0 Hypertensive chronic kidney disease with stage 5 chronic kidney disease or end stage renal disease; I48.20 Chronic atrial fibrillation, unspecified; J98.11 Atelectasis; K52.9 Noninfective gastroenteritis and colitis, unspecified; R29.6 Repeated falls; D75.82 Heparin induced thrombocytopenia (HIT); R53.81 Other malaise; W18.30XA Fall on same level, unspecified, initial encounter; Y93.9 Activity, unspecified; Y92.009 Unspecified place in unspecified non-institutional (private) residence as the place of occurrence of the external cause; Z99.2 Dependence on renal dialysis; D64.9 Anemia, unspecified; D70.9 Neutropenia, unspecified; K74.60 Unspecified cirrhosis of liver; E03.9 Hypothyroidism, unspecified; E11.22 Type 2 diabetes mellitus with diabetic chronic kidney disease; E78.00 Pure hypercholesterolemia, unspecified; F32.9 Major depressive disorder, single episode, unspecified; F41.9 Anxiety disorder, unspecified; G25.0 Essential tremor; I95.1 Orthostatic hypotension; M19.90 Unspecified osteoarthritis, unspecified site; Z87.19 Personal history of other diseases of the digestive system; Z87.442 Personal history of urinary calculi; Z86.010 Personal history of colon polyps; Z79.899 Other long term (current) drug therapy
CPT/HCPCS: 36415; 71101; 80048; 82274; 83735; 84439; 84443; 84481; 84484; 85014; 85018; 85025; 87493; 87506; 90937; 92610; 93005; 97162; 97166; 99251; 99285; J7030; A4216; G0257; G0463

== ENCOUNTER → 2021-08-09 08:37 | Outpatient (CLI) | payer MEDICARE, MEDICAID, SELFPAY ==
[2021-08-09 10:08] LABS: Absolute Lymphocyte Count 1.33 X10^3/uL (0.83-4.51); Absolute Neutrophil Count 2.4 X10^3/uL (2.0-7.7); Basophil# 0.03 X10^3/uL; Basophil% 0.7 % (0-1); Eosinophil# 0.04 X10^3/uL; Hematocrit 32.7 % (37-47); Lymphocyte # 1.33 X10^3/ul (0.83-4.51); Mean Corp Hgb Conc 30.6 g/dL (32-36); Mean Corpuscular Hgb 36.1 pg (27.0-32.0); Mean Corpuscular Volume 118.1 fL (81-99); Mean Platelet Vol. 13.1 fl (6.2-12.0); Monocyte# 0.33 X10^3/uL; Monocyte% 7.9 % (0-10); NRBC Flagged by Analyzer 0 % (0-5); Neutrophil # 2.42 X10^3/uL (2.7-7.7); Neutrophil % 58.2 % (47-70); POSITIVE MORPHOLOGY YES; Platelet Count 107 K/mm3 (150-450); RBC Distribution Width CV 16.1 % (11.6-14.6); Red Blood Count 2.77 M/mm3 (4.2-5.4); White Blood Count 4.2 K/mm3 (4.4-11.0)
[2021-08-09 10:36] LABS: Differential Indicated SCAN CRITERIA MET
[2021-08-09 10:39] LABS: Anisocytosis 1+
[2021-08-09 10:47] LABS: Ferritin 645 ng/mL (8-252); Iron 74 ug/dL (50-170); Iron Binding Capacity,Total 141 ug/dL (250-450)
[2021-08-09 10:59] LABS: Vitamin B12 621 pg/mL (211-911)
== END ==
PROVIDERS: PCP Family Medicine; Referring Provider Family Medicine; Visit Provider Family Medicine
DX: D64.9 Anemia, unspecified (principal)
CPT/HCPCS: 36415; 82607; 82728; 82746; 83540; 83550; 85025

== ENCOUNTER → 2021-10-16 14:23 | Outpatient (CLI) | payer MEDICARE, MEDICAID, SELFPAY ==
--- NOTE | 2021-10-16 14:26 | RAD_ITS ---
STUDY: X-RAY - LEFT KNEE REASON FOR EXAM: Female, 76 years old. OSTEO TECHNIQUE: 4 view(s) of the knee. COMPARISON: None. FINDINGS: There is demineralization of the visualized distal femur. There is demineralization of the tibia and fibula. There is arthrosis of the proximal tibiofibular articulation. There is no demonstrated fracture. Normal medial femorotibial compartment. Normal lateral femorotibial compartment. There is minimal degenerative arthrosis of the patellofemoral articulation. There is no demonstrated joint effusion. The soft tissue structures are unremarkable. RAD/Knee 4 or More Views IMPRESSION: Diffuse osteopenia/osteoporosis with mild degenerative disease. No acute fracture or subluxation. Electronically Signed: Shefali Mccann MD at 2:04 EST , Service support ,
--- NOTE | 2021-10-16 14:29 | RAD_ITS ---
STUDY: X-RAY - RIGHT KNEE REASON FOR EXAM: Female, 76 years old. PAIN TECHNIQUE: 4 view(s) of the knee. COMPARISON: None. FINDINGS: There is demineralization of the visualized distal femur. There is demineralization of the tibia and fibula. There is arthrosis of the proximal tibiofibular articulation. There is no demonstrated fracture. There is mild degenerative arthrosis of the medial femorotibial compartment. Normal lateral femorotibial compartment. There is moderate degenerative arthrosis of the patellofemoral articulation. There is no demonstrated joint effusion. The soft tissue structures are unremarkable. RAD/Knee 4 or More Views IMPRESSION: Diffuse osteoporosis. Degenerative disease. No acute fracture or subluxation. Electronically Signed: Shefali Mccann MD at 1:46 EST , Service support ,
== END ==
PROVIDERS: PCP Family Medicine; Referring Provider Family Medicine; Visit Provider Family Medicine
DX: M17.0 Bilateral primary osteoarthritis of knee (principal)
CPT/HCPCS: 73564

== ENCOUNTER 2021-12-05 01:04 | Observation (INO) | payer MEDICARE, MEDICAID, SELFPAY ==
[2021-12-05] VITALS (10 sets, daily range): BP systolic 88–109; BP diastolic 31–56; PULSE 67–106; RESP 16–18; TEMP 35.9–37; O2SAT 94–99; BMI 26.2; BMI 25.1
--- NOTE | 2021-12-05 01:26 | RAD_ITS ---
STUDY: X-RAY - RIGHT KNEE REASON FOR EXAM: Female, 76 years old. Injury TECHNIQUE: 4 view(s) of the knee. COMPARISON: October 16, 2021 FINDINGS: There is demineralization of the visualized distal femur. There is demineralization of the tibia and fibula. Normal proximal tibiofibular articulation. On the sunrise view there is persistent lateral subluxation and severe narrowing. There is moderate degenerative arthrosis of the medial femorotibial compartment with moderate joint space narrowing. There is mild degenerative arthrosis of the lateral femorotibial compartment. Normal patellofemoral articulation. There is diffuse soft tissue edema. RAD/Knee 4 or More Views IMPRESSION: Soft tissue edema. Bony osteopenia. Persistent Severe degenerative change lateral subluxation on sunrise view. Persistent soft tissue edema. Electronically Signed: Vanessa Bills MD at 2:41 EST Tel , Service support ,
--- NOTE | 2021-12-05 01:26 | RAD_ITS ---
STUDY: X-RAY - RIGHT HAND REASON FOR EXAM: Female, 76 years old. Injury -- thumb injury TECHNIQUE: 3 view(s) of the hand. COMPARISON: May 11, 2019 FINDINGS: Normal radiocarpal articulation. Normal distal radioulnar joint. Normal visualized carpal bones. Normal carpal articulations There is degenerative arthrosis of the carpometacarpal (CMC) articulation of the thumb. Normal second through fifth carpometacarpal joints. Demineralized metacarpi. There is degenerative arthrosis of the metacarpophalangeal (MCP) joints. Normal interphalangeal joint of the thumb. Normal proximal and distal phalanges of the thumb. There is second digit degenerative arthrosis of the metacarpophalangeal (MCP) joints. There is articular joint space narrowing of the proximal and distal interphalangeal joints of the second , third with erosive changes or periarticular soft tissue swelling. Normal phalanges of the second through fifth fingers. The soft tissue structures are unremarkable. RAD/Hand Min 3 Views IMPRESSION: Degenerative change. No visualized acute fracture. Electronically Signed: Vanessa Bills MD at 2:43 EST Tel , Service support ,
--- NOTE | 2021-12-05 01:27 | EKG12_ITS ---
Test Reason : DIZZINESS/FALL Blood Pressure : / mmHG Vent. Rate : 084 BPM Atrial Rate : 056 BPM P-R Int : 000 ms QRS Dur : 080 ms QT Int : 402 ms P-R-T Axes : 000 039 043 degrees QTc Int : 475 ms Atrial fibrillation Low voltage QRS Abnormal ECG Confirmed by SHABBIR CASTELALNOS, KIKA ([id number]), writer editor LEBRON WILLETT ([id number]) on 12/07/2021 9:58:46 AM Referred By: FARZAD Confirmed By:KIKA SHEA MD
--- NOTE | 2021-12-05 01:28 | ED.VIS.FALL ---
HPI HPI - Fall History of Present Illness Chief Complaint: Fall Informant: patient Narrative Narrative: Patient brought in by EMS from home after mechanical fall while going to the bathroom. States she embolus with a walker has a bad right knee, right knee gave out causing her to fall. She did not hit her head. Denies anticoagulation medications. History of atrial fibrillation taken off anticoagulants due to significant GI bleed years ago. States he does have bruises to her left forearm and shoulder however no pain in the region. Pain to right thumb right knee. Occasional dizziness. She is dialysis followed by Dr. Montanez. States recently reduced to Friday and Fridays however she missed her Friday treatment. She does not make urine. Denies chest pains or palpitations. [facility] Medical History Anemia Atrial fibrillation Atrial fibrillation status post cardioversion Back problem CL (cirrhosis of liver) Diarrhea ESRD (end stage renal disease) on dialysis Essential tremor Heparin induced thrombocytopenia Kidney stones Personal history of colonic polyps Recurrent falls Right rib fracture Thrombocytopenia Home Medications calcium acetate(phosphat bind) 667 mg capsule 667 mg PO TIDCM cap 07/24/18 [History Last Taken 07/12/21 17:00] midodrine 10 mg tablet 40 mg PO TID 07/24/18 [History Last Taken 07/12/21 21:00] promethazine 25 mg tablet 25 mg PO Q6H PRN 08/17/19 [History Last Taken 08/31/19] potassium chloride 10 mEq tablet,extended release 10 meq PO TID 04/26/20 [History Last Taken 07/12/21 21:00] primidone 250 mg PO TID 10/06/20 [History Last Taken 07/12/21 21:00] Trintellix 20 mg PO QHS 05/09/21 [History Last Taken 07/12/21 21:00] clonazepam 0.5 - 1 mg PO QHS PRN 05/09/21 [History Last Taken 07/12/21 21:00] meclizine 25 mg PO TID PRN 05/09/21 [History Last Taken 07/12/21 21:00] metoprolol tartrate 25 mg PO BID 05/09/21 [History Last Taken 07/12/21 21:00] pantoprazole [Protonix] 40 mg PO DAILY 05/09/21 [History Last Taken 07/12/21 09:00] fluticasone propionate 1 spray INTRANASAL BID 07/13/21 [History Last Taken 07/12/21 21:00] lactulose 30 ml PO DAILY 07/13/21 [History Last Taken 07/12/21 09:00] loperamide 2 mg PO Q6H PRN 07/13/21 [History Last Taken Unknown] multivitamin 1 tab PO DAILY 07/13/21 [History Last Taken 07/12/21 09:00] levothyroxine 25 mcg PO 0600 #30 tab 07/15/21 [Rx Last Taken Unknown] Allergy/AdvReac Type Severity Reaction Status Date / Time heparin Allergy Intermediate Induced Verified 12/05/21 01:12 thrombocytopenia alprazolam [From Xanax] Allergy Unknown Verified 12/05/21 01:12 Family History Father Arthritis Skin cancer Heart disease Hypertension Hypercholesterolemia Cancer skin cancer Brother Arthritis Heart disease Hypercholesterolemia Hypertension Seizures Diabetes Grandmother Asthma Heart disease Mother Cancer Leukemia Surgical History history AV graft History of cardioversion (08/31/19) History of colonoscopy (~2014) History of hysterectomy History of intestinal bypass History of laparoscopic cholecystectomy history ORIF right hip Social History household members: children Smoking Status: Never smoker alcohol intake: never substance use type: does not use ROS ROS ED Constitutional Constitutional ED: Denies chills, fever(s) or sweats Eyes Eyes: Denies change in vision ENT ENT ED: Denies dysphagia or sore throat Cardiovascular Cardiovascular: Denies chest pain, leg edema, palpitations or racing heartbeat Respiratory/Chest Respiratory/Chest: Denies cough, dyspnea or dyspnea on exertion Gastrointestinal Gastrointestinal: Denies abdominal pain, diarrhea, nausea or vomiting Genitourinary Genitourinary ED: Denies dysuria, hematuria or urinary frequency Musculoskeletal Musculoskeletal: Reports arthralgias and other Details: Right thumb, right knee pain ; Denies back pain, extremity pain or neck pain Integumentary Denies rash or wounds Neurologic Neurologic: Denies headache(s), paresthesias or weakness EXAM Physical Exam Const Vital Signs: 12/05/21 01:05 12/05/21 01:18 12/05/21 03:06 Temperature 97.8 F Temperature Source Temporal Pulse Rate 95 Respiratory Rate 18 Respiratory Effort Normal Respiratory Depth Normal Respiratory Pattern Normal Blood Pressure 100/42 L Blood Pressure Mean 61 Pulse Ox 97 98 Oxygen Delivery Method Room Air Room Air Room Air Oxygen Flow Rate (L/min) 20 Positive well nourished and well developed General Appearance ED: well developed and NAD HEENT Reports moist mucous membranes normocephalic and atraumatic Eyes PERRL, EOMs intact bilaterally and conjunctivae normal General Eye ED: Yes normal appearance of both eyes Neck no lymphadenopathy and supple General: Negative for tenderness Chest Wall Chest: Negative for tenderness Resp normal respiratory effort and normal air movement Effort and Inspection: symmetric chest movement; Negative for respiratory distress Cardio regular rate and no murmurs Rhythm: abnormal rhythm Peripheral Pulses: pulses 2+ throughout GI normal to inspection, nondistended, normoactive bowel sounds and non-tender Palpation: Negative for guarding or rebound tenderness present Back/Spine no CVA tenderness and no thoracic nor lumbar tenderness Extremity Extremity Narrative: Left upper extremity: Active full range of motion there is small ecchymosis proximal shoulder without tenderness. Left upper arm fistula was a positive thrill. Also ecchymosis dorsal aspect of the forearm, no deformity skins intact. No bony tenderness. Neuro vas intact distally. Right upper extremity: Full range of motion, thumb examination notes mild pain at the MCP with no deformities. Skin intact. Neurovascular intact distally. Left lower extremity: Negative logroll: No knee ankle tenderness neuro vas intact distally. Right lower extremity: Negative logroll is tender palpation patellar with no deformities. Negative varus and valgus. Knee extensor mechanism intact. Neurovascular intact distally. General Extremety ED: Negative for edema or tenderness General Extremity: Negative for edema Neuro oriented x3 and no sensory deficits noted Neuro Narrative: GCS 15. Sensorium / Orientation: awake and alert Skin no rashes or lesions noted and no wounds Skin Narrative: See above MDM MDM MDM Narrative Medical decision making narrative: Patient with mechanical fall. Injury rate right knee, x-rays obtained reviewed by myself and read by radiology there is no fracture dislocations. There are noted mild subluxation patella on sunrise view. Patient dialysis patient has not had dialysis since 4 days ago. EKG is chronic A. fib labs potassium 3.8. Creatinine BUN elevated however she does not make urine is on dialysis. Thumb spica and Sarath wrap to knee. She is ambulated with a walker is able to walk, slightly unstable with movement per nursing. Discussed this with the patient this is normal for her. She does live with her nephew. At this time she does not feel she needs rehab as this is her baseline. She states she can call her insurance and her PCP to check for more potential home care. Discussed with nursing will place consult with social work for well check with the patient to assist as needed for home. Return precautions discussed. She will keep her dialysis appointment this coming Friday. 0345: Patient being brought to her right from her Sister. Attempted feel in the car she had another near fall. With the event, she does not feel she would like evaluation for rehab. Brought back into the room by nursing. I will discuss with hospitalist for admission. Lab Data Attestation: I reviewed the patient's lab results. Labs: Laboratory Results - last 24 hr 12/05/21 12/05/21 01:17 01:17 WBC 4.4 RBC 3.27 L Hgb 11.5 L Hct 37.0 MCV 113.1 H MCH 35.2 H MCHC 31.1 L RDW Std Deviation 66.7 H RDW Coeff of Yoana 15.9 H Plt Count 114 L MPV 13.0 H Immature Gran % (Auto) 0.200 Neut % (Auto) 43.0 L Lymph % (Auto) 46.1 H [place] % (Auto) 8.2 Eos % (Auto) 1.6 Baso % (Auto) 0.9 Absolute Neuts (auto) 1.9 L Absolute Lymphs (auto) 2.03 Nucleated RBC % 0 Differential Comment SCANNED Anisocytosis 3+ Macrocytosis 3+ Sodium 141 Potassium 3.8 Chloride 105 Carbon Dioxide 21.0 Anion Gap 15 BUN 51 H Creatinine 9.03 H* Estim Creat Clear Calc 5.23 Est GFR (MDRD) Af Amer 6 L Est GFR (MDRD) Non-Af 5 L BUN/Creatinine Ratio 5.6 L Glucose 100 Calcium 8.8 Radiography Diagnostic Testing: Clinical Impression(s) from Imaging Studies Hand X-Ray 12/05/21 01:26 IMPRESSION: Degenerative change. No visualized acute fracture. Electronically Signed: Vanessa Bills MD at 2:43 EST Tel , Service support , Knee X-Ray 12/05/21 01:26 IMPRESSION: Soft tissue edema. Bony osteopenia. Persistent Severe degenerative change lateral subluxation on sunrise view. Persistent soft tissue edema. Electronically Signed: Vanessa Bills MD at 2:41 EST Tel , Service support , Discharge Plan Triage Chief Complaint: Fall ED Provider: Brannon Mendieta Dx/Rx/DC Orders Clinical Impression: Fall, Sprain of hand, thumb, right, Contusion of knee, right, Contusion of arm, left, ESRD on dialysis, Atrial fibrillation, chronic, Unstable gait Instructions: Hemodialysis, Bruises (Contusions), ED Finger Sprain Prescriptions: No Action calcium acetate(phosphat bind) 667 mg capsule 667 mg PO TIDCM RF: 0 midodrine 10 mg tablet 40 mg PO TID RF: 0 promethazine 25 mg tablet 25 mg PO Q6H PRN (Reason: Nausea) RF: 0 potassium chloride 10 mEq tablet extended release 10 meq PO TID RF: 0 primidone 50 MG tablet 250 mg PO TID RF: 0 meclizine 25 mg Tablet 25 mg PO TID PRN (Reason: Dizziness) RF: 0 pantoprazole [Protonix] 40 mg Tablet,Delayed Release (Dr/Ec) 40 mg PO DAILY RF: 0 Trintellix 20 mg Tablet 20 mg PO QHS RF: 0 clonazepam 0.5 mg Tablet 0.5 - 1 mg PO QHS PRN (Reason: Insomnia) RF: 0 metoprolol tartrate 25 mg Tablet 25 mg PO BID RF: 0 multivitamin Tablet 1 tab PO DAILY RF: 0 loperamide 2 mg Capsule 2 mg PO Q6H PRN (Reason: health maintenance) RF: 0 fluticasone propionate 50 mcg/actuation [place],Suspension 1 spray INTRANASAL BID RF: 0 lactulose 20 gram/30 mL solution 30 ml PO DAILY RF: 0 levothyroxine 25 mcg Tablet 25 mcg PO 0600 Qty: 30 RF: 0 Primary Care Provider: Mitchell Appiah Referrals: Mitchell Appiah MD [Primary Care Provider] - Activity Restrictions/Additional Instructions: X-rays are negative. Use splints for stability. Continue using your walker. Keep your planned dialysis appointment on Friday. Disposition Disposition: NonSkilled [place] Care Discharge Date/Time: 12/05/21 03:34
[2021-12-05 01:40] LABS: Absolute Lymphocyte Count 2.03 X10^3/uL (0.83-4.51); Absolute Neutrophil Count 1.9 X10^3/uL (2.0-7.7); Basophil# 0.04 X10^3/uL; Basophil% 0.9 % (0-1); Eosinophil# 0.07 X10^3/uL; Eosinophils% 1.6 % (0-5); Hemoglobin 11.5 g/dL (12.0-15.0); Lymphocyte # 2.03 X10^3/ul (0.83-4.51); Lymphocyte % 46.1 % (19-41); Mean Corp Hgb Conc 31.1 g/dL (32-36); Mean Corpuscular Hgb 35.2 pg (27.0-32.0); Mean Corpuscular Volume 113.1 fL (81-99); Monocyte# 0.36 X10^3/uL; Monocyte% 8.2 % (0-10); NRBC Flagged by Analyzer 0 % (0-5); Neutrophil # 1.89 X10^3/uL (2.7-7.7); POSITIVE MORPHOLOGY YES; Platelet Count 114 K/mm3 (150-450); RBC Distribution Width CV 15.9 % (11.6-14.6); RBC Distribution Width SD 66.7 fl (35.1-43.9); Red Blood Count 3.27 M/mm3 (4.2-5.4); White Blood Count 4.4 K/mm3 (4.4-11.0)
[2021-12-05 01:42] LABS: Differential Indicated SCAN CRITERIA MET
[2021-12-05 01:54] LABS: Anion Gap 15 (5-15); BUN 51 mg/dL (7-18); BUN/Creat Ratio 5.6 RATIO (10-20); Calcium,Total 8.8 mg/dL (8.5-10.1); Chloride 105 mmol/L (98-107); Creatinine, Serum 9.03 mg/dL (0.55-1.02); EST Glomerular Filtration Rate 5 mL/min (>60); Est Glom Filt Rate - Afr Amer 6 mL/min (>60); Estimated Creatinine Clearance 5.23 ml/min; Glucose 100 mg/dL (74-106); Potassium 3.8 mmol/L (3.5-5.1); Sodium Level 141 mmol/L (136-145)
--- NOTE | 2021-12-05 02:33 | NURSING ---
Patient able to get up from bed with minimal support for movements requiring multiple muscles. She ambulated, with walker, to the door and back to bed. She started to wobble on her knee half way- thru and mad t back to the bed but required 1 assist to get from standing to sitting in bed and to get her legs up in the bed. She requires some assistance and considers home health over in-patient rehab and willing to have social work referral. Dr Mendieta is aware.
[2021-12-05 02:50] LABS: Anisocytosis 3+; Differential Comment SCANNED; Macrocytosis 3+
--- NOTE | 2021-12-05 02:51 | ED.RN ---
lmom for sister to call us back as we are working on getting her home and need the nephew to be awake for squad to get patient back to house and she says there are three steps. She sayss he lives with nephew, Ceferino, but cannot find his number and says he wont get up to get the door. Told her I would try the sister to see if she can get him to answer but went to her voicemail. Patient is trying at this time.
--- NOTE | 2021-12-05 03:15 | ED.RN ---
patient got a hold of her sister and she is on the way
--- NOTE | 2021-12-05 03:52 | ED.RN ---
Patient taken out to truck with sister and not able to get in the car and a fall risk. Sister agreed patient needs to work on strengthening and patient is agreeable. She required a two assist to return to the bed
--- NOTE | 2021-12-05 04:04 | HP.PCM.HOS_ITS ---
HPI - General HPI Narrative GUIDO WALLACE, is a 76 F with a significant history of atrial fibrillation who presents to the emergency department with multiple falls. A day before presentation patient had 2 falls. Of note patient came after midnight. She report that she fell because of pain and weakness in her bilateral knees, with right knee worse than left knee. She report that in the past she has had a cortisone shot in her knees. With her fall she had pain in her right at home and had spica splint to her right forearm into her right thumb. Patient was actually discharge home since reportedly as she could get a failure services outpatient. However patient could not enter the family car because of weakness. Patient was brought back to the emergency department. She reported she has been very weak and she has been requiring help. Also of note patient is anuric. She gets dialysis Mondays and Fridays. She missed her last dialysis because she was weak. [facility] Medical History Anemia Atrial fibrillation Atrial fibrillation status post cardioversion Back problem CL (cirrhosis of liver) Diarrhea ESRD (end stage renal disease) on dialysis Essential tremor Heparin induced thrombocytopenia Kidney stones Personal history of colonic polyps Recurrent falls Right rib fracture Thrombocytopenia Home Medications calcium acetate(phosphat bind) 667 mg capsule 667 mg PO TIDCM cap 07/24/18 [History Last Taken 07/12/21 17:00] midodrine 10 mg tablet 40 mg PO TID 07/24/18 [History Last Taken 07/12/21 21:00] promethazine 25 mg tablet 25 mg PO Q6H PRN 08/17/19 [History Last Taken 08/31] potassium chloride 10 mEq tablet,extended release 10 meq PO TID 04/26/20 [History Last Taken 07/12/21 21:00] primidone 250 mg PO TID 10/06/20 [History Last Taken 07/12/21 21:00] Trintellix 20 mg PO QHS 05/09/21 [History Last Taken 07/12/21 21:00] clonazepam 0.5 - 1 mg PO QHS PRN 05/09/21 [History Last Taken 07/12/21 21:00] meclizine 25 mg PO TID PRN 05/09/21 [History Last Taken 07/12/21 21:00] metoprolol tartrate 25 mg PO BID 05/09/21 [History Last Taken 07/12/21 21:00] pantoprazole [Protonix] 40 mg PO DAILY 05/09/21 [History Last Taken 07/12/21 09:00] fluticasone propionate 1 spray INTRANASAL BID 07/13/21 [History Last Taken 07/12/21 21:00] lactulose 30 ml PO DAILY 07/13/21 [History Last Taken 07/12/21 09:00] loperamide 2 mg PO Q6H PRN 07/13/21 [History Last Taken Unknown] multivitamin 1 tab PO DAILY 07/13/21 [History Last Taken 07/12/21 09:00] levothyroxine 25 mcg PO 0600 #30 tab 07/15/21 [Rx Last Taken Unknown] Allergy/AdvReac Type Severity Reaction Status Date / Time heparin Allergy Intermediate Induced Verified 12/05/21 01:12 thrombocytopenia alprazolam [From Xanax] Allergy Unknown Verified 12/05/21 01:12 Family History Father Arthritis Skin cancer Heart disease Hypertension Hypercholesterolemia Cancer skin cancer Brother Arthritis Heart disease Hypercholesterolemia Hypertension Seizures Diabetes Grandmother Asthma Heart disease Mother Cancer Leukemia Surgical History history AV graft History of cardioversion (08/31/19) History of colonoscopy (~2014) History of hysterectomy History of intestinal bypass History of laparoscopic cholecystectomy history ORIF right hip Social History household members: children Smoking Status: Never smoker alcohol intake: never substance use type: does not use ROS ROS Narrative Constitutional: Denies fever, chills, fatigue, anorexia and change in weight Eyes: Denies blurry vision, change in eye color, change in vision, discharge from eye(s), double vision, erythema, eye pain, loss of vision or other HEENT: Denies abnormal hearing, dysphagia, ear pain, epistaxis, headache(s), hearing loss, nasal congestion, nasal discharge, post nasal drip, sinus pressure, sore throat or other Cardiovascular: Denies chest pain or palpitations. Denies dyspnea on exertion, orthopnea and paroxysmal nocturnal dyspnea Respiratory/Chest: Denies cough, excessive phlegm production, shortness of breath with exertion and wheezing Gastrointestinal: Denies abdominal pain, coffee ground emesis, constipation, diarrhea, dyspepsia, hematemesis, hematochezia, loose stools, melena, nausea, vomiting or other Genitourinary: Denies burning urination, difficulty urinating, dysuria, hematuria, nocturia, urinary frequency, urinary hesitancy, urinary incontinence, urinary urgency or other Musculoskeletal: Reports arthralgia. Reports weakness in bilateral knees, right knee worse than left knee. Neurologic: Reports dizziness. Denies abnormal speech, confusion, headache(s), numbness, paresthesias, seizure-like activity, seizures, syncope, tingling, tremor(s) or other Psychiatric: Denies anxiety, depression, homicidal ideation, suicidal ideation or other Endocrinology: Denies change in body appearance, cold intolerance, excessive sweating, heat intolerance, polydipsia, polyuria or other Hematologic/Lymphatic: Denies anemia, easy bleeding, easy bruising, lymphadenopathy or other Integumentary: Denies rashes Allergic/Immunologic: Denies rhinitis, hives, eczema, asthma or other Vital Signs Vital Signs Vital Signs: 12/05/21 01:05 12/05/21 01:18 12/05/21 03:06 Temperature 97.8 F Temperature Source Temporal Pulse Rate 95 Respiratory Rate 18 Respiratory Effort Normal Respiratory Depth Normal Respiratory Pattern Normal Blood Pressure 100/42 L Blood Pressure Mean 61 Pulse Ox 97 98 Oxygen Delivery Method Room Air Room Air Room Air Oxygen Flow Rate (L/min) 20 Weight Weight: 76 kg Body Mass Index (BMI) 26.2 Physical Exam Narrative Physical exam: General: Well-nourished, well-developed. Head: Normocephalic, atraumatic, no tenderness Eyes: PERRLA, EOMI ENT, no trauma, moist mucous membranes, no rhinorrhea Neck: Nontender, full range of motion, no spinal tenderness, deformities, step- off CVS: Irregularly irregular rate and rhythm. S1-S2 present. No murmur, gallop or rub. Bruit and thrill on dialysis shunt in left arm. Respiratory : Clear to auscultation bilaterally, chest wall nontender, no wheezing Abdomen: Soft, nontender, nondistended, normal bowel sounds, no masses : Deferred Back: Nontender, no CVA tenderness, no midline spinal tenderness, deformities, step-offs Extremities: Nontender full range of motion, no trauma Skin: Ecchymosis on left forearm and arm. A splint on right forearm and hand. Neuro: Alert, oriented, cranial nerves II through XII grossly intact. Psychiatry: Normal mood. Normal affect. Not depressed. Not anxious. Results Lab / Micro Data Result Diagrams: 12/05/21 01:17 12/05/21 01:17 Labs: Laboratory Results - last 24 hr 12/05/21 01:17: WBC 4.4, RBC 3.27 L, Hgb 11.5 L, Hct 37.0, MCV 113.1 H, MCH 35.2 H, MCHC 31.1 L, RDW Std Deviation 66.7 H, RDW Coeff of Yoana 15.9 H, Plt Count 114 L, MPV 13.0 H, Immature Gran % (Auto) 0.200, Neut % (Auto) 43.0 L, Lymph % (Au to) 46.1 H, [place] % (Auto) 8.2, Eos % (Auto) 1.6, Baso % (Auto) 0.9, Absolute Neuts (auto) 1.9 L, Absolute Lymphs (auto) 2.03, Nucleated RBC % 0, Differential Comment SCANNED, Anisocytosis 3+, Macrocytosis 3+ 12/05/21 01:17: Sodium 141, Potassium 3.8, Chloride 105, Carbon Dioxide 21.0, Anion Gap 15, BUN 51 H, Creatinine 9.03 H*, Estim Creat Clear Calc 5.23, Est GFR (MDRD) Af Amer 6 L, Est GFR (MDRD) Non-Af 5 L, BUN/Creatinine Ratio 5.6 L, Glucose 100, Calcium 8.8 Radiology Impression Hand X-Ray 12/05/21 01:26 IMPRESSION: Degenerative change. No visualized acute fracture. Electronically Signed: Vanessa Bills MD at 2:43 EST Tel , Service support , Knee X-Ray 12/05/21 01:26 IMPRESSION: Soft tissue edema. Bony osteopenia. Persistent Severe degenerative change lateral subluxation on sunrise view. Persistent soft tissue edema. Electronically Signed: Vanessa Bills MD at 2:41 EST Tel , Service support , Assessment & Plan Assessment/Plan (1) Fall: QUALIFIERS: Encounter type: initial encounter Qualified Code(s): W19.XXXA - Unspecified fall, initial encounter (2) Debility: PLAN: Fall secondary to arthralgia and debility. Actual image of knee x-ray and hand x-ray was independently interpreted. I agree with radiologist interpretation above. Labs reviewed showed a stable hemoglobin. PT and OT to work with patient for strengthening and balance training. Case management for disposition. Continue Sarath wrap to right knee Tylenol for pain ESRD on dialysis Patient is anuric. Dialysis Mondays and Fridays. She missed her last dialysis. Renal diet ordered. Nephrology consult. DVT prophylaxis: Low risk for observation. SCD ordered. Charges/Coding Visit Charges OBSV E&M: 35620 Initial observation care L2
--- NOTE | 2021-12-05 04:57 | PCS.PANDOC ---
PANDEMIC DOCUMENTATION INITIATED: Date: 07/16/2021 Time: 190
[2021-12-05] MEDS: Primidone 250 MG Tablet PO ×2 (05:59→23:47)
[2021-12-05] MEDS: Potassium Chloride Oral Tablet 10 MEQ PO ×2 (05:59→12:39)
[2021-12-05] MEDS: Levothyroxine 50 MCG Tablet PO (05:59)
[2021-12-05] MEDS: Midodrine HCl 5 MG Tablet 40 MG PO ×3 (05:59→23:46)
[2021-12-05] MEDS: Lactulose 20 GM/30 ML UDC PO (09:28)
[2021-12-05] MEDS: Fluticasone 0.05% 1 SPRAY NASAL.SRY NASAL (09:28)
[2021-12-05] MEDS: Pantoprazole Sodium 40 MG Tablet PO (09:29)
[2021-12-05] MEDS: Metoprolol Tartrate 25 MG Tablet PO (09:29)
[2021-12-05] MEDS: Multivitamins,Therapeutic Tablet 1 TABLET PO (09:30)
[2021-12-05] MEDS: Calcium Acetate 667 MG Capsule PO (09:30)
[2021-12-05] MEDS: Acetaminophen 325 MG Tablet 650 MG PO ×2 (09:45→18:10)
--- NOTE | 2021-12-05 10:55 | CASEMGMT ---
Addendum entered by Liss Hamm 12/05/21 14:36: TC to Helen at [facility] to check status of referral. She will call today with acceptance. Original Note: ANNA NOE Assessment: Face to Face with pt for initial transition planning/care coordination assessment. ANNA NEO introduced self and role at [facility], pt voices understanding and consents to assessment. Pt is A/O x4 and answers all questions appropriately at this time. Pt sitting up in chair in no distress. Care providers, pharmacy, and demographics verified/updated. Admitting Dx: Falls PCP:Td Specialists: gabino Montanez; J Luis for shots for knee and thumb arthritis; Butch for tremors Preferred Pharmacy: [facility] Insurance: My Care [facility] Community Plan Prescription Benefit: yes LW/HPOA: Pt has LW/DPOA on file at [facility]. Her DPOA is her sister, Bev Jc LNOK: Bev Jc, sister Living Arrangements: Pt lives in nephews home with her sister, nephew's girlfriend and their child. It is a two story house with 4 steps to enter with a rail. Pt uses the main floor only. Pt reports she was I in ADL's prior. Transportation: Pt uses [employer] for transportation to dialysis. She states her sister transports her to medical appts. DME/HHC/SNF: Pt has a cane and walker. She normally uses the walker. Pt has had HHC in the past but is unsure who provided the care. Pt has been in [facility] and [place]. Pt states they say she needs therapy at a facility prior to returning home. She states she is agreeable to this. Patient was provided a list of C providers including quality and resource use data and consistent with the patient?s preferred geographic region, medical needs, and insurance network. The patient?s preferred provider is [facility], Cely Carmichael, [facility]. Pt is aware that [facility] is not taking patients currently. Pt states no further concerns/needs. CM to follow. Advised pt to ask CM if any further question/concerns/needs arise, voices understanding. Pt Goal: SNF Plan: SNF, notified SW
--- NOTE | 2021-12-05 11:48 | CASEMGMT ---
Social Work As per CM, pt agreeable to SNF, choices are [facility]. [facility], [facility]. [facility], and [facility]. [facility]. [facility] has a COVID outbreak at present, SW called and they cannot take pt. SW faxed referral to [facility], called and spoke w/Nisha. Nisha to let SW know if they can take pt. JOSEFINA will continue to follow. LOUIS Rose
--- NOTE | 2021-12-05 11:51 | CASEMGMT ---
ANNA NOE Assessment: Face to Face with pt for initial transition planning/care coordination assessment. ANNA NOE introduced self and role at [facility], pt voices understanding and consents to assessment. Pt is A/O x4 and answers all questions appropriately at this time. Pt sitting up in chair in no distress. Care providers, pharmacy, and demographics verified/updated. Admitting Dx: Falls PCP:Td Specialists: gabino Montanez; J Luis for shots for knee and thumb arthritis; Butch for tremors Preferred Pharmacy: [facility] Insurance: My Care [facility], [facility] Community Plan Prescription Benefit: yes LW/HPOA: Pt has LW/DPOA on file at [facility]. Her DPOA is her sister, Bev Jc LNOK: Bev Jc, sister Living Arrangements: Pt lives in nephews home with her sister, nephew's girlfriend and their child. It is a two story house with 4 steps to enter with a rail. Pt uses the main floor only. Pt reports she was I in ADL's prior. Transportation: Pt uses [facility] for transportation to dialysis. She states her sister transports her to medical appts. DME/HHC/SNF: Pt has a cane and walker. She normally uses the walker. Pt has had HHC in the past but is unsure who provided the care. Pt has been in [facility] and [place]. Pt states they say she needs therapy at a facility prior to returning home. She states she is agreeable to this. Patient was provided a list of [facility] providers including quality and resource use data and consistent with the patient?s preferred geographic region, medical needs, and insurance network. [facility] Pt is aware that [facility] is not taking patients currently. Pt states no further concerns/needs. CM to follow. Advised pt to ask CM if any further question/concerns/needs arise, voices understanding. Pt Goal: SNF Plan: SNF, notified SW
--- NOTE | 2021-12-05 12:57 | NURSING ---
This nurse went to give scheduled mysoline. Pt states her sister already gave her one this morning. This nurse educated pt not to take pills unless givenby the nurse.
--- NOTE | 2021-12-05 14:39 | CASEMGMT ---
Social Work SW called [facility], Nisha had to leave, spoke w/Suyapa who is looking at the referrals, she is to call this SW back. LOUIS Rose
--- NOTE | 2021-12-05 15:32 | CON.PCM.RE_ITS ---
Assessment & Plan Assessment/Plan (1) ESRD on dialysis: PLAN: The patient usually dialyzes on a Friday and Friday (twice a week) dialysis schedule at [facility]. She is followed there by Dr. Salcedo. The patient missed her usual dialysis on 12/03/2021. We will dialyze her tonight. We will then dialyze her again on 12/06/2021. (2) Anemia: PLAN: Hemoglobin is 11.5. There is no need for AISSATOU. Goal is to keep hemoglobin tween 10 to 11 g/dL for dialysis patient. (3) Fall: QUALIFIERS: Encounter type: initial encounter Qualified Code(s): W19.XXXA - Unspecified fall, initial encounter PLAN: The patient has been having frequent falls. She has contusion of the knee. Management as per primary service. (4) Debility: PLAN: Weakness and falling. Likely need placement. Will defer to hospital medicine service. HPI Consult Data Date of Consult: 12/05/21 HPI Narrative Reason for Consultation: ESRD HPI Narrative: The patient is a 76-year-old woman who is known to our service with ESRD. She dialyzes on a Friday and Friday schedule at [facility]. She is followed as an outpatient by Dr. Deejay Salcedo. The patient presents with multiple falls leading up to presentation yesterday. She also has bilateral knee pain and weakness. She denies chest pain, shortness of breath, nausea, or diarrhea. She has chronic lower extremity edema which is not any worse than usual. The patient had a similar admission to the hospital in July 2021. The patient was not dialyzed on 12/03/2021 prior to admission because of weakness and dizziness. She denies current dizziness today. [facility] Medical History (Updated 12/05/21 @ 15:[address] Fito Sinha MD) Anemia Atrial fibrillation Atrial fibrillation status post cardioversion Back problem CL (cirrhosis of liver) Diarrhea ESRD (end stage renal disease) on dialysis Essential tremor Heparin induced thrombocytopenia Kidney stones Personal history of colonic polyps Recurrent falls Right rib fracture Thrombocytopenia Home Medications midodrine 10 mg tablet 40 mg PO TID 07/24/18 [History Last Taken 12/04/21] promethazine 25 mg tablet 25 mg PO Q6H PRN 08/17/19 [History Last Taken 08/31/19] potassium chloride 10 mEq tablet,extended release 10 meq PO TID 04/26/20 [History Last Taken 12/04/21] primidone 250 mg PO TID 10/06/20 [History Last Taken 12/04/21] Trintellix 20 mg PO QHS 05/09/21 [History Last Taken 12/04/21] clonazepam 0.5 - 1 mg PO QHS PRN 05/09/21 [History Last Taken 12/04/21] metoprolol tartrate 25 mg PO BID 05/09/21 [History Last Taken 12/04/21] pantoprazole [Protonix] 40 mg PO DAILY 05/09/21 [History Last Taken 12/04/21] fluticasone propionate 1 spray INTRANASAL BID 07/13/21 [History Last Taken 03/22] loperamide 2 mg PO Q6H PRN 07/13/21 [History Last Taken Unknown] multivitamin 1 tab PO DAILY 07/13/21 [History Last Taken 12/04/21] levothyroxine 50 mcg PO DAILY 12/05/21 [History Last Taken 12/04/21] zonisamide 25 mg PO DAILY 12/05/21 [History Last Taken 12/04/21] Allergy/AdvReac Type Severity Reaction Status Date / Time heparin Allergy Intermediate Induced Verified 12/05/21 01:12 thrombocytopenia alprazolam [From Xanax] Allergy Unknown Verified 12/05/21 01:12 Family History Father Arthritis Skin cancer Heart disease Hypertension Hypercholesterolemia Cancer skin cancer Brother Arthritis Heart disease Hypercholesterolemia Hypertension Seizures Diabetes Grandmother Asthma Heart disease Mother Cancer Leukemia Surgical History history AV graft History of cardioversion (08/31/19) History of colonoscopy (~2014) History of hysterectomy History of intestinal bypass History of laparoscopic cholecystectomy history ORIF right hip Social History household members: children Smoking Status: Never smoker alcohol intake: never substance use type: does not use ROS ROS Narrative 11/11 ROS was done. Otherwise noncontributory. Physical Exam Narrative General: Alert and oriented x3, NAD. HEENT: Normocephalic, atraumatic. Mucous membrane dry. PERRLA, EOMI. Hearing is intact. Neck: Supple. No JVD. Heart: Irregularly irregular S1, S2. She is not tachycardic. There is no rubs, murmurs or gallops. Lungs: Clear to auscultation bilaterally. Abdomen: Normal bowel sound, soft, nontender, no guarding or rebound. Extremity: 2+ edema of the lower extremities bilaterally. There is no clubbing or cyanosis. Neurologic: No focal neurologic deficits. Skin: Warm and dry without rash. Psychiatric: Normal mood and affect. Lab / Micro Data Result Diagrams: 12/05/21 01:17 12/05/21 01:17 Labs: Laboratory Results - last 24 hr 12/05/21 01:17: WBC 4.4, RBC 3.27 L, Hgb 11.5 L, Hct 37.0, MCV 113.1 H, MCH 35.2 H, MCHC 31.1 L, RDW Std Deviation 66.7 H, RDW Coeff of Yoana 15.9 H, Plt Count 114 L, MPV 13.0 H, Immature Gran % (Auto) 0.200, Neut % (Auto) 43.0 L, Lymph % (Aut o) 46.1 H, Alcorn % (Auto) 8.2, Eos % (Auto) 1.6, Baso % (Auto) 0.9, Absolute N euts (auto) 1.9 L, Absolute Lymphs (auto) 2.03, Nucleated RBC % 0, Differential Comment SCANNED, Anisocytosis 3+, Macrocytosis 3+ 12/05/21 01:17: Sodium 141, Potassium 3.8, Chloride 105, Carbon Dioxide 21.0, Anion Gap 15, BUN 51 H, Creatinine 9.03 H*, Estim Creat Clear Calc 5.23, Est GFR (MDRD) Af Amer 6 L, Est GFR (MDRD) Non-Af 5 L, BUN/Creatinine Ratio 5.6 L, Glucose 100, Calcium 8.8 Radiology Impression Hand X-Ray 12/05/21 01:26 IMPRESSION: Degenerative change. No visualized acute fracture. Electronically Signed: Vanessa Bills MD at 2:43 EST Tel , Service support , Knee X-Ray 12/05/21 01:26 IMPRESSION: Soft tissue edema. Bony osteopenia. Persistent Severe degenerative change lateral subluxation on sunrise view. Persistent soft tissue edema. Electronically Signed: Vanessa Bills MD at 2:41 EST Tel , Service support ,
--- NOTE | 2021-12-05 15:51 | NURSING ---
This nurse is aware of Vital Signs taken at 1417 today by Adrienne Kim
--- NOTE | 2021-12-05 16:56 | PCM.HOSP.N ---
Hospitalist Note Mrs. Dash is a 76-year-old white female who presented to the emergency department early this morning after having falls at home. Her initial intent was to go back home but she was unable to ambulate to the car and was therefore admitted. She states that her falls are related to weakness in her legs and she has significant arthritis in her right knee. She has never considered a knee replacement. She was not able to get her dialysis on Friday as she was not feeling well and having issues with falls. She is overall medically stable at this time and awaiting PT and OT evaluations as well as nephrology input for hemodialysis. She currently undergoes dialysis Friday and Fridays. She is willing to be placed prior to discharge and referrals have been made for possible discharge planning. She is stable for discharge at this time and will be discharged once availability is known and arrangements have been made.
[2021-12-06] VITALS (7 sets, daily range): BP systolic 98–111; BP diastolic 45–78; PULSE 84–105; RESP 16; TEMP 36.6–37.1; O2SAT 93–97
[2021-12-06] MEDS: proMETHazine 25 MG Tablet PO (00:01)
--- NOTE | 2021-12-06 00:25 | DIALYSIS ---
Hemodialysis tonight on a 3K bath, ran 2hours and 45min, off at 2315, pt requested to stop tx 15 mins early due to discomfort in venous portion AVG but also stopped due to drop in BP, SBP dropped to 70s-80s last 20 mins of tx, blood returned and post BP 88/47, patient overdue for her 40mg midodrine, UF 1100mL, CritLine profile A, accessed via JEANMARIE AVG using 15G needles, worked well however did c/o venous needle discomfort, BFR slowed, pt states that she often has pain near venous needle sometimes needing new needle placed, needles pulled post treatment and stasis achieved, venous bleeding longer than arterial, next treatment planned for Friday
[2021-12-06] MEDS: clonazePAM 1 MG Tablet PO (00:52)
[2021-12-06] MEDS: VORTIOXETINE HYDROBROMIDE 20 MG TABLET PO (00:53)
[2021-12-06] MEDS: Fluticasone 0.05% 1 SPRAY NASAL.SRY NASAL ×2 (00:55→08:28)
[2021-12-06] MEDS: Primidone 250 MG Tablet PO ×2 (06:54→13:49)
[2021-12-06] MEDS: Potassium Chloride Oral Tablet 10 MEQ PO ×2 (06:54→13:48)
[2021-12-06] MEDS: Midodrine HCl 5 MG Tablet 40 MG PO ×2 (06:54→13:48)
[2021-12-06] MEDS: Levothyroxine 50 MCG Tablet PO (06:54)
[2021-12-06] MEDS: Levothyroxine 25 MCG TABLET PO (06:54)
[2021-12-06] MEDS: Metoprolol Tartrate 25 MG Tablet PO (08:27)
[2021-12-06] MEDS: Pantoprazole Sodium 40 MG Tablet PO (08:28)
[2021-12-06] MEDS: Calcium Acetate 667 MG Capsule PO ×2 (08:29→11:54)
[2021-12-06] MEDS: Lactulose 20 GM/30 ML UDC PO (08:29)
[2021-12-06] MEDS: Multivitamins,Therapeutic Tablet 1 TABLET PO (08:29)
[2021-12-06] MEDS: Acetaminophen 325 MG Tablet 650 MG PO (08:31)
[2021-12-06] MEDS: Menthol/Lanolin/Calamine/Znox 113 GM Tube 1 APPLIC TOPICAL (08:32)
--- NOTE | 2021-12-06 08:58 | CASEMGMT ---
Social Work SW called [facility], message left for Nisha to call this SW back in regard to whether or not they can take pt, and if precert is needed. OLUIS Rose
[2021-12-06] MEDS: Lidocaine 5% Patch 1 PATCH TOPICAL (09:43)
--- NOTE | 2021-12-06 11:34 | CASEMGMT ---
ANNA NOE NOTE: Intro role of CM to patient and FERRARO form explained re: Observation status for treatment of falls. Explained hospitalization will be paid per insurance policy for Outpatient billing and condition will continue to be evaluated for Inpt necessity. Also let pt know that [facility] sends paper in the billing packet with their phone number if questions arise. Pt verbalizes understanding and does not have any questions. Form signed, copy made and placed in chart, and original given to pt. Pushpa NASSAR RN CM
--- NOTE | 2021-12-06 11:57 | CASEMGMT ---
Addendum entered by Kacey Harper 12/06/21 15:20: Pt set up to be picked up at 3:00pm w/[facility], and they are here now. JOSEFINA Micaela called the floor and they let pt know, JOSEFINA Hinojosa also called Nisha at [facility] to let her know. Bedside RN also aware. No further needs. Pt to [facility], convalescent stay, skilled level of care. LOUIS Rose Addendum entered by Kacey Harper 12/06/21 14:15: Social Work Precert is not needed, pt can go to [facility] today. SW let physician and pt know. SW sent all discharge paperwork including COVID test, PAS/RR w/results, med list and transfer to extended care to [facility]. SW called [facility], set up transport, awaiting a call back in regard to what time pt will get picked up. SW will continue to follow. LOUIS Rose Original Note: Social Work SW spoke w/Nisha at [facility], she states they can take pt today, will likely not need precert but will let SW know. She did set up her transportation already to take her to and from dialysis. Once Nisha lets this SW know about precert, SW will notify physician. KUSUM was able to let pt know that [facility] accepted her. JOSEFINA will continue to follow. LOUIS Rose
--- NOTE | 2021-12-06 12:12 | PCM.PN.REN ---
Subjective Subjective Following for ESRD. The patient still has knee pain. She is less fatigued. Tolerated dialysis well yesterday without cramping. There is no nausea or vomiting today. She denies chest pain or shortness of breath. Objective Data Objective Data Vital Signs: Vital Signs Temp Pulse Resp BP Pulse Ox 98 F 105 H 16 102/78 97 12/06/21 08:38 12/06/21 08:38 12/06/21 08:38 12/06/21 08:38 12/06/21 09:07 Oxygen Flow Rate (L/min) 20 Oxygen Delivery Method Room Air Weight: 72.7 kg Body Mass Index (BMI) 25.1 Intake & Output: Intake and Output for Last 24 Hours 12/04/21 12/05/21 12/06/21 23:59 23:59 23:59 Intake Total 360 / 360 Output Total 1100 / 2200 1100 / 1100 Balance -740 / -1840 -1100 / -1100 Lab / Micro Data Result Diagrams: 12/05/21 01:17 12/05/21 01:17 Physical Exam Narrative General: Alert and oriented x3, NAD. Heart: Irregularly irregular S1, S2. She is not tachycardic. There is no rubs, murmurs or gallops. Lungs: Clear to auscultation bilaterally. Abdomen: Normal bowel sound, soft, nontender, no guarding or rebound. Extremity: 1+ edema of the lower extremities bilaterally. There is no clubbing or cyanosis. Neurologic: No focal neurologic deficits. Assessment & Plan Assessment/Plan (1) ESRD on dialysis: PLAN: -The patient usually dialyzes on a Friday and Friday (twice a week) dialysis schedule at [facility]. She is followed there by Dr. Salcedo. -The patient missed her usual dialysis on 12/03/2021. -She was dialyzed overnight. She tolerated dialysis well. -Next dialysis will be tomorrow, Friday12/06/2021. (2) Anemia: PLAN: -Hemoglobin is 11.5. There is no need for AISSATOU. -Goal is to keep hemoglobin tween 10 to 11 g/dL for dialysis patient. (3) Fall: QUALIFIERS: Encounter type: initial encounter Qualified Code(s): W19.XXXA - Unspecified fall, initial encounter PLAN: -The patient has been having frequent falls. -She has contusion of the knee. Getting physical therapy as prescribed by primary service. (4) Debility: PLAN: -Weakness and falling. Likely need placement. -We will need to place that SNF to continue dialysis or can transport her to her usual dialysis unit. -Will defer to hospital medicine service.
--- NOTE | 2021-12-06 13:14 | TREXTCAR_ITS ---
Diet 12/05/21 04:47 Diet: Renal - General Food consistency:: Regular Liquid Consistency:: Regular/Thin Routine Orders/Code Status Suppository Frequency: Daily PRN O2 Frequency: PRN Keep PO Greater than or Equal to (%): 92 Routine Lab Work: CBC and BMP Code Status: Full Code Therapies Weight Bearing: Weight bearing as tolerated Extremity Affected:: Bilateral Lower Physical Therapy: Eval and Treat Occupational Therapy: Eval and Treat Problem/Diagnosis (1) ESRD on dialysis: Status: Acute (2) Anemia: Status: Inactive (3) Fall: Status: Acute (4) Debility: Status: Acute Allergies/Procedures Done in Hospital Allergies heparin Allergy (Intermediate, Verified 12/05/21 01:12) Induced thrombocytopenia alprazolam [From Xanax] Allergy (Verified 12/05/21 01:12) Unknown Procedures: None Type of Care/Length of Stay Estimated LOS: Convalescent Care Less Than 30 days Type of Care Needed: Skilled Rehab Potential: Good Prognosis: Good Additional Orders/Day of Discharge Day of Discharge: 12/06/21 Discharge Plan Admission Admit Date/Time: 12/05/21 04:38 Attending Provider: Soniya King Primary Care Provider: Mitchell Appiah Consulting Providers: Willy Vela Instructions Patient Instructions: Hemodialysis, Bruises (Contusions), ED Finger Sprain Additional Instructions / Restrictions: X-rays are negative. Use splints for stability. Continue using your walker. Keep your planned dialysis appointment on Friday. Discharge Orders/Prescriptions Prescriptions: No Action midodrine 10 mg tablet 40 mg PO TID RF: 0 promethazine 25 mg tablet 25 mg PO Q6H PRN (Reason: Nausea) RF: 0 potassium chloride 10 mEq tablet extended release 10 meq PO TID RF: 0 primidone 50 MG tablet 250 mg PO TID RF: 0 pantoprazole [Protonix] 40 mg Tablet,Delayed Release (Dr/Ec) 40 mg PO DAILY RF: 0 Trintellix 20 mg Tablet 20 mg PO QHS RF: 0 clonazepam 0.5 mg Tablet 0.5 - 1 mg PO QHS PRN (Reason: Insomnia) RF: 0 metoprolol tartrate 25 mg Tablet 25 mg PO BID RF: 0 multivitamin Tablet 1 tab PO DAILY RF: 0 loperamide 2 mg Capsule 2 mg PO Q6H PRN (Reason: health maintenance) RF: 0 fluticasone propionate 50 mcg/actuation [place],Suspension 1 spray INTRANASAL BID RF: 0 levothyroxine 50 mcg Tablet 50 mcg PO DAILY RF: 0 Referrals / Follow Up: Mitchell Appiah MD [Primary Care Provider] -
--- NOTE | 2021-12-06 13:16 | DS.PCM_ITS ---
Providers Date of Admission: 12/05/21 Primary Care Physician: Dr. Mitchell Appiah MD Consultations 12/05/21 04:47 Consult: Nephrology Routine Consulting Provider: Willy Vela Reason for Consult: ESRD ON DAILYSIS (M and F). Missed last dialysis EMERGENT Consult: No MD Notified: Yes Date Notified: 12/05/21 Time Notified: 05:39 Method of Notification: Answering Service Reason For Visit: FALLS Diagnosis Discharge Diagnosis (1) ESRD on dialysis: Status: Acute Code(s): N18.6 - End stage renal disease; Z99.2 - Dependence on renal dialysis (2) Anemia: Status: Inactive Code(s): D64.9 - Anemia, unspecified (3) Fall: Status: Acute Code(s): W19.XXXA - Unspecified fall, initial encounter Qualifiers: Encounter type: initial encounter Qualified Code(s): W19.XXXA - Unspecified fall, initial encounter (4) Debility: Status: Acute Code(s): R53.81 - Other malaise Medications at Discharge Home Medications midodrine 10 mg tablet 40 mg PO TID 07/24/18 promethazine 25 mg tablet 25 mg PO Q6H PRN 08/17/19 potassium chloride 10 mEq tablet,extended release 10 meq PO TID 04/26/20 primidone 250 mg PO TID 10/06/20 Trintellix 20 mg PO QHS 05/09/21 clonazepam 0.5 - 1 mg PO QHS PRN 05/09/21 metoprolol tartrate 25 mg PO BID 05/09/21 pantoprazole [Protonix] 40 mg PO DAILY 05/09/21 fluticasone propionate 1 spray INTRANASAL BID 07/13/21 loperamide 2 mg PO Q6H PRN 07/13/21 multivitamin 1 tab PO DAILY 07/13/21 levothyroxine 50 mcg PO DAILY 12/05/21 Remove Patch 1 patch TOPICAL DAILY@2200 #0 12/06/21 acetaminophen [Tylenol] 650 mg PO Q6H PRN PRN #0 tab 12/06/21 lidocaine 1 patch TOPICAL DAILY #0 ea 12/06/21 Hospital Course Operations None Procedures None Summary of Care Provided Minutes Spent on Discharge: 36 Hospital Course: Mrs. Woodward is a 76-year-old white female who presented to the emergency department at [facility] on 12/05/2021 after suffering falls at home. Upon admission she reported that a day prior to presentation she had 2 falls and she came in after having another fall. She states that she is falling because of pain and weakness in her bilateral knees. She states the right knee is worse than the left knee. She had recent cortisone shots by her primary care physician in bilateral knees and states that the left got better relief than the right and her primary complaint is persistent right knee pain. With her fall she suffered from a sprain of her right forearm and thumb. X-rays were negative for fracture. Knee x-ray showed soft tissue edema and bony osteopenia with persistent severe degenerative changes. A thumb spica splint was placed in the emergency department. She was actually discharged home from the emergency department to get outpatient therapy services however the patient could not enter the family car secondary to her weakness and she was brought back to the emergency department for admission. She has never been evaluated by orthopedic surgery for this. She is on dialysis at baseline on Friday and Friday. She missed dialysis on Friday because of her pain. She was agreeable to placement on discharge and was evaluated by physical and Occupational Therapy as well as nephrology during her hospitalization. She was able to receive dialysis on 12/05/2021 and will have repeat dialysis tomorrow on 12/07/2021 to get her back on her normal dialysis schedule. PT and OT did think she would benefit from further therapy services and referrals to jail facilities were made at that time. Due to continued right knee pain a lidocaine patch was placed and she was maintained on oral Tylenol. She was accepted for admission at the [facility] and stable for discharge on 12/06/2021. I have recommended follow-up with her primary care physician in 1 month as well as an orthopedic surgeon to further address her joint issues that are affecting her gait and balance. She was discharged in stable condition. Discharge diagnoses: Debility Mechanical fall Bilateral knee OA Right thumb and wrist sprain Chronic anemia due to end-stage renal disease Paroxysmal atrial fibrillation Essential tremor HIT Nephrolithiasis Chronic thrombocytopenia Liver cirrhosis Physical Exam Const alert, oriented x3, no apparent distress and average body habitus Constitutional Narrative: Older white female sitting up in a chair at the bedside, legs are elevated, complaining of knee pain on the right side. General Appearance: cooperative, comfortable, well kempt and well developed Orientation / Consciousness: awake Exam Limitations: no limitations HEENT normocephalic, head/scalp atraumatic, hearing grossly normal bilaterally and moist oral mucous membranes Eyes PERRL, EOMs intact bilaterally and conjunctivae normal Eyes Narrative: No scleral icterus Neck no lymphadenopathy, supple and no JVD Neck Narrative: Trachea midline, no thyroid enlargement Resp normal respiratory effort, no retractions, no use of accessory muscles and clear to auscultation bilaterally Auscultation: Negative for crackles, rales, rhonchi or wheezes Cardio regular rate, regular rhythm, S1 normal heart sound, S2 normal heart sound, no murmurs, no rub, no gallops, no clicks and no JVD GI normal to inspection, nondistended, normoactive bowel sounds, soft to palpation, non-tender and non-distended Extremity no clubbing, cyanosis or edema Extremity Narrative: Bilateral knees with significant evidence of osteoarthritis right appears worse than the left, no significant effusion Skin no rashes or lesions noted, no wounds, skin turgor normal and no jaundice Neuro oriented x3, CN's II-XII intact bilaterally, moves all extremities and no focal motor deficits Neuro Narrative: Generalized weakness Sensorium / Orientation: awake and alert Speech: speech normal Psych affect normal Psych Narrative: Very plus Weight / BMI Weight Weight: 72.7 kg Body Mass Index (BMI) 25.1 ABG / Lab / Microbiology Data Result Diagrams: 12/05/21 01:17 12/05/21 01:17 Microbiology: Microbiology 12/06/21 12:00 Nasal Secretion SARS-CoV-2 Antigen (Rapid) - Final Meaningful Use Info Meaningful Use Diagnoses (Choose all that apply): None applicable Discharge Plan Admission Admit Date/Time: 12/05/21 04:38 Primary Reason for Your Visit: Fall Attending Provider: Soniya King Primary Care Provider: Mitchell Appiah Consulting Providers: Willy Vela Instructions Patient Instructions: Hemodialysis, Bruises (Contusions), ED Finger Sprain Additional Instructions / Restrictions: X-rays are negative. Use splints for stability. Continue using your walker. Keep your planned dialysis appointment on Friday. Discharge Orders/Prescriptions Prescriptions: New acetaminophen [Tylenol] 325 mg Tablet 650 mg PO Q6H PRN PRN (Reason: Pain Score 1-10/Temp > 100.7 F) Qty: 0 RF: 0 lidocaine 5 % Adhesive Patch,Medicated 1 patch topical DAILY Qty: 0 RF: 0 Remove Patch 1 patch topical DAILY@2200 Qty: 0 RF: 0 Continued midodrine 10 mg tablet 40 mg PO TID RF: 0 promethazine 25 mg tablet 25 mg PO Q6H PRN (Reason: Nausea) RF: 0 potassium chloride 10 mEq tablet extended release 10 meq PO TID RF: 0 primidone 50 MG tablet 250 mg PO TID RF: 0 pantoprazole [Protonix] 40 mg Tablet,Delayed Release (Dr/Ec) 40 mg PO DAILY RF: 0 Trintellix 20 mg Tablet 20 mg PO QHS RF: 0 clonazepam 0.5 mg Tablet 0.5 - 1 mg PO QHS PRN (Reason: Insomnia) RF: 0 metoprolol tartrate 25 mg Tablet 25 mg PO BID RF: 0 multivitamin Tablet 1 tab PO DAILY RF: 0 loperamide 2 mg Capsule 2 mg PO Q6H PRN (Reason: health maintenance) RF: 0 fluticasone propionate 50 mcg/actuation [place],Suspension 1 spray INTRANASAL BID RF: 0 levothyroxine 50 mcg Tablet 50 mcg PO DAILY RF: 0 Referrals / Follow Up: Mitchell Appiah MD [Primary Care Provider] - Within 1 Month Mitul Quintanilla MD [STAFF PHYSICIAN] - See Referral Note (After discharge from skilled facility-orthopedic surgery for right knee) Disposition Disposition (needs filled in before D/C Order can be placed): [facility] Charges/Coding Visit Charges Inpatient E&M: 88544 SNF Disch >30 Min
--- NOTE | 2021-12-06 15:24 | CASEMGMT ---
Social Work SW did let pt know that the ambulette is here to take her to [facility]. SW offered to call family, pt states she will call her sister later. LOUIS Rose
== END 2021-12-06 15:30 | disposition skilled nursing facility (03) ==
LOC: ED 02:49 → MS3 07:05
PROVIDERS: Admitting Provider Hospitalist; Emergency Provider Emergency Medicine; PCP Family Medicine; Visit Provider Internal Medicine
DX: N18.6 End stage renal disease (principal); Z99.2 Dependence on renal dialysis; K74.60 Unspecified cirrhosis of liver; I48.0 Paroxysmal atrial fibrillation; D69.6 Thrombocytopenia, unspecified; M17.0 Bilateral primary osteoarthritis of knee; S80.01XA Contusion of right knee, initial encounter; D63.1 Anemia in chronic kidney disease; W19.XXXA Unspecified fall, initial encounter; G25.0 Essential tremor; R42 Dizziness and giddiness; R60.0 Localized edema; R29.6 Repeated falls; Z79.899 Other long term (current) drug therapy; Z79.51 Long term (current) use of inhaled steroids; S63.601A Unspecified sprain of right thumb, initial encounter; Y93.89 Activity, other specified; Y99.9 Unspecified external cause status; S63.91XA Sprain of unspecified part of right wrist and hand, initial encounter; Y92.89 Other specified places as the place of occurrence of the external cause; R26.9 Unspecified abnormalities of gait and mobility
CPT/HCPCS: 73130; 73564; 80048; 85025; 87426; 93005; 97162; 97166; 97530; 97535; 99218; 99285; J7030; G0378

== ENCOUNTER 2021-12-23 06:07 | Inpatient (IN) | payer MEDICARE, MEDICAID, SELFPAY ==
[2021-12-23] VITALS (7 sets, daily range): BP systolic 113–125; BP diastolic 59–74; PULSE 61–96; RESP 16–30; TEMP 36–36.8; O2SAT 92–98; BMI 26.0; BMI 25.6
--- NOTE | 2021-12-23 06:23 | EKG12_ITS ---
Test Reason : Blood Pressure : / mmHG Vent. Rate : 081 BPM Atrial Rate : 182 BPM P-R Int : 000 ms QRS Dur : 076 ms QT Int : 384 ms P-R-T Axes : 000 040 022 degrees QTc Int : 446 ms Atrial fibrillation Abnormal ECG Confirmed by KIKA SHEA MD ([id number]), editor at large BRIDGET CALLEJAS ([id number]) on 12/24/2021 9:41:35 AM Referred By: HEYDI Confirmed By:KIKA SHEA MD
--- NOTE | 2021-12-23 06:23 | CT_ITS ---
STUDY: CT BRAIN WITHOUT CONTRAST REASON FOR EXAM: Female, 76 years old. head injury RADIATION DOSAGE (If Supplied By Facility): CTDIvol = ( 44.99 ) mGy, DLP = ( 796.11 ) mGycm TECHNIQUE: Transaxial CT imaging of the brain was performed without administration of intravenous contrast material. Individualized dose optimization techniques were used for this CT. COMPARISON: 05/09/2021 FINDINGS: Normal soft tissue structures. Normal calvarium. There is mild cerebral atrophy with widening of the extra-axial spaces and ventricular dilatation. Normal white matter tracts of the cerebral hemispheres. Normal basal ganglia and thalami. Normal brainstem. Normal cerebellum. There is no intracranial hemorrhage. There are no findings of an acute ischemic infarction. Normal visualized paranasal sinuses. CT/Brain/Head without Contrast IMPRESSION: Chronic involutional changes of the brain. Electronically Signed: Pedro Garces MD at 8:48 EST Tel , Service support ,
--- NOTE | 2021-12-23 06:23 | RAD_ITS ---
STUDY: X-RAY - RIGHT HAND REASON FOR EXAM: Female, 76 years old. pain TECHNIQUE: 3 view(s) of the hand. COMPARISON: 12/05/2021 FINDINGS: Normal radiocarpal articulation. Normal distal radioulnar joint. Normal visualized carpal bones. Normal carpal articulations There is degenerative arthrosis of the carpometacarpal (CMC) articulation of the thumb. Normal second through fifth carpometacarpal joints. Normal metacarpi. There is degenerative arthrosis of the metacarpophalangeal (MCP) joints. There is degenerative arthrosis of the interphalangeal joint of the thumb with articular joint space narrowing. Normal proximal and distal phalanges of the thumb. Focal joint space narrowing of the second metacarpal phalangeal joint. There is diffuse articular joint space narrowing of the proximal and distal interphalangeal joints of the second through fifth fingers, but without erosive changes or periarticular soft tissue swelling. Normal phalanges of the second through fifth fingers. The soft tissue structures are unremarkable. RAD/Hand Min 3 Views IMPRESSION: Degenerative joint disease of the hand, as described above. No acute fracture or dislocation. Electronically Signed: Pedro Garces MD at 9:30 EST Tel , Service support ,
--- NOTE | 2021-12-23 06:23 | RAD_ITS ---
STUDY: X-RAY - UNILATERAL RIBS ( RIGHT ) WITH CHEST REASON FOR EXAM: Female, 76 years old. pain TECHNIQUE - RIBS: 4 view(s) of the ribs. TECHNIQUE - CHEST: Single PA view of the chest. COMPARISON: None. FINDINGS - RIBS: Normal visualized ribs without a demonstrated fracture. FINDINGS - CHEST: The lungs are clear and expanded. Small right pleural effusion. Normal size heart. Normal mediastinum and liane. Normal visualized pulmonary arteries. Normal visualized aortic arch and descending thoracic aorta. Normal visualized thoracic spine. Normal visualized ribs, clavicles, and shoulders. There is no demonstrated abnormality of the visualized soft tissue structures of the upper abdomen. RAD/Ribs Uni Min 3V w/PA Chest IMPRESSION: RIBS: No obvious displaced right rib fracture. CHEST: Small right pleural effusion. CT may be useful. Electronically Signed: Pedro Garces MD at 9:40 EST Tel , Service support ,
--- NOTE | 2021-12-23 06:29 | ED.VIS.FALL ---
HPI HPI - Fall History of Present Illness Chief Complaint: Fall Narrative Narrative: 76-year-old female presenting with fall. Apparently she fell twice overnight. Patient states that she dropped Tylenol and bent over and felt lightheaded and fell to the ground injuring her ribs and her right hand. She states she was able to get up and she was able to get back to bed but states she felt very weak. She does have rib pain on the right where she fell. She denies chest pressure or shortness of breath. She has not had fever or chills. She denies urinary or vaginal complaints. Patient states that she recently fell and injured her right ribs. It is unclear whether or not she hit her head. She does not believe she lost consciousness. She does have history of atrial fibrillation but is not on anticoagulation. Patient also states she is on dialysis Friday and Friday and missed Friday's appointment because she was too weak to go. Dr. Montanez is her skid man. She states that she does live with family members but they were unable to get her to her appointment. She does note some edema of her lower extremities. PFSH [facility] Medical History Anemia Atrial fibrillation Atrial fibrillation status post cardioversion Atrial fibrillation, chronic Back problem CL (cirrhosis of liver) Contusion of arm, left Contusion of knee, right Diarrhea ESRD (end stage renal disease) on dialysis ESRD on dialysis Essential tremor Heparin induced thrombocytopenia Kidney stones Personal history of colonic polyps Recurrent falls Right rib fracture Sprain of hand, thumb, right Thrombocytopenia Home Medications midodrine 10 mg tablet 40 mg PO TID 07/24/18 [History Last Taken 12/04/21] promethazine 25 mg tablet 25 mg PO Q6H PRN 08/17/19 [History Last Taken 08/31/19] potassium chloride 10 mEq tablet,extended release 10 meq PO TID 04/26/20 [History Last Taken 12/04/21] primidone 250 mg PO TID 10/06/20 [History Last Taken 12/04/21] Trintellix 20 mg PO QHS 05/09/21 [History Last Taken 12/04/21] clonazepam 0.5 - 1 mg PO QHS PRN 05/09/21 [History Last Taken 12/04/21] metoprolol tartrate 25 mg PO BID 05/09/21 [History Last Taken 12/04/21] pantoprazole [Protonix] 40 mg PO DAILY 05/09/21 [History Last Taken 12/04/21] fluticasone propionate 1 spray INTRANASAL BID 07/13/21 [History Last Taken 12/04/21] loperamide 2 mg PO Q6H PRN 07/13/21 [History Last Taken Unknown] multivitamin 1 tab PO DAILY 07/13/21 [History Last Taken 12/04/21] levothyroxine 50 mcg PO DAILY 12/05/21 [History Last Taken 12/04/21] Remove Patch 1 patch TOPICAL DAILY@2200 #0 12/06/21 [Rx Last Taken Unknown] acetaminophen [Tylenol] 650 mg PO Q6H PRN PRN #0 tab 12/06/21 [Rx Last Taken Unknown] lidocaine 1 patch TOPICAL DAILY #0 ea 12/06/21 [Rx Last Taken Unknown] Allergy/AdvReac Type Severity Reaction Status Date / Time heparin Allergy Intermediate Induced Verified 12/23/21 06:18 thrombocytopenia alprazolam [From Xanax] Allergy Unknown Verified 12/23/21 06:18 Family History Father Arthritis Skin cancer Heart disease Hypertension Hypercholesterolemia Cancer skin cancer Brother Arthritis Heart disease Hypercholesterolemia Hypertension Seizures Diabetes Grandmother Asthma Heart disease Mother Cancer Leukemia Surgical History history AV graft History of cardioversion (08/31/19) History of colonoscopy (~2014) History of hysterectomy History of intestinal bypass History of laparoscopic cholecystectomy history ORIF right hip Social History household members: children Smoking Status: Never smoker alcohol intake: never substance use type: does not use ROS ROS ED Constitutional Constitutional ED: Denies chills or fever(s) Eyes Eyes: Denies blurry vision or diplopia ENT ENT ED: Denies rhinorrhea or sore throat Cardiovascular Cardiovascular: Reports other Details: Right rib pain Respiratory/Chest Respiratory/Chest: Denies cough or dyspnea Gastrointestinal Gastrointestinal: Denies abdominal pain, nausea or vomiting Genitourinary Genitourinary ED: Denies dysuria or hematuria Musculoskeletal Musculoskeletal: Reports other Details: Right hand pain Integumentary Reports other Details: Skin tear dorsum of right hand Neurologic Neurologic: Denies headache(s) or paresthesias Psychiatric Psychiatric: Denies anxiety or depression EXAM Physical Exam Const Vital Signs: 12/23/21 06:09 12/23/21 06:19 Temperature 97.5 F L Temperature Source Oral Pulse Rate 78 Respiratory Rate 18 Respiratory Effort Normal Respiratory Pattern Normal Blood Pressure 113/74 Blood Pressure Mean 87 Pulse Ox 97 Oxygen Delivery Method Room Air Positive well nourished General Appearance ED: NAD HEENT Reports normocephalic atraumatic Eyes PERRL and EOMs intact bilaterally Neck full ROM and supple Resp normal respiratory effort and clear to auscultation bilaterally Cardio regular rate and regular rhythm GI non-tender and non-distended Palpation: soft Extremity Extremity Narrative: Slight pedal edema. Neuro oriented x3 Sensorium / Orientation: alert MDM MDM MDM Narrative Medical decision making narrative: We will obtain blood work. Patient did miss dialysis on Friday. She is not complaining of shortness of breath but is having right-sided rib pain from a fall this morning. She has a superficial skin tear to the dorsum of her right hand. Since the patient is complaining of lightheadedness I did obtain an EKG which on my interpretation shows atrial fibrillation with controlled ventricular response at 81 bpm without sign of ST elevation or depression. CBC shows pancytopenia which is stable consistent with previous blood work BMP shows that the patient's creatinine is 8.7 which is consistent with her end-stage renal disease and having missed dialysis. Electrolytes are unremarkable. She has stable elevated LFTs and history of this. High-sensitivity troponin is 17. COVID-negative. Right rib series, right hand x-ray, CT brain are pending. Patient was discussed with Dr. Salazar for admission. Incoming ED physician will follow up imaging. Lab Data Attestation: I reviewed the patient's lab results. Labs: Laboratory Results - last 24 hr 12/23/21 12/23/21 12/23/21 06:28 06:28 06:28 WBC 3.8 L RBC 2.92 L Hgb 10.6 L Hct 33.8 L MCV 115.8 H MCH 36.3 H MCHC 31.4 L RDW Std Deviation 68.9 H RDW Coeff of Yoana 16.0 H Plt Count 86 L MPV 13.2 H Immature Gran % (Auto) 0.300 Neut % (Auto) 48.3 Lymph % (Auto) 40.8 [place] % (Auto) 7.7 Eos % (Auto) 1.3 Baso % (Auto) 1.6 H Absolute Neuts (auto) 1.8 L Absolute Lymphs (auto) 1.53 Nucleated RBC % 0 Platelet Estimate MOD DEC Anisocytosis 2+ Tear Drop Cells RARE Ovalocytes RARE Sodium 142 Potassium 4.4 Chloride 110 H Carbon Dioxide 20.0 L Anion Gap 12 BUN 53 H Creatinine 8.87 H* Estim Creat Clear Calc 5.33 Est GFR (MDRD) Af Amer 6 L Est GFR (MDRD) Non-Af 5 L BUN/Creatinine Ratio 6.0 L Glucose 85 Calcium 8.4 L Total Bilirubin 0.50 Cancelled Direct Bilirubin 0.20 Cancelled AST 41 H Cancelled ALT 60 H Cancelled Alkaline Phosphatase 147 H Cancelled Troponin I High Sens 17 Total Protein 6.0 L Cancelled Albumin 2.5 L Cancelled Globulin 3.5 Cancelled Albumin/Globulin Ratio 0.7 L Discharge Plan Triage Chief Complaint: Fall ED Provider: Anival Troncoso Dx/Rx/DC Orders Prescriptions: No Action midodrine 10 mg tablet 40 mg PO TID RF: 0 promethazine 25 mg tablet 25 mg PO Q6H PRN (Reason: Nausea) RF: 0 potassium chloride 10 mEq tablet extended release 10 meq PO TID RF: 0 primidone 50 MG tablet 250 mg PO TID RF: 0 pantoprazole [Protonix] 40 mg Tablet,Delayed Release (Dr/Ec) 40 mg PO DAILY RF: 0 Trintellix 20 mg Tablet 20 mg PO QHS RF: 0 clonazepam 0.5 mg Tablet 0.5 - 1 mg PO QHS PRN (Reason: Insomnia) RF: 0 metoprolol tartrate 25 mg Tablet 25 mg PO BID RF: 0 multivitamin Tablet 1 tab PO DAILY RF: 0 loperamide 2 mg Capsule 2 mg PO Q6H PRN (Reason: health maintenance) RF: 0 fluticasone propionate 50 mcg/actuation [place],Suspension 1 spray INTRANASAL BID RF: 0 levothyroxine 50 mcg Tablet 50 mcg PO DAILY RF: 0 acetaminophen [Tylenol] 325 mg Tablet 650 mg PO Q6H PRN PRN (Reason: Pain Score 1-10/Temp > 100.7 F) Qty: 0 RF: 0 lidocaine 5 % Adhesive Patch,Medicated 1 patch topical DAILY Qty: 0 RF: 0 Remove Patch 1 patch topical DAILY@2200 Qty: 0 RF: 0 Primary Care Provider: Mitchell Appiah
[2021-12-23 06:37] LABS: Absolute Lymphocyte Count 1.53 X10^3/uL (0.83-4.51); Absolute Neutrophil Count 1.8 X10^3/uL (2.0-7.7); Basophil# 0.06 X10^3/uL; Basophil% 1.6 % (0-1); Eosinophil# 0.05 X10^3/uL; Eosinophils% 1.3 % (0-5); Hematocrit 33.8 % (37-47); Hemoglobin 10.6 g/dL (12.0-15.0); Lymphocyte # 1.53 X10^3/ul (0.83-4.51); Lymphocyte % 40.8 % (19-41); Mean Corp Hgb Conc 31.4 g/dL (32-36); Mean Corpuscular Hgb 36.3 pg (27.0-32.0); Mean Corpuscular Volume 115.8 fL (81-99); Mean Platelet Vol. 13.2 fl (6.2-12.0); Monocyte# 0.29 X10^3/uL; Monocyte% 7.7 % (0-10); NRBC Flagged by Analyzer 0 % (0-5); Neutrophil # 1.81 X10^3/uL (2.7-7.7); Neutrophil % 48.3 % (47-70); POSITIVE COUNT YES; POSITIVE MORPHOLOGY YES; Platelet Count 86 K/mm3 (150-450); RBC Distribution Width SD 68.9 fl (35.1-43.9); Red Blood Count 2.92 M/mm3 (4.2-5.4); White Blood Count 3.8 K/mm3 (4.4-11.0)
[2021-12-23 06:40] LABS: Differential Indicated SCAN CRITERIA MET
[2021-12-23] MEDS: Lidocaine 5% Patch 1 PATCH TOPICAL ×2 (06:58→13:44)
[2021-12-23 06:59] LABS: Anisocytosis 2+; Ovalocyte RARE; Platelet Estimate MOD DEC (ADEQ); Tear Drop Cell RARE
[2021-12-23 07:12] LABS: ALB/GLOB Ratio 0.7 RATIO (0.9-2.4); AST(SGOT) 41 U/L (15-37); Alanine Aminotransfer ALT/SGPT 60 U/L (13-56); Albumin, Serum 2.5 g/dL (3.2-5.0); Alkaline Phosphatase 147 U/L (45-117); Anion Gap 12 (5-15); BUN 53 mg/dL (7-18); Calcium,Total 8.4 mg/dL (8.5-10.1); Chloride 110 mmol/L (98-107); Creatinine, Serum 8.87 mg/dL (0.55-1.02); EST Glomerular Filtration Rate 5 mL/min (>60); Est Glom Filt Rate - Afr Amer 6 mL/min (>60); Estimated Creatinine Clearance 5.33 ml/min; Globulin 3.5 g/dL (2.2-4.2); Glucose 85 mg/dL (74-106); Potassium 4.4 mmol/L (3.5-5.1); Sodium Level 142 mmol/L (136-145); Troponin-I HS 17 pg/mL (3.0-54.0)
--- NOTE | 2021-12-23 07:21 | NURSING ---
DR JORGE SOLIZ
--- NOTE | 2021-12-23 07:26 | NURSING ---
This RN and SN attempted IV x2 without success. Will notify MD and discharge coordinator.
--- NOTE | 2021-12-23 07:36 | NURSING ---
MED SURG OBS JOPPERI DEBILITY, ESRD, FALL
[2021-12-23] MEDS: 0.9% Normal Saline 1,000 ML 1000 ML IV (07:50)
--- NOTE | 2021-12-23 08:36 | HP.PCM.HOS_ITS ---
HPI - General General Date of Admission: 12/23/21 HPI Narrative GUIDO WALLACE, is a 76 F who presents with falls. Patient fell yesterday as well as today. Patient was on the ground unable to get up. Patient was admitted for falls on the fifth of this month and sent to the [facility]. Patient was just discharged last week. Patient is aware when she falls but may have hit her head today. Head CT was performed and final read is pending but no obvious bleed to my evaluation. Patient is demonstrating a shuffling gait and does have tremors which has been diagnosed as essential tremors by her neurologist in [facility]. [facility] Medical History Anemia Atrial fibrillation Atrial fibrillation status post cardioversion Atrial fibrillation, chronic Back problem CL (cirrhosis of liver) Contusion of arm, left Contusion of knee, right Diarrhea ESRD (end stage renal disease) on dialysis ESRD on dialysis Essential tremor Heparin induced thrombocytopenia Kidney stones Personal history of colonic polyps Recurrent falls Right rib fracture Sprain of hand, thumb, right Thrombocytopenia Home Medications midodrine 10 mg tablet 40 mg PO TID 07/24/18 [History Last Taken 12/04/21] promethazine 25 mg tablet 25 mg PO Q6H PRN 08/17/19 [History Last Taken 08/31/19] potassium chloride 10 mEq tablet,extended release 10 meq PO TID 04/26/20 [History Last Taken 12/04/21] primidone 250 mg PO TID 10/06/20 [History Last Taken 12/04/21] Trintellix 20 mg PO QHS 05/09/21 [History Last Taken 12/04/21] clonazepam 0.5 - 1 mg PO QHS PRN 05/09/21 [History Last Taken 12/04/21] metoprolol tartrate 25 mg PO BID 05/09/21 [History Last Taken 12/04/21] pantoprazole [Protonix] 40 mg PO DAILY 05/09/21 [History Last Taken 12/04/21] fluticasone propionate 1 spray INTRANASAL BID 07/13/21 [History Last Taken 12/04/21] loperamide 2 mg PO Q6H PRN 07/13/21 [History Last Taken Unknown] multivitamin 1 tab PO DAILY 07/13/21 [History Last Taken 12/04/21] levothyroxine 50 mcg PO DAILY 12/05/21 [History Last Taken 12/04/21] Remove Patch 1 patch TOPICAL DAILY@2200 #0 12/06/21 [Rx Last Taken Unknown] acetaminophen [Tylenol] 650 mg PO Q6H PRN PRN #0 tab 12/06/21 [Rx Last Taken Unknown] lidocaine 1 patch TOPICAL DAILY #0 ea 12/06/21 [Rx Last Taken Unknown] Allergy/AdvReac Type Severity Reaction Status Date / Time heparin Allergy Intermediate Induced Verified 12/23/21 06:18 thrombocytopenia alprazolam [From Xanax] Allergy Unknown Verified 12/23/21 06:18 Family History (Updated 12/23/21 @ 08:[address] Carlos Salazar DO) Father Arthritis Skin cancer Heart disease Hypertension Hypercholesterolemia Cancer skin cancer Brother Arthritis Heart disease Hypercholesterolemia Hypertension Seizures Diabetes Tremor Grandmother Asthma Heart disease Mother Cancer Leukemia Surgical History history AV graft History of cardioversion (08/31/19) History of colonoscopy (~2014) History of hysterectomy History of intestinal bypass History of laparoscopic cholecystectomy history ORIF right hip Social History household members: children Smoking Status: Never smoker alcohol intake: never substance use type: does not use ROS ROS Narrative No fever chills. Decreased appetite. Lower extremity edema this been unchanged. All review of systems were negative except as mentioned above in the history of present illness and the other review of systems. Vital Signs Vital Signs Vital Signs: 12/23/21 06:09 12/23/21 06:19 12/23/21 07:59 Temperature 36.4 C L 36.0 C L Temperature Source Oral Temporal Pulse Rate 78 88 Respiratory Rate 18 30 H Respiratory Effort Normal Respiratory Pattern Normal Blood Pressure 113/74 113/74 Blood Pressure Mean 87 87 Pulse Ox 97 98 Oxygen Delivery Method Room Air Room Air Weight Weight: 75.4 kg Body Mass Index (BMI) 26.0 Physical Exam Const alert Constitutional Narrative: Tremulous in her upper extremities as well as neck. General Appearance: cooperative HEENT normocephalic Eyes PERRL Eyes Narrative: Impaired vertical as well as horizontal gaze. Neck no lymphadenopathy Resp normal respiratory effort, no retractions, no use of accessory muscles and clear to auscultation bilaterally Cardio regular rate, regular rhythm, S1 normal heart sound and S2 normal heart sound GI normal to inspection, nondistended, normoactive bowel sounds, soft to palpation, non-tender and non-distended Extremity Extremity Narrative: Edema of lower extremities Skin Skin Narrative: Skin tear on dorsum of right hand Neuro Neuro Narrative: Muscle strength 5 out of 5 in upper extremities and 4 out of 5 in lower extremities bilaterally Sensorium / Orientation: awake and alert Psych Psych Narrative: Flat affect Results Lab / Micro Data Attestation: I reviewed the patient's lab results. Result Diagrams: 12/23/21 06:28 12/23/21 06:28 Labs: Laboratory Results - last 24 hr 12/23/21 06:28: WBC 3.8 L, RBC 2.92 L, Hgb 10.6 L, Hct 33.8 L, MCV 115.8 H, MCH 36.3 H, MCHC 31.4 L, RDW Std Deviation 68.9 H, RDW Coeff of Yoana 16.0 H, Plt Count 86 L, MPV 13.2 H, Immature Gran % (Auto) 0.300, Neut % (Auto) 48.3, Lymph % (Auto) 40.8, Pershing % (Auto) 7.7, Eos % (Auto) 1.3, Baso % (Auto) 1.6 H, Absolute Neuts (auto) 1.8 L, Absolute Lymphs (auto) 1.53, Nucleated RBC % 0, Ricardo telet Estimate MOD DEC, Anisocytosis 2+, Tear Drop Cells RARE, Ovalocytes RARE 12/23/21 06:28: Sodium 142, Potassium 4.4, Chloride 110 H, Carbon Dioxide 20.0 L , Anion Gap 12, BUN 53 H, Creatinine 8.87 H*, Estim Creat Clear Calc 5.33, Est GFR (MDRD) Af Amer 6 L, Est GFR (MDRD) Non-Af 5 L, BUN/Creatinine Ratio 6.0 L, Glucose 85, Calcium 8.4 L, Total Bilirubin 0.50, Direct Bilirubin 0.20, AST 41 H , ALT 60 H, Alkaline Phosphatase 147 H, Troponin I High Sens 17, Total Protein 6.0 L, Albumin 2.5 L, Globulin 3.5, Albumin/Globulin Ratio 0.7 L 12/23/21 06:28: Total Bilirubin Cancelled, Direct Bilirubin Cancelled, AST Cancelled, ALT Cancelled, Alkaline Phosphatase Cancelled, Total Protein Cancelled, Albumin Cancelled, Globulin Cancelled Micro: Microbiology 12/23/21 06:46 Nasal Secretion SARS-CoV-2 Antigen (Rapid) - Final EKG Initial EKG: Attestation: I personally reviewed and interpreted this EKG as follows: Prior EKG tracings: available for review EKG Rhythm Intrepretation: Atrial Fibrillation Assessment & Plan Assessment/Plan (1) Debility: PLAN: 1. Debility/failure to thrive This has been progressive over the past year. Patient was admitted on the fifth and sent to the [facility] for falls and is again falling after being discharged from the [facility]. Patient is open to going back to the [facility]. PT OT evaluate and treat 2. Essential tremor Patient last saw Dr. Rae at the [facility] on January 25, 2021 It was noted that patient had worsening tremulousness at that time and she was not interested in deep brain stimulation and still is not now. They were working with adjusting her dose of primidone. Noted that her condition is complicated by sleep difficulties and overutilizing clonazepam to help with that. Patient may have something more than just an essential tremor given her shuffling gait and impaired eye gaze but that would need to be further elucidated with outpatient neurologic follow-up 3. Atrial fibrillation Rate controlled Continue with metoprolol Not a candidate for anticoagulation given her falls 4. VTE prophylaxis: Patient apparently has a history of heparin-induced thrombocytopenia, therefore chemical prophylaxis contraindicated. SCDs 5. CODE STATUS: Addressed with the patient. Patient wishes to be DNR Comfort Care arrest no intubation. Case discussed in with the patient's sister at bedside. Charges/Coding Visit Charges Inpatient E&M: 48058 Init Hosp L3
[2021-12-23] MEDS: Fluticasone 0.05% 1 SPRAY NASAL.SRY NASAL ×2 (13:43→20:45)
[2021-12-23] MEDS: Pantoprazole Sodium 40 MG Tablet PO (13:45)
[2021-12-23] MEDS: Metoprolol Tartrate 25 MG Tablet PO ×2 (13:45→20:46)
[2021-12-23] MEDS: Primidone 250 MG Tablet PO ×2 (13:45→20:47)
[2021-12-23] MEDS: Midodrine HCl 5 MG Tablet 40 MG PO (13:46)
[2021-12-23] MEDS: VORTIOXETINE HYDROBROMIDE 20 MG TABLET PO (20:47)
[2021-12-23] MEDS: Acetaminophen 325 MG Tablet 650 MG PO (20:48)
[2021-12-24] VITALS (8 sets, daily range): BP systolic 102–118; BP diastolic 53–61; PULSE 71–96; RESP 16–20; TEMP 36.3–36.9; O2SAT 91–95
[2021-12-24 05:42] LABS: Anion Gap 14 (5-15); BUN 59 mg/dL (7-18); BUN/Creat Ratio 6.6 RATIO (10-20); Calcium,Total 7.8 mg/dL (8.5-10.1); Chloride 110 mmol/L (98-107); Creatinine, Serum 8.98 mg/dL (0.55-1.02); EST Glomerular Filtration Rate 5 mL/min (>60); Est Glom Filt Rate - Afr Amer 6 mL/min (>60); Estimated Creatinine Clearance 5.26 ml/min; Glucose 78 mg/dL (74-106); Potassium 4.4 mmol/L (3.5-5.1); Sodium Level 140 mmol/L (136-145)
[2021-12-24] MEDS: Primidone 250 MG Tablet PO ×3 (06:06→22:30)
[2021-12-24] MEDS: Levothyroxine 50 MCG Tablet PO (06:06)
--- NOTE | 2021-12-24 07:26 | PCM.PN.HOSP ---
Subjective Subjective Patient overnight with unfortunately onset cough with eventual bouts resulting in nausea and small emesis while she been eating dinner transition to n.p.o. status. Speech did evaluate the patient today and did transition her to a regular diet although minced with meats significantly chopped and regular liquids. Patient has been fatigued and weak but notes she feels improved since initial ED presentation. Patient has dialysis on Friday and Fridays and receiving dialysis today. Patient remains amenable to skilled placement. Patient denies fevers, chills, nausea, emesis, abdominal pain, chest pain or dyspnea. Objective Data Objective Data Vital Signs: Vital Signs Temp Pulse Resp BP Pulse Ox 97.4 F L 89 16 109/53 L 91 12/24/21 02:51 12/24/21 02:51 12/24/21 02:51 12/24/21 02:51 12/24/21 02:51 Oxygen Delivery Method Room Air Weight: 157 lb 3.033 oz Body Mass Index (BMI) 25.6 Intake & Output: Intake and Output for Last 24 Hours 12/22/21 12/23/21 12/24/21 23:59 23:59 23:59 Intake Total 1600 / 1600 400 / 400 Output Total 250 / 250 0 / 0 Balance 1350 / 1350 400 / 400 Lab / Micro Data Result Diagrams: 12/23/21 06:28 12/24/21 04:40 Labs: Laboratory Results - last 24 hr 12/24/21 04:40: Sodium 140, Potassium 4.4, Chloride 110 H, Carbon Dioxide 16.0 L, Anion Gap 14, BUN 59 H, Creatinine 8.98 H*, Estim Creat Clear Calc 5.26, Est GFR (MDRD) Af Amer 6 L, Est GFR (MDRD) Non-Af 5 L, BUN/Creatinine Ratio 6.6 L, Glucose 78, Calcium 7.8 L Micro: Microbiology 12/23/21 06:46 Nasal Secretion SARS-CoV-2 Antigen (Rapid) - Final Radiography Diagnostic Testing: Radiology Impression Brain CT 12/23/21 06:23 IMPRESSION: Chronic involutional changes of the brain. Electronically Signed: Pedro Garces MD at 8:48 EST Tel , Service support , Hand X-Ray 12/23/21 06:23 IMPRESSION: Degenerative joint disease of the hand, as described above. No acute fracture or dislocation. Electronically Signed: Pedro Garces MD at 9:30 EST Tel , Service support , Ribs w/Chest X-Ray 12/23/21 06:23 IMPRESSION: RIBS: No obvious displaced right rib fracture. CHEST: Small right pleural effusion. CT may be useful. Electronically Signed: Pedro Garces MD at 9:40 EST Tel , Service support , Physical Exam Narrative Physical Examination: General: Awake, alert, oriented x 3 and cooperative, seated upright in the bed of the medical surgical bed, fatigued otherwise no acute complaints. Skin: Normal color, normal turgor, no icterus, no cyanosis. HEENT: AT/NC, EOMI, PERRLA, mildly dry MM. Lungs: CTA bilaterally, moderate effort, mild decrease BL bases, no rales, ronchi or wheezing. Heart: Regular rate and rhythm; no gallop, rub audible. Abdomen: Soft, NTTP, ND, mildly hyperactive BS. Extremities: No cyanosis, no clubbing, chronic bilateral extremity pedal to distal rincon pitting edema, + AVF thrill. Neurological: Patient awake, alert, oriented as noted, cognitive function intact; pupils equally reactive to light and accommodation, cranial nerves II-XII grossly normal, moving all 4 extremities, no focal deficits, strength moderately to severely global decreased. Psychiatric: Affect appears fatigued otherwise normal, no acute evidence of depressive or anxiety feelings. Assessment & Plan Assessment/Plan (1) FTT (failure to thrive) in adult: PLAN: The patient is a 76 y/o F w/ PMHx: PAF, Chronic anemia/AOCD, ESRD on HD, Chronic essential tremors, Depression and Anxiety who presents to the [facility] ED on 12/23/21 with history of frequent falls's most recent on day of presentation unable to get off the ground noted to be the fifth during the month of presentation with recent evaluation discharge last week prior with potential trauma to the head. #1. Failure to thrive, adult with frequent falls and debility: CT head without acute findings. Admitted to medical surgical floor, maintain on fall precautions, PT and OT assessments ongoing, case management consulted, plan correction facility placement once preauthorization obtained, continued HD per current Friday and Friday regimen with nephrology consulted and following. #2. Transient dysphagia: Patient with transient dysphagia with coughing while eating dinner 12/23/2021 evening, speech consulted and transition to a thin liquid with a minced meat chopped diet, will continue to monitor and continue speech evaluations. #3. ESRD: Patient with ongoing dialysis Friday and Fridays per discussion with patient, nephrology consulted, planned HD today. Patient maintained on midodrine therapy. #4. PAF: We will continue patient home metoprolol regimen, not anticoagulated given fall history. #5. Hypothyroidism: Continue home synthroid regimen. #6. Anxiety and Depression: Will continue PRN low dose clonazepam and vortioxetine home regimen. #7. GERD: Continue home PPI. #8. DVT Prophylaxis: SCDs, holding chemoprophylaxis given notable fall history. Charges/Coding Visit Charges Inpatient E&M: 53161 Subs Hosp L2
[2021-12-24] MEDS: Fluticasone 0.05% 1 SPRAY NASAL.SRY NASAL ×2 (07:43→22:26)
[2021-12-24] MEDS: Lidocaine 5% Patch 1 PATCH TOPICAL (07:44)
[2021-12-24] MEDS: Pantoprazole Sodium 40 MG Tablet PO (07:45)
[2021-12-24] MEDS: Multivitamins,Therapeutic Tablet 1 TABLET PO (07:45)
[2021-12-24] MEDS: Midodrine HCl 5 MG Tablet 40 MG PO ×3 (07:46→16:53)
--- NOTE | 2021-12-24 10:58 | PCM.CONS.R ---
Assessment & Plan Assessment/Plan (1) ESRD (end stage renal disease): PLAN: HD today. called and spoke to dialysis nurse. HPI Consult Data Date of Consult: 12/24/21 HPI Narrative HPI Narrative: GUIDO WALLACE, is a 76 F who presents to hospital with weakness. renal consulted for ESRD. ESRD on HD MWF schedule. last HD was friday. has a left arm AVG for access. currently denies any complaints. breathing is ok. [facility] Medical History (Updated 12/24/21 @ 11:[address] Willy Vela MD) Anemia Atrial fibrillation Atrial fibrillation status post cardioversion Atrial fibrillation, chronic Back problem CL (cirrhosis of liver) Contusion of arm, left Contusion of knee, right Depression Diarrhea ESRD (end stage renal disease) on dialysis ESRD on dialysis Essential tremor Heparin induced thrombocytopenia Kidney stones Personal history of colonic polyps Recurrent falls Right rib fracture Sprain of hand, thumb, right Thrombocytopenia Home Medications midodrine 10 mg tablet 40 mg PO TID 07/24/18 [History Last Taken 12/04/21] promethazine 25 mg tablet 25 mg PO Q6H PRN 08/17/19 [History Last Taken 08/31/19] potassium chloride 10 mEq tablet,extended release 10 meq PO TID 04/26/20 [History Last Taken 12/04/21] primidone 250 mg PO TID 10/06/20 [History Last Taken 12/04/21] Trintellix 20 mg PO QHS 05/09/21 [History Last Taken 12/04/21] clonazepam 0.5 - 1 mg PO QHS PRN 05/09/21 [History Last Taken 12/04/21] metoprolol tartrate 25 mg PO BID 05/09/21 [History Last Taken 12/04/21] pantoprazole [Protonix] 40 mg PO DAILY 05/09/21 [History Last Taken 12/04/21] fluticasone propionate 1 spray INTRANASAL BID 07/13/21 [History Last Taken 12/04/21] loperamide 2 mg PO Q6H PRN 07/13/21 [History Last Taken Unknown] multivitamin 1 tab PO DAILY 07/13/21 [History Last Taken 12/04/21] levothyroxine 50 mcg PO DAILY 12/05/21 [History Last Taken 12/04/21] Remove Patch 1 patch TOPICAL DAILY@2200 #0 12/06/21 [Rx Last Taken Unknown] acetaminophen [Tylenol] 650 mg PO Q6H PRN PRN #0 tab 12/06/21 [Rx Last Taken Unknown] lidocaine 1 patch TOPICAL DAILY #0 ea 12/06/21 [Rx Last Taken Unknown] Allergy/AdvReac Type Severity Reaction Status Date / Time heparin Allergy Intermediate Induced Verified 12/23/21 06:18 thrombocytopenia alprazolam [From Xanax] Allergy Unknown Verified 12/23/21 06:18 Family History (Updated 12/23/21 @ 08:[address] Carlos Salazar DO) Father Arthritis Skin cancer Heart disease Hypertension Hypercholesterolemia Cancer skin cancer Brother Arthritis Heart disease Hypercholesterolemia Hypertension Seizures Diabetes Tremor Grandmother Asthma Heart disease Mother Cancer Leukemia Surgical History history AV graft History of cardioversion (08/31/19) History of colonoscopy (~2014) History of hysterectomy History of intestinal bypass History of laparoscopic cholecystectomy history ORIF right hip Social History household members: children Smoking Status: Never smoker alcohol intake: never substance use type: does not use ROS ROS Narrative negative except history Physical Exam Narrative Alert awake oriented x 3 no obvious distress no pallor no icterus no JVD s1s2 no murmurs lungs clear abdomen soft no organomegaly no edema no cyanosis Lab / Micro Data Result Diagrams: 12/23/21 06:28 12/24/21 04:40 Labs: Laboratory Results - last 24 hr 12/24/21 04:40: Sodium 140, Potassium 4.4, Chloride 110 H, Carbon Dioxide 16.0 L, Anion Gap 14, BUN 59 H, Creatinine 8.98 H*, Estim Creat Clear Calc 5.26, Est GFR (MDRD) Af Amer 6 L, Est GFR (MDRD) Non-Af 5 L, BUN/Creatinine Ratio 6.6 L, Glucose 78, Calcium 7.8 L Micro: Microbiology 12/23/21 06:46 Nasal Secretion SARS-CoV-2 Antigen (Rapid) - Final
--- NOTE | 2021-12-24 12:42 | CASEMGMT ---
RN CM chart review: Patient was admitted from - for falls and was discharged to [facility] for therapy. See RN CM assessment from 12/05/21. Patient returned to [facility] ED for weakness, fall, FTT. Per hospitalist note patient discharged from [facility] last week. Per note patient willing to return to [facility] if needed. Will monitor progress with therapy for discharge needs. CM will continue to follow this patient and plan for a safe discharge.
--- NOTE | 2021-12-24 15:45 | CASEMGMT ---
RN CM in to pt room. Pt is currently receiving dialysis. Pt lying in bed in no distress. Discussed dc plans with pt. She states she would like to return to [facility] as she keeps falling at home. Pt denies further needs at this time. Notified Michael ROCHA of pt request.
--- NOTE | 2021-12-24 16:04 | CASEMGMT ---
Social Work Note SW updated that pt is agreeable to returning to [facility]. JOSEFINA placed a call to Nisha at [facility] and updated her on referral. Nisha states that pt was cut by insurance and pt found out that [facility] had COVID so pt decided to leave two days earlier than her insurance cut date. JOSEFINA informed Nisha that pt is requesting to return to [facility]. Nisha states to make sure pt is aware that they still have COVID pt's and is willing to review referral. SW in to speak with pt. SW informed pt that referral can be sent to [facility] but [facility] wanted to make sure pt was aware that they still have COVID pt's. Pt states everywhere has COVID pt's. Pt agreeable to returning to [facility]. SW faxed referral to [facility]. Plan: [facility] pending acceptance and pre-cert Cynthia Preciado ELEVATOR ERECTOR, WELDING MACHINE OPERATOR GAS
--- NOTE | 2021-12-24 19:38 | DIALYSIS ---
3 hour tx complete on 3k bath. net uf 1700 ml' tolerated well. needles pulled with hemostasis after 17 minutes. see scanned report.
[2021-12-24] MEDS: VORTIOXETINE HYDROBROMIDE 20 MG TABLET PO (22:30)
[2021-12-24] MEDS: 0.9% Saline Lock 10 ML Syringe IV (22:33)
[2021-12-25] VITALS (9 sets, daily range): BP systolic 113–121; BP diastolic 42–71; PULSE 64–89; RESP 18–20; TEMP 36.3–36.9; O2SAT 92–98
[2021-12-25] MEDS: Levothyroxine 50 MCG Tablet PO (06:37)
[2021-12-25] MEDS: Primidone 250 MG Tablet PO ×3 (06:37→20:36)
[2021-12-25 06:39] LABS: Absolute Lymphocyte Count 1.27 X10^3/uL (0.83-4.51); Absolute Neutrophil Count 1.9 X10^3/uL (2.0-7.7); Basophil# 0.03 X10^3/uL; Basophil% 0.9 % (0-1); Eosinophil# 0.06 X10^3/uL; Eosinophils% 1.7 % (0-5); Hemoglobin 10.2 g/dL (12.0-15.0); Lymphocyte # 1.27 X10^3/ul (0.83-4.51); Lymphocyte % 36.1 % (19-41); Mean Corp Hgb Conc 31.9 g/dL (32-36); Mean Corpuscular Hgb 35.3 pg (27.0-32.0); Mean Corpuscular Volume 110.7 fL (81-99); Mean Platelet Vol. 13.5 fl (6.2-12.0); Monocyte# 0.27 X10^3/uL; Monocyte% 7.7 % (0-10); NRBC Flagged by Analyzer 0 % (0-5); Neutrophil # 1.87 X10^3/uL (2.7-7.7); POSITIVE COUNT YES; Platelet Count 77 K/mm3 (150-450); RBC Distribution Width CV 15.5 % (11.6-14.6); RBC Distribution Width SD 63.7 fl (35.1-43.9); Red Blood Count 2.89 M/mm3 (4.2-5.4); White Blood Count 3.5 K/mm3 (4.4-11.0)
[2021-12-25 07:00] LABS: ALB/GLOB Ratio 0.7 RATIO (0.9-2.4); AST(SGOT) 32 U/L (15-37); Alanine Aminotransfer ALT/SGPT 52 U/L (13-56); Albumin, Serum 2.3 g/dL (3.2-5.0); Alkaline Phosphatase 161 U/L (45-117); Anion Gap 13 (5-15); BUN 40 mg/dL (7-18); BUN/Creat Ratio 6.6 RATIO (10-20); Calcium,Total 8.1 mg/dL (8.5-10.1); Chloride 105 mmol/L (98-107); Creatinine, Serum 6.06 mg/dL (0.55-1.02); EST Glomerular Filtration Rate 7 mL/min (>60); Est Glom Filt Rate - Afr Amer 9 mL/min (>60); Globulin 3.1 g/dL (2.2-4.2); Glucose 86 mg/dL (74-106); Potassium 3.2 mmol/L (3.5-5.1); Protein, Total 5.4 g/dL (6.4-8.2); Sodium Level 139 mmol/L (136-145)
[2021-12-25] MEDS: Midodrine HCl 5 MG Tablet 40 MG PO ×3 (09:13→16:17)
[2021-12-25] MEDS: Lidocaine 5% Patch 1 PATCH TOPICAL (09:13)
[2021-12-25] MEDS: Multivitamins,Therapeutic Tablet 1 TABLET PO (09:13)
[2021-12-25] MEDS: Pantoprazole Sodium 40 MG Tablet PO (09:13)
[2021-12-25] MEDS: Fluticasone 0.05% 1 SPRAY NASAL.SRY NASAL ×2 (09:14→20:38)
[2021-12-25] MEDS: Metoprolol Tartrate 25 MG Tablet PO ×2 (09:21→20:36)
[2021-12-25] MEDS: Acetaminophen 325 MG Tablet 650 MG PO ×2 (09:27→20:37)
[2021-12-25] MEDS: proMETHazine 25 MG Tablet PO ×2 (09:27→20:37)
--- NOTE | 2021-12-25 11:09 | PCM.PN.REN ---
Subjective Subjective no new complaints Objective Data Objective Data Vital Signs: Vital Signs Temp Pulse Resp BP Pulse Ox 97.4 F L 88 18 113/65 95 12/25/21 09:22 12/25/21 09:22 12/25/21 09:22 12/25/21 09:22 12/25/21 09:22 Oxygen Delivery Method Room Air Weight: 70 kg Body Mass Index (BMI) 25.6 Intake & Output: Intake and Output for Last 24 Hours 12/23/21 12/24/21 12/25/21 23:59 23:59 23:59 Intake Total 1600 / 1600 600 / 600 150 / 150 Output Total 250 / 250 1700 / 1700 Balance 1350 / 1350 -1100 / -1100 150 / 150 Lab / Micro Data Result Diagrams: 12/25/21 06:05 12/25/21 06:05 Labs: Laboratory Results - last 24 hr 12/25/21 06:05: WBC 3.5 L, RBC 2.89 L, Hgb 10.2 L, Hct 32.0 L, MCV 110.7 H, MCH 35.3 H, MCHC 31.9 L, RDW Std Deviation 63.7 H, RDW Coeff of Yoana 15.5 H, Plt Count 77 L, MPV 13.5 H, Immature Gran % (Auto) 0.600, Neut % (Auto) 53.0, Lymph % (Auto) 36.1, Stoddard % (Auto) 7.7, Eos % (Auto) 1.7, Baso % (Auto) 0.9, Absolute Neuts (auto) 1.9 L, Absolute Lymphs (auto) 1.27, Nucleated RBC % 0 12/25/21 06:05: Sodium 139, Potassium 3.2 L, Chloride 105, Carbon Dioxide 21.0, Anion Gap 13, BUN 40 H, Creatinine 6.06 H, Estim Creat Clear Calc 7.80, Est GFR (MDRD) Af Amer 9 L, Est GFR (MDRD) Non-Af 7 L, BUN/Creatinine Ratio 6.6 L, Glucose 86, Calcium 8.1 L, Total Bilirubin 0.60, AST 32, ALT 52, Alkaline Phosphatase 161 H, Total Protein 5.4 L, Albumin 2.3 L, Globulin 3.1, Albumin/Globulin Ratio 0.7 L Micro: Microbiology 12/23/21 06:46 Nasal Secretion SARS-CoV-2 Antigen (Rapid) - Final Physical Exam Narrative Alert awake oriented x 3 no obvious distress no pallor no icterus no JVD s1s2 no murmurs lungs clear abdomen soft no organomegaly no edema no cyanosis Assessment & Plan Assessment/Plan (1) ESRD (end stage renal disease): PLAN: HD as per schedule.
--- NOTE | 2021-12-25 11:20 | CASEMGMT ---
Social Work Note SW placed a call to Nisha at [facility]. Nisha states they are able to accept pt and submitted for pre-cert. Plan: [facility] pending pre-cert Cynthia Preciado MSW, PRIVATE DUTY AIDE
--- NOTE | 2021-12-25 11:25 | CASEMGMT ---
Pt screened with [facility] Palliative Care screening tool due to ESRD, pt met criteria. No order received at this time.
--- NOTE | 2021-12-25 11:28 | PN.HOSP_ITS ---
Subjective Subjective Patient seen and examined. She had no active complaints today. She was admitted with a complaint of recurrent falls and is awaiting placement. She denies any headache, blurred vision, chest pain, nausea vomiting or diarrhea. Review of systems otherwise negative. Objective Data Objective Data Vital Signs: Vital Signs Temp Pulse Resp BP Pulse Ox 97.4 F L 88 18 113/65 95 12/25/21 09:22 12/25/21 09:22 12/25/21 09:22 12/25/21 09:22 12/25/21 09:22 Oxygen Delivery Method Room Air Weight: 154 lb 5.177 oz Body Mass Index (BMI) 25.6 Intake & Output: Intake and Output for Last 24 Hours 12/23/21 12/24/21 12/25/21 23:59 23:59 23:59 Intake Total 1600 / 1600 600 / 600 150 / 150 Output Total 250 / 250 1700 / 1700 Balance 1350 / 1350 -1100 / -1100 150 / 150 Lab / Micro Data Result Diagrams: 12/25/21 06:05 12/25/21 06:05 Labs: Laboratory Results - last 24 hr 12/25/21 06:05: WBC 3.5 L, RBC 2.89 L, Hgb 10.2 L, Hct 32.0 L, MCV 110.7 H, MCH 35.3 H, MCHC 31.9 L, RDW Std Deviation 63.7 H, RDW Coeff of Yoana 15.5 H, Plt Count 77 L, MPV 13.5 H, Immature Gran % (Auto) 0.600, Neut % (Auto) 53.0, Lymph % (Auto) 36.1, [place] % (Auto) 7.7, Eos % (Auto) 1.7, Baso % (Auto) 0.9, Absolute Neuts (auto) 1.9 L, Absolute Lymphs (auto) 1.27, Nucleated RBC % 0 12/25/21 06:05: Sodium 139, Potassium 3.2 L, Chloride 105, Carbon Dioxide 21.0, Anion Gap 13, BUN 40 H, Creatinine 6.06 H, Estim Creat Clear Calc 7.80, Est GFR (MDRD) Af Amer 9 L, Est GFR (MDRD) Non-Af 7 L, BUN/Creatinine Ratio 6.6 L, Glucose 86, Calcium 8.1 L, Total Bilirubin 0.60, AST 32, ALT 52, Alkaline Anna sphatase 161 H, Total Protein 5.4 L, Albumin 2.3 L, Globulin 3.1, Albumin/Globulin Ratio 0.7 L Micro: Microbiology 12/23/21 06:46 Nasal Secretion SARS-CoV-2 Antigen (Rapid) - Final Physical Exam Const alert, oriented x3 and no apparent distress Exam Limitations: no limitations HEENT head/scalp atraumatic and moist oral mucous membranes Head and Scalp: normocephalic Eyes PERRL and EOMs intact bilaterally Neck no lymphadenopathy, supple and no JVD Resp normal respiratory effort, no retractions, no use of accessory muscles and clear to auscultation bilaterally Cardio regular rate, regular rhythm, S1 normal heart sound, S2 normal heart sound and no murmurs GI normal to inspection, nondistended, normoactive bowel sounds, soft to palpation, non-tender and non-distended Extremity normal to inspection, full ROM and no clubbing, cyanosis or edema Peripheral Pulses: Yes pulses 2+ throughout and brachial pulses present Skin no rashes or lesions noted Neuro oriented x3, CN's II-XII intact bilaterally and moves all extremities Neuro Narrative: has tremors of her head and extremities, which is chronic Sensorium / Orientation: awake and alert Psych affect normal Assessment & Plan Assessment/Plan (1) FTT (failure to thrive) in adult: (2) Debility: PLAN: #Debility due to mechanical falls and failure to thrive * Says she has been falling a lot at home. PT OT on board. Fall precautions. * She is agreeable to placement. * #Benign essential tremors: * Has tremors of her head and states she has followed up with a neurologist and has been diagnosed with benign essential tremors. * Patient refused deep brain stimulation. * PT OT on board. * #ESRD: Nephrology on board. On dialysis Mondays and Fridays. Had dialysis yesterday. On midodrine. #Paroxysmal A. fib: On metoprolol. Not anticoagulated due to history of falls. #Hypothyroidism: On Synthroid #Anxiety and depression: On low-dose clonazepam and vortioxetine #GERD; on PPI #DVT prophylaxis: SCDs. no anticoagulation in light of frequent falls. Disposition: Awaiting placement. Charges/Coding Visit Charges Inpatient E&M: 06981 Subs Hosp L2
--- NOTE | 2021-12-25 12:36 | CASEMGMT ---
Addendum entered by Cynthia Preciado 12/25/21 13:02: SW in to speak with pt. SW informed pt that [facility] has accepted pt, pre-cert has been obtained, pt can discharge to [facility]. Pt states understanding. Original Note: Social Work Note SW received message from Nisha at [facility] stating pre-cert has been obtained, pt can discharge to [facility] today. SW updated physician. Plan: [facility] skilled today Cynthia Preciado BEAN SNAPPER, FLIGHT PARAMEDIC
--- NOTE | 2021-12-25 12:45 | CASEMGMT ---
Social Work Note While this worker was speaking to pt about discharge to [facility], pt stated that she was told she would have dialysis tomorrow. SW on the phone with Nisha at [facility]. SW discussed with pt her normal dialysis schedule. Pt states her normal schedule is M,F at 6:30am at [facility]. SW to check with physicians to inquire about dialysis schedule. Cynthia Preciado SHOP CLERK, COW BUYER
--- NOTE | 2021-12-25 14:24 | PCM.DC.SUM ---
Providers Date of Admission: 12/23/21 Primary Care Physician: Dr. Mitchell Appiah MD Consultations 12/23/21 10:48 Consult: Nephrology Routine Consulting Provider: Fito Sinha Reason for Consult: dialysis EMERGENT Consult: No MD Notified: Yes Date Notified: 12/23/21 Time Notified: 08:32 Method of Notification: Text Reason For Visit: FAILURE TO THRIVE Diagnosis Discharge Diagnosis (1) FTT (failure to thrive) in adult: Status: Acute Code(s): R62.7 - Adult failure to thrive (2) Debility: Status: Acute Code(s): R53.81 - Other malaise Medications at Discharge Home Medications midodrine 10 mg tablet 40 mg PO TID 07/24/18 promethazine 25 mg tablet 25 mg PO Q6H PRN 08/17/19 potassium chloride 10 mEq tablet,extended release 10 meq PO TID 04/26/20 primidone 250 mg PO TID 10/06/20 Trintellix 20 mg PO QHS 05/09/21 clonazepam 0.5 - 1 mg PO QHS PRN 05/09/21 metoprolol tartrate 25 mg PO BID 05/09/21 pantoprazole [Protonix] 40 mg PO DAILY 05/09/21 fluticasone propionate 1 spray INTRANASAL BID 07/13/21 loperamide 2 mg PO Q6H PRN 07/13/21 multivitamin 1 tab PO DAILY 07/13/21 levothyroxine 50 mcg PO DAILY 12/05/21 Remove Patch 1 patch TOPICAL DAILY@2200 #0 12/06/21 acetaminophen [Tylenol] 650 mg PO Q6H PRN PRN #0 tab 12/06/21 lidocaine 1 patch TOPICAL DAILY #0 ea 12/06/21 Hospital Course Operations None Procedures None Summary of Care Provided Minutes Spent on Discharge: 40 Hospital Course: Patient is a 76-year-old female with a past medical history as outlined who was admitted through the ED on 12/23/2021 with a complaint of mechanical falls. Patient says she has been falling quite frequently and had fallen the day before admission and also on the day of admission. She had been admitted and sent to the [facility] earlier this month on account of debility from mechanical falls and was discharged home just a week before this admission. CT of the head was negative for any evidence of intracranial bleed. Patient had a shuffling gait and also had tremors and said she had been diagnosed with essential tremors at the [facility] and had refused deep brain stimulation. She was admitted and managed for debility due to mechanical falls. She was amenable to placement. She was discharged to shelter facility on 12/25/2021. She is to follow-up with her primary care doctor in 1 to 2 weeks. Patient seen and examined prior to discharge. She had no acute complaints and felt well. Review of systems otherwise negative. Labs and vitals reviewed. Home medication reviewed and reconciled. Physical Exam Const alert, oriented x3 and no apparent distress Exam Limitations: no limitations HEENT normocephalic, head/scalp atraumatic and moist oral mucous membranes Eyes PERRL and EOMs intact bilaterally Neck no lymphadenopathy, supple and no JVD Resp normal respiratory effort, no retractions, no use of accessory muscles and clear to auscultation bilaterally Cardio regular rate, regular rhythm, S1 normal heart sound, S2 normal heart sound and no murmurs GI normal to inspection, nondistended, normoactive bowel sounds, soft to palpation, non-tender and non-distended Extremity normal to inspection, full ROM and no clubbing, cyanosis or edema Skin no rashes or lesions noted Neuro oriented x3, CN's II-XII intact bilaterally and moves all extremities Neuro Narrative: has tremors of her head and extremities, which is chronic Sensorium / Orientation: awake and alert Psych affect normal Weight / BMI Weight Weight: 154 lb 5.177 oz Body Mass Index (BMI) 25.6 ABG / Lab / Microbiology Data Result Diagrams: 12/25/21 06:05 12/25/21 06:05 Laboratory: Laboratory Results - last 24 hr 12/25/21 06:05: WBC 3.5 L, RBC 2.89 L, Hgb 10.2 L, Hct 32.0 L, MCV 110.7 H, MCH 35.3 H, MCHC 31.9 L, RDW Std Deviation 63.7 H, RDW Coeff of Yoana 15.5 H, Plt Count 77 L, MPV 13.5 H, Immature Gran % (Auto) 0.600, Neut % (Auto) 53.0, Lymph % (Auto) 36.1, [place] % (Auto) 7.7, Eos % (Auto) 1.7, Baso % (Auto) 0.9, Absolute Neuts (auto) 1.9 L, Absolute Lymphs (auto) 1.27, Nucleated RBC % 0 12/25/21 06:05: Sodium 139, Potassium 3.2 L, Chloride 105, Carbon Dioxide 21.0, Anion Gap 13, BUN 40 H, Creatinine 6.06 H, Estim Creat Clear Calc 7.80, Est GFR (MDRD) Af Amer 9 L, Est GFR (MDRD) Non-Af 7 L, BUN/Creatinine Ratio 6.6 L, Glucose 86, Calcium 8.1 L, Total Bilirubin 0.60, AST 32, ALT 52, Alkaline Phosphatase 161 H, Total Protein 5.4 L, Albumin 2.3 L, Globulin 3.1, Albumin/Globulin Ratio 0.7 L Microbiology: Microbiology 12/23/21 06:46 Nasal Secretion SARS-CoV-2 Antigen (Rapid) - Final D/C Instructions Discharge Diet: Low fat / Low cholesterol Discharge Activity: Return to Normal Activity Weight Bearing Status: Weight bearing as tolerated Call your doctor if you observe: Dizziness, Swelling in the ankles, Chest pain, Increased palpitations (irregular heartbeat), Calf discomfort and Uncontrolled pain Meaningful Use Info Meaningful Use Diagnoses (Choose all that apply): None applicable Discharge Plan Admission Admit Date/Time: 12/23/21 08:21 Primary Reason for Your Visit: debility due to mechanical falls Attending Provider: Merly Chen Primary Care Provider: Mitchell Appiah Consulting Providers: Fito Sinha Instructions Patient Instructions: Exercises to Prevent Falls, ED Mechanical Fall, ED Fall Prevention Discharge Orders/Prescriptions Prescriptions: Continued midodrine 10 mg tablet 40 mg PO TID RF: 0 promethazine 25 mg tablet 25 mg PO Q6H PRN (Reason: Nausea) RF: 0 potassium chloride 10 mEq tablet extended release 10 meq PO TID RF: 0 primidone 50 MG tablet 250 mg PO TID RF: 0 pantoprazole [Protonix] 40 mg Tablet,Delayed Release (Dr/Ec) 40 mg PO DAILY RF: 0 Trintellix 20 mg Tablet 20 mg PO QHS RF: 0 clonazepam 0.5 mg Tablet 0.5 - 1 mg PO QHS PRN (Reason: Insomnia) RF: 0 metoprolol tartrate 25 mg Tablet 25 mg PO BID RF: 0 multivitamin Tablet 1 tab PO DAILY RF: 0 loperamide 2 mg Capsule 2 mg PO Q6H PRN (Reason: health maintenance) RF: 0 fluticasone propionate 50 mcg/actuation [place],Suspension 1 spray INTRANASAL BID RF: 0 levothyroxine 50 mcg Tablet 50 mcg PO DAILY RF: 0 acetaminophen [Tylenol] 325 mg Tablet 650 mg PO Q6H PRN PRN (Reason: Pain Score 1-10/Temp > 100.7 F) Qty: 0 RF: 0 lidocaine 5 % Adhesive Patch,Medicated 1 patch topical DAILY Qty: 0 RF: 0 Remove Patch 1 patch topical DAILY@2200 Qty: 0 RF: 0 Referrals / Follow Up: Mitchell Appiah MD [Primary Care Provider] - Within 2 Weeks Disposition Disposition (needs filled in before D/C Order can be placed): Alf Facility Charges/Coding Visit Charges Inpatient E&M: 02448 Disch Hosp
--- NOTE | 2021-12-25 14:34 | TREXTCAR_ITS ---
Diet 12/23/21 10:48 Diet: Renal - General Food consistency:: Regular Liquid Consistency:: Regular/Thin Type of Dietary Supplement:: 4 oz nepro cho steady tid Diet Comments: MEATS CUT BITE SIZE, distant supervision, meds in applesauce/yogurt Routine Orders/Code Status Enema Type: Fleetz Enema Frequency: Daily PRN Suppository Type: Dulcolax 10mg Suppository Frequency: Daily PRN O2 Frequency: PRN Keep PO Greater than or Equal to (%): 90 Wound(s) right hand: Wound Type: Skin Tear right forearm: Wound Type: Skin Tear Therapies Weight Bearing: Weight bearing as tolerated Physical Therapy: Eval and Treat Occupational Therapy: Eval and Treat Problem/Diagnosis (1) FTT (failure to thrive) in adult: Status: Acute (2) Debility: Status: Acute Allergies/Procedures Done in Hospital Allergies heparin Allergy (Intermediate, Verified 12/23/21 06:18) Induced thrombocytopenia alprazolam [From Xanax] Allergy (Verified 12/23/21 06:18) Unknown Procedures: None Type of Care/Length of Stay Estimated LOS: Convalescent Care Less Than 30 days Type of Care Needed: Skilled Rehab Potential: Good Prognosis: Good Additional Orders/Day of Discharge Day of Discharge: 12/25/21 Dietary and Speech Recommendations Dietitian Recommendations/Changes: Rec continue diet as ordered Will provide 120 ml nepro cho steady at meals for increased pro if consumed. Discharge Plan Admission Admit Date/Time: 12/23/21 08:21 Primary Reason for Your Visit: debility due to mechanical falls Attending Provider: Merly Chen Primary Care Provider: Mitchell Appiah Consulting Providers: Fito Sinha Instructions Patient Instructions: Exercises to Prevent Falls, ED Mechanical Fall, ED Fall Prevention Discharge Orders/Prescriptions Prescriptions: Continued midodrine 10 mg tablet 40 mg PO TID RF: 0 promethazine 25 mg tablet 25 mg PO Q6H PRN (Reason: Nausea) RF: 0 potassium chloride 10 mEq tablet extended release 10 meq PO TID RF: 0 primidone 50 MG tablet 250 mg PO TID RF: 0 pantoprazole [Protonix] 40 mg Tablet,Delayed Release (Dr/Ec) 40 mg PO DAILY RF: 0 Trintellix 20 mg Tablet 20 mg PO QHS RF: 0 clonazepam 0.5 mg Tablet 0.5 - 1 mg PO QHS PRN (Reason: Insomnia) RF: 0 metoprolol tartrate 25 mg Tablet 25 mg PO BID RF: 0 multivitamin Tablet 1 tab PO DAILY RF: 0 loperamide 2 mg Capsule 2 mg PO Q6H PRN (Reason: health maintenance) RF: 0 fluticasone propionate 50 mcg/actuation [place],Suspension 1 spray INTRANASAL BID RF: 0 levothyroxine 50 mcg Tablet 50 mcg PO DAILY RF: 0 acetaminophen [Tylenol] 325 mg Tablet 650 mg PO Q6H PRN PRN (Reason: Pain Score 1-10/Temp > 100.7 F) Qty: 0 RF: 0 lidocaine 5 % Adhesive Patch,Medicated 1 patch topical DAILY Qty: 0 RF: 0 Remove Patch 1 patch topical DAILY@2200 Qty: 0 RF: 0 Referrals / Follow Up: Mitchell Appiah MD [Primary Care Provider] - Within 2 Weeks Disposition Disposition (needs filled in before D/C Order can be placed): Shelter Facility
--- NOTE | 2021-12-25 15:50 | CASEMGMT ---
Social Work Note Pt to discharge to [facility] skilled today. JOSEFINA faxed completed discharge paperwork to [facility] including transfer to extended care facility, signed medication list, any scripts, COVID test/tool and Convalescent [facility]000. Original in SNF folder and copy on pt's chart. JOSEFINA completed convalescent 7000 in [facility]. Original in SNF folder and copy on pt's chart. JOSEFINA spoke with RN, pt to transport via wheelchair van. [facility] has [facility] and transporting via wheelchair van so [facility] will need to be called to arrange transportation. SW placed a call to [facility], requested wheelchair van, with a wheelchair, to transport pt and requested [facility]. Transportation scheduled, reference number for trip [phone]. SW completed transportation form and placed on SNF folder and copy on pt's chart. SW is leaving soon for the day, asked [facility] to call nurses desk when transportation is confirmed. While this worker was updating pt on discharge to [facility]. Pt stated that she was told that she was to have dialysis tomorrow since she missed the other day. SW checked dialysis orders, they still have pt on M,F schedule. SW attempted to page Dr. Vela and was transferred to his medical office. JOSEFINA spoke with [employer] Boards Solder Leveler, unable to confirm pt's dialysis schedule. JOSEFINA was informed to call [facility] to confirm pt's dialysis schedule. SW looked up [facility] number, they are closed today as they only do M,W,F dialysis schedule. JOSEFINA spoke with ANNA NOE. ANNA NOE attempting to confirm pt's dialysis schedule. JOSEFINA then received call from [facility] stating they do not provide wheelchair's for transportation. JOSEFINA informed [facility] that that is why this worker requested transportation to be arranged through [facility] via wheelchair van as they do provide wheelchair's for transportation. [facility] to call [facility] to arrange transportation. JOSEFINA placed a call to Nisha at [facility] and left message informing her that discharge paperwork has been faxed, [facility] is to call [facility] nurses station when transportation is confirmed and then staff will call her. JOSEFINA informed [place] and manufacturing supervisor 2nd shift that [facility] is to call [facility] with transportation time and then staff will need to call [facility] to inform them of transportation time. RN updated. RN KUSUM then updated this worker that it is confirmed pt's dialysis schedule is M,F. Plan: [facility] skilled today with [facility] arranging transportation. [facility] to call [facility] when transportation is confirmed. Cynthia Preciado PERSONNEL DIRECTOR, MENU PLANNER
--- NOTE | 2021-12-25 15:52 | CASEMGMT ---
TC to , confirmed that pt next dialysis is Friday.
--- NOTE | 2021-12-25 18:05 | NURSING ---
Report called to [facility] Informed her that the physicians transportation would not be here till 8pm.
[2021-12-25] MEDS: VORTIOXETINE HYDROBROMIDE 20 MG TABLET PO (20:38)
--- NOTE | 2021-12-25 22:09 | NURSING ---
[facility] called and asked if the pt could be transported in the morning at 9am (12/26/2021). Talked with utility supervisor boat and plant Zoey. Notified Christina at the [facility] that pt would be arriving tomorrow morning. Christina said that would be fine.
[2021-12-26 05:22] VITALS: BP 115/53; PULSE 99; RESP 18; TEMP 36.3; O2SAT 96
[2021-12-26] MEDS: Levothyroxine 50 MCG Tablet PO (05:27)
[2021-12-26] MEDS: Primidone 250 MG Tablet PO (05:27)
[2021-12-26] MEDS: Fluticasone 0.05% 1 SPRAY NASAL.SRY NASAL (08:04)
[2021-12-26] MEDS: Midodrine HCl 5 MG Tablet 40 MG PO (08:05)
[2021-12-26] MEDS: Pantoprazole Sodium 40 MG Tablet PO (08:05)
[2021-12-26] MEDS: Multivitamins,Therapeutic Tablet 1 TABLET PO (08:06)
[2021-12-26] MEDS: Lidocaine 5% Patch 1 PATCH TOPICAL (08:07)
[2021-12-26 08:08] VITALS: PULSE 99
[2021-12-26] MEDS: Metoprolol Tartrate 25 MG Tablet PO (08:08)
--- NOTE | 2021-12-26 13:11 | DS.PCM_ITS ---
Providers Date of Admission: 12/23/21 Primary Care Physician: Dr. Mitchell Appiah MD Consultations 12/23/21 10:48 Consult: Nephrology Routine Consulting Provider: Fito Sinha Reason for Consult: dialysis EMERGENT Consult: No MD Notified: Yes Date Notified: 12/23/21 Time Notified: 08:32 Method of Notification: Text Reason For Visit: FAILURE TO THRIVE Diagnosis Discharge Diagnosis (1) FTT (failure to thrive) in adult: Status: Acute Code(s): R62.7 - Adult failure to thrive (2) Debility: Status: Acute Code(s): R53.81 - Other malaise Medications at Discharge Home Medications midodrine 10 mg tablet 40 mg PO TID 07/24/18 promethazine 25 mg tablet 25 mg PO Q6H PRN 08/17/19 potassium chloride 10 mEq tablet,extended release 10 meq PO TID 04/26/20 primidone 250 mg PO TID 10/06/20 Trintellix 20 mg PO QHS 05/09/21 clonazepam 0.5 - 1 mg PO QHS PRN 05/09/21 metoprolol tartrate 25 mg PO BID 05/09/21 pantoprazole [Protonix] 40 mg PO DAILY 05/09/21 fluticasone propionate 1 spray INTRANASAL BID 07/13/21 loperamide 2 mg PO Q6H PRN 07/13/21 multivitamin 1 tab PO DAILY 07/13/21 levothyroxine 50 mcg PO DAILY 12/05/21 Remove Patch 1 patch TOPICAL DAILY@2200 #0 12/06/21 acetaminophen [Tylenol] 650 mg PO Q6H PRN PRN #0 tab 12/06/21 lidocaine 1 patch TOPICAL DAILY #0 ea 12/06/21 Hospital Course Operations None Summary of Care Provided Minutes Spent on Discharge: 35 Hospital Course: Patient is a 76-year-old female with a past medical history as outlined who was admitted through the ED on 12/23/2021 with a complaint of mechanical falls. Patient says she has been falling quite frequently and had fallen the day before admission and also on the day of admission. She had been admitted and sent to the [facility] earlier this month on account of debility from mechanical falls and was discharged home just a week before this admission. CT of the head was negative for any evidence of intracranial bleed. Patient had a shuffling gait and also had tremors and said she had been diagnosed with essential tremors at the [facility] and had refused deep brain stimulation. She was admitted and managed for debility due to mechanical falls. She was amenable to placement. Plan was for her to discharge on 12/25/19 but transportation could not be arranged to her detention on that day. She was discharged to intermediate facility on 12/26/2021. She is to follow-up with her primary care doctor in 1 to 2 weeks. Patient seen and examined prior to discharge. She had no acute complaints and felt well. Review of systems otherwise negative. Labs and vitals reviewed. Home medication reviewed and reconciled. Physical Exam Const alert, oriented x3 and no apparent distress General Appearance: cooperative, comfortable and well kempt Exam Limitations: no limitations HEENT normocephalic, head/scalp atraumatic and moist oral mucous membranes Eyes PERRL and EOMs intact bilaterally Eyes Narrative: Impaired vertical as well as horizontal gaze. Neck no lymphadenopathy, supple and no JVD Resp normal respiratory effort, no retractions, no use of accessory muscles and clear to auscultation bilaterally Cardio regular rate, regular rhythm, S1 normal heart sound, S2 normal heart sound and no murmurs GI normal to inspection, nondistended, normoactive bowel sounds, soft to palpation, non-tender and non-distended Extremity normal to inspection and full ROM Extremity Narrative: Edema of lower extremities Skin no rashes or lesions noted Skin Narrative: Skin tear on dorsum of right hand Neuro oriented x3, CN's II-XII intact bilaterally and moves all extremities Neuro Narrative: has tremors of her head and extremities, which is chronic Sensorium / Orientation: awake and alert Psych affect normal Weight / BMI Weight Weight: 153 lb 3.54 oz Body Mass Index (BMI) 25.6 ABG / Lab / Microbiology Data Result Diagrams: 12/25/21 06:05 12/25/21 06:05 Microbiology: Microbiology 12/23/21 06:46 Nasal Secretion SARS-CoV-2 Antigen (Rapid) - Final D/C Instructions Discharge Diet: Low fat / Low cholesterol Weight Bearing Status: Weight bearing as tolerated Call your doctor if you observe: Dizziness, Swelling in the ankles, Chest pain, Increased palpitations (irregular heartbeat), Calf discomfort and Uncontrolled pain Meaningful Use Info Meaningful Use Diagnoses (Choose all that apply): None applicable Discharge Plan Admission Admit Date/Time: 12/23/21 08:21 Primary Reason for Your Visit: debility due to mechanical falls Attending Provider: Merly Chen Primary Care Provider: Mitchell Appiah Consulting Providers: Fito Sinha Instructions Patient Instructions: Exercises to Prevent Falls, ED Mechanical Fall, ED Fall Prevention Discharge Orders/Prescriptions Prescriptions: Continued midodrine 10 mg tablet 40 mg PO TID RF: 0 promethazine 25 mg tablet 25 mg PO Q6H PRN (Reason: Nausea) RF: 0 potassium chloride 10 mEq tablet extended release 10 meq PO TID RF: 0 primidone 50 MG tablet 250 mg PO TID RF: 0 pantoprazole [Protonix] 40 mg Tablet,Delayed Release (Dr/Ec) 40 mg PO DAILY RF: 0 Trintellix 20 mg Tablet 20 mg PO QHS RF: 0 clonazepam 0.5 mg Tablet 0.5 - 1 mg PO QHS PRN (Reason: Insomnia) RF: 0 metoprolol tartrate 25 mg Tablet 25 mg PO BID RF: 0 multivitamin Tablet 1 tab PO DAILY RF: 0 loperamide 2 mg Capsule 2 mg PO Q6H PRN (Reason: health maintenance) RF: 0 fluticasone propionate 50 mcg/actuation [place],Suspension 1 spray INTRANASAL BID RF: 0 levothyroxine 50 mcg Tablet 50 mcg PO DAILY RF: 0 acetaminophen [Tylenol] 325 mg Tablet 650 mg PO Q6H PRN PRN (Reason: Pain Score 1-10/Temp > 100.7 F) Qty: 0 RF: 0 lidocaine 5 % Adhesive Patch,Medicated 1 patch topical DAILY Qty: 0 RF: 0 Remove Patch 1 patch topical DAILY@2200 Qty: 0 RF: 0 Referrals / Follow Up: Mitchell Appiah MD [Primary Care Provider] - Within 2 Weeks Disposition Disposition (needs filled in before D/C Order can be placed): [facility] Charges/Coding Visit Charges Inpatient E&M: 28570 Disch Hosp
== END 2021-12-26 08:40 | DRG 640 ==
LOC: ED 06:53 → MS3 09:29
PROVIDERS: Family Medicine; Emergency Provider Student in an Organized Health Care Education/Training Program; PCP Family Medicine; Visit Provider Student in an Organized Health Care Education/Training Program
DX: R62.7 Adult failure to thrive (principal); N18.6 End stage renal disease; I48.0 Paroxysmal atrial fibrillation; G25.0 Essential tremor; E03.9 Hypothyroidism, unspecified; D64.9 Anemia, unspecified; I48.91 Unspecified atrial fibrillation; K21.9 Gastro-esophageal reflux disease without esophagitis; F41.9 Anxiety disorder, unspecified; F32.A Depression, unspecified; Z66 Do not resuscitate; R13.10 Dysphagia, unspecified; R29.6 Repeated falls; R53.81 Other malaise
CPT/HCPCS: 36415; 70450; 71101; 73130; 80048; 80053; 82248; 84484; 85025; 87426; 90937; 92610; 92611; 93005; 97110; 97162; 97166; 97530; 97535; 97802; 99285; J7030; A4216; G0257